=== PATIENT | female | born 1935 | race Caucasian/White ===

== ENCOUNTER → 2020-06-30 08:28 | Outpatient (REF) | payer MEDICARE, SELFPAY ==
--- NOTE | 2020-06-30 08:30 | CA_ITS ---
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 The visually estimated ejection fraction is between 55-60%. - The left atrium is severely dilated. - There is moderate aortic valve stenosis. - There is mild mitral valve regurgitation. - There is mild tricuspid valve regurgitation. Findings Left Ventricle Normal left ventricular cavity size. The left ventricular systolic function is normal. The visually estimated ejection fraction is between 55-60%. There is no evidence of regional wall motion abnormalities. E/E prime ratio is >15, consistent with elevated filling pressures. Evidence suggests grade I (mild) diastolic dysfunction. There is moderate septal and moderate basal asymmetric hypertrophy. Right Ventricle Normal right ventricular cavity size and systolic function. Atria The left atrium is severely dilated. The right atrium is normal in size. Aortic Valve The aortic valve was not well visualized. There is moderate calcification of the aortic valve. There is moderate aortic valve stenosis. The peak aortic velocity is 3.06 m/s with a calculated peak gradient of 37 mmHg. The mean gradient is 21 mmHg. The aortic valve area is 1.03 cm2. There is no aortic valve regurgitation. Mitral Valve The mitral valve appears normal. There is mild mitral valve regurgitation. There is no mitral valve stenosis. Pulmonic Valve The pulmonic valve was not well visualized. There is trace pulmonic valve regurgitation. Tricuspid Valve Normal tricuspid valve structure. There is mild tricuspid valve regurgitation. The pulmonary artery systolic pressure is normal. Great Vessels The asc aorta is normal in size. Venous The inferior vena cava is normal in size and collapses greater than 50% with inspiration. Pericardium/Pleural There is no evidence of pericardial effusion. Prior Study Comparison No prior study available for comparison. Measurements 2D Linear Measurements IVSd: 1.21 0.6-0.9/0.6-1.0 cm LVIDd: 3.99 3.9-5.3/4.2-5.9 cm LVIDd Index: 2.22 2.4-3.2/2.2-3.1 cm/m2 LVIDs: 3.10 2.0-3.6 cm LVPWd: 1.20 0.7-1.1 cm Ao Root: 2.80 2.1-3.5 cm LA Diam: 3.00 2.7-3.8/3.0-4.0 cm LAIDs Index: 1.67 1.5-2.3 cm/m2 LV Mass: 206.57 67-162/88-224 g LV Mass Index: 114.76 43-95/49-115 g/m2 LVOT Diam: 2.10 3.0+(-)1.3 cm 2D Systolic Function EF 4C: 59.30 >55% EF 2C: 54.40 >55% EF BiP: 55.30 >55% Mitral Valve MV VTI: 0.44 MV Pk Mckay: 1.44 MV Mn Mckay: 0.80 MV Pk Grad: 8.00 MV Mn Grad: 3.00 MV Pk E: 1.08 MV PK A: 1.44 MV Decel Time: 264.00 E/A: 0.80 E'Lateral: 6.38 E'Medial: 4.84 E/E' Med: 22.30 E/E' Lat: 16.90 PHT: 77.00 MVA PHT: 2.86 MVA Continuity: 1.60 Decel [place]: 4.10 Aortic Valve AoV Pk Mckay: 3.06 AoV Mn Mckay: 2.13 AoV VTI: 0.69 AoV Pk Grad: 37.00 Aov Mn Grad: 21.00 BRITTANY Cont.VTI: 1.03 LVOT LVOT Pk Mckay: 0.82 LVOT Mn Mckay: 0.54 LVOT VTI: 0.21 LVOT Pk Grad: 3.00 LVOT Mn Grad: 1.00 LVOT Diam: 2.10 LVOT Area: 3.46 Diastolic Function MV Pk E: 1.08 MV Pk A: 1.44 E/A: 0.80 E'Medial: 4.84 E/E' Med: 22.30 E' Laterial: 6.38 E/E' Lat: 16.90 Tricuspid Valve TR Pk Mckay: 2.44 TR Pk Grad: 24.00 RA Press: 3.00 RVSP: 27.00 Great Vessels Aorta Ao Root-2D: 2.80 2.0-3.7 cm Ao Asc: 3.30 2.1-3.4 cm Pulmonary Valve PV Pk Mckay: 1.78 Peak PV Grad: 13.00 Updated in Other Vendor System with Status of Final Hugo Tubbs MD electronically signed on 06/30/2020 12:15:28 PM with status of Final
== END ==
LOC: HO.CARD 08:28
PROVIDERS: Visit Provider Internal Medicine
DX: R01.1 Cardiac murmur, unspecified (principal)
CPT/HCPCS: 93306; Q9957

== ENCOUNTER → 2020-09-10 08:58 | Outpatient (BNVA) | payer MEDICARE, SELFPAY | PROVIDERS: PCP Internal Medicine; Visit Provider Internal Medicine | DX: I35.0 Nonrheumatic aortic (valve) stenosis (principal); I49.8 Other specified cardiac arrhythmias; I45.2 Bifascicular block; I10 Essential (primary) hypertension | CPT/HCPCS: 93005; 99202 ==

== ENCOUNTER → 2020-09-18 08:16 | Outpatient (REF) | payer MEDICARE, SELFPAY ==
--- NOTE | ~2020-09-18 | NM_ITS ---
Myocardial perfusion study Indication: Shortness of breath on exertion to evaluate for myocardial ischemia Technique: The patient was brought in for a Lexiscan perfusion study on 09/18/2020. Patient performed low-level exercise and was injected 0.4 mg of Lexiscan intravenously. Within a minute of injection, 25 mCi of sestamibi was given intravenously. Images were obtained using the SPECT gamma camera interlaced with the gating device. Images were obtained in supine position. Resting perfusion study was performed on 09/21/2020. Patient was administered 25 mCi of sestamibi intravenously at rest. Images were then obtained in supine position. Images obtained with and without CT attenuation. Total DLP 88 mGy-cm. Images were processed with the software and compared side to side in short axis, horizontal long axis and vertical long axis views. Findings: The stress perfusion study showed non attenuated images show normal uptake of radiotracer in all segments of LV myocardium. Attenuation corrected images show mildly reduced uptake in the apex of the LV myocardium. There is suggestion of left ventricle hypertrophy. The gated study shows normal LV systolic function with calculated LVEF of 59%. LV cavity is normal in size. The gated study shows normal systolic wall thickening and contraction of segments. Resting study shows no change in perfusion pattern compared to stress perfusion study. Gating at rest reveals normal systolic wall motion with ejection fraction at 55%. The findings are consistent with normal myocardial perfusion. NM/NM charisma perf SPECT rest & str Impression: 1. Myocardial perfusion imaging study shows normal myocardial perfusion 2. Gated LVEF is 59% 3. Transient ischemic dilatation not present EKG is nondiagnostic for ischemia
--- NOTE | 2020-09-18 08:24 | CA_ITS ---
Acquisition Time: 2020-09-18 09:17:38 Total Exercise Time: 00:02:00 Test Indications: Abnormal ECG Medications: FENOFIBRATE LOSARTAN/HCTZ PREGABALIN Protocol: LEXISCAN Max HR: 131 BPM 95% of Pred: 137 BPM Max BP: 132/078 mmHG Max Work Load: 1.0 METS Pharmacological stress test using Lexiscan while sitting. Pt tolerated well, denies any anginal sx. EKG with RBBB and L fascicular block. Non-diagnostic for ischemia. Nuclear images to follow. Normotensive response to test. Test reviewed with Dr. Tubbs. Patient's heart rate elevated 110-120, patient monitored and re-evaluated after nuclear scan. Heart rate down to 80s to 90s. Patient asymptomatic Referred By: Hugo Tubbs Overread By: Dina Mendoza NP
== END ==
LOC: HO.CARD 08:16
PROVIDERS: PCP Internal Medicine; Visit Provider Internal Medicine
DX: I45.2 Bifascicular block (principal)
CPT/HCPCS: 78452; 93016; 93017; 93018; A9500; J0280; J2785

== ENCOUNTER → 2020-09-28 14:17 | Outpatient (REF) | payer MEDICARE, SELFPAY ==
--- NOTE | 2020-09-29 15:35 | ECG_ITS ---
Hook-up date: 2020-09-28 14:20:00 Duration: 47:59:00 Test Indications: PALPITATIONS, CARDIAC ARRHYTHMIA Medications: 724777 QRS complexes 6085 Ventricular ectopics which represent 2 % of total QRS comp. 78890 Supraventricular ectopics which represent 5 % of total QRS comp. * Paced QRS complexs which represent % of total QRS comp. VENTRICULAR ECTOPY 5976 Isolated 21 Bigeminal Cycles 53 Couplets 1 Runs 3 Beats in Runs 3 Beats LONGEST at 83 BPM at 23:05:45 2020-09-28 3 Beats FASTEST at 83 BPM at 23:05:45 2020-09-28 SUPRAVENTRICULAR ECTOPY 06620 Isolated 267 Couplets 45 Runs 214 Beats in Runs 13 Beats LONGEST at 172 BPM at 15:41:38 2020-09-28 5 Beats FASTEST at 173 BPM at 14:53:56 2020-09-28 HEART RATES 65 MIN at 23:53:43 2020-09-28 88 AVG 199 MAX at 15:41:41 2020-09-28 LONGEST RR 0.8000 secs at 10:04:46 2020-09-29 S-T LEVELS Channel 1 - 128 mm at 14:20:00 2020-09-28 - 128 mm at 14:20:00 2020-09-28 Channel 2 - 128 mm at 14:20:00 2020-09-28 - 128 mm at 14:20:00 2020-09-28 Channel 3 - 128 mm at 03:33:91 -- - 128 mm at 03:33:91 Basic rhythm Normal sinus rhythm Baseline BBB No long pause or profound bradycardia Frequent Premature atrial complexes / Premature ventricular complexes Multiple short runs of PACs s/o of PAT/SVT , fastest 13 beats at 172 bpm Patient did not report any symptoms in the diary Referred By: Hugo Tubbs Overread By: SAMINA VILLAGOMEZ MD
== END ==
LOC: HO.CARD 14:17
PROVIDERS: PCP Internal Medicine; Referring Provider Internal Medicine; Visit Provider Internal Medicine
DX: I49.8 Other specified cardiac arrhythmias (principal); R00.2 Palpitations
CPT/HCPCS: 93226

== ENCOUNTER → 2020-10-13 10:16 | Outpatient (BNVA) | payer MEDICARE, SELFPAY | PROVIDERS: PCP Internal Medicine; Referring Provider Internal Medicine; Visit Provider Internal Medicine | DX: I35.0 Nonrheumatic aortic (valve) stenosis (principal); I49.8 Other specified cardiac arrhythmias; I45.2 Bifascicular block; I10 Essential (primary) hypertension | CPT/HCPCS: 99212 ==

== ENCOUNTER 2021-02-25 13:26 | Outpatient (REF) | payer MEDICARE, SELFPAY ==
--- NOTE | ~2021-02-25 | XR_ITS ---
EXAMINATION: XR CHEST CLINICAL INFORMATION: Cough. Pneumonia. COMPARISON: Previous chest x-ray February 2019 TECHNIQUE: 2 views of the chest were obtained. FINDINGS: The cardiac silhouette does not appear enlarged. There is an esophageal hernia that is unchanged. Hilar and mediastinal contours are otherwise unremarkable. The lungs are clear. There is no pleural effusion or pneumothorax. There are degenerative changes of the spine. There is an old mid thoracic vertebral body compression fracture that appears unchanged. XR/XR chest 2V IMPRESSION: No change from previous exam. No evidence of pneumonia.
[2021-02-25 14:49] LABS: MANUAL DIFF FLAG NO
[2021-02-25 15:02] LABS: Basophils Percent Auto 0.3 % (0-2); Eosinophils Absolute Auto 0.1 X10*3/uL (0.0-0.4); Eosinophils Percent Auto 0.7 % (0-4); Hematocrit 37.2 % (37-47); Hemoglobin 12.8 g/dl (12.0-16.0); Imm Gran Abs Auto 0.06 X10*3/uL (0.00-0.03); Imm Gran Pct Auto 0.4 % (0.0-0.4); Lymphocytes Absolute Auto 1.4 X10*3/uL (1.2-4.9); Lymphocytes Percent Auto 9.6 % (20-40); Mean Corpuscular HGB Conc 34.4 g/dl (31.0-35.0); Mean Corpuscular Hemoglobin 31.3 pg (27.0-33.0); Mean Platelet Volume 10.6 fL (9.4-12.3); Monocytes Absolute Auto 1.1 X10*3/uL (0.1-1.2); Monocytes Percent Auto 7.5 % (2-11); Neutrophils Absolute Auto 11.9 X10*3/uL (2.0-8.3); Neutrophils Percent Auto 81.5 % (45-73); Platelet Count 224 X10*3/uL (160-400); Red Blood Count 4.09 X10*6/uL (4.20-5.50); Red Cell Distribution Width 13.4 % (11.0-16.0); White Blood Count 14.6 X10*3/uL (4.8-10.8)
[2021-02-25 15:13] LABS: Alanine Aminotransferase 19 U/L (0-31); Albumin Level 4.1 g/dL (3.5-5.0); Alkaline Phosphatase 102 U/L (39-117); Anion Gap 17 (12-20); Aspartate Amino Transferase 21 U/L (5-31); Bilirubin Direct 0.4 mg/dL (0.0-0.5); Bilirubin Total 0.8 mg/dL (0.0-1.0); Blood Urea Nitrogen 33 mg/dL (9-16); Carbon Dioxide 24 mmol/L (22-29); Chloride 95 mmol/L (96-108); Cholesterol 216 mg/dL; Estimated Glomerular Filt Rate 24; Glucose Fasting 195 mg/dL (60-99); HDL Cholesterol 34 mg/dL; LDL Cholesterol Calculated 130 mg/dl; Potassium 3.3 mmol/L (3.3-5.1); Sodium 133 mmol/L (135-145); Total Protein 6.9 g/dL (6.5-8.0); Triglycerides 264 mg/dL
[2021-02-25 15:33] LABS: Free T4 (Free Thyroxine) 1.02 ng/dL (0.71-1.85)
[2021-02-25 16:04] LABS: Appearance Urine CLOUDY; Color Urine YELLOW; Glucose Urine UA NEG (NEG); Leukocyte Esterase Urine 2+ (NEG); Nitrite Urine NEG (NEG); PH 5.5 (5.0-8.0); Specific Gravity - Urine 1.025 (1.005-1.025); UACC Culture Trigger YES; Urine Blood TRACE (NEG); Urine Ketones NEG (NEG); Urine Protein 1+ MG/DL (NEG-TRACE)
[2021-02-25 16:23] LABS: Bacteria Urine 4+ /LPF; Squamous Epithelial Cell Urine 2+ /LPF
[2021-02-25 16:25] LABS: WBC Urine 30-49 /HPF (0-4)
== END 2021-02-25 13:27 | disposition home or self-care (01) ==
LOC: HO.LAB 13:26
PROVIDERS: PCP Internal Medicine; Visit Provider Internal Medicine
DX: R53.83 Other fatigue (principal); E78.5 Hyperlipidemia, unspecified; R06.02 Shortness of breath; R05.9 Cough, unspecified
CPT/HCPCS: 36415; 71046; 80051; 80061; 80076; 81001; 81003; 82565; 82947; 84439; 84443; 84520; 85025; 87086; 87088; 87186

== ENCOUNTER 2021-03-01 14:44 | Outpatient (REF) | payer MEDICARE, SELFPAY ==
--- NOTE | ~2021-03-01 | XR_ITS ---
EXAMINATION: XR BILATERAL HIPS WITH AP PELVIS CLINICAL INFORMATION: Fall. Bilateral hip pain. COMPARISON: None TECHNIQUE: AP view of the pelvis and 2 views of each hip were obtained. FINDINGS: AP HIP: There is normal symmetry of bilateral SI joints and hip joints. No visible acute fracture, dislocation or bony abnormality seen. Right hip: The the right hip joint space is maintained normal. No visible fracture, dislocation or subluxation seen. The soft tissues are normal. LEFT HIP: There is no visible acute fracture, dislocation or lytic process. The soft tissues are normal. XR/XR hips LEON min 3V IMPRESSION: Unremarkable AP pelvis and bilateral hip exam.
--- NOTE | ~2021-03-01 | XR_ITS ---
EXAMINATION: XR LUMBOSACRAL SPINE CLINICAL INFORMATION: Status post fall. COMPARISON: MRI lumbar spine 06/09/2017 TECHNIQUE: Three views of the lumbosacral spine. FINDINGS: There is normal lumbar lordosis. There is grade 1 anterolisthesis L4-L5 with loss of L4-L5 and L5/S1 disc heights. Rest the disc heights are normal. No visible acute fracture, dislocation seen. There is mild superior endplate deformities L1-L3 vertebra likely old. SI joints are symmetrical and normal. The soft tissues are normal. XR/XR lumbar spine 2-3V IMPRESSION: Grade 1 anterolisthesis L4 over L5. Degenerative disc changes L4-L5 and L5-S1 disc level. No visible acute fracture or dislocation seen. If patient has persistent point tenderness in the lumbar spine region of the lumbar spine or bone scan can be performed.
== END 2021-03-01 14:45 | disposition home or self-care (01) ==
LOC: HO.XRAY 14:44
PROVIDERS: PCP Internal Medicine; Visit Provider Internal Medicine
DX: Z13.89 Encounter for screening for other disorder (principal)
CPT/HCPCS: 72100; 73522

== ENCOUNTER 2021-03-01 14:50 | Outpatient (REF) | payer MEDICARE, SELFPAY ==
[2021-03-01 15:17] LABS: COVID-19 Test Negative (Negative)
== END 2021-03-01 14:51 | disposition home or self-care (01) ==
LOC: HO.LAB 14:50
PROVIDERS: PCP Internal Medicine; Visit Provider Internal Medicine
DX: Z20.822 Contact with and (suspected) exposure to COVID-19 (principal)
CPT/HCPCS: 36415; 72100; 73522; 87635; C9803

== ENCOUNTER 2021-03-03 11:51 | Inpatient (IN) | payer MEDICARE, SELFPAY ==
[2021-03-03] VITALS (9 sets, daily range): BP systolic 125–145; BP diastolic 57–79; PULSE 90–102; RESP 14–22; TEMP 36.8–36.9; O2SAT 92–96; BMI 38.1
--- NOTE | ~2021-03-03 | CT_ITS ---
EXAMINATION: CT LUMBAR SPINE WITHOUT CONTRAST CLINICAL INFORMATION: Compression fractures L1 and L3 vertebrae. Osteoporosis. Recent trauma. COMPARISON: MRI lumbar spine 03/05/2021 TECHNIQUE: 2 mm thin axial and reformatted 2 mm thin sagittal and coronal images of the lumbar spine were obtained without contrast. This CT examination was performed using dose optimization techniques as appropriate, variously including the following: *Automated exposure control *Adjustment of mA and/or kV according to patient size (this includes techniques or standardized protocols for targeted exams where dose is matched to indication/reason for exam; i.e. extremities or head) *Use of iterative reconstruction technique DLP; 402 mGy-cm FINDINGS: On sagittal reconstructed images, there is normal lumbar lordosis. There is loss of the L1 vertebral height approximately by 50%. There is loss of the L3 vertebral height by at least 20% centrally. There is a small posterior bony component projecting to the spinal canal at the L1 vertebra, but no spinal canal stenosis is seen. There is no posterior bony component or spinal canal stenosis at the L3 vertebra. No visible acute fracture, dislocation or lytic process is seen. The paravertebral soft tissues are normal. CT/CT lumbar spine wo con IMPRESSION: Acute L1 compression fracture with loss of 50% vertebral height and acute L3 compression fracture with loss of 20% vertebral height. There is a posterior bony spinal component at the L1 vertebra causing spinal canal stenosis.
--- NOTE | ~2021-03-03 | CT_ITS ---
EXAMINATION: CT LUMBAR SPINE CLINICAL INFORMATION: Post L1 and L3 kyphoplasty. COMPARISON: Pre-kyphoplasty CT. TECHNIQUE: 2 mm thin axial and reformatted 2 mm thin sagittal and coronal images of lumbar spine were obtained without contrast. This CT examination was performed using dose optimization techniques as appropriate, variously including the following: *Automated exposure control *Adjustment of mA and/or kV according to patient size (this includes techniques or standardized protocols for targeted exams where dose is matched to indication/reason for exam; i.e. extremities or head) *Use of iterative reconstruction technique DLP: 338 mGy-cm FINDINGS: On sagittal reconstructed images there is adequate cement occupying L1 compression fracture. The fracture lines are visualized through the superior endplate and along the anterior pedicles bilaterally. There is adequate cement occupying L3 compression fracture with no cement extravasation seen. The L2 and L4 vertebral heights are normal. CT/CT lumbar spine post vert IMPRESSION: Adequate amount of cement occupying L1 and L3 compression fractures with no extravasation seen. Visualized L2 and L4 vertebral heights are normal. The disc heights from L1-L2 through L3-L4 disc level appears unremarkable.
--- NOTE | ~2021-03-03 | CT_ITS ---
EXAMINATION: CT ABDOMEN AND PELVIS, NONCONTRAST CT LUMBAR SPINE, NONCONTRAST CLINICAL INFORMATION: Fall, trauma, pain, constipation COMPARISON: CT abdomen and pelvis with contrast 01/07/2019; CT chest 03/03/2021. TECHNIQUE: Multidetector volumetric imaging was performed from the superior aspect of the liver through the pubic symphysis without oral or intravenous contrast. CT lumbar spine also performed in axial plane without contrast. Sagittal and coronal reformatted images were obtained on the technologist workstation for both exams and uploaded to PACS. CT chest also performed, described in separate report. This CT examination was performed using dose optimization techniques as appropriate, variously including the following: *Automated exposure control *Adjustment of mA and/or kV according to patient size (this includes techniques or standardized protocols for targeted exams where dose is matched to indication/reason for exam; i.e. extremities or head) *Use of iterative reconstruction technique DLP: 654 mGy-cm (abdomen/pelvis) 474 mGy-cm (lumbar spine) FINDINGS: LUNG BASES: Subpleural scarring versus disc atelectasis left posterior medial base. No airspace consolidation or effusion. LIVER, GALLBLADDER, AND BILIARY TREE: The liver is upper limits of normal size and smooth in contour. Parenchymal is homogeneous. There is no focal parenchymal lesion on this noncontrast exam. No intrahepatic ductal dilatation. The gallbladder is unremarkable with no evidence of radiopaque gallstones, gallbladder wall thickening, or obvious pericholecystic inflammatory changes. PANCREAS: Unremarkable. SPLEEN: Unremarkable. ADRENAL GLANDS: Unremarkable. KIDNEYS AND URETERS: The kidneys are normal in size, shape, and attenuation. No hydronephrosis, hydroureter, or calculi seen. No perinephric stranding. BLADDER: Unremarkable. GASTROINTESTINAL TRACT: There is no pneumatosis or free air. No bowel obstruction or focal inflammatory changes in the bowel or mesentery. The appendix is normal. There is moderate stool right colon. Numerous diverticula are present from distal descending through the sigmoid colon without changes of diverticulitis. There is no ascites or fluid collection. ABDOMINAL WALL: Small fat-containing umbilical hernia under 3 cm. Bilateral fat-containing inguinal hernias again noted larger on right. No abdominal wall hematoma. LYMPH NODES: No lymphadenopathy. VASCULAR: Unremarkable on this noncontrast exam. PELVIC VISCERA: Unremarkable. CT LUMBAR SPINE: There is mild to moderate compression fracture at L1 representing new finding from prior CT 01/07/2019. The pedicles and posterior elements are intact. There is no retropulsed fragment. No spondylolisthesis or retrolisthesis. No paraspinal soft tissue swelling or hematoma. There are accentuated superior and inferior endplate concavities at L3, also new from 2019. No visible fracture line or paraspinal soft tissue swelling. The remainder of the lumbar vertebrae are normal in height. Again, there are prominent degenerative disc changes L4-L5 with grade 1-2 spondylolisthesis and degenerative changes in the facets. No visible spondylolysis. Prominent degenerative disc changes again also present at L5-S1 without spondylolisthesis or spondylolysis. The SI joints show no diastases. OSSEOUS STRUCTURES (OTHER): The pelvis and hips and lower ribs are intact. CT/CT abdomen pelvis wo con IMPRESSION: 1. Mild to moderate compression fracture L1, new from prior CT 01/07/2019. No retropulsed fragment. Posterior elements intact. No paraspinal soft tissue swelling. 2. Mild accentuated superior and inferior endplate concavity L3, new from CT 01/07/2019. No visible fracture or paraspinal soft tissue swelling. 3. No acute traumatic abnormality abdominal organs. No free air or ascites.
--- NOTE | ~2021-03-03 | CT_ITS ---
EXAMINATION: CT HEAD W/O IV CONTRAST CT CERVICAL SPINE W/O IV CONTRAST CLINICAL INFORMATION: History of fall with head strike. Neck pain. COMPARISON: Head and C-spine CT from 05/08/2018. Neck CT from 02/04/2016. TECHNIQUE: Head - Contiguous axial imaging of the head was performed from the skull base to the vertex without the administration of intravenous contrast, and axial images are reconstructed at 2 mm and 5 mm slice thickness. Cervical spine - A volumetric, helical CT acquisition of the cervical spine was obtained without contrast; in addition to the standard set of axial images, multiplanar reformatted images were provided in the coronal and sagittal imaging planes. This CT examination was performed using dose optimization techniques as appropriate, variously including the following: *Automated exposure control *Adjustment of mA and/or kV according to patient size (this includes techniques or standardized protocols for targeted exams where dose is matched to indication/reason for exam; i.e. extremities or head) *Use of iterative reconstruction technique DLP: 969 mGy-cm (total) FINDINGS: HEAD: There is atherosclerotic calcification of cavernous carotid arteries and proximal intradural segments of vertebral arteries. Chronic small vessel ischemic changes in the supratentorial white matter. The gonzalez-white matter differentiation is maintained. No evidence of an acute major vascular territory infarction, hemorrhage, extra-axial fluid collection or focal mass effect. Mild atrophy of brain parenchyma with commensurate prominence of ventricles and sulci. No hydrocephalus. There is an old perifissural cystic focus or prominent perivascular space inferior to the region of left basal ganglia. The brainstem and cerebellum are unremarkable. The cerebellar tonsils are in normal position. The calvarium is intact. The mastoid air cells and middle ear cavities are well aerated. There is chronic mucoperiosteal thickening of the left sphenoid sinus. There are secretions within the posterior right ethmoid. No air-fluid levels within the paranasal sinuses. No findings of acute sinusitis. Prior ocular lens replacements. Osteoarthritis of bilateral temporomandibular joints. CERVICAL SPINE: No acute abnormalities compared to 05/08/2018. The craniocervical junction is normal. The occipital condyles, dens and atlantodental articulation are intact. Chronic, multilevel facet osteoarthritis. The facet joints are ankylosed on the left at C2-C3. The degenerative disc disease of the cervical spine is most pronounced at the C4-C5, C5-C6 and C6-C7 levels. There is chronic, approximately 0.3 cm degenerative anterolisthesis of C3 on C4 and C7 on T1. The facet osteoarthritis is severe on the left at C3-C4 and is severe on the right at C7-T1. There is chronic multilevel neural foraminal stenosis, severe on the left at C3-C4 and worst (i.e., severe) on the right at C4-C5 and C5-C6. The vertebral body heights are maintained. No fractures in the anterior or posterior elements. No prevertebral soft tissue swelling. No spinal hematoma or focal fluid collection in the visualized neck. No acute abnormalities in the visualized lung apices. Thyroid gland is unremarkable. CT/CT cervical spine wo con IMPRESSION: * No acute intracranial pathology compared to the prior head CT from 05/08/2018. * No fractures in the chronically degenerated cervical spine. There is degenerative disc disease at C4-C5, C5-C6 and C6-C7. Multilevel facet osteoarthritis is present. Chronic degenerative anterolisthesis is noted at C3-C4 and C7-T1.
--- NOTE | ~2021-03-03 | MR_ITS ---
EXAMINATION: MR LUMBAR SPINE WITHOUT CONTRAST CLINICAL INFORMATION: L1 compression fracture. COMPARISON: CT scan of the lumbar spine 03/03/2021. Lumbar spine MRI 06/09/2017. TECHNIQUE: MRI of the lumbar spine was obtained using routine sequences without contrast. FINDINGS: There is bone marrow edema associated with acute compression fractures of the L1 and L3 vertebral bodies. At L2 there is impaction of the upper and lower endplates resulting in 60% vertebral height loss centrally. At L3 there is also impaction of the upper and lower endplates resulting in 20% vertebral height loss centrally. There is retropulsion of the posterior cortex at L1 causing indentation of the thecal sac. There is grade 1 anterolisthesis of L4 on L5 related to advanced facet degenerative changes at this level. Alignment is otherwise normal. There is loss of intervertebral disc height and T2 signal intensity at multiple levels related to disc degeneration. There are mixed type II and type III degenerative endplate changes at L5-S1 and to a lesser degree at L4-L5. Although only partially included within the [id number] of this examination there is a right central subarticular protrusion at T11-T12. The tip of the conus medullaris is located at L1-L2. No mass effect on the conus. Visualized distal cord signal intensity is normal. At L1-L2 the annular contour is normal. No canal stenosis. No mass effect on the traversing or foraminal nerve roots. At L2-L3 there is a slightly bulging disc. Bilateral facet degenerative change. No canal stenosis. No mass effect on the traversing or foraminal nerve roots. At L3-L4 there is a slightly bulging disc. Bilateral facet degenerative change. No canal stenosis. No mass effect on the traversing or foraminal nerve roots. At L4-L5 there is a pseudodisc bulge. Advanced facet degenerative change. Severe canal stenosis. Moderate compression of the right L4 foraminal nerve root and mild compression of the left L4 foraminal nerve root. At L5-S1 there is a bulging disc. Bilateral facet degenerative change. No canal stenosis. Mild to moderate compression of left L5 foraminal nerve root. Limited visualization of the retroperitoneal anatomy reveals a nonspecific lesion located within the right kidney best depicted on axial T2 image 10 of 34 series 7. MR/MR lumbar spine wo con IMPRESSION: There is bone marrow edema associated with acute compression fractures of the L1 and L3 vertebral bodies. There is 60% vertebral body height loss centrally at L1 and 20% vertebral body height loss centrally at L3. There is relatively mild retropulsion of the posterior cortex at L1 with no evidence of canal compromise at this level. 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 Severe canal stenosis at L4-L5. There are varying degrees of mass effect on the traversing and foraminal segments the nerve roots as described above. For instance at L4-L5 there is moderate compression of the right L4 foraminal nerve root and mild compression of the left L4 foraminal nerve root. There is also mild to moderate mass effect on the left L5 foraminal nerve root related to degenerative changes at L5-S1.
--- NOTE | ~2021-03-03 | XR_ITS ---
EXAMINATION: XR CHEST CLINICAL INFORMATION: SOB. COMPARISON: Chest 02/25/2021 TECHNIQUE: Frontal view of the chest was obtained. FINDINGS: The lungs are well-expanded and clear of acute process. Heart size is enlarged. The pulmonary vascularity is normal. There is a moderate-sized hiatal hernia. No gross bony pneumonitis seen. XR/XR chest 1V IMPRESSION: Mild cardiomegaly with moderate size hiatal hernia.
--- NOTE | ~2021-03-03 | CT_ITS ---
EXAMINATION: CT CHEST WITHOUT CONTRAST CLINICAL INFORMATION: Fall, trauma, pain COMPARISON: Chest radiograph 03/03/2021; CT abdomen and pelvis with contrast 01/07/2019. TECHNIQUE: Multidetector volumetric CT imaging of the chest is performed without intravenous contrast. Axial MIP volume rendering provided. Sagittal and coronal reformatted images were obtained. CT abdomen and lumbar spine is also performed, described in separate report. This CT examination was performed using dose optimization techniques as appropriate, variously including the following: *Automated exposure control *Adjustment of mA and/or kV according to patient size (this includes techniques or standardized protocols for targeted exams where dose is matched to indication/reason for exam; i.e. extremities or head) *Use of iterative reconstruction technique DLP: 655 mGy-cm FINDINGS: LUNGS: There is no pneumothorax, lobar or segmental airspace consolidation, or groundglass opacities. Subsegmental atelectasis versus scarring present left posterior medial base. Moderate hiatal hernia, chronic. MEDIASTINUM: No mediastinal hematoma. Thoracic aorta normal in caliber. No hilar or mediastinal mass or adenopathy. No pericardial effusion. No pneumomediastinum. PLEURA: There is no pleural effusion. No pleural mass or thickening. AXILLA: No lymphadenopathy. UPPER ABDOMEN: CT abdomen and pelvis described in separate report. OSSEOUS STRUCTURES: Degenerative changes thoracic spine. No acute thoracic bony abnormality. CT/CT chest wo con IMPRESSION: 1. No acute intrathoracic abnormality. 2. CT abdomen and pelvis and CT lumbar spine also performed, separate report.
--- NOTE | ~2021-03-03 | IR_ITS ---
EXAMINATION: IR LUMBAR VERTEBROPLASTY CLINICAL INFORMATION: Acute L1 and L3 compression fracture secondary to osteoporosis and trauma. COMPARISON: MRI lumbar spine 03/05/2021. TECHNIQUE: Explaining L1 and L3 kyphoplasty fluoroscopy-guided procedure, benefits and risks, a written consent was obtained. Patient was placed prone and midback area was cleaned and draped in usual sterile manner. 1% lidocaine was injected overlying the right and left L1 and L3 pedicles. A 22-gauge spinal needle was then advanced from the skin to the periosteum of the pedicles and 0.25% Marcaine was injected at the L1-L3 vertebrae. Through a small skin incision, a 10-gauge Kyphon needle was advanced from the skin to the periosteum and through the periosteum in the posterior one third of L1 vertebra. A similar second needle was advanced to the left pedicle followed by third and fourth needles and right and left L3 vertebrae. A hand drill was injected through the needles and a track created in the vertebrae. Subsequently, high-tensile balloons were inserted through the needles and inflated to 150 psi at both these disc levels. After 10 minutes, the balloons were deflated and freshly prepared polymethylmetacrylate (PMMA) was injected. After observing adequate amount of cement and observing no cement leak, the catheter was withdrawn and complete hemostasis was achieved at the puncture site. Sterile dressing was applied postprocedure. Patient tolerated the procedure extremely well. Sedation was administered by anesthesia department. IV antibiotics was ongoing twice a day with 250 mg of penicillin. FINDINGS: On fluoroscopy, there is moderate compression fracture L1 vertebra with approximately 50% loss of height and approximately 20% loss of L3 vertebral height. There is adequate amount of cement occupying the L1 and L3 vertebrae without any cement extravasation. FLUOROSCOPY TIME: 14.5 minutes. DOSE AREA PRODUCT: 85058 uGy-m2 (microgray-meter squared). IR/IR kyphoplasty lumbar IMPRESSION: Successful fluoroscopy-guided bipedicular approach L1 and L3 kyphoplasty performed with no extravasation seen.
--- NOTE | 2021-03-03 12:27 | ECG_ITS ---
Test Reason : FALL Blood Pressure : / mmHG Vent. Rate : 087 BPM Atrial Rate : 087 BPM P-R Int : 166 ms QRS Dur : 138 ms QT Int : 416 ms P-R-T Axes : 021 -68 029 degrees QTc Int : 500 ms Normal sinus rhythm Left anterior fascicular block Right bundle branch block Abnormal ECG When compared with ECG of 08-MAY-2018 20:54, Premature ventricular complexes are no longer Present Premature atrial complexes are no longer Present Referred By: Suzanne Phelps Electronically Signed By:SUMIT GALEANA MD
--- NOTE | 2021-03-03 12:32 | ED.GENADULT ---
HPI - General Adult General Chief complaint: Back Pain/Injury Stated complaint: L HIP/BACK PAIN FROM FALL ON MONDAY,SEEN FOR SAME Time Seen by Provider: 03/03/21 12:15 Source: patient Mode of arrival: EMS Limitations: no limitations History of Present Illness HPI narrative: 85-year-old female past medical history significant for hypertension, aortic stenosis, atrial arrhythmia, bifascicular block, spinal stenosis presents to the emergency department with concerns of back pain, malaise, shortness of breath and nonproductive cough X1 week. She states about a week ago she sustained a fall, while going into the bathroom, she states she fell flat onto her back, hit her head, and ever since then she has been having trouble with ambulation, and she notes she has not been able to have a bowel movement. She states she is having 10/10 lower back pain, worse with ambulation, better at rest. She also states that for the past week she has felt a little more short of breath than usual, and she reports a cough that is nonproductive in nature. She also states she has been able to hear herself wheezing. She states that she is currently being treated for UTI, with Bactrim. She reports chills at home. She denies chest pain, fevers, abdominal pain, nausea, vomiting, diarrhea, , headaches, changes in vision, weakness. When speaking to the daughter who is at the bedside, she states she has noted her mother has been seeing some weird things lately. Onset (ago): week(s) (1) Location: back Radiation: non-radiation Severity: severe Severity scale (1-10): 10 Quality: sharp Pain Consistency: constant Relieving factors: immobilization Exacerbating factors: movement Associated symptoms: denies other symptoms Treatments prior to arrival: none Related Data Home Medications Medication Instructions Recorded Confirmed losartan 100 1 tab PO DAILY 09/10/20 03/03/21 mg-hydrochlorothiazide 25 mg tablet multivitamin 1 tab PO DAILY 09/10/20 03/03/21 pregabalin 150 mg capsule 150 mg PO DAILY cap 09/10/20 03/03/21 albuterol sulfate 90 mcg/actuation 2 puff INHALATION Q4H PRN 03/03/21 03/03/21 aerosol inhaler hydrocodone 5 mg-acetaminophen 325 1 tab PO TID PRN 03/03/21 03/03/21 mg tablet Allergies Allergy/AdvReac Type Severity Reaction Status Date / Time Penicillins AdvReac Unknown Rash Verified 10/13/20 10:28 Review of Systems Review of Systems: Constitutional : No Fever, + Chills, + malise ENT/Mouth : No oral swelling, No Hoarseness, No Swallowing Difficulty Eyes: No Eye Pain, No Swelling, No Redness Cardiovascular : No Chest Pain, + SOB Respiratory : + Cough, No Sputum, No Wheezing, No Smoke Exposure, + Dyspnea Gastrointestinal : No Nausea, No Vomiting, No Diarrhea, No abdominal Pain Genitourinary : No Dysuria, No Urinary Frequency, No Hematuria Musculoskeletal : + joint pain, No Myalgias, No Joint Swelling Skin : No Skin Lesions, No rash Neuro : No Weakness, No Numbness, No Headache Psych : No Anxiety/Panic, No Depression All other systems reviewed and are negative FORMERLY [facility], 1928–1983 Past Medical History Attestation statement: The following information was validated with the patient. Source: old records reviewed and nursing notes reviewed Medical History Atrial arrhythmia Bifascicular block Essential hypertension Non-rheumatic aortic stenosis Surgical History History of benign breast biopsy History of tonsillectomy Family History Family History Father CVD (cardiovascular disease) Mother CVD (cardiovascular disease) Brother CVD (cardiovascular disease) Social History Social History Alcohol intake: unknown Patient Tobacco Use Status: Former Tobacco user Quit Date: 30 years ago Use of substances other than those prescribed or required for medical reasons: No Advance Directives: No Advance Directives Information Provided: No Physical Exam Vital Signs: Vital Signs: Last Vital Signs Temp 98.3 F 03/03/21 12:10 Pulse 94 03/03/21 15:21 Resp 14 03/03/21 15:21 BP 129/57 L 03/03/21 15:21 Pulse Ox 95 03/03/21 15:21 Body Mass Index 38.1 Appearance: Alert. Oriented X3. No acute distress. Eyes: Pupils equal, round and reactive to light. ENT: Pharynx normal. Neck: Normal inspection. Neck supple. CVS: Normal heart rate and rhythm. Pulses normal. +Aortic stenosis Respiratory: No respiratory distress. + b/l rales, and wheezing noted over all lung woo. Abdomen: Soft and nontender. Skin: Skin warm and dry. Normal skin color. Normal skin turgor. Extremities: No lower extremity edema. No calf ttp + back pain with active and passive ROM Neuro: Oriented X 3. No motor deficit. No sensory deficit. Course Course Course Narrative: 1340 Upon re-evaluation, patient saturating 89% on room air. For this reason 2 L of nasal cannula have been initiated at this time, she is now saturating 95% on 2 L. Patient is also noted to have HERMINIO, to note, patient is on Bactrim currently. at this time infection suspected will switch bactrim to ceftriaxone 433pm Medical Decision Making MDM Narrative Medical decision making narrative: 85-year-old female past medical history significant for hypertension, aortic stenosis, atrial arrhythmia, bifascicular block, spinal stenosis presents to the emergency department with concerns of back pain, malaise, shortness of breath and nonproductive cough X1 week. Patient is currently taking Bactrim, for UTI. Daughter reports that her mother has been saying weird things lately, they do not make sense. She is not on any blood thinners. Physical examination reveals rales, and wheezing to bilateral lung woo. Aortic stenosis is noted upon auscultation. No lower extremity edema. No step-offs to the skull. No focal neuro deficits noted. 5/5 strength upper and lower extremities. [id number] normal, [id number] normal, hand certified nursing attendant normal. Due to the mechanism of injury, and patient's symptoms a CT of the head, C-spine, chest, abdomen and pelvis and lumbar spine will be ordered to rule out fractures, or ICH. Basic labs will also be ordered to rule out infection, anemia, and cardiac etiology such as ACS. Lab Data Result diagrams: 03/03/21 12:40 03/03/21 12:40 Labs: Lab Results 03/03/21 03/03/21 03/03/21 Range/Units 12:40 12:40 12:40 WBC 9.4 (4.8-10.8) X10*3/uL RBC 3.85 L (4.20-5.50) X10*6/uL Hgb 12.0 (12.0-16.0) g/dl Hct 35.3 L (37-47) % MCV 91.7 (80-98) fL MCH 31.2 (27.0-33.0) pg MCHC 34.0 (31.0-35.0) g/dl RDW 13.8 (11.0-16.0) % Plt Count 293 D (160-400) X10*3/uL MPV 9.9 (9.4-12.3) fL Immature Gran % (Auto) 0.8 H (0.0-0.4) % Neut % (Auto) 69.7 (45-73) % Lymph % (Auto) 17.3 L (20-40) % Benzie % (Auto) 10.3 (2-11) % Eos % (Auto) 1.3 (0-4) % Baso % (Auto) 0.6 (0-2) % Lymph # (Auto) 1.6 (1.2-4.9) X10*3/uL Benzie # (Auto) 1.0 (0.1-1.2) X10*3/uL Eos # (Auto) 0.1 (0.0-0.4) X10*3/uL Baso # (Auto) 0.1 (0.0-0.2) X10*3/uL Abs Immat Gran (auto) 0.08 H (0.00-0.03) X10*3/uL Absolute Neuts (auto) 6.6 (2.0-8.3) X10*3/uL Absolute Nucleated RBC 0.000 (0.0-0.012) X10*3/uL Nucleated RBC % (auto) 0.0 (0.0-0.2) /100WBC Sodium 132 L (135-145) mmol/L Potassium 4.2 D (3.3-5.1) mmol/L Chloride 100 (96-108) mmol/L Carbon Dioxide 19 L (22-29) mmol/L Anion Gap 17 (12-20) BUN 51 H D (9-16) mg/dL Creatinine 2.47 H (0.5-1.4) mg/dL Estim Creat Clear Calc 18.4 Estimated GFR 19 Random Glucose 187 H (60-115) mg/dL Calcium 8.7 (8.4-10.2) mg/dL Magnesium 2.9 H (1.6-2.6) mg/dL Total Bilirubin 0.4 (0.0-1.0) mg/dL Direct Bilirubin 0.2 (0.0-0.5) mg/dL AST 22 (5-31) U/L ALT 19 (0-31) U/L Alkaline Phosphatase 92 (39-117) U/L Troponin I High Sens (<3.5-17.0) ng/L Total Protein 6.8 (6.5-8.0) g/dL Albumin 3.9 (3.5-5.0) g/dL Urine Color Urine Appearance Urine pH (5.0-8.0) Ur Specific [place] (1.005-1.025) Urine Protein (NEG-TRACE) MG/DL Urine Glucose (UA) (NEG) MG/DL Urine Ketones (NEG) MG/DL Urine Blood (NEG) Urine Nitrite (NEG) Ur Leukocyte Esterase (NEG) Urine RBC (0) /HPF Urine WBC (0-4) /HPF Ur Squamous Epith Cells /LPF Ur Renal Epithelial Cell /LPF Urine Bacteria /LPF COVID-19 (ISAIAH) Negative (Negative) COVID-19 Clin Com See Note 03/03/21 03/03/21 Range/Units 12:40 14:58 WBC (4.8-10.8) X10*3/uL RBC (4.20-5.50) X10*6/uL Hgb (12.0-16.0) g/dl Hct (37-47) % MCV (80-98) fL MCH (27.0-33.0) pg MCHC (31.0-35.0) g/dl RDW (11.0-16.0) % Plt Count (160-400) X10*3/uL MPV (9.4-12.3) fL Immature Gran % (Auto) (0.0-0.4) % Neut % (Auto) (45-73) % Lymph % (Auto) (20-40) % Benzie % (Auto) (2-11) % Eos % (Auto) (0-4) % Baso % (Auto) (0-2) % Lymph # (Auto) (1.2-4.9) X10*3/uL Benzie # (Auto) (0.1-1.2) X10*3/uL Eos # (Auto) (0.0-0.4) X10*3/uL Baso # (Auto) (0.0-0.2) X10*3/uL Abs Immat Gran (auto) (0.00-0.03) X10*3/uL Absolute Neuts (auto) (2.0-8.3) X10*3/uL Absolute Nucleated RBC (0.0-0.012) X10*3/uL Nucleated RBC % (auto) (0.0-0.2) /100WBC Sodium (135-145) mmol/L Potassium (3.3-5.1) mmol/L Chloride (96-108) mmol/L Carbon Dioxide (22-29) mmol/L Anion Gap (12-20) BUN (9-16) mg/dL Creatinine (0.5-1.4) mg/dL Estim Creat Clear Calc Estimated GFR Random Glucose (60-115) mg/dL Calcium (8.4-10.2) mg/dL Magnesium (1.6-2.6) mg/dL Total Bilirubin (0.0-1.0) mg/dL Direct Bilirubin (0.0-0.5) mg/dL AST (5-31) U/L ALT (0-31) U/L Alkaline Phosphatase (39-117) U/L Troponin I High Sens 11.6 (<3.5-17.0) ng/L Total Protein (6.5-8.0) g/dL Albumin (3.5-5.0) g/dL Urine Color YELLOW Urine Appearance CLEAR Urine pH 6.0 (5.0-8.0) Ur Specific [place] 1.015 (1.005-1.025) Urine Protein NEG (NEG-TRACE) MG/DL Urine Glucose (UA) NEG (NEG) MG/DL Urine Ketones NEG (NEG) MG/DL Urine Blood NEG (NEG) Urine Nitrite NEG (NEG) Ur Leukocyte Esterase 1+ H (NEG) Urine RBC 0 (0) /HPF Urine WBC 15-29 H (0-4) /HPF Ur Squamous Epith Cells 1+ /LPF Ur Renal Epithelial Cell 1+ /LPF Urine Bacteria NONE /LPF COVID-19 (ISAIAH) (Negative) COVID-19 Clin Com ECG Data Attestation: I personally reviewed and interpreted this ECG as follows: Prior ECG tracings: available for review Interpretation: Rate of 87, normal MI, normal QRS, normal QT/QTC. EKG shows normal sinus rhythm with left axis deviation and right bundle branch block. No ST elevations, no T-wave inversions. No acute changes when compared to previous EKG from 09/28/2020. No acute ischemia. Discharge Plan Discharge Clinical Impression: Closed compression fracture of lumbar vertebra, Acute UTI, Acute renal failure Patient Disposition: Admitted As Inpatient Prescriptions: No Action hydrocodone-acetaminophen 5-325 mg tablet 1 tab PO TID PRN (Reason: Pain (Scale Score 7-10)) RF: 0 albuterol sulfate 90 mcg/actuation HFA aerosol inhaler 2 puff inhalation Q4H PRN (Reason: Shortness Of Breath) RF: 0 pregabalin 150 mg capsule 150 mg PO DAILY RF: 0 losartan-hydrochlorothiazide 100-25 mg tablet 1 tab PO DAILY RF: 0 multivitamin Tablet 1 tab PO DAILY RF: 0
[2021-03-03 12:44] LABS: MANUAL DIFF FLAG NO
[2021-03-03] MEDS: Albuterol/Iprat 2.5/0.5MG 3 ML AMPUL.NEB INHALE (12:49)
[2021-03-03 12:50] LABS: Basophils Absolute Auto 0.1 X10*3/uL (0.0-0.2); Basophils Percent Auto 0.6 % (0-2); Eosinophils Absolute Auto 0.1 X10*3/uL (0.0-0.4); Eosinophils Percent Auto 1.3 % (0-4); Hematocrit 35.3 % (37-47); Imm Gran Abs Auto 0.08 X10*3/uL (0.00-0.03); Imm Gran Pct Auto 0.8 % (0.0-0.4); Lymphocytes Absolute Auto 1.6 X10*3/uL (1.2-4.9); Lymphocytes Percent Auto 17.3 % (20-40); Mean Corpuscular Hemoglobin 31.2 pg (27.0-33.0); Mean Corpuscular Volume 91.7 fL (80-98); Mean Platelet Volume 9.9 fL (9.4-12.3); Monocytes Percent Auto 10.3 % (2-11); Neutrophils Absolute Auto 6.6 X10*3/uL (2.0-8.3); Neutrophils Percent Auto 69.7 % (45-73); Platelet Count 293 X10*3/uL (160-400); Red Blood Count 3.85 X10*6/uL (4.20-5.50); Red Cell Distribution Width 13.8 % (11.0-16.0); White Blood Count 9.4 X10*3/uL (4.8-10.8)
[2021-03-03] MEDS: Morphine Sulfate 4 MG/ML CARTRIDGE IVPUSH (13:04)
[2021-03-03 13:05] LABS: COVID-19 Test Negative (Negative)
[2021-03-03 13:15] LABS: Troponin-I High Sensitivity 11.6 ng/L (<3.5-17.0)
[2021-03-03 13:18] LABS: Alanine Aminotransferase 19 U/L (0-31); Albumin Level 3.9 g/dL (3.5-5.0); Alkaline Phosphatase 92 U/L (39-117); Anion Gap 17 (12-20); Aspartate Amino Transferase 22 U/L (5-31); Bilirubin Direct 0.2 mg/dL (0.0-0.5); Bilirubin Total 0.4 mg/dL (0.0-1.0); Blood Urea Nitrogen 51 mg/dL (9-16); Calcium 8.7 mg/dL (8.4-10.2); Carbon Dioxide 19 mmol/L (22-29); Chloride 100 mmol/L (96-108); Creatinine Clr Calc Pharmacy 18.4; Estimated Glomerular Filt Rate 19; Glucose Random 187 mg/dL (60-115); Magnesium 2.9 mg/dL (1.6-2.6); Potassium 4.2 mmol/L (3.3-5.1); Sodium 132 mmol/L (135-145); Total Protein 6.8 g/dL (6.5-8.0)
--- NOTE | 2021-03-03 14:06 | PHA.MEDREC ---
Pharmacy Consult ? Medication Reconciliation Pharmacy has completed the medication reconciliation.
[2021-03-03] MEDS: 0.9 % Sodium Chloride 500 ML IV (14:49)
[2021-03-03 15:04] LABS: Appearance Urine CLEAR; Color Urine YELLOW; Glucose Urine UA NEG (NEG); Leukocyte Esterase Urine 1+ (NEG); Nitrite Urine NEG (NEG); Specific Gravity - Urine 1.015 (1.005-1.025); UACC Culture Trigger YES; Urine Blood NEG (NEG); Urine Ketones NEG (NEG); Urine Protein NEG (NEG-TRACE)
[2021-03-03 15:10] LABS: RBC Urine 0 /HPF (0); Renal Epithelial Cells Urine 1+ /LPF; Squamous Epithelial Cell Urine 1+ /LPF
[2021-03-03] MEDS: oxyCODONE HCl Immed Release 5 MG TABLET 10 MG PO (16:54)
[2021-03-03] MEDS: cefTRIAXone sodium 1 GM in 0.9 % Sodium Chloride 50 ML IV (17:06)
--- NOTE | 2021-03-03 17:19 | P.HPHOSP_ITS ---
History of Present Illness Date of Service: 03/03/21 85-year-old female past medical history significant for hypertension, aortic stenosis, atrial arrhythmia, bifascicular block, spinal stenosis presents to the emergency department with concerns of back pain, malaise, shortness of breath and nonproductive cough X1 week.? She states about a week ago she sustained a fall, while going into the bathroom, she states she fell flat onto her back, hit her head, and ever since then she has been having trouble with ambulation, and she notes she has not been able to have a bowel movement.? She states she is having 10/10 lower back pain, worse with ambulation, better at rest. She also states that for the past week she has felt a little more short of breath than usual, and she reports a cough that is nonproductive in nature.? She also states she has been able to hear herself wheezing.? She states that she is currently being treated for UTI, with Bactrim.? She reports chills at home.? She denies chest pain, fevers, abdominal pain, nausea, vomiting, diarrhea, , headaches, changes in vision, weakness. In the ER; his CT scans essentially negative save a new L1 compression fracture. Also noted to have acute on chronic renal failure. Will be admitted for management of same Review of Systems Review of Systems: Denies chest pain Denies shortness breath Denies nausea vomiting diarrhea PMFSH Medical History Atrial arrhythmia Bifascicular block Essential hypertension Non-rheumatic aortic stenosis Family History Father CVD (cardiovascular disease) Mother CVD (cardiovascular disease) Brother CVD (cardiovascular disease) Pertinent family history: . Surgical History History of benign breast biopsy History of tonsillectomy Social History Alcohol intake: unknown Patient Tobacco Use Status: Former Tobacco user Quit Date: 30 years ago Use of substances other than those prescribed or required for medical reasons: No Advance Directives: No Advance Directives Information Provided: No Meds Allergies Allergy/AdvReac Type Severity Reaction Status Date / Time Penicillins AdvReac Unknown Rash Verified 10/13/20 10:28 Active Medications: Current Medications Acetaminophen (Acetaminophen 325 Mg Tablet) 650 mg PO Q6H PRN PRN Reason: Pain, Mild (Pain Scale 1-3) Hydrocodone Bitart/Acetaminophen (Hydrocodone Bit/Acetam 5/325 Tablet) 1 tab PO TID PRN PRN Reason: Pain (Scale Score 7-10) Albuterol Sulfate (Albuterol Sulfate 90 Mcg 8 Gm Inhaler) 2 puff INHALE Q4H PRN PRN Reason: Shortness Of Breath Enoxaparin Sodium (Enoxaparin Sodium 40 Mg/0.4 Ml Syringe) 40 mg SUBCUT Q24H [facility] Dextrose/Sodium Chloride (D51/2ns) 1,000 mls @ 100 mls/hr IVCONT .Q10H [facility] Magnesium Hydroxide (Milk Of Magnesia 30 Ml Oral.Susp) 30 ml PO DAILY PRN PRN Reason: Constipation Melatonin (Melatonin 3 Mg Tablet) 6 mg PO BEDTIME PRN PRN Reason: Insomnia Multivitamins/Vitamin C (Multivitamin Tablet) 1 tab PO DAILY [facility] Pharmacy Consult (Consult Rx Perform Med Rec) 1 each MISCELLANE ONCE PRN PRN Reason: Consult order Pregabalin (Pregabalin 150 Mg Capsule) 150 mg PO DAILY [facility] Sodium Chloride (0.9 % Sodium Chloride Flush 3 Ml Syringe) 3 ml IVFLUSH QSHIFT [facility] Home Medications Medication Instructions Recorded Confirmed Last Taken Type losartan 100 1 tab PO DAILY 09/10/20 03/03/21 03/02/21 History mg-hydrochlorothiazide 25 mg tablet multivitamin 1 tab PO DAILY 09/10/20 03/03/21 03/02/21 History pregabalin 150 mg capsule 150 mg PO DAILY cap 09/10/20 03/03/21 03/02/21 History albuterol sulfate 90 mcg/actuation 2 puff INHALATION Q4H PRN 03/03/21 03/03/21 03/02/21 History aerosol inhaler hydrocodone 5 mg-acetaminophen 325 1 tab PO TID PRN 03/03/21 03/03/21 03/02/21 History mg tablet Physical Exam Vital Signs and Narrative: Vital Signs: Last Vital Signs Temp 98.3 F 03/03/21 12:10 Pulse 94 03/03/21 15:21 Resp 14 03/03/21 15:21 BP 129/57 L 03/03/21 15:21 Pulse Ox 95 03/03/21 15:21 Body Mass Index 38.1 Const: Other: Awake alert oriented x3 no acute distress HENMT: Other: Membranes dry wrist; oropharynx clear Resp: Other: Clear to auscultation bilaterally no rales rhonchi wheezes Cardio: Other: No S4 positive S1-S2 no S3 murmurs rubs or gallops GI: Other: Soft nontender nondistended with normoactive bowel sounds Neuro: Other: Cranial nerves 2-12 grossly intact as tested. Motor is 5/5 all extremities however painful with leg raising. Sensation is intact Extrem: Other: No edema bilaterally Results Labs CBC and Chem 7: 03/03/21 12:40 03/03/21 12:40 Labs: Laboratory Results - last 24 hr 03/03/21 03/03/21 03/03/21 12:40 12:40 12:40 MCV 91.7 MCH 31.2 MCHC 34.0 RDW 13.8 Plt Count 293 D MPV 9.9 Immature Gran % (Auto) 0.8 H Neut % (Auto) 69.7 Lymph % (Auto) 17.3 L Braxton % (Auto) 10.3 Eos % (Auto) 1.3 Baso % (Auto) 0.6 Lymph # (Auto) 1.6 Braxton # (Auto) 1.0 Eos # (Auto) 0.1 Baso # (Auto) 0.1 Abs Immat Gran (auto) 0.08 H Absolute Neuts (auto) 6.6 Absolute Nucleated RBC 0.000 Nucleated RBC % (auto) 0.0 Anion Gap 17 Estim Creat Clear Calc 18.4 Estimated GFR 19 Random Glucose 187 H Calcium 8.7 Magnesium 2.9 H Total Bilirubin 0.4 Direct Bilirubin 0.2 AST 22 ALT 19 Alkaline Phosphatase 92 Troponin I High Sens Total Protein 6.8 Albumin 3.9 Urine Color Urine Appearance Urine pH Ur Specific [place] Urine Protein Urine Glucose (UA) Urine Ketones Urine Blood Urine Nitrite Ur Leukocyte Esterase Urine RBC Urine WBC Ur Squamous Epith Cells Ur Renal Epithelial Cell Urine Bacteria COVID-19 ([facility]) Negative COVID-19 Clin Com See Note 03/03/21 03/03/21 12:40 14:58 MCV MCH MCHC RDW Plt Count MPV Immature Gran % (Auto) Neut % (Auto) Lymph % (Auto) Braxton % (Auto) Eos % (Auto) Baso % (Auto) Lymph # (Auto) Braxton # (Auto) Eos # (Auto) Baso # (Auto) Abs Immat Gran (auto) Absolute Neuts (auto) Absolute Nucleated RBC Nucleated RBC % (auto) Anion Gap Estim Creat Clear Calc Estimated GFR Random Glucose Calcium Magnesium Total Bilirubin Direct Bilirubin AST ALT Alkaline Phosphatase Troponin I High Sens 11.6 Total Protein Albumin Urine Color YELLOW Urine Appearance CLEAR Urine pH 6.0 Ur Specific [place] 1.015 Urine Protein NEG Urine Glucose (UA) NEG Urine Ketones NEG Urine Blood NEG Urine Nitrite NEG Ur Leukocyte Esterase 1+ H Urine RBC 0 Urine WBC 15-29 H Ur Squamous Epith Cells 1+ Ur Renal Epithelial Cell 1+ Urine Bacteria NONE COVID-19 ([facility]) COVID-19 Clin Com Imaging Radiologist's Impressions: Impressions Abdomen/Pelvis CT 03/03/21 12:25 IMPRESSION: 1. Mild to moderate compression fracture L1, new from prior CT 01/07/2019. No retropulsed fragment. Posterior elements intact. No paraspinal soft tissue swelling. 2. Mild accentuated superior and inferior endplate concavity L3, new from CT 01/07/2019. No visible fracture or paraspinal soft tissue swelling. 3. No acute traumatic abnormality abdominal organs. No free air or ascites. Cervical Spine CT 03/03/21 12:25 IMPRESSION: * No acute intracranial pathology compared to the prior head CT from 05/08/2018. * No fractures in the chronically degenerated cervical spine. There is degenerative disc disease at C4-C5, C5-C6 and C6-C7. Multilevel facet osteoarthritis is present. Chronic degenerative anterolisthesis is noted at C3-C4 and C7-T1. Chest CT 03/03/21 12:25 IMPRESSION: 1. No acute intrathoracic abnormality. 2. CT abdomen and pelvis and CT lumbar spine also performed, separate report. Head CT 03/03/21 12:25 IMPRESSION: * No acute intracranial pathology compared to the prior head CT from 05/08/2018. * No fractures in the chronically degenerated cervical spine. There is degenerative disc disease at C4-C5, C5-C6 and C6-C7. Multilevel facet osteoarthritis is present. Chronic degenerative anterolisthesis is noted at C3-C4 and C7-T1. Lumbar Spine CT 03/03/21 12:25 IMPRESSION: 1. Mild to moderate compression fracture L1, new from prior CT 01/07/2019. No retropulsed fragment. Posterior elements intact. No paraspinal soft tissue swelling. 2. Mild accentuated superior and inferior endplate concavity L3, new from CT 01/07/2019. No visible fracture or paraspinal soft tissue swelling. 3. No acute traumatic abnormality abdominal organs. No free air or ascites. Chest X-Ray 03/03/21 12:27 IMPRESSION: Mild cardiomegaly with moderate size hiatal hernia. Assessment and Plan (1) Closed compression fracture of lumbar vertebra: Qualifiers: Encounter type: initial encounter Lumbar vertebra fracture level: L1 Qualified Code(s): S32.010A - Wedge compression fracture of first lumbar vertebra, initial encounter for closed fracture Status: Acute (2) Acute UTI: Status: Acute (3) Acute renal failure: Qualifiers: Acute renal failure type: unspecified Qualified Code(s): N17.9 - Acute kidney failure, unspecified Status: Acute (4) Essential hypertension: Status: Acute 85-year-old female past medical history significant for hypertension, aortic stenosis, atrial arrhythmia, bifascicular block, spinal stenosis presents to the emergency department with concerns of back pain, malaise, shortness of breath and nonproductive cough X1 week.? Of note also treated with Bactrim for a UTI 1. Acute lumbar compression fracture (L1) Will continue with oxycodone for pain with morphine back up. Last physical therapy to see and determine plan going forward 2. UTI in backdrop of acute on chronic renal disease Will DC Bactrim in favor of ceftriaxone pending culture. Adjust as per forthcoming sensitivities 3. Acute on chronic renal failure Will hold losartan hydrochlorothiazide and follow renal functions. Gentle IV fluids overnight follow labs in the morning 4. Hypertension Acceptable control off meds. Will add back outpatient therapies as renal function returns to baseline DVT: LOVENOX Full code Quality Stroke Does the patient have a stroke diagnosis?: No VTE Prior VTE?: No VTE Risk Level:: Medical - moderate - high VTE Device Contraindication: Treatment Not Indicated VTE Drug Contraindication: N/A - Med Ordered
[2021-03-03] MEDS: Dextrose 5 % and 0.45 % NaCl 1,000 ML 100 ML IVCONT (17:35)
[2021-03-03 17:45] LABS: Lactic Acid 2.2 mmol/L (0.5-2.0)
[2021-03-03 19:06] LABS: Reflex Lactate? Lactic Acid Added
[2021-03-03] MEDS: Albuterol Sulfate 90 MCG 8 GM INHALER 2 PUFF INHALE (19:45)
[2021-03-03] MEDS: ondansetron HCL 4 MG/2 ML VIAL IVPUSH (19:46)
[2021-03-03 19:52] LABS: ~Lactic Acid-LAB USE ONLY 1.5 mmol/L (0.5-2.0)
[2021-03-03] MEDS: Enoxaparin Sodium 40 MG/0.4 ML SYRINGE SUBCUT (20:49)
[2021-03-03 22:08] LABS: Glucose, Whole Blood 188 mg/dL (60-115)
--- NOTE | 2021-03-03 22:20 | MHC.CM.PN ---
CM met with admitted patient with bed assignment pending. A&Ox3. IMM reviewed and signed per protocol 03/03/2021. No HCP on file. HCP reviewed, completed, and signed. HCP/daughter Yanique Givens ([phone]). Copies given and uploaded into [facility] and [facility] [place] [place] [email or web address]. Grandson lives with patient. Pt has walker, which she only recently used. No services. 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 Fully vaccinated with Pfizer. PCP is Dr. Kwok. Will need PT evaluation. Pt is in pain with movement in the bed. [facility] given for acute rehab and for STR locally. Contact card given. Pt will review with daughter. Pt will go to rehab if recommended. Interested in home PT. Explained that there is less rehab at home and in this instance, when she has so much pain with movement, she may need to go to a facility. CM to follow for d/c needs.
[2021-03-03] MEDS: HYDROcodone Bit/Acetam 5/325 TABLET 1 TAB PO (23:19)
--- NOTE | 2021-03-03 23:22 | PC.NURSE ---
PATIENT GETTING UP TO THE COMMODE WITH THE ASSIST OF 2. PATIENT STATING HAVING 8/10 BACK PAIN WITH MOVEMENT. PATIENT IS ALERT AND ABLE TO COMMUNICATE NEEDS. PATIENT MEDICATED FOR PRN PAIN. PATIENT HAVING SOME PAIN REDUCTION WHEN GETTING BACK INTO BED. PATIENT IS AWAITING FOR ROOM ASSIGNMENT.
[2021-03-04 00:23] VITALS: BP 119/42; PULSE 79; RESP 16; TEMP 36.8; O2SAT 98
--- NOTE | 2021-03-04 02:53 | PC.NURSE ---
patient was assisted to bedside commode by myself and pct melody
[2021-03-04] MEDS: ondansetron HCL 4 MG/2 ML VIAL IVPUSH (03:11)
[2021-03-04] MEDS: Acetaminophen 325 MG TABLET 650 MG PO (03:11)
--- NOTE | 2021-03-04 03:17 | PC.NURSE ---
PATIENT REPORTING NAUSEA AND PAIN ONCE GETTING UP TO THE COMMODE UNABLE TO GET COMFORTABLE WHEN GOING BACK TO BED. PATIENT MEDICATED WITH TYLENOL FOR PRN PAIN AND PRN ZOFRAN FOR PATIENT NAUSEA. PATIENT IS AGREEABLE AND UNDERSTANDING THAT STRONGER PAIN MEDICATION IS TID PRN AND TOO SOON TO GIVE AGAIN, GIVEN ABOUT 4 HOURS AGO AND NOT HOLDING OVER PAIN WELL WHILE AMBULATING TO COMMODE. PATIENT STATING SHE WANTS TO SEE HOW MUCH THE TYLENOL WILL HELP BEFORE CONTACTING THE MD FOR ADDITIONAL PAIN MEDICATIONS.
[2021-03-04] MEDS: Dextrose 5 % and 0.45 % NaCl 1,000 ML 100 ML IVCONT (03:21)
[2021-03-04 06:00] VITALS: BP 151/66; PULSE 80; RESP 16; TEMP 36.6; O2SAT 94
[2021-03-04 07:15] LABS: MANUAL DIFF FLAG NO
[2021-03-04 07:20] LABS: Basophils Absolute Auto 0.1 X10*3/uL (0.0-0.2); Basophils Percent Auto 0.8 % (0-2); Eosinophils Absolute Auto 0.2 X10*3/uL (0.0-0.4); Eosinophils Percent Auto 1.9 % (0-4); Hematocrit 31.5 % (37-47); Hemoglobin 10.5 g/dl (12.0-16.0); Imm Gran Abs Auto 0.07 X10*3/uL (0.00-0.03); Imm Gran Pct Auto 0.9 % (0.0-0.4); Lymphocytes Absolute Auto 2.1 X10*3/uL (1.2-4.9); Lymphocytes Percent Auto 26.7 % (20-40); Mean Corpuscular HGB Conc 33.3 g/dl (31.0-35.0); Mean Corpuscular Hemoglobin 30.7 pg (27.0-33.0); Mean Corpuscular Volume 92.1 fL (80-98); Mean Platelet Volume 9.7 fL (9.4-12.3); Monocytes Absolute Auto 0.9 X10*3/uL (0.1-1.2); Monocytes Percent Auto 11.3 % (2-11); Neutrophils Absolute Auto 4.7 X10*3/uL (2.0-8.3); Neutrophils Percent Auto 58.4 % (45-73); Platelet Count 279 X10*3/uL (160-400); Red Blood Count 3.42 X10*6/uL (4.20-5.50); Red Cell Distribution Width 13.6 % (11.0-16.0)
[2021-03-04 07:53] LABS: Anion Gap 13 (12-20); Blood Urea Nitrogen 33 mg/dL (9-16); Calcium 8.1 mg/dL (8.4-10.2); Carbon Dioxide 24 mmol/L (22-29); Chloride 100 mmol/L (96-108); Creatinine Clr Calc Pharmacy 29.7; Estimated Glomerular Filt Rate 32; Glucose Random 173 mg/dL (60-115); Sodium 133 mmol/L (135-145)
--- NOTE | 2021-03-04 07:59 | P.CDIC_ITS ---
CDI Concurrent Query Documentation Clarification: PHYSICIAN'S DOCUMENTATION REQUEST Date of Query: 03/04/21 0800 Patient Name: Belen Stone Admit Date: 03/03/21 Dear Doctor, A review of the medical record indicates additional documentation may be needed. Please review below and update the documentation accordingly. Clinical Indicators: Documentation in the record indicates the patient was admitted with a fracture. Risk Factors/Clinical Indicators/Treatments Patient fell at home flat on her back two weeks ago and hit her head. Closed wedge compression fracture lumbar vertebra L1. Oxycodone for the pain and morphine for back up/PT eval. Daughter stated mother has been saying some weird things lately, not making sense. Please provide the following additional clarification regarding the fracture: Etiology: * Traumatic compression fracture with or without concussion * Pathologic due to osteoporosis * Nontraumatic compression fracture * Due to combination of trauma and a pathological process * Unable to determine * Other complication (please specify) * Unable to determine Use of terms such as suspected, likely, concern for, or probable (associated with a specific diagnosis that is being evaluated, monitored, or treated as if it exists) are acceptable and can be coded in the inpatient setting, when documented at the time of discharge. Thank you, Janis Meadows [facility], CDIS Extension: [phone] Please use your independent medical judgment in providing your response. THIS QUERY IS PART OF THE PERMANENT MEDICAL RECORD Provider Response: Other Other Diagnosis: Traumatic compression fracture without concussion
[2021-03-04 09:46] VITALS: BP 155/75; PULSE 92; RESP 18; TEMP 36.5; O2SAT 91
[2021-03-04] MEDS: Multivitamin TABLET 1 TAB PO (10:01)
[2021-03-04] MEDS: Pregabalin 150 MG CAPSULE PO (10:01)
[2021-03-04] MEDS: HYDROcodone Bit/Acetam 5/325 TABLET 1 TAB PO (10:02)
[2021-03-04] MEDS: levoFLOXacin/D5W 250 MG/50 ML PIGGYBACK 50 MG IV (11:00)
--- NOTE | 2021-03-04 11:37 | HO.PM.IMPN ---
Subjective Subjective Date of Service: 03/04/21 Interval History: No acute issues overnight. Pain control fair. Pain with minimal movement Review of Systems Denies chest pain Denies shortness breath Denies nausea vomiting diarrhea Physical Exam Vital Signs: Vital Signs: Last Vital Signs Temp 97.7 F 03/04/21 09:46 Pulse 92 03/04/21 09:46 Resp 18 03/04/21 09:46 BP 155/75 H 03/04/21 09:46 Pulse Ox 91 L 03/04/21 09:46 Body Mass Index 38.1 Const: Other: Awake alert oriented x3 no acute distress HENMT: Other: Membranes dry wrist; oropharynx clear Resp: Other: Clear to auscultation bilaterally no rales rhonchi wheezes Cardio: Other: No S4 positive S1-S2 no S3 murmurs rubs or gallops GI: Other: Soft nontender nondistended with normoactive bowel sounds Back/Spine/Pelvis: Other: Point tenderness over mid back lumbar region Neuro: Other: Cranial nerves 2-12 grossly intact as tested. Motor is 5/5 all extremities however painful with leg raising. Sensation is intact Extrem: Other: No edema bilaterally Objective Data Active Medications Acetaminophen (Acetaminophen 325 Mg Tablet) 650 mg PO Q6H PRN PRN Reason: Pain, Mild (Pain Scale 1-3) Last Admin: 03/04/21 03:11 Dose: 650 mg Documented by: SPENSER Albuterol Sulfate (Albuterol Sulfate 90 Mcg 8 Gm Inhaler) 2 puff INHALE Q4H PRN PRN Reason: Shortness Of Breath Last Admin: 03/03/21 19:45 Dose: 2 puff Documented by: RITO Enoxaparin Sodium (Enoxaparin Sodium 40 Mg/0.4 Ml Syringe) 40 mg SUBCUT Q24H COUNT INCLUDES THE [facility] Last Admin: 03/03/21 20:49 Dose: 40 mg Documented by: SPENSER Dextrose/Sodium Chloride (D51/2ns) 1,000 mls @ 100 mls/hr IVCONT .Q10H COUNT INCLUDES THE [facility] Last Infusion: 03/04/21 11:04 Dose: 0 mls/hr Documented by: DIANNE Levofloxacin (Levaquin) 250 mg in 50 mls @ 50 mls/hr IV Q24H COUNT INCLUDES THE [facility] Last Admin: 03/04/21 11:00 Dose: 50 mls/hr Documented by: DIANNE Lactulose (Lactulose 20 Gm/30 Ml Solution) 30 gm PO Q24H PRN PRN Reason: Constipation Magnesium Hydroxide (Milk Of Magnesia 30 Ml Oral.Susp) 30 ml PO DAILY PRN PRN Reason: Constipation Melatonin (Melatonin 3 Mg Tablet) 6 mg PO BEDTIME PRN PRN Reason: Insomnia Morphine Sulfate (Morphine Sulfate 4 Mg/Ml Cartridge) 4 mg IVPUSH Q6H PRN; Protocol PRN Reason: Pain, Moderate (Pain Scale 4-6 Multivitamins/Vitamin C (Multivitamin Tablet) 1 tab PO DAILY COUNT INCLUDES THE [facility] Last Admin: 03/04/21 10:01 Dose: 1 tab Documented by: DIANNE Ondansetron HCl (Ondansetron Hcl 4 Mg/2 Ml Vial) 4 mg IVPUSH Q8H PRN PRN Reason: Nausea and Vomiting Last Admin: 03/04/21 03:11 Dose: 4 mg Documented by: SPENSER Oxycodone HCl (Oxycodone Hcl Immed Release 5 Mg Tablet) 5 mg PO Q6H PRN PRN Reason: Pain, Moderate (Pain Scale 4-6 Pharmacy Consult (Consult Rx Perform Med Rec) 1 each MISCELLANE ONCE PRN PRN Reason: Consult order Pregabalin (Pregabalin 150 Mg Capsule) 150 mg PO DAILY COUNT INCLUDES THE [facility] Last Admin: 03/04/21 10:01 Dose: 150 mg Documented by: DIANNE Sodium Chloride (0.9 % Sodium Chloride Flush 3 Ml Syringe) 3 ml IVFLUSH QSHIFT COUNT INCLUDES THE [facility] Last Admin: 03/04/21 10:03 Dose: Not Given Documented by: DIANNE Non-Admin Reason: IV Running Sodium Chloride (Sodium Chloride 0.65 % Nasal 44 Ml Sprbtl) 1 spray NOSTRIL-B Q1H PRN PRN Reason: Nasal Congestion Labs CBC & Chem 7: 03/04/21 06:59 03/04/21 06:59 Labs: Laboratory Results - last 24 hr 03/03/21 03/03/21 03/03/21 12:40 12:40 12:40 MCV 91.7 MCH 31.2 MCHC 34.0 RDW 13.8 Plt Count 293 D MPV 9.9 Immature Gran % (Auto) 0.8 H Neut % (Auto) 69.7 Lymph % (Auto) 17.3 L [place] % (Auto) 10.3 Eos % (Auto) 1.3 Baso % (Auto) 0.6 Lymph # (Auto) 1.6 [place] # (Auto) 1.0 Eos # (Auto) 0.1 Baso # (Auto) 0.1 Abs Immat Gran (auto) 0.08 H Absolute Neuts (auto) 6.6 Absolute Nucleated RBC 0.000 Nucleated RBC % (auto) 0.0 Anion Gap 17 Estim Creat Clear Calc 18.4 Estimated GFR 19 POC Glucose Random Glucose 187 H Lactic Acid Lactic Acid Fup @ 2Hr Calcium 8.7 Magnesium 2.9 H Total Bilirubin 0.4 Direct Bilirubin 0.2 AST 22 ALT 19 Alkaline Phosphatase 92 Troponin I High Sens Total Protein 6.8 Albumin 3.9 Urine Color Urine Appearance Urine pH Ur Specific [place] Urine Protein Urine Glucose (UA) Urine Ketones Urine Blood Urine Nitrite Ur Leukocyte Esterase Urine RBC Urine WBC Ur Squamous Epith Cells Ur Renal Epithelial Cell Urine Bacteria COVID-19 (ISAIAH) Negative COVID-19 [employer] [facility] See Note 03/03/21 03/03/21 03/03/21 12:40 14:58 17:01 MCV MCH MCHC RDW Plt Count MPV Immature Gran % (Auto) Neut % (Auto) Lymph % (Auto) [place] % (Auto) Eos % (Auto) Baso % (Auto) Lymph # (Auto) [place] # (Auto) Eos # (Auto) Baso # (Auto) Abs Immat Gran (auto) Absolute Neuts (auto) Absolute Nucleated RBC Nucleated RBC % (auto) Anion Gap Estim Creat Clear Calc Estimated GFR POC Glucose Random Glucose Lactic Acid 2.2 H* Lactic Acid Fup @ 2Hr Calcium Magnesium Total Bilirubin Direct Bilirubin AST ALT Alkaline Phosphatase Troponin I High Sens 11.6 Total Protein Albumin Urine Color YELLOW Urine Appearance CLEAR Urine pH 6.0 Ur Specific [place] 1.015 Urine Protein NEG Urine Glucose (UA) NEG Urine Ketones NEG Urine Blood NEG Urine Nitrite NEG Ur Leukocyte Esterase 1+ H Urine RBC 0 Urine WBC 15-29 H Ur Squamous Epith Cells 1+ Ur Renal Epithelial Cell 1+ Urine Bacteria NONE COVID-19 (ISAIAH) COVID-[place] Com 03/03/21 03/03/21 03/04/21 19:36 22:04 06:59 MCV 92.1 MCH 30.7 MCHC 33.3 RDW 13.6 Plt Count 279 MPV 9.7 Immature Gran % (Auto) 0.9 H Neut % (Auto) 58.4 Lymph % (Auto) 26.7 [place] % (Auto) 11.3 H Eos % (Auto) 1.9 Baso % (Auto) 0.8 Lymph # (Auto) 2.1 [place] # (Auto) 0.9 Eos # (Auto) 0.2 Baso # (Auto) 0.1 Abs Immat Gran (auto) 0.07 H Absolute Neuts (auto) 4.7 Absolute Nucleated RBC 0.000 Nucleated RBC % (auto) 0.0 Anion Gap Estim Creat Clear Calc Estimated GFR POC Glucose 188 H Random Glucose Lactic Acid Lactic Acid Fup @ 2Hr 1.5 Calcium Magnesium Total Bilirubin Direct Bilirubin AST ALT Alkaline Phosphatase Troponin I High Sens Total Protein Albumin Urine Color Urine Appearance Urine pH Ur Specific [place] Urine Protein Urine Glucose (UA) Urine Ketones Urine Blood Urine Nitrite Ur Leukocyte Esterase Urine RBC Urine WBC Ur Squamous Epith Cells Ur Renal Epithelial Cell Urine Bacteria COVID-19 (ISAIAH) COVID-19 [employer] Com 03/04/21 06:59 MCV MCH MCHC RDW Plt Count MPV Immature Gran % (Auto) Neut % (Auto) Lymph % (Auto) [place] % (Auto) Eos % (Auto) Baso % (Auto) Lymph # (Auto) [place] # (Auto) Eos # (Auto) Baso # (Auto) Abs Immat Gran (auto) Absolute Neuts (auto) Absolute Nucleated RBC Nucleated RBC % (auto) Anion Gap 13 Estim Creat Clear Calc 29.7 Estimated GFR 32 POC Glucose Random Glucose 173 H Lactic Acid Lactic Acid Fup @ 2Hr Calcium 8.1 L D Magnesium Total Bilirubin Direct Bilirubin AST ALT Alkaline Phosphatase Troponin I High Sens Total Protein Albumin Urine Color Urine Appearance Urine pH Ur Specific [place] Urine Protein Urine Glucose (UA) Urine Ketones Urine Blood Urine Nitrite Ur Leukocyte Esterase Urine RBC Urine WBC Ur Squamous Epith Cells Ur Renal Epithelial Cell Urine Bacteria COVID-19 (ISAIAH) COVID-19 [employer] [facility] Assessment and Plan (1) Acute renal failure: Status: Acute (2) Closed compression fracture of lumbar vertebra: Status: Acute Assessment and Plan: 85-year-old female past medical history significant for hypertension, aortic stenosis, atrial arrhythmia, bifascicular block, spinal stenosis presents to the emergency department with concerns of back pain, malaise, shortness of breath and nonproductive cough X1 week.? Of note also treated with Bactrim for a UTI 1. Acute lumbar compression fracture (L1) Will continue with oxycodone for pain with morphine back up. Ask physical therapy to see and determine plan going forward; Agreeable to short-term rehab 2. UTI in backdrop of acute on chronic renal disease Urine culture positive for Klebsiella greater than 100,000 colonies sensitive to ceftriaxone Continue same and switched to Ceftin on discharge 3. TASH Improving; continue gentle IV fluids restart ARB and thiazide upon discharge if indicated 4. Hypertension Acceptable control off meds. Will add back outpatient therapies as renal function returns to baseline DVT: LOVENOX Full code Quality Stroke Does the patient have a stroke diagnosis?: No VTE Prior VTE?: No VTE Risk Level:: Medical - moderate - high VTE Device Contraindication: Treatment Not Indicated VTE Drug Contraindication: N/A - Med Ordered
[2021-03-04] MEDS: oxyCODONE HCl Immed Release 5 MG TABLET PO (12:22)
[2021-03-04] MEDS: Lactulose 20 GM/30 ML SOLUTION 30 GM PO (12:23)
[2021-03-04 13:58] VITALS: BP 155/75; PULSE 92; O2SAT 91
[2021-03-04 15:24] VITALS: PULSE 85; RESP 16; TEMP 36.9; O2SAT 93
[2021-03-04] MEDS: Sodium Chloride 0.65 % Nasal 44 ML SPRBTL 1 SPRAY NOSTRIL-B (17:07)
[2021-03-04] MEDS: Enoxaparin Sodium 40 MG/0.4 ML SYRINGE SUBCUT (20:06)
[2021-03-04 23:22] VITALS: BP 142/69; PULSE 86; RESP 18; TEMP 37; O2SAT 92
[2021-03-04] MEDS: 0.9 % Sodium Chloride Flush 3 ML SYRINGE IVFLUSH (23:27)
[2021-03-05] MEDS: Acetaminophen 325 MG TABLET 650 MG PO ×3 (00:07→17:21)
[2021-03-05] MEDS: oxyCODONE HCl Immed Release 5 MG TABLET PO ×3 (00:08→17:22)
[2021-03-05 06:10] LABS: MANUAL DIFF FLAG NO
[2021-03-05 06:19] LABS: Basophils Absolute Auto 0.1 X10*3/uL (0.0-0.2); Eosinophils Absolute Auto 0.2 X10*3/uL (0.0-0.4); Eosinophils Percent Auto 2.4 % (0-4); Hematocrit 35.1 % (37-47); Hemoglobin 11.4 g/dl (12.0-16.0); Imm Gran Abs Auto 0.05 X10*3/uL (0.00-0.03); Imm Gran Pct Auto 0.6 % (0.0-0.4); Lymphocytes Absolute Auto 2.6 X10*3/uL (1.2-4.9); Lymphocytes Percent Auto 32.7 % (20-40); Mean Corpuscular HGB Conc 32.5 g/dl (31.0-35.0); Mean Corpuscular Hemoglobin 30.4 pg (27.0-33.0); Mean Corpuscular Volume 93.6 fL (80-98); Mean Platelet Volume 10.6 fL (9.4-12.3); Monocytes Absolute Auto 0.9 X10*3/uL (0.1-1.2); Monocytes Percent Auto 11.5 % (2-11); Neutrophils Absolute Auto 4.1 X10*3/uL (2.0-8.3); Neutrophils Percent Auto 51.8 % (45-73); Platelet Count 222 X10*3/uL (160-400); Red Blood Count 3.75 X10*6/uL (4.20-5.50); Red Cell Distribution Width 13.6 % (11.0-16.0); White Blood Count 7.8 X10*3/uL (4.8-10.8)
[2021-03-05 06:39] LABS: Potassium 4.5 mmol/L (3.3-5.1)
[2021-03-05 06:40] LABS: Alanine Aminotransferase 13 U/L (0-31); Albumin Level 3.4 g/dL (3.5-5.0); Alkaline Phosphatase 81 U/L (39-117); Anion Gap 15 (12-20); Aspartate Amino Transferase 23 U/L (5-31); Bilirubin Total 0.3 mg/dL (0.0-1.0); Blood Urea Nitrogen 21 mg/dL (9-16); Calcium 8.6 mg/dL (8.4-10.2); Carbon Dioxide 21 mmol/L (22-29); Chloride 103 mmol/L (96-108); Estimated Glomerular Filt Rate 46; Glucose Random 117 mg/dL (60-115); Sodium 134 mmol/L (135-145); Total Protein 6.1 g/dL (6.5-8.0)
[2021-03-05 08:00] VITALS: BP 152/78; PULSE 97; RESP 18; TEMP 36.7; O2SAT 93
[2021-03-05] MEDS: Pregabalin 150 MG CAPSULE PO (08:15)
[2021-03-05] MEDS: Multivitamin TABLET 1 TAB PO (08:15)
[2021-03-05 09:22] VITALS: BP 152/78; PULSE 97; O2SAT 93
[2021-03-05 10:57] VITALS: O2SAT 92
[2021-03-05] MEDS: levoFLOXacin/D5W 250 MG/50 ML PIGGYBACK 50 MG IV (11:37)
[2021-03-05] MEDS: Lactulose 20 GM/30 ML SOLUTION 30 GM PO (11:37)
--- NOTE | 2021-03-05 13:57 | HO.PM.IMPN ---
Subjective Subjective Date of Service: 03/05/21 Interval History: No acute issues overnight. Pain control poor; Pain with minimal movement Review of Systems Denies chest pain Denies shortness breath Denies nausea vomiting diarrhea Physical Exam Vital Signs: Vital Signs: Last Vital Signs Temp 98.1 F 03/05/21 08:00 Pulse 97 03/05/21 09:22 Resp 18 03/05/21 08:00 BP 152/78 H 03/05/21 09:22 Pulse Ox 92 03/05/21 10:57 Body Mass Index 38.1 Const: Other: Awake alert oriented x3 no acute distress HENMT: Other: Membranes dry wrist; oropharynx clear Resp: Other: Clear to auscultation bilaterally no rales rhonchi wheezes Cardio: Other: No S4 positive S1-S2 no S3 murmurs rubs or gallops GI: Other: Soft nontender nondistended with normoactive bowel sounds Back/Spine/Pelvis: Other: Point tenderness over mid back lumbar region Neuro: Other: Cranial nerves 2-12 grossly intact as tested. Motor is 5/5 all extremities however painful with leg raising. Sensation is intact Extrem: Other: No edema bilaterally Objective Data Active Medications Acetaminophen (Acetaminophen 325 Mg Tablet) 650 mg PO Q6H PRN PRN Reason: Pain, Mild (Pain Scale 1-3) Last Admin: 03/05/21 08:14 Dose: 650 mg Documented by: NARCISO Albuterol Sulfate (Albuterol Sulfate 90 Mcg 8 Gm Inhaler) 2 puff INHALE Q4H PRN PRN Reason: Shortness Of Breath Last Admin: 03/03/21 19:45 Dose: 2 puff Documented by: GUIDIB Enoxaparin Sodium (Enoxaparin Sodium 40 Mg/0.4 Ml Syringe) 40 mg SUBCUT Q24H PENDING S[facility] TO [facility] Last Admin: 03/04/21 20:06 Dose: 40 mg Documented by: ADÁN Levofloxacin (Levaquin) 250 mg in 50 mls @ 50 mls/hr IV Q24H [facility] TO [facility] Last Infusion: 03/05/21 13:13 Dose: 0 mls/hr Documented by: LYSJennifer Lactulose (Lactulose 20 Gm/30 Ml Solution) 30 gm PO Q24H PRN PRN Reason: Constipation Last Admin: 03/05/21 11:37 Dose: 30 gm Documented by: HO.KASIDJ Lorazepam (Lorazepam 0.5 Mg Tablet) 0.5 mg PO ONCE ONE Stop: 03/05/21 13:57 Magnesium Hydroxide (Milk Of Magnesia 30 Ml Oral.Susp) 30 ml PO DAILY PRN PRN Reason: Constipation Melatonin (Melatonin 3 Mg Tablet) 6 mg PO BEDTIME PRN PRN Reason: Insomnia Morphine Sulfate (Morphine Sulfate 4 Mg/Ml Cartridge) 4 mg IVPUSH Q6H PRN; Protocol PRN Reason: Pain, Moderate (Pain Scale 4-6 Multivitamins/Vitamin C (Multivitamin Tablet) 1 tab PO DAILY [facility] Last Admin: 03/05/21 08:15 Dose: 1 tab Documented by: NARCISO Ondansetron HCl (Ondansetron Hcl 4 Mg/2 Ml Vial) 4 mg IVPUSH Q8H PRN PRN Reason: Nausea and Vomiting Last Admin: 03/04/21 03:11 Dose: 4 mg Documented by: SPENSER Oxycodone HCl (Oxycodone Hcl Immed Release 5 Mg Tablet) 5 mg PO Q6H PRN PRN Reason: Pain, Moderate (Pain Scale 4-6 Last Admin: 03/05/21 08:14 Dose: 5 mg Documented by: NARCISO Pharmacy Consult (Consult Rx Perform Med Rec) 1 each MISCELLANE ONCE PRN PRN Reason: Consult order Pregabalin (Pregabalin 150 Mg Capsule) 150 mg PO DAILY [facility] Last Admin: 03/05/21 08:15 Dose: 150 mg Documented by: NARCISO Sodium Chloride (0.9 % Sodium Chloride Flush 3 Ml Syringe) 3 ml IVFLUSH QSHIFT [facility]END[facility] TO [facility] Last Admin: 03/05/21 08:16 Dose: Not Given Documented by: NARCISO Non-Admin Reason: IV Running Sodium Chloride (Sodium Chloride 0.65 % Nasal 44 Ml Sprbtl) 1 spray NOSTRIL-B Q1H PRN PRN Reason: Nasal Congestion Last Admin: 03/04/21 17:07 Dose: 1 spray Documented by: DIANNE Labs CBC & Chem 7: 03/05/21 05:44 03/05/21 05:44 Labs: Laboratory Results - last 24 hr 03/05/21 03/05/21 05:44 05:44 MCV 93.6 MCH 30.4 MCHC 32.5 RDW 13.6 Plt Count 222 MPV 10.6 Immature Gran % (Auto) 0.6 H Neut % (Auto) 51.8 Lymph % (Auto) 32.7 [place] % (Auto) 11.5 H Eos % (Auto) 2.4 Baso % (Auto) 1.0 Lymph # (Auto) 2.6 [place] # (Auto) 0.9 Eos # (Auto) 0.2 Baso # (Auto) 0.1 Abs Immat Gran (auto) 0.05 H Absolute Neuts (auto) 4.1 Absolute Nucleated RBC 0.000 Nucleated RBC % (auto) 0.0 Anion Gap 15 Estim Creat Clear Calc 40.0 Estimated GFR 46 Random Glucose 117 H Calcium 8.6 D Total Bilirubin 0.3 AST 23 ALT 13 Alkaline Phosphatase 81 Total Protein 6.1 L Albumin 3.4 L Microbiology Microbiology Results: Microbiology 03/03/21 19:36 Blood Culture - Preliminary Blood - Venous No growth after 24 hours. 03/03/21 17:01 Blood Culture - Preliminary Blood - Venous No growth after 24 hours. 03/03/21 Unknown Urine Culture - Final Urine clean catch - Urine gonzalez top No growth. Assessment and Plan (1) Closed compression fracture of lumbar vertebra: Status: Acute (2) Acute UTI: Status: Acute Assessment and Plan: 85-year-old female past medical history significant for hypertension, aortic stenosis, atrial arrhythmia, bifascicular block, spinal stenosis presents to the emergency department with concerns of back pain, malaise, shortness of breath and nonproductive cough X1 week.? Workup but consistent with acute L1 compression fracture and UTI 1. Acute lumbar compression fracture (L1) Pain control poor with oral therapies; patient unable to ambulate without significant pain. Discussed with Interventional Radiology; Will book MRI LS spine with hope for all vertebroplasty on 03/08/2021. Will make NPO after midnight and hold Lovenox 03/07/21 evenimg 2. UTI in backdrop of acute on chronic renal disease Urine culture positive for Klebsiella greater than 100,000 colonies sensitive to ceftriaxone Continue same and switched to Ceftin on discharge 3. TASH Resolved; continue follow-up off A's 4. Hypertension Acceptable control off meds. Will add back outpatient therapies as renal function returns to baseline DVT: LOVENOX Full code Quality Stroke Does the patient have a stroke diagnosis?: No VTE Prior VTE?: No VTE Risk Level:: Medical - moderate - high VTE Device Contraindication: Treatment Not Indicated VTE Drug Contraindication: N/A - Med Ordered
[2021-03-05] MEDS: LORazepam 0.5 MG TABLET PO (14:33)
[2021-03-05 16:05] VITALS: BP 170/93; PULSE 100; RESP 18; TEMP 37.1; O2SAT 91
[2021-03-05] MEDS: Losartan Potassium 50 MG TABLET 100 MG PO (18:30)
[2021-03-05] MEDS: Enoxaparin Sodium 40 MG/0.4 ML SYRINGE SUBCUT (19:31)
[2021-03-05] MEDS: 0.9 % Sodium Chloride Flush 3 ML SYRINGE IVFLUSH (19:31)
[2021-03-06] VITALS: BP 122/66; PULSE 82; RESP 17; TEMP 36.7; O2SAT 94
[2021-03-06] MEDS: oxyCODONE HCl Immed Release 5 MG TABLET PO ×4 (05:58→23:53)
[2021-03-06 08:00] VITALS: BP 136/68; PULSE 83; RESP 16; TEMP 36.9; O2SAT 95
[2021-03-06 08:13] LABS: Basophils Absolute Auto 0.1 X10*3/uL (0.0-0.2); Basophils Percent Auto 0.8 % (0-2); Eosinophils Absolute Auto 0.2 X10*3/uL (0.0-0.4); MANUAL DIFF FLAG SCAN; PLT CLUMP 1; SCAN SMEAR FLAG 1
[2021-03-06 08:15] LABS: Eosinophils Percent Auto 1.7 % (0-4); Hematocrit 37.6 % (37-47); Hemoglobin 12.3 g/dl (12.0-16.0); Imm Gran Abs Auto 0.05 X10*3/uL (0.00-0.03); Imm Gran Pct Auto 0.6 % (0.0-0.4); Lymphocytes Absolute Auto 2.3 X10*3/uL (1.2-4.9); Lymphocytes Percent Auto 26.3 % (20-40); Mean Corpuscular HGB Conc 32.7 g/dl (31.0-35.0); Mean Corpuscular Hemoglobin 30.7 pg (27.0-33.0); Mean Corpuscular Volume 93.8 fL (80-98); Monocytes Absolute Auto 0.8 X10*3/uL (0.1-1.2); Monocytes Percent Auto 9.2 % (2-11); Neutrophils Absolute Auto 5.3 X10*3/uL (2.0-8.3); Neutrophils Percent Auto 61.4 % (45-73); Platelet Count 205 X10*3/uL (160-400); Red Blood Count 4.01 X10*6/uL (4.20-5.50); Red Cell Distribution Width 13.4 % (11.0-16.0); White Blood Count 8.6 X10*3/uL (4.8-10.8)
[2021-03-06 08:46] LABS: SLIDE REVIEW VERIFIED
[2021-03-06 08:49] LABS: Alanine Aminotransferase 17 U/L (0-31); Albumin Level 3.7 g/dL (3.5-5.0); Alkaline Phosphatase 95 U/L (39-117); Anion Gap 16 (12-20); Aspartate Amino Transferase 26 U/L (5-31); Bilirubin Total 0.5 mg/dL (0.0-1.0); Blood Urea Nitrogen 20 mg/dL (9-16); Calcium 8.9 mg/dL (8.4-10.2); Carbon Dioxide 23 mmol/L (22-29); Chloride 99 mmol/L (96-108); Creatinine Clr Calc Pharmacy 40.4; Estimated Glomerular Filt Rate 46; Glucose Random 128 mg/dL (60-115); Potassium 4.9 mmol/L (3.3-5.1); Sodium 133 mmol/L (135-145); Total Protein 6.6 g/dL (6.5-8.0)
[2021-03-06] MEDS: Multivitamin TABLET 1 TAB PO (09:24)
[2021-03-06] MEDS: Losartan Potassium 50 MG TABLET 100 MG PO (09:24)
[2021-03-06] MEDS: Pregabalin 150 MG CAPSULE PO (09:24)
[2021-03-06] MEDS: 0.9 % Sodium Chloride Flush 3 ML SYRINGE IVFLUSH ×3 (09:25→23:38)
[2021-03-06] MEDS: Acetaminophen 325 MG TABLET 650 MG PO (10:09)
--- NOTE | 2021-03-06 10:20 | HO.PM.IMPN ---
Subjective Subjective Date of Service: 03/06/21 Interval History: Pain control poor; Pain with minimal movement. Was able to complete MRI with aid of Ativan Review of Systems Denies chest pain Denies shortness breath Denies nausea vomiting diarrhea Physical Exam Vital Signs: Vital Signs: Last Vital Signs Temp 98.5 F 03/06/21 08:00 Pulse 83 03/06/21 08:00 Resp 16 03/06/21 08:00 BP 136/68 03/06/21 08:00 Pulse Ox 95 03/06/21 08:00 Body Mass Index 38.1 Const: Other: Awake alert oriented x3 no acute distress HENMT: Other: Membranes dry wrist; oropharynx clear Resp: Other: Clear to auscultation bilaterally no rales rhonchi wheezes Cardio: Other: No S4 positive S1-S2 no S3 murmurs rubs or gallops GI: Other: Soft nontender nondistended with normoactive bowel sounds Back/Spine/Pelvis: Other: Point tenderness over mid back lumbar region Neuro: Other: Cranial nerves 2-12 grossly intact as tested. Motor is 5/5 all extremities however painful with leg raising. Sensation is intact Extrem: Other: No edema bilaterally Objective Data Active Medications Acetaminophen (Acetaminophen 325 Mg Tablet) 650 mg PO Q6H PRN PRN Reason: Pain, Mild (Pain Scale 1-3) Last Admin: 03/06/21 10:09 Dose: 650 mg Documented by: JOSE Albuterol Sulfate (Albuterol Sulfate 90 Mcg 8 Gm Inhaler) 2 puff INHALE Q4H PRN PRN Reason: Shortness Of Breath Last Admin: 03/03/21 19:45 Dose: 2 puff Documented by: RITO Enoxaparin Sodium (Enoxaparin Sodium 40 Mg/0.4 Ml Syringe) 40 mg SUBCUT Q24H [facility] Last Admin: 03/05/21 19:31 Dose: 40 mg Documented by: CASTMARIA G Levofloxacin (Levaquin) 250 mg in 50 mls @ 50 mls/hr IV Q24H [facility] Last Infusion: 03/05/21 13:13 Dose: 0 mls/hr Documented by: LYSJennifer Lactulose (Lactulose 20 Gm/30 Ml Solution) 30 gm PO Q24H PRN PRN Reason: Constipation Last Admin: 03/05/21 11:37 Dose: 30 gm Documented by: DANIEL Losartan Potassium (Losartan Potassium 50 Mg Tablet) 100 mg PO DAILY [facility]; Protocol Last Admin: 03/06/21 09:24 Dose: 100 mg Documented by: JOSE Magnesium Hydroxide (Milk Of Magnesia 30 Ml Oral.Susp) 30 ml PO DAILY PRN PRN Reason: Constipation Melatonin (Melatonin 3 Mg Tablet) 6 mg PO BEDTIME PRN PRN Reason: Insomnia Morphine Sulfate (Morphine Sulfate 4 Mg/Ml Cartridge) 4 mg IVPUSH Q6H PRN; Protocol PRN Reason: Pain, Moderate (Pain Scale 4-6 Multivitamins/Vitamin C (Multivitamin Tablet) 1 tab PO DAILY [facility] Last Admin: 03/06/21 09:24 Dose: 1 tab Documented by: JOSE Ondansetron HCl (Ondansetron Hcl 4 Mg/2 Ml Vial) 4 mg IVPUSH Q8H PRN PRN Reason: Nausea and Vomiting Last Admin: 03/04/21 03:11 Dose: 4 mg Documented by: SPENSER Oxycodone HCl (Oxycodone Hcl Immed Release 5 Mg Tablet) 5 mg PO Q4H PRN PRN Reason: Pain, Moderate (Pain Scale 4-6 Last Admin: 03/06/21 10:09 Dose: 5 mg Documented by: JOSE Pharmacy Consult (Consult Rx Perform Med Rec) 1 each MISCELLANE ONCE PRN PRN Reason: Consult order Pregabalin (Pregabalin 150 Mg Capsule) 150 mg PO DAILY [facility] Last Admin: 03/06/21 09:24 Dose: 150 mg Documented by: JOSE Sodium Chloride (0.9 % Sodium Chloride Flush 3 Ml Syringe) 3 ml IVFLUSH QSHIFT [facility] Last Admin: 03/06/21 09:25 Dose: 3 ml Documented by: JOSE Sodium Chloride (Sodium Chloride 0.65 % Nasal 44 Ml Sprbtl) 1 spray NOSTRIL-B Q1H PRN PRN Reason: Nasal Congestion Last Admin: 03/04/21 17:07 Dose: 1 spray Documented by: DIANNE Labs CBC & Chem 7: 03/06/21 07:40 03/06/21 07:40 Labs: Laboratory Results - last 24 hr 03/06/21 03/06/21 07:40 07:40 MCV 93.8 MCH 30.7 MCHC 32.7 RDW 13.4 Plt Count 205 MPV 11.0 Immature Gran % (Auto) 0.6 H Neut % (Auto) 61.4 Lymph % (Auto) 26.3 [place] % (Auto) 9.2 Eos % (Auto) 1.7 Baso % (Auto) 0.8 Lymph # (Auto) 2.3 [place] # (Auto) 0.8 Eos # (Auto) 0.2 Baso # (Auto) 0.1 Abs Immat Gran (auto) 0.05 H Absolute Neuts (auto) 5.3 Absolute Nucleated RBC 0.000 Nucleated RBC % (auto) 0.0 Smear Tech's Comments VERIFIED Anion Gap 16 Estim Creat Clear Calc 40.4 Estimated GFR 46 Random Glucose 128 H Calcium 8.9 Total Bilirubin 0.5 AST 26 ALT 17 Alkaline Phosphatase 95 Total Protein 6.6 Albumin 3.7 Microbiology Microbiology Results: Microbiology 03/03/21 19:36 Blood Culture - Preliminary Blood - Venous No growth after 48 hours. 03/03/21 17:01 Blood Culture - Preliminary Blood - Venous No growth after 48 hours. Assessment and Plan (1) Closed compression fracture of lumbar vertebra: Status: Acute (2) Acute UTI: Status: Acute Assessment and Plan: 85-year-old female past medical history significant for hypertension, aortic stenosis, atrial arrhythmia, bifascicular block, spinal stenosis presents to the emergency department with concerns of back pain, malaise, shortness of breath and nonproductive cough X1 week.? Workup but consistent with acute L1 compression fracture and UTI; lumbar spine MRI done confirming same... New FX L1 and L3 1. Acute lumbar compression fracture (L1) Pain control poor with oral therapies; patient unable to ambulate without significant pain. Discussed with Interventional Radiology; given MRI findings will schedule vertebroplasty for 03/08/2020 01:00 Will make NPO after midnight and hold Lovenox 03/07/21 evenimg 2. UTI in backdrop of acute on chronic renal disease Urine culture positive for Klebsiella greater than 100,000 colonies sensitive to ceftriaxone Continue same and switched to Ceftin on discharge 3. TASH Resolved; continue follow-up off A's 4. Hypertension Acceptable control off meds. Will add back outpatient therapies as renal function returns to baseline DVT: LOVENOX Full code Quality Stroke Does the patient have a stroke diagnosis?: No VTE Prior VTE?: No VTE Risk Level:: Medical - moderate - high VTE Device Contraindication: Treatment Not Indicated VTE Drug Contraindication: N/A - Med Ordered
--- NOTE | 2021-03-06 11:10 | MHC.CM.PN ---
Addendum entered by Stacey Aldana RN 03/06/21 12:04: CM MET W/PT AND DTR WHO WAS AT BEDSIDE TO DISCUSS STR PREFERENCES, PT REPORTS SHE WILL GO TO [facility] D/T HER SON WORKING WITH AND BEING FRIENDS W/THE HEAD OF 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 CM WILL CONT TO FOLLOW D/C NEEDS. Original Note: EMR REVIEWED, PER HOSPITALIST PT WILL BE SHCEDULED FOR VERTOBLASY ON Monday03/08/21, NO PLAN FOR D/C PRIOR TO PROCEDURE, PT HAS RECOMMENDED STR, CM TO DISCUSS PREFERENCES W/PT AND PROVIDE LIST OF SNF OPTIONS.
[2021-03-06] MEDS: levoFLOXacin/D5W 250 MG/50 ML PIGGYBACK 50 MG IV (13:27)
[2021-03-06 15:55] VITALS: BP 106/62; PULSE 94; RESP 18; TEMP 36.6; O2SAT 93
[2021-03-06] MEDS: Lactulose 20 GM/30 ML SOLUTION 30 GM PO (17:03)
[2021-03-06] MEDS: Enoxaparin Sodium 40 MG/0.4 ML SYRINGE SUBCUT (19:35)
[2021-03-06 23:17] VITALS: PULSE 51; RESP 20; TEMP 36.6; O2SAT 94
[2021-03-06 23:58] VITALS: BP 155/74; PULSE 93; RESP 16; TEMP 37; O2SAT 94
[2021-03-07] VITALS (7 sets, daily range): BP systolic 110–134; BP diastolic 53–75; PULSE 51–84; RESP 16–18; TEMP 36.2–37.8; O2SAT 92–96
[2021-03-07 05:42] LABS: Hematocrit 34.2 % (37-47); Hemoglobin 11.3 g/dl (12.0-16.0); Mean Corpuscular Hemoglobin 31.3 pg (27.0-33.0); Mean Corpuscular Volume 94.7 fL (80-98); Mean Platelet Volume 9.6 fL (9.4-12.3); Platelet Count 282 X10*3/uL (160-400); Red Blood Count 3.61 X10*6/uL (4.20-5.50); Red Cell Distribution Width 13.5 % (11.0-16.0); White Blood Count 8.2 X10*3/uL (4.8-10.8)
[2021-03-07 06:02] LABS: Alanine Aminotransferase 16 U/L (0-31); Albumin Level 3.3 g/dL (3.5-5.0); Alkaline Phosphatase 84 U/L (39-117); Anion Gap 14 (12-20); Aspartate Amino Transferase 21 U/L (5-31); Bilirubin Total 0.4 mg/dL (0.0-1.0); Blood Urea Nitrogen 24 mg/dL (9-16); Calcium 8.6 mg/dL (8.4-10.2); Carbon Dioxide 27 mmol/L (22-29); Chloride 101 mmol/L (96-108); Creatinine Clr Calc Pharmacy 29.7; Estimated Glomerular Filt Rate 32; Glucose Fasting 116 mg/dL (60-99); Potassium 4.1 mmol/L (3.3-5.1); Sodium 138 mmol/L (135-145); Total Protein 5.6 g/dL (6.5-8.0)
[2021-03-07] MEDS: 0.9 % Sodium Chloride Flush 3 ML SYRINGE IVFLUSH ×2 (08:02→23:16)
[2021-03-07] MEDS: Pregabalin 150 MG CAPSULE PO (08:02)
[2021-03-07] MEDS: oxyCODONE HCl Immed Release 5 MG TABLET PO ×4 (08:02→23:12)
[2021-03-07] MEDS: Multivitamin TABLET 1 TAB PO (08:02)
[2021-03-07] MEDS: Losartan Potassium 50 MG TABLET 100 MG PO (08:03)
--- NOTE | 2021-03-07 10:57 | HO.PM.IMPN ---
Subjective Subjective Date of Service: 03/07/21 Interval History: Pain control poor; utilize morphine this a.m. still difficult to ambulate or transfer out of bed Review of Systems Denies chest pain Denies shortness breath Denies nausea vomiting diarrhea Physical Exam Vital Signs: Vital Signs: Last Vital Signs Temp 100.0 F 03/07/21 06:52 Pulse 81 03/07/21 08:03 Resp 18 03/07/21 06:52 BP 134/65 03/07/21 08:03 Pulse Ox 95 03/07/21 06:52 Body Mass Index 38.1 Const: Other: Awake alert oriented x3 no acute distress; uncomfortable HENMT: Other: Membranes dry wrist; oropharynx clear Resp: Other: Clear to auscultation bilaterally no rales rhonchi wheezes Cardio: Other: No S4 positive S1-S2 no S3 murmurs rubs or gallops GI: Other: Soft nontender nondistended with normoactive bowel sounds Back/Spine/Pelvis: Other: Point tenderness over mid back lumbar region Neuro: Other: Cranial nerves 2-12 grossly intact as tested. Motor is 5/5 all extremities however painful with leg raising. Sensation is intact Extrem: Other: No edema bilaterally Objective Data Active Medications Acetaminophen (Acetaminophen 325 Mg Tablet) 650 mg PO Q6H PRN PRN Reason: Pain, Mild (Pain Scale 1-3) Last Admin: 03/06/21 10:09 Dose: 650 mg Documented by: JOSE Albuterol Sulfate (Albuterol Sulfate 90 Mcg 8 Gm Inhaler) 2 puff INHALE Q4H PRN PRN Reason: Shortness Of Breath Last Admin: 03/03/21 19:45 Dose: 2 puff Documented by: RITO Levofloxacin (Levaquin) 250 mg in 50 mls @ 50 mls/hr IV Q24H [facility] Last Infusion: 03/06/21 14:31 Dose: 0 mls/hr Documented by: JOSE Lactulose (Lactulose 20 Gm/30 Ml Solution) 30 gm PO Q24H PRN PRN Reason: Constipation Last Admin: 03/06/21 17:03 Dose: 30 gm Documented by: DELFIN Losartan Potassium (Losartan Potassium 50 Mg Tablet) 100 mg PO DAILY [facility]; Protocol Last Admin: 03/07/21 08:03 Dose: 100 mg Documented by: MOOK Magnesium Hydroxide (Milk Of Magnesia 30 Ml Oral.Susp) 30 ml PO DAILY PRN PRN Reason: Constipation Melatonin (Melatonin 3 Mg Tablet) 6 mg PO BEDTIME PRN PRN Reason: Insomnia Morphine Sulfate (Morphine Sulfate 2 Mg/Ml Cartridge) 1 mg IVPUSH Q4H PRN; Protocol PRN Reason: Pain, Moderate (Pain Scale 4-6 Multivitamins/Vitamin C (Multivitamin Tablet) 1 tab PO DAILY [facility] Last Admin: 03/07/21 08:02 Dose: 1 tab Documented by: MOOK Non-Formulary Medication (Vit C,T-Mz-[id number]-Lutein-Zeaxan [Preservision Areds-2]) 1 tab PO BID [facility] Last Admin: 03/07/21 08:04 Dose: 1 tab Documented by: MOOK Ondansetron HCl (Ondansetron Hcl 4 Mg/2 Ml Vial) 4 mg IVPUSH Q8H PRN PRN Reason: Nausea and Vomiting Last Admin: 03/04/21 03:11 Dose: 4 mg Documented by: SPENSER Oxycodone HCl (Oxycodone Hcl Immed Release 5 Mg Tablet) 5 mg PO Q4H PRN PRN Reason: Pain, Moderate (Pain Scale 4-6 Last Admin: 03/07/21 08:02 Dose: 5 mg Documented by: MOOK Pharmacy Consult (Consult Rx Perform Med Rec) 1 each MISCELLANE ONCE PRN PRN Reason: Consult order Pregabalin (Pregabalin 150 Mg Capsule) 150 mg PO DAILY [facility] Last Admin: 03/07/21 08:02 Dose: 150 mg Documented by: MOOK Sodium Chloride (0.9 % Sodium Chloride Flush 3 Ml Syringe) 3 ml IVFLUSH QSHIFT [facility] Last Admin: 03/07/21 08:02 Dose: 3 ml Documented by: MOOK Sodium Chloride (Sodium Chloride 0.65 % Nasal 44 Ml Sprbtl) 1 spray NOSTRIL-B Q1H PRN PRN Reason: Nasal Congestion Last Admin: 03/04/21 17:07 Dose: 1 spray Documented by: DIANNE Labs CBC & Chem 7: 03/07/21 04:32 03/07/21 04:32 Labs: Laboratory Results - last 24 hr 03/07/21 03/07/21 04:32 04:32 MCV 94.7 MCH 31.3 MCHC 33.0 RDW 13.5 Plt Count 282 D MPV 9.6 Absolute Nucleated RBC 0.000 Nucleated RBC % (auto) 0.0 Anion Gap 14 Estim Creat Clear Calc 29.7 Estimated GFR 32 Fasting Glucose 116 H Calcium 8.6 Total Bilirubin 0.4 AST 21 ALT 16 Alkaline Phosphatase 84 Total Protein 5.6 L Albumin 3.3 L Assessment and Plan (1) Closed compression fracture of lumbar vertebra: Status: Acute (2) Acute UTI: Status: Acute (3) Essential hypertension: Status: Acute Assessment and Plan: 85-year-old female past medical history significant for hypertension, aortic stenosis, atrial arrhythmia, bifascicular block, spinal stenosis presents to the emergency department with concerns of back pain, malaise, shortness of breath and nonproductive cough X1 week.? Workup but consistent with acute L1 compression fracture and UTI; lumbar spine MRI done confirming same... New FX L1 and L3. 1. Acute lumbar compression fracture (L1) Pain control poor with oral therapies; patient unable to ambulate without significant pain. D NPO after midnight and hold Lovenox 03/07/21 evenimg 2. UTI in backdrop of acute on chronic renal disease Urine culture positive for Klebsiella greater than 100,000 colonies Switch to oral Levaquin 3. TASH Slight bump with ARB; clinically dry. Gentle IV fluids 4. Hypertension Acceptable control . ARB added with changes in Creat; Continue same DVT: Boots Full code Quality Stroke Does the patient have a stroke diagnosis?: No VTE Prior VTE?: No VTE Risk Level:: Medical - moderate - high VTE Device Contraindication: Treatment Not Indicated VTE Drug Contraindication: N/A - Med Ordered
[2021-03-07] MEDS: Morphine Sulfate 2 MG/ML CARTRIDGE 1 MG IVPUSH (12:18)
[2021-03-07] MEDS: levoFLOXacin/D5W 250 MG/50 ML PIGGYBACK 50 MG IV (12:18)
[2021-03-07] MEDS: Acetaminophen 325 MG TABLET 650 MG PO ×2 (14:00→23:12)
[2021-03-07 14:13] LABS: INTERNATIONAL NORM RATIO 1.1 (0.9-1.1); Prothrombin Time 12.3 SEC (9.9-13.0)
[2021-03-07] MEDS: Sodium Chloride 0.45 % 1,000 ML 75 ML IVCONT (14:21)
[2021-03-08] VITALS (12 sets, daily range): BP systolic 118–161; BP diastolic 64–87; PULSE 75–95; RESP 16–20; TEMP 36.1–37.2; O2SAT 94–98
[2021-03-08] MEDS: Sodium Chloride 0.45 % 1,000 ML 75 ML IVCONT (02:28)
[2021-03-08 05:53] LABS: Hematocrit 32.4 % (37-47); Hemoglobin 10.5 g/dl (12.0-16.0); Mean Corpuscular HGB Conc 32.4 g/dl (31.0-35.0); Mean Corpuscular Hemoglobin 30.7 pg (27.0-33.0); Mean Corpuscular Volume 94.7 fL (80-98); Mean Platelet Volume 9.4 fL (9.4-12.3); Platelet Count 251 X10*3/uL (160-400); Red Blood Count 3.42 X10*6/uL (4.20-5.50); Red Cell Distribution Width 13.6 % (11.0-16.0); White Blood Count 8.3 X10*3/uL (4.8-10.8)
[2021-03-08 06:11] LABS: Alanine Aminotransferase 17 U/L (0-31); Albumin Level 3.2 g/dL (3.5-5.0); Alkaline Phosphatase 87 U/L (39-117); Anion Gap 13 (12-20); Aspartate Amino Transferase 23 U/L (5-31); Bilirubin Total 0.4 mg/dL (0.0-1.0); Blood Urea Nitrogen 25 mg/dL (9-16); Calcium 8.2 mg/dL (8.4-10.2); Carbon Dioxide 25 mmol/L (22-29); Chloride 103 mmol/L (96-108); Creatinine Clr Calc Pharmacy 34.6; Estimated Glomerular Filt Rate 38; Glucose Fasting 116 mg/dL (60-99); Potassium 3.9 mmol/L (3.3-5.1); Sodium 137 mmol/L (135-145); Total Protein 5.4 g/dL (6.5-8.0)
[2021-03-08] MEDS: oxyCODONE HCl Immed Release 5 MG TABLET PO ×3 (08:27→23:09)
[2021-03-08] MEDS: Acetaminophen 325 MG TABLET 650 MG PO ×2 (08:28→14:44)
--- NOTE | 2021-03-08 10:28 | P.PNIM_ITS ---
Subjective Subjective Date of Service: 03/08/21 Interval History: Pain control adequate. For vertebroplasty this am Review of Systems Denies chest pain Denies shortness breath Denies nausea vomiting diarrhea Physical Exam Vital Signs: Vital Signs: Last Vital Signs Temp 97.3 F 03/08/21 07:24 Pulse 76 03/08/21 07:24 Resp 18 03/08/21 07:24 BP 142/67 H 03/08/21 07:24 Pulse Ox 97 03/08/21 07:24 Body Mass Index 38.1 Const: Other: Awake alert oriented x3 no acute distress; uncomfortable HENMT: Other: Membranes dry wrist; oropharynx clear Resp: Other: Clear to auscultation bilaterally no rales rhonchi wheezes Cardio: Other: No S4 positive S1-S2 no S3 murmurs rubs or gallops GI: Other: Soft nontender nondistended with normoactive bowel sounds Back/Spine/Pelvis: Other: Point tenderness over mid back lumbar region Neuro: Other: Cranial nerves 2-12 grossly intact as tested. Motor is 5/5 all extremities however painful with leg raising. Sensation is intact Extrem: Other: No edema bilaterally Objective Data Active Medications Acetaminophen (Acetaminophen 325 Mg Tablet) 650 mg PO Q6H PRN PRN Reason: Pain, Mild (Pain Scale 1-3) Last Admin: 03/08/21 08:28 Dose: 650 mg Documented by: HERMES Albuterol Sulfate (Albuterol Sulfate 90 Mcg 8 Gm Inhaler) 2 puff INHALE Q4H PRN PRN Reason: Shortness Of Breath Last Admin: 03/03/21 19:45 Dose: 2 puff Documented by: RITO Levofloxacin (Levaquin) 250 mg in 50 mls @ 50 mls/hr IV Q24H [facility] Last Infusion: 03/07/21 14:21 Dose: 0 mls/hr Documented by: MOOK Sodium Chloride () 1,000 mls @ 75 mls/hr IVCONT .[id number] Last Admin: 03/08/21 02:28 Dose: 75 mls/hr Documented by: RICH Lactulose (Lactulose 20 Gm/30 Ml Solution) 30 gm PO Q24H PRN PRN Reason: Constipation Last Admin: 03/06/21 17:03 Dose: 30 gm Documented by: DELFIN Losartan Potassium (Losartan Potassium 50 Mg Tablet) 100 mg PO DAILY [facility]; Protocol Last Admin: 03/08/21 09:42 Dose: Not Given Documented by: HERMES Non-Admin Reason: NPO Magnesium Hydroxide (Milk Of Magnesia 30 Ml Oral.Susp) 30 ml PO DAILY PRN PRN Reason: Constipation Melatonin (Melatonin 3 Mg Tablet) 6 mg PO BEDTIME PRN PRN Reason: Insomnia Morphine Sulfate (Morphine Sulfate 2 Mg/Ml Cartridge) 1 mg IVPUSH Q4H PRN; Protocol PRN Reason: Pain, Moderate (Pain Scale 4-6 Last Admin: 03/07/21 12:18 Dose: 1 mg Documented by: MOOK Multivitamins/Vitamin C (Multivitamin Tablet) 1 tab PO DAILY [facility] Last Admin: 03/08/21 09:42 Dose: Not Given Documented by: HERMES Non-Admin Reason: NPO Non-Formulary Medication (Vit C,I-Is-Ugfdz-Lutein-Zeaxan [Preservision Areds-2]) 1 tab PO BID [facility] Last Admin: 03/08/21 09:43 Dose: Not Given Documented by: HERMES Non-Admin Reason: NPO Ondansetron HCl (Ondansetron Hcl 4 Mg/2 Ml Vial) 4 mg IVPUSH Q8H PRN PRN Reason: Nausea and Vomiting Last Admin: 03/04/21 03:11 Dose: 4 mg Documented by: SPENSER Oxycodone HCl (Oxycodone Hcl Immed Release 5 Mg Tablet) 5 mg PO Q4H PRN PRN Reason: Pain, Moderate (Pain Scale 4-6 Last Admin: 03/08/21 08:27 Dose: 5 mg Documented by: HERMES Pharmacy Consult (Consult Rx Perform Med Rec) 1 each MISCELLANE ONCE PRN PRN Reason: Consult order Pregabalin (Pregabalin 150 Mg Capsule) 150 mg PO DAILY [facility] Last Admin: 03/08/21 09:42 Dose: Not Given Documented by: HERMES Non-Admin Reason: NPO Sodium Chloride (0.9 % Sodium Chloride Flush 3 Ml Syringe) 3 ml IVFLUSH QSHIFT [facility] Last Admin: 03/08/21 09:37 Dose: Not Given Documented by: HO.KODOSOB Non-Admin Reason: IV Running Sodium Chloride (Sodium Chloride 0.65 % Nasal 44 Ml Sprbtl) 1 spray NOSTRIL-B Q1H PRN PRN Reason: Nasal Congestion Last Admin: 03/04/21 17:07 Dose: 1 spray Documented by: DIANNE Labs CBC & Chem 7: 03/08/21 05:23 03/08/21 05:23 Labs: Laboratory Results - last 24 hr 03/07/21 03/08/21 03/08/21 13:47 05:23 05:23 MCV 94.7 MCH 30.7 MCHC 32.4 RDW 13.6 Plt Count 251 MPV 9.4 Absolute Nucleated RBC 0.000 Nucleated RBC % (auto) 0.0 PT 12.3 INR 1.1 Anion Gap 13 Estim Creat Clear Calc 34.6 Estimated GFR 38 Fasting Glucose 116 H Calcium 8.2 L Total Bilirubin 0.4 AST 23 ALT 17 Alkaline Phosphatase 87 Total Protein 5.4 L Albumin 3.2 L Assessment and Plan (1) Closed compression fracture of lumbar vertebra: Status: Acute Assessment and Plan: 85-year-old female past medical history significant for hypertension, aortic stenosis, atrial arrhythmia, bifascicular block, spinal stenosis presents to the emergency department with concerns of back pain, malaise, shortness of breath and nonproductive cough X1 week.? Workup but consistent with acute L1 compression fracture and UTI; lumbar spine MRI done confirming same... New FX L1 and L3. 1. Acute lumbar compression fracture (L1) For vertebroplasty this am. Dispo based on response. 2. UTI in backdrop of acute on chronic renal disease Urine culture positive for Klebsiella greater than 100,000 colonies Switch to oral Levaquin 3. TASH Back to baseline 4. Hypertension Acceptable control . ARB added with changes in Creat; Continue same DVT: Boots Full code Quality Stroke Does the patient have a stroke diagnosis?: No VTE Prior VTE?: No VTE Risk Level:: Medical - moderate - high VTE Device Contraindication: Treatment Not Indicated VTE Drug Contraindication: N/A - Med Ordered
--- NOTE | 2021-03-08 11:02 | P.CONAN_ITS ---
[facility] Active Problems Active Problems: All Active Problems (Updated 03/03/21 @ 16:34 by Suzanne donohue DO) Closed compression fracture of lumbar vertebra (Acute) Acute UTI (Acute) Acute renal failure (Acute) Essential hypertension (Acute) Bifascicular block (Acute) Atrial arrhythmia (Acute) Non-rheumatic aortic stenosis (Acute) Past Medical History Medical History Atrial arrhythmia Bifascicular block Essential hypertension Non-rheumatic aortic stenosis Family History Family History Father CVD (cardiovascular disease) Mother CVD (cardiovascular disease) Brother CVD (cardiovascular disease) Family history of problems with anesthesia: No Surgical History Surgical History History of benign breast biopsy History of tonsillectomy History of Problems with Anesthesia: No Social History Social History Household Members: Family Housing: House Do you presently have visiting nurse or other home services: No Alcohol intake: unknown Patient Tobacco Use Status: Former Tobacco user Quit Date: 1991 Tobacco use type: Cigarette Smoked in Last 30 Days: No Use of substances other than those prescribed or required for medical reasons: No Currently Displaying Signs/Symptoms of Drug Intoxication Withdrawal: No Have you been hit, kicked, punched, or otherwise hurt by someone within the past year? If so, by whom?: No Do you feel safe in your current relationship?: Yes Is there a partner from a previous relationship who is making you feel unsafe now?: No Are you made to feel afraid or neglected: No Are you DNR?: No Advance Directives: No Advance Directives Information Provided: No Do you have thoughts of harming others: None Do you have a plan to hurt others: No Plan Recently lost weight without trying: No Nutrition Risks: No Nutritional Risk Patient : No : No Poor oral hygiene: No service: No Current occupational status: retired Meds Allergies Allergy/AdvReac Type Severity Reaction Status Date / Time Penicillins AdvReac Unknown Rash Verified 03/08/21 10:46 Active Medications: Current Medications Acetaminophen (Acetaminophen 325 Mg Tablet) 650 mg PO Q6H PRN PRN Reason: Pain, Mild (Pain Scale 1-3) Last Admin: 03/08/21 08:28 Dose: 650 mg Documented by: Albuterol Sulfate (Albuterol Sulfate 90 Mcg 8 Gm Inhaler) 2 puff INHALE Q4H PRN PRN Reason: Shortness Of Breath Last Admin: 03/03/21 19:45 Dose: 2 puff Documented by: Levofloxacin (Levaquin) 250 mg in 50 mls @ 50 mls/hr IV Q24H [facility] Last Infusion: 03/07/21 14:21 Dose: Infused Documented by: Sodium Chloride () 1,000 mls @ 75 mls/hr IVCONT .[id number] [facility] Last Admin: 03/08/21 02:28 Dose: 75 mls/hr Documented by: Lactulose (Lactulose 20 Gm/30 Ml Solution) 30 gm PO Q24H PRN PRN Reason: Constipation Last Admin: 03/06/21 17:03 Dose: 30 gm Documented by: Losartan Potassium (Losartan Potassium 50 Mg Tablet) 100 mg PO DAILY [facility]; Protocol Last Admin: 03/08/21 09:42 Dose: Not Given Documented by: Magnesium Hydroxide (Milk Of Magnesia 30 Ml Oral.Susp) 30 ml PO DAILY PRN PRN Reason: Constipation Melatonin (Melatonin 3 Mg Tablet) 6 mg PO BEDTIME PRN PRN Reason: Insomnia Morphine Sulfate (Morphine Sulfate 2 Mg/Ml Cartridge) 1 mg IVPUSH Q4H PRN; Protocol PRN Reason: Pain, Moderate (Pain Scale 4-6 Last Admin: 03/07/21 12:18 Dose: 1 mg Documented by: Multivitamins/Vitamin C (Multivitamin Tablet) 1 tab PO DAILY [facility] Last Admin: 03/08/21 09:42 Dose: Not Given Documented by: Non-Formulary Medication (Vit C,P-Zd-Tiavy-Lutein-Zeaxan [Preservision Areds-2]) 1 tab PO BID [facility] Last Admin: 03/08/21 09:43 Dose: Not Given Documented by: Ondansetron HCl (Ondansetron Hcl 4 Mg/2 Ml Vial) 4 mg IVPUSH Q8H PRN PRN Reason: Nausea and Vomiting Last Admin: 03/04/21 03:11 Dose: 4 mg Documented by: Oxycodone HCl (Oxycodone Hcl Immed Release 5 Mg Tablet) 5 mg PO Q4H PRN PRN Reason: Pain, Moderate (Pain Scale 4-6 Last Admin: 03/08/21 08:27 Dose: 5 mg Documented by: Pharmacy Consult (Consult Rx Perform Med Rec) 1 each MISCELLANE ONCE PRN PRN Reason: Consult order Pregabalin (Pregabalin 150 Mg Capsule) 150 mg PO DAILY [facility] Last Admin: 03/08/21 09:42 Dose: Not Given Documented by: Sodium Chloride (0.9 % Sodium Chloride Flush 3 Ml Syringe) 3 ml IVFLUSH QSHIFT [facility] Last Admin: 03/08/21 09:37 Dose: Not Given Documented by: Sodium Chloride (Sodium Chloride 0.65 % Nasal 44 Ml Sprbtl) 1 spray NOSTRIL-B Q1H PRN PRN Reason: Nasal Congestion Last Admin: 03/04/21 17:07 Dose: 1 spray Documented by: Home Medications Medication Instructions Recorded Confirmed Last Taken Type losartan 100 1 tab PO DAILY 09/10/20 03/03/21 03/02/21 History mg-hydrochlorothiazide 25 mg tablet multivitamin 1 tab PO DAILY 09/10/20 03/03/21 03/02/21 History pregabalin 150 mg capsule 150 mg PO DAILY cap 09/10/20 03/03/21 03/02/21 History albuterol sulfate 90 mcg/actuation 2 puff INHALATION Q4H PRN 03/03/21 03/03/21 03/02/21 History aerosol inhaler hydrocodone 5 mg-acetaminophen 325 1 tab PO TID PRN 03/03/21 03/03/21 03/02/21 History mg tablet vit C 250 mg-vit E 90 mg-zinc 40 1 tab PO BID 03/06/21 03/06/21 03/06/21 13:32 History mg-copper 1 [id number] capsule (PreserVision AREDS-2) Exam Exam Date and Time: March 08, 2021 1102 Height,Weight and Vital Signs: Height 5 ft 2 in Weight 94.6 kg Last Vital Signs Temp 98.9 F 03/08/21 10:58 Pulse 86 03/08/21 10:58 Resp 16 03/08/21 10:58 BP 156/73 H 03/08/21 10:58 Pulse Ox 97 03/08/21 10:58 Pertinent Lab Results Pertinent Lab Results: Laboratory Tests 03/03/21 03/03/21 03/03/21 12:40 12:40 12:40 WBC 9.4 RBC 3.85 L Hgb 12.0 Hct 35.3 L MCV 91.7 MCH 31.2 MCHC 34.0 RDW 13.8 Plt Count 293 D MPV 9.9 Immature Gran % (Auto) 0.8 H Neut % (Auto) 69.7 Lymph % (Auto) 17.3 L [place] % (Auto) 10.3 Eos % (Auto) 1.3 Baso % (Auto) 0.6 Lymph # (Auto) 1.6 [place] # (Auto) 1.0 Eos # (Auto) 0.1 Baso # (Auto) 0.1 Abs Immat Gran (auto) 0.08 H Absolute Neuts (auto) 6.6 Absolute Nucleated RBC 0.000 Nucleated RBC % (auto) 0.0 Smear Tech's Comments PT INR Sodium 132 L Potassium 4.2 D Chloride 100 Carbon Dioxide 19 L Anion Gap 17 BUN 51 H D Creatinine 2.47 H Estim Creat Clear Calc 18.4 Estimated GFR 19 POC Glucose Random Glucose 187 H Fasting Glucose Lactic Acid Lactic Acid Fup @ 2Hr Calcium 8.7 Magnesium 2.9 H Total Bilirubin 0.4 Direct Bilirubin 0.2 AST 22 ALT 19 Alkaline Phosphatase 92 Troponin I High Sens Total Protein 6.8 Albumin 3.9 Urine Color Urine Appearance Urine pH Ur Specific [place] Urine Protein Urine Glucose (UA) Urine Ketones Urine Blood Urine Nitrite Ur Leukocyte Esterase Urine RBC Urine WBC Ur Squamous Epith Cells Ur Renal Epithelial Cell Urine Bacteria COVID-19 (ISAIAH) Negative COVID-19 Clin Com See Note 03/03/21 03/03/21 03/03/21 12:40 14:58 17:01 WBC RBC Hgb Hct MCV MCH MCHC RDW Plt Count MPV Immature Gran % (Auto) Neut % (Auto) Lymph % (Auto) [place] % (Auto) Eos % (Auto) Baso % (Auto) Lymph # (Auto) [place] # (Auto) Eos # (Auto) Baso # (Auto) Abs Immat Gran (auto) Absolute Neuts (auto) Absolute Nucleated RBC Nucleated RBC % (auto) Smear Tech's Comments PT INR Sodium Potassium Chloride Carbon Dioxide Anion Gap BUN Creatinine Estim Creat Clear Calc Estimated GFR POC Glucose Random Glucose Fasting Glucose Lactic Acid 2.2 H* Lactic Acid Fup @ 2Hr Calcium Magnesium Total Bilirubin Direct Bilirubin AST ALT Alkaline Phosphatase Troponin I High Sens 11.6 Total Protein Albumin Urine Color YELLOW Urine Appearance CLEAR Urine pH 6.0 Ur Specific [place] 1.015 Urine Protein NEG Urine Glucose (UA) NEG Urine Ketones NEG Urine Blood NEG Urine Nitrite NEG Ur Leukocyte Esterase 1+ H Urine RBC 0 Urine WBC 15-29 H Ur Squamous Epith Cells 1+ Ur Renal Epithelial Cell 1+ Urine Bacteria NONE COVID-19 (ISAIAH) COVID-19 [employer] 03/03/21 03/03/21 03/04/21 19:36 22:04 06:59 WBC 8.0 RBC 3.42 L Hgb 10.5 L Hct 31.5 L MCV 92.1 MCH 30.7 MCHC 33.3 RDW 13.6 Plt Count 279 MPV 9.7 Immature Gran % (Auto) 0.9 H Neut % (Auto) 58.4 Lymph % (Auto) 26.7 [place] % (Auto) 11.3 H Eos % (Auto) 1.9 Baso % (Auto) 0.8 Lymph # (Auto) 2.1 [place] # (Auto) 0.9 Eos # (Auto) 0.2 Baso # (Auto) 0.1 Abs Immat Gran (auto) 0.07 H Absolute Neuts (auto) 4.7 Absolute Nucleated RBC 0.000 Nucleated RBC % (auto) 0.0 Smear Tech's Comments PT INR Sodium Potassium Chloride Carbon Dioxide Anion Gap BUN Creatinine Estim Creat Clear Calc Estimated GFR POC Glucose 188 H Random Glucose Fasting Glucose Lactic Acid Lactic Acid Fup @ 2Hr 1.5 Calcium Magnesium Total Bilirubin Direct Bilirubin AST ALT Alkaline Phosphatase Troponin I High Sens Total Protein Albumin Urine Color Urine Appearance Urine pH Ur Specific [place] Urine Protein Urine Glucose (UA) Urine Ketones Urine Blood Urine Nitrite Ur Leukocyte Esterase Urine RBC Urine WBC Ur Squamous Epith Cells Ur Renal Epithelial Cell Urine Bacteria COVID-19 (ISAIAH) COVID-19 Clin Com 03/04/21 03/05/21 03/05/21 06:59 05:44 05:44 WBC 7.8 RBC 3.75 L Hgb 11.4 L Hct 35.1 L MCV 93.6 MCH 30.4 MCHC 32.5 RDW 13.6 Plt Count 222 MPV 10.6 Immature Gran % (Auto) 0.6 H Neut % (Auto) 51.8 Lymph % (Auto) 32.7 [place] % (Auto) 11.5 H Eos % (Auto) 2.4 Baso % (Auto) 1.0 Lymph # (Auto) 2.6 [place] # (Auto) 0.9 Eos # (Auto) 0.2 Baso # (Auto) 0.1 Abs Immat Gran (auto) 0.05 H Absolute Neuts (auto) 4.1 Absolute Nucleated RBC 0.000 Nucleated RBC % (auto) 0.0 Smear Tech's Comments PT INR Sodium 133 L 134 L Potassium 4.0 4.5 Chloride 100 103 Carbon Dioxide 24 21 L Anion Gap 13 15 BUN 33 H 21 H Creatinine 1.54 H 1.14 Estim Creat Clear Calc 29.7 40.0 Estimated GFR 32 46 POC Glucose Random Glucose 173 H 117 H Fasting Glucose Lactic Acid Lactic Acid Fup @ 2Hr Calcium 8.1 L D 8.6 D Magnesium Total Bilirubin 0.3 Direct Bilirubin AST 23 ALT 13 Alkaline Phosphatase 81 Troponin I High Sens Total Protein 6.1 L Albumin 3.4 L Urine Color Urine Appearance Urine pH Ur Specific [place] Urine Protein Urine Glucose (UA) Urine Ketones Urine Blood Urine Nitrite Ur Leukocyte Esterase Urine RBC Urine WBC Ur Squamous Epith Cells Ur Renal Epithelial Cell Urine Bacteria COVID-19 (ISAIAH) COVID-19 Clin Com 03/06/21 03/06/21 03/07/21 07:40 07:40 04:32 WBC 8.6 8.2 RBC 4.01 L 3.61 L Hgb 12.3 11.3 L Hct 37.6 34.2 L MCV 93.8 94.7 MCH 30.7 31.3 MCHC 32.7 33.0 RDW 13.4 13.5 Plt Count 205 282 D MPV 11.0 9.6 Immature Gran % (Auto) 0.6 H Neut % (Auto) 61.4 Lymph % (Auto) 26.3 [place] % (Auto) 9.2 Eos % (Auto) 1.7 Baso % (Auto) 0.8 Lymph # (Auto) 2.3 [place] # (Auto) 0.8 Eos # (Auto) 0.2 Baso # (Auto) 0.1 Abs Immat Gran (auto) 0.05 H Absolute Neuts (auto) 5.3 Absolute Nucleated RBC 0.000 0.000 Nucleated RBC % (auto) 0.0 0.0 Smear Tech's Comments VERIFIED PT INR Sodium 133 L Potassium 4.9 Chloride 99 Carbon Dioxide 23 Anion Gap 16 BUN 20 H Creatinine 1.13 Estim Creat Clear Calc 40.4 Estimated GFR 46 POC Glucose Random Glucose 128 H Fasting Glucose Lactic Acid Lactic Acid Fup @ 2Hr Calcium 8.9 Magnesium Total Bilirubin 0.5 Direct Bilirubin AST 26 ALT 17 Alkaline Phosphatase 95 Troponin I High Sens Total Protein 6.6 Albumin 3.7 Urine Color Urine Appearance Urine pH Ur Specific [place] Urine Protein Urine Glucose (UA) Urine Ketones Urine Blood Urine Nitrite Ur Leukocyte Esterase Urine RBC Urine WBC Ur Squamous Epith Cells Ur Renal Epithelial Cell Urine Bacteria COVID-19 (ISAIAH) [employer] 03/07/21 03/07/21 03/08/21 04:32 13:47 05:23 WBC 8.3 RBC 3.42 L Hgb 10.5 L Hct 32.4 L MCV 94.7 MCH 30.7 MCHC 32.4 RDW 13.6 Plt Count 251 MPV 9.4 Immature Gran % (Auto) Neut % (Auto) Lymph % (Auto) [place] % (Auto) Eos % (Auto) Baso % (Auto) Lymph # (Auto) [place] # (Auto) Eos # (Auto) Baso # (Auto) Abs Immat Gran (auto) Absolute Neuts (auto) Absolute Nucleated RBC 0.000 Nucleated RBC % (auto) 0.0 Smear Tech's Comments PT 12.3 INR 1.1 Sodium 138 Potassium 4.1 Chloride 101 Carbon Dioxide 27 Anion Gap 14 BUN 24 H Creatinine 1.54 H Estim Creat Clear Calc 29.7 Estimated GFR 32 POC Glucose Random Glucose Fasting Glucose 116 H Lactic Acid Lactic Acid Fup @ 2Hr Calcium 8.6 Magnesium Total Bilirubin 0.4 Direct Bilirubin AST 21 ALT 16 Alkaline Phosphatase 84 Troponin I High Sens Total Protein 5.6 L Albumin 3.3 L Urine Color Urine Appearance Urine pH Ur Specific [place] Urine Protein Urine Glucose (UA) Urine Ketones Urine Blood Urine Nitrite Ur Leukocyte Esterase Urine RBC Urine WBC Ur Squamous Epith Cells Ur Renal Epithelial Cell Urine Bacteria COVID-19 (ISAIAH) COVID-19 [employer] Com 03/08/21 05:23 WBC RBC Hgb Hct MCV MCH MCHC RDW Plt Count MPV Immature Gran % (Auto) Neut % (Auto) Lymph % (Auto) [place] % (Auto) Eos % (Auto) Baso % (Auto) Lymph # (Auto) [place] # (Auto) Eos # (Auto) Baso # (Auto) Abs Immat Gran (auto) Absolute Neuts (auto) Absolute Nucleated RBC Nucleated RBC % (auto) Smear Tech's Comments PT INR Sodium 137 Potassium 3.9 Chloride 103 Carbon Dioxide 25 Anion Gap 13 BUN 25 H Creatinine 1.32 Estim Creat Clear Calc 34.6 Estimated GFR 38 POC Glucose Random Glucose Fasting Glucose 116 H Lactic Acid Lactic Acid Fup @ 2Hr Calcium 8.2 L Magnesium Total Bilirubin 0.4 Direct Bilirubin AST 23 ALT 17 Alkaline Phosphatase 87 Troponin I High Sens Total Protein 5.4 L Albumin 3.2 L Urine Color Urine Appearance Urine pH Ur Specific [place] Urine Protein Urine Glucose (UA) Urine Ketones Urine Blood Urine Nitrite Ur Leukocyte Esterase Urine RBC Urine WBC Ur Squamous Epith Cells Ur Renal Epithelial Cell Urine Bacteria COVID-19 (ISAIAH) COVID-19 Clin Com Airway Mallampati Class: II TM Dist: >3cm Neck ROM: Full Denture: Upper Heart: rrr Lungs: cta Assessment and Plan Assessment Anesthesia Assessment: Anesthesia Plan Discussed and Chart Reviewed Final Anesthetic Review Family History of Problems with Anesthesia: No History of Problems with Anesthesia: No NPO: Yes ASA Class: III Final Preanesthetic Review: No Changes in Pt Med Stat, Meds/Allgs Chart Reviewed and Consent Obtained/Reviewed Patient Risk: Intermediate Procedure Risk: Intermediate Anesthetic Plan Anesthetic Plan: MAC: Disposition: Standard PACU
[2021-03-08] MEDS: Lactated Ringers 1,000 ML 50 ML IVCONT (11:24)
--- NOTE | 2021-03-08 12:41 | MHC.CM.PN ---
PATIENT SCHEDULED FOR O.R. TODAY. CASE MANAGEMENT FOLLOWING FOR DISCHARGE PLANS.
[2021-03-08] MEDS: fentaNYL citrate/PF 100 MCG/2 ML VIAL 50 MCG IVPUSH (14:54)
[2021-03-08] MEDS: levoFLOXacin/D5W 250 MG/50 ML PIGGYBACK 50 MG IV (16:34)
[2021-03-08] MEDS: 0.9 % Sodium Chloride Flush 3 ML SYRINGE IVFLUSH ×2 (16:40→20:42)
[2021-03-08] MEDS: Morphine Sulfate 2 MG/ML CARTRIDGE 1 MG IVPUSH (20:36)
[2021-03-09] VITALS (7 sets, daily range): BP systolic 107–151; BP diastolic 61–74; PULSE 65–94; RESP 16–18; TEMP 36.1–36.9; O2SAT 92–98
[2021-03-09] MEDS: Sodium Chloride 0.45 % 1,000 ML 75 ML IVCONT (00:47)
[2021-03-09] MEDS: Morphine Sulfate 2 MG/ML CARTRIDGE 1 MG IVPUSH ×3 (00:48→13:40)
[2021-03-09 04:56] LABS: MANUAL DIFF FLAG NO
[2021-03-09 05:01] LABS: Basophils Percent Auto 0.4 % (0-2); Eosinophils Absolute Auto 0.1 X10*3/uL (0.0-0.4); Hematocrit 34.9 % (37-47); Hemoglobin 11.5 g/dl (12.0-16.0); Imm Gran Abs Auto 0.06 X10*3/uL (0.00-0.03); Imm Gran Pct Auto 0.6 % (0.0-0.4); Lymphocytes Absolute Auto 2.2 X10*3/uL (1.2-4.9); Lymphocytes Percent Auto 23.2 % (20-40); Mean Corpuscular Hemoglobin 31.1 pg (27.0-33.0); Mean Corpuscular Volume 94.3 fL (80-98); Mean Platelet Volume 9.3 fL (9.4-12.3); Monocytes Absolute Auto 0.8 X10*3/uL (0.1-1.2); Monocytes Percent Auto 8.8 % (2-11); Neutrophils Absolute Auto 6.3 X10*3/uL (2.0-8.3); Platelet Count 238 X10*3/uL (160-400); Red Cell Distribution Width 13.3 % (11.0-16.0); White Blood Count 9.6 X10*3/uL (4.8-10.8)
[2021-03-09 05:32] LABS: Alanine Aminotransferase 25 U/L (0-31); Albumin Level 3.4 g/dL (3.5-5.0); Alkaline Phosphatase 109 U/L (39-117); Anion Gap 14 (12-20); Aspartate Amino Transferase 33 U/L (5-31); Bilirubin Total 0.6 mg/dL (0.0-1.0); Blood Urea Nitrogen 18 mg/dL (9-16); Calcium 8.5 mg/dL (8.4-10.2); Carbon Dioxide 23 mmol/L (22-29); Chloride 105 mmol/L (96-108); Creatinine Clr Calc Pharmacy 49.1; Estimated Glomerular Filt Rate 58; Glucose Fasting 127 mg/dL (60-99); Potassium 4.1 mmol/L (3.3-5.1); Sodium 138 mmol/L (135-145); Total Protein 5.9 g/dL (6.5-8.0)
[2021-03-09] MEDS: oxyCODONE HCl Immed Release 5 MG TABLET PO ×3 (06:06→16:33)
[2021-03-09] MEDS: Acetaminophen 325 MG TABLET 650 MG PO (06:06)
[2021-03-09] MEDS: Pregabalin 150 MG CAPSULE PO (08:27)
[2021-03-09] MEDS: Multivitamin TABLET 1 TAB PO (08:27)
[2021-03-09] MEDS: Losartan Potassium 50 MG TABLET 100 MG PO (08:28)
[2021-03-09] MEDS: ondansetron HCL 4 MG/2 ML VIAL IVPUSH (09:36)
[2021-03-09 10:10] LABS: COVID-19 Test Negative (Negative)
[2021-03-09] MEDS: bisacodyL 10 MG SUPP.RECT PR (10:22)
--- NOTE | 2021-03-09 11:35 | P.DS_ITS ---
DS: Providers Provider Date of Service: 03/09/21 Date of admission: 03/03/21 17:09 Date of discharge: 03/09/21 Primary care physician: Koby Kwok MD DS: Diagnosis Discharge Diagnosis (1) Closed compression fracture of lumbar vertebra: Status: Acute DS: Summary Hospital Course Hospital Course: 85-year-old female past medical history significant for hypertension, aortic stenosis, atrial arrhythmia, bifascicular block, spinal stenosis presents to the emergency department with concerns of back pain, malaise, shortness of breath and nonproductive cough X1 week.? She states about a week ago she sustained a fall, while going into the bathroom, she states she fell flat onto her back, hit her head, and ever since then she has been having trouble with ambulation, and she notes she has not been able to have a bowel movement.? She states she is having 10/10 lower back pain, worse with ambulation, better at rest. She also states that for the past week she has felt a little more short of breath than usual, and she reports a cough that is nonproductive in nature.? She also states she has been able to hear herself wheezing.? She states that she is currently being treated for UTI, with Bactrim.? She reports chills at home.? She denies chest pain, fevers, abdominal pain, nausea, vomiting, diarrhea, , headaches, changes in vision, weakness. In the ER; his CT scans essentially negative save a new L1 compression fracture.? Also noted to have acute on chronic renal failure.? Will be admitted for management of same Hospital course Patient admitted placed on IV Levaquin for UTI. Attempted pain control with oral agents however patient failed quickly requiring IV morphine. Given such MRI was obtained to document timing of fracture; read by Radiology team to be new;kyphoplasty set up. On 03/08/2021 patient underwent L1and L3 kyphoplasty without incident. Patient did well overnight night of the procedure and this a.m. is ready for discharge to [facility] to undergo progressive rehab for hopeful discharge home. She is medically acceptable for transfer at this time Time Spent with Patient Time attestation: Total time spent providing and/or coordinating discharge services: Discharge coordination time: Greater than 30 minutes Quality: Stroke Does the patient have a stroke diagnosis?: No Physical Exam Vital Signs: Vital Signs: Last Vital Signs Temp 97.5 F 03/09/21 11:01 Pulse 84 03/09/21 11:20 Resp 18 03/09/21 11:01 BP 107/61 03/09/21 11:20 Pulse Ox 93 03/09/21 11:20 Body Mass Index 38.1 Const: Other: Awake alert oriented x3 no acute distress; uncomfortable HENMT: Other: Membranes dry wrist; oropharynx clear Resp: Other: Clear to auscultation bilaterally no rales rhonchi wheezes Cardio: Other: No S4 positive S1-S2 no S3 murmurs rubs or gallops GI: Other: Soft nontender nondistended with normoactive bowel sounds Back/Spine/Pelvis: Other: Point tenderness over mid back lumbar region Neuro: Other: Cranial nerves 2-12 grossly intact as tested. Motor is 5/5 all extremities however painful with leg raising. Sensation is intact Extrem: Other: No edema bilaterally DS: Data Data Completed and Pending Labs on day of discharge: Laboratory Results - last 24 hr 03/09/21 03/09/21 03/09/21 04:40 04:40 09:40 WBC 9.6 RBC 3.70 L Hgb 11.5 L Hct 34.9 L MCV 94.3 MCH 31.1 MCHC 33.0 RDW 13.3 Plt Count 238 MPV 9.3 L Immature Gran % (Auto) 0.6 H Neut % (Auto) 66.0 Lymph % (Auto) 23.2 [place] % (Auto) 8.8 Eos % (Auto) 1.0 Baso % (Auto) 0.4 Lymph # (Auto) 2.2 [place] # (Auto) 0.8 Eos # (Auto) 0.1 Baso # (Auto) 0.0 Abs Immat Gran (auto) 0.06 H Absolute Neuts (auto) 6.3 Absolute Nucleated RBC 0.000 Nucleated RBC % (auto) 0.0 Sodium 138 Potassium 4.1 Chloride 105 Carbon Dioxide 23 Anion Gap 14 BUN 18 H Creatinine 0.93 Estim Creat Clear Calc 49.1 Estimated GFR 58 Fasting Glucose 127 H Calcium 8.5 Total Bilirubin 0.6 AST 33 H D ALT 25 Alkaline Phosphatase 109 D Total Protein 5.9 L Albumin 3.4 L COVID-19 (ISAIAH) Negative COVID-19 Clin Com See Note Discharge Plan Discharge Patient Disposition: Xfer Inpatient Rehab Fac Discharge Diagnosis: L1 compression Fx Referrals: Koby Kwok MD [Primary Care Provider] - 1 Week Discharge Medications: New oxycodone 5 mg tablet 5 mg PO Q6H PRN (Reason: pain) Qty: 30 RF: 0 levofloxacin 250 mg tablet 250 mg PO DAILY 3 Days Qty: 3 RF: 0 Continued albuterol sulfate 90 mcg/actuation HFA aerosol inhaler 2 puff inhalation Q4H PRN (Reason: Shortness Of Breath) RF: 0 PreserVision AREDS-2 250-90-40-1 mg Capsule 1 tab PO BID RF: 0 pregabalin 150 mg capsule 150 mg PO DAILY RF: 0 losartan-hydrochlorothiazide 100-25 mg tablet 1 tab PO DAILY RF: 0 multivitamin Tablet 1 tab PO DAILY RF: 0 Discontinued hydrocodone-acetaminophen 5-325 mg tablet 1 tab PO TID PRN (Reason: Pain (Scale Score 7-10)) RF: 0 Discharge Orders: Discharge Order (Routine); Ordered 03/08/21 Ordered By: Rocky Dunaway Diet: advance to usual diet Activity on Discharge: As tolerated Stand Alone Forms: Patient Portal Discharge page Care Plan Goals: As per SNF Health Concerns: Resume high his level of activity Plan of Treatment: PT as per SNF Assessment: Improve
[2021-03-09] MEDS: levoFLOXacin/D5W 250 MG/50 ML PIGGYBACK 50 MG IV (12:25)
[2021-03-09] MEDS: Mineral OiL enema 133 ML ENEMA PR (14:15)
--- NOTE | 2021-03-09 15:25 | MHC.CM.PN ---
PATIENT TO TRANSFER TO [facility] FOR 1630 [facility]. RN AND UNIT AWARE. GRANDSON (IN ROOM) ALSO AWARE. IMM 03/08 IN CHART
--- NOTE | 2021-03-10 12:09 | HO.POSTANES ---
Post Anesthesia Evaluation Post Anesthesia Evaluation Vital Signs: Patient seen earlier before transfer, Vital signs were stable Anesthesia: Monitored Mental Status: Awake Pain Control: Satisfactory Nausea/Vomiting: None Hydration: Adequate Anesthesia-Related Issues: No Anes. Related Issues
== END 2021-03-09 17:10 | disposition skilled nursing facility (03) | DRG 516 ==
LOC: HO.ED 16:34 → HO.EDOVER 19:15 → HO.S3 03-04 07:14
PROVIDERS: Radiology Diagnostic Radiology; Admitting Provider Hospitalist; Emergency Provider Emergency Medicine; PCP Internal Medicine; Visit Provider Hospitalist
PROC: 0QS03ZZ Reposition Lumbar Vertebra, Percutaneous Approach (ICD-10-PCS; principal; 2021-03-08 11:30)
DX: S32.010A Wedge compression fracture of first lumbar vertebra, initial encounter for closed fracture (principal); N39.0 Urinary tract infection, site not specified; N17.9 Acute kidney failure, unspecified; B96.1 Klebsiella pneumoniae [K. pneumoniae] as the cause of diseases classified elsewhere; I12.9 Hypertensive chronic kidney disease with stage 1 through stage 4 chronic kidney disease, or unspecified chronic kidney disease; N18.9 Chronic kidney disease, unspecified; W18.30XA Fall on same level, unspecified, initial encounter; Y92.002 Bathroom of unspecified non-institutional (private) residence as the place of occurrence of the external cause; Z87.891 Personal history of nicotine dependence; Z20.822 Contact with and (suspected) exposure to COVID-19; Z88.0 Allergy status to penicillin; Z79.899 Other long term (current) drug therapy; Z23 Encounter for immunization
CPT/HCPCS: 22514; 36415; 70450; 71045; 71250; 72100; 72125; 72131; 72148; 73522; 74176; 80048; 80053; 80076; 81001; 82947; 83605; 83735; 84484; 85025; 85027; 85610; 87040; 87086; 87635; 90471; 90686; 93005; 94640; 96361; 96365; 96375; 97110; 97116; 97161; 99285; C9803; J0696; J1650; J1956; J2250; J2270; J2370; J2405; J3010

== ENCOUNTER 2021-05-06 11:18 | Outpatient (REF) | payer MEDICARE, SELFPAY ==
[2021-05-06 11:54] LABS: MANUAL DIFF FLAG NO
[2021-05-06 12:55] LABS: Basophils Absolute Auto 0.1 X10*3/uL (0.0-0.2); Basophils Percent Auto 0.8 % (0-2); Eosinophils Absolute Auto 0.2 X10*3/uL (0.0-0.4); Hematocrit 36.9 % (37.0-47.0); Hemoglobin 12.4 g/dl (12.0-16.0); Imm Gran Abs Auto 0.03 X10*3/uL (0.00-0.03); Imm Gran Pct Auto 0.3 % (0.0-0.4); Lymphocytes Absolute Auto 2.5 X10*3/uL (1.2-4.9); Lymphocytes Percent Auto 27.2 % (20-40); Mean Corpuscular HGB Conc 33.6 g/dl (31.0-35.0); Mean Corpuscular Volume 92.3 fL (80.0-98.0); Mean Platelet Volume 10.6 fL (9.4-12.3); Monocytes Absolute Auto 0.8 X10*3/uL (0.1-1.2); Monocytes Percent Auto 8.5 % (2-11); Neutrophils Absolute Auto 5.7 x10*3/uL (2.0-8.3); Neutrophils Percent Auto 61.2 % (45-73); Platelet Count 249 X10*3/uL (160-400); Red Cell Distribution Width 13.5 % (11.0-16.0); White Blood Count 9.3 X10*3/uL (4.8-10.8)
[2021-05-06 13:25] LABS: Alanine Aminotransferase 12 U/L (0-31); Albumin Level 4.2 g/dL (3.5-5.0); Alkaline Phosphatase 102 U/L (39-117); Anion Gap 15 (12-20); Aspartate Amino Transferase 15 U/L (5-31); Bilirubin Total 0.7 mg/dL (0.0-1.0); Blood Urea Nitrogen 21 mg/dL (9-16); C Reactive Protein 0.61 mg/dL (< or = 0.50); Calcium 9.7 mg/dL (8.4-10.2); Carbon Dioxide 27 mmol/L (22-29); Chloride 104 mmol/L (96-108); Cholesterol 264 mg/dL; Estimated Glomerular Filt Rate 54; Glucose Fasting 126 mg/dL (60-99); HDL Cholesterol 38 mg/dL; Potassium 3.9 mmol/L (3.3-5.1); Sodium 142 mmol/L (135-145); Total Protein 6.8 g/dL (6.5-8.0); Triglycerides 470 mg/dL
[2021-05-06 13:43] LABS: Erythrocyte Sedimentation Rate 20 MM/HR (0-20)
[2021-05-06 14:01] LABS: Thyroid Stimulating Hormone 1.53 uIU/mL (0.32-4.0)
[2021-05-06 14:32] LABS: T4 Thyroxine 6.2 ug/dL (4.5-12.0)
== END 2021-05-06 11:19 | disposition home or self-care (01) ==
LOC: HO.LAB 11:18
PROVIDERS: PCP Internal Medicine; Visit Provider Internal Medicine
DX: I50.9 Heart failure, unspecified (principal); R53.83 Other fatigue; E78.5 Hyperlipidemia, unspecified
CPT/HCPCS: 36415; 80053; 80061; 84436; 84443; 85025; 85652; 86140

== ENCOUNTER → 2021-10-14 10:04 | Outpatient (BNVA) | payer MEDICARE, SELFPAY | PROVIDERS: PCP Internal Medicine; Referring Provider Internal Medicine; Visit Provider Internal Medicine | DX: I35.0 Nonrheumatic aortic (valve) stenosis (principal); I49.8 Other specified cardiac arrhythmias; I45.2 Bifascicular block; I10 Essential (primary) hypertension | CPT/HCPCS: 93005; 99212 ==

== ENCOUNTER → 2021-11-24 10:27 | Outpatient (REF) | payer MEDICARE, SELFPAY ==
--- NOTE | 2021-11-24 10:32 | CA_ITS ---
Transthoracic Echocardiogram Patient (Last, First, Middle): Belen Stone, Gender: Female Date of : 1935 Age: 86 Procedure Date: 11/24/2021 Procedure Type: Transthoracic Echocardiogram Location: OP Height: 160.02 cm Weight: 79.38 kg BSA: 1.83 m2 Heart Rate: bpm BP: 140 / 80 mmHg Vice President Of Talent Management: TO/SB Referring MD: Hugo Tubbs MD Mounting Machine Operator: Andrae Godfrey MD Symptoms: I35.0 - Nonrheumatic aortic (valve) stenosis Study Quality: Fair ECG Rhythm: Sinus Conclusions: - 1. Low normal LV systolic function with LVEF of 50-55% with elevated filling pressures 2. Left atrium appears to be dilated 3. Moderate aortic stenosis, paradoxical low-flow 4. Moderate mitral calcification with mild mitral regurgitation 5. Normal RV systolic pressure 6. No gross pericardial effusion Findings Left Ventricle Normal left ventricular cavity size. There is mildly increased left ventricular wall thickness. The left ventricular systolic function is low normal. The visually estimated ejection fraction is between 50-55%. Spectral Doppler is indicative of an impaired relaxation filling pattern. Elevated filling pressures. E/E prime ratio is >15, consistent with elevated filling pressures. Right Ventricle Normal right ventricular cavity size and systolic function. Atria The left atrium is likely dilated. There is no evidence of interatrial shunt. The right atrium is normal in size. Aortic Valve There is moderate calcification of the aortic valve. There is moderate aortic valve stenosis. The mean gradient is 14 mmHg. The aortic valve area is 1.19 cm2. There is no aortic valve regurgitation. Mitral Valve There is mild anterior and moderate posterior mitral leaflet thickening. There is moderate mitral annular calcification. There is mild mitral valve regurgitation. There is no mitral valve stenosis. Pulmonic Valve The pulmonic valve was not well visualized. Tricuspid Valve Likely normal tricuspid valve structure and function. There is mild tricuspid valve regurgitation. The right ventricular systolic pressure is normal. The right ventricular systolic pressure is 18 mmHg. Normal right atrial pressure. There is no evidence of pulmonary hypertension. Great Vessels All visible segments of the aorta are normal in size. The pulmonary artery was not well visualized. Venous The inferior vena cava is normal in size and collapses greater than 50% with inspiration. Pericardium/Pleural There is no evidence of pericardial effusion. Prior Study Comparison No significant change compared to prior study dated: 06/30/2020. Measurements 2D Linear Measurements IVSd: 1.20 0.6-0.9/0.6-1.0 cm LVIDd: 4.52 3.9-5.3/4.2-5.9 cm LVIDd Index: 2.47 2.4-3.2/2.2-3.1 cm/m2 LVIDs: 2.87 2.0-3.6 cm LVPWd: 1.12 0.7-1.1 cm LA Diam: 2.70 2.7-3.8/3.0-4.0 cm LAIDs Index: 1.48 1.5-2.3 cm/m2 LV Mass: 236.77 67-162/88-224 g LV Mass Index: 129.39 43-95/49-115 g/m2 LVOT Diam: 2.20 3.0+(-)1.3 cm 2D Systolic Function EF 4C: 50.80 >55% EF 2C: 51.80 >55% EF BiP: 51.10 >55% Mitral Valve MV Pk E: 0.64 MV PK A: 1.43 MV Decel Time: 169.00 E/A: 0.40 E'Lateral: 2.50 E'Medial: 3.37 E/E' Med: 19.10 E/E' Lat: 25.70 PHT: 50.00 MVA PHT: 4.40 Decel [place]: 3.80 Aortic Valve AoV Pk Mckay: 2.47 AoV Mn Mkcay: 1.73 AoV VTI: 0.50 AoV Pk Grad: 24.00 Aov Mn Grad: 14.00 BRITTANY Cont.VTI: 1.19 LVOT LVOT Pk Mckay: 0.74 LVOT Mn Mckay: 0.51 LVOT VTI: 0.15 LVOT Pk Grad: 2.00 LVOT Mn Grad: 1.00 LVOT Diam: 2.20 LVOT Area: 3.80 Diastolic Function MV Pk E: 0.64 MV Pk A: 1.43 E/A: 0.40 E'Medial: 3.37 E/E' Med: 19.10 E' Laterial: 2.50 E/E' Lat: 25.70 Right Ventricle TAPSE (mm): 19.20 TVS' Mckay: 13.70 Tricuspid Valve TR Pk Mckay: 1.92 TR Pk Grad: 15.00 RA Press: 3.00 RVSP: 18.00 Great Vessels Aorta Sinus of Valsalva: 3.41 2.0-3.5 cm Ao Asc: 3.30 2.1-3.4 cm Updated in Other Vendor System with Status of Final Andrae Godfrey MD electronically signed on 11/25/2021 2:13:58 PM with status of Final
--- NOTE | 2021-11-24 10:32 | HM_ITS ---
Conclusion: 1. Patient was monitored for total period of 2 days and 5 hours 2. Baseline was normal sinus rhythm with average heart of 86 beats per minute 3. No significant pauses or bradycardia noted 4. 13 supraventricular tachycardia episodes with longest lasting 39 beats with fastest at 171 beats per minute 5. Four 3 beat salvos of nonsustained VT fastest at 151 beats per minute 6. Total of 11,149 PVCs accounting for 3.99% of total beats accounting for frequent PVCs 7. Total of 10,355 PACs accounting for 3.71% of total beats account for frequent PACs 8. No patient reported events MTDD
== END ==
LOC: HO.CARD 10:27
PROVIDERS: Visit Provider Internal Medicine
DX: I35.0 Nonrheumatic aortic (valve) stenosis (principal); I49.8 Other specified cardiac arrhythmias
CPT/HCPCS: 93242; 93306

== ENCOUNTER → 2021-12-30 09:43 | Outpatient (BNVA) | payer MEDICARE, SELFPAY | PROVIDERS: PCP Internal Medicine; Referring Provider Internal Medicine; Visit Provider Internal Medicine | DX: I35.0 Nonrheumatic aortic (valve) stenosis (principal); I49.8 Other specified cardiac arrhythmias; I49.3 Ventricular premature depolarization; I45.2 Bifascicular block; I10 Essential (primary) hypertension | CPT/HCPCS: 99212 ==

== ENCOUNTER 2022-05-11 13:11 | Outpatient (REF) | payer MEDICARE, SELFPAY ==
--- NOTE | ~2022-05-11 | XR_ITS ---
EXAMINATION: XR CHEST CLINICAL INFORMATION: Cough for 5 days COMPARISON: Previous chest x-rays most recent February 2021 TECHNIQUE: 2 views of the chest were obtained. FINDINGS: The cardiac and mediastinal contours are stable. There is a large esophageal hernia. The lungs are clear. No pleural effusion or pneumothorax. Degenerative changes of the spine. Old compression fracture and cement augmentation of L1. XR/XR chest 2V IMPRESSION: No evidence for acute disease in the chest. Large esophageal hernia.
== END 2022-05-11 13:12 | disposition home or self-care (01) ==
LOC: HO.XRAY 13:11
PROVIDERS: PCP Internal Medicine; Visit Provider Internal Medicine
DX: R05.9 Cough, unspecified (principal); R68.89 Other general symptoms and signs
CPT/HCPCS: 71046

== ENCOUNTER 2022-06-13 14:30 | Outpatient (REF) | payer MEDICARE, SELFPAY ==
[2022-06-13 15:41] LABS: Estimated Average Glucose 148 mg/dL; Hemoglobin A1c % 6.8 %
== END 2022-06-13 14:31 | disposition home or self-care (01) ==
LOC: HO.LAB 14:30
PROVIDERS: PCP Internal Medicine; Visit Provider Internal Medicine
DX: E11.9 Type 2 diabetes mellitus without complications (principal)
CPT/HCPCS: 36415; 83036

== ENCOUNTER 2022-11-28 15:37 | Outpatient (REF) | payer MEDICARE, SELFPAY ==
[2022-11-28 15:52] LABS: MANUAL DIFF FLAG NO
[2022-11-28 17:55] LABS: Basophils Absolute Auto 0.1 X10*3/uL (0.0-0.2); Basophils Percent Auto 0.9 % (0-2); Eosinophils Absolute Auto 0.1 X10*3/uL (0.0-0.4); Eosinophils Percent Auto 0.9 % (0-4); Hematocrit 43.3 % (37.0-47.0); Imm Gran Abs Auto 0.02 X10*3/uL (0.00-0.03); Imm Gran Pct Auto 0.2 % (0.0-0.4); Lymphocytes Absolute Auto 4.1 X10*3/uL (1.2-4.9); Lymphocytes Percent Auto 35.1 % (20-40); Mean Corpuscular HGB Conc 32.3 g/dl (31.0-35.0); Mean Corpuscular Volume 92.9 fL (80.0-98.0); Mean Platelet Volume 10.6 fL (9.4-12.3); Monocytes Absolute Auto 1.1 X10*3/uL (0.1-1.2); Neutrophils Absolute Auto 6.3 x10*3/uL (2.0-8.3); Neutrophils Percent Auto 53.9 % (45-73); Platelet Count 276 X10*3/uL (160-400); Red Blood Count 4.66 X10*6/uL (4.20-5.50); Red Cell Distribution Width 13.8 % (11.0-16.0); White Blood Count 11.7 X10*3/uL (4.8-10.8)
== END 2022-11-28 15:38 | disposition home or self-care (01) ==
LOC: HO.LAB 15:37
PROVIDERS: PCP Internal Medicine; Visit Provider Internal Medicine
DX: K62.5 Hemorrhage of anus and rectum (principal)
CPT/HCPCS: 36415; 85025

== ENCOUNTER → 2023-01-20 13:53 | Outpatient (REF) | payer MEDICARE, SELFPAY ==
--- NOTE | 2023-01-20 13:56 | CA_ITS ---
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 Low normal LV ejection fraction 50-55% with suggestion of increased filling pressures 2. Probable moderate aortic stenosis with paradoxical low-flow 3. Normal RV systolic pressure 4. No gross pericardial effusion Findings Procedure Information Contrast agent, definity, is being given per protocol without apparent complications. The quality of the study was technically difficult. The study quality is limited by patients body habitus. Left Ventricle Normal left ventricular cavity size. There is normal left ventricular wall thickness. The left ventricular systolic function is low normal. The visually estimated ejection fraction is between 50-55%. Regional wall motion abnormalities can not be excluded due to suboptimal endocardial definition. Diastolic function is indeterminate on the basis of available data. Right Ventricle Normal right ventricular cavity size and systolic function. Atria The left atrium is likely dilated. Interatrial shunt cannot be excluded. The right atrium is normal in size. Aortic Valve There is mild calcification of the aortic valve. There is mild thickening of the aortic valve. There is moderate aortic valve stenosis. The peak aortic gradient is 16 mmHg.The mean gradient is 10 mmHg. There is no aortic valve regurgitation. Mitral Valve There is mild anterior and posterior mitral leaflet thickening. There is mild mitral annular calcification. There is trace mitral valve regurgitation. There is no mitral valve stenosis. Pulmonic Valve The pulmonic valve was not well visualized. Tricuspid Valve Likely normal tricuspid valve structure and function. Tricuspid regurgitation envelope is inadequate for calculation of right ventricular systolic pressure. Normal right atrial pressure. Great Vessels The pulmonary artery was not well visualized. upper limits of normal ascending aortic size Venous The inferior vena cava is normal in size and collapses greater than 50% with inspiration. Pericardium/Pleural There is no evidence of pericardial effusion. Prior Study Comparison No significant change compared to prior study dated: 11/24/2021. Measurements 2D Linear Measurements IVSd: 1.19 0.6-0.9/0.6-1.0 cm LVIDd: 3.99 3.9-5.3/4.2-5.9 cm LVIDd Index: 2.18 2.4-3.2/2.2-3.1 cm/m2 LVIDs: 2.90 2.0-3.6 cm LVPWd: 1.06 0.7-1.1 cm LA Diam: 3.20 2.7-3.8/3.0-4.0 cm LAIDs Index: 1.75 1.5-2.3 cm/m2 LV Mass: 186.63 67-162/88-224 g LV Mass Index: 101.98 43-95/49-115 g/m2 LVOT Diam: 2.20 3.0+(-)1.3 cm 2D Volumes LA Vol: 20.60 2D Systolic Function EF 4C: 47.40 >55% EF 2C: 52.90 >55% EF BiP: 50.80 >55% Aortic Valve AoV Pk Mckay: 2.03 AoV Mn Mckay: 1.50 AoV VTI: 0.38 AoV Pk Grad: 16.00 Aov Mn Grad: 10.00 BRITTANY Cont.VTI: 1.43 LVOT LVOT Pk Mckay: 0.73 LVOT Mn Mckay: 0.52 LVOT VTI: 0.14 LVOT Pk Grad: 2.00 LVOT Mn Grad: 1.00 LVOT Diam: 2.20 LVOT Area: 3.80 Right Ventricle TAPSE (mm): 12.20 TVS' Mckay: 8.45 Tricuspid Valve RA Press: 3.00 Great Vessels Aorta Sinus of Valsalva: 3.00 2.0-3.5 cm Ao Asc: 3.50 2.1-3.4 cm Pulmonary Valve PV Pk Mckay: 0.65 Peak PV Grad: 2.00 Updated in Other Vendor System with Status of Final Andrae Godfrey MD electronically signed on 01/21/2023 1:55:52 PM with status of Final
--- NOTE | 2023-01-20 13:56 | HM_ITS ---
* Total monitoring time about 3 days. * Underlying rhythm is sinus. Average ventricular rate 93/Min. Range 55 to 123/Min. About 15% of the time, rate greater than 100/Min. * Frequent supraventricular ectopy with a burden of 10%. Short runs noted. Longest 11 beats. * Frequent ventricular ectopy. [place] of about 5%. Some couplets, triplets, bigeminy, trigeminy. Longest run 4 beats. * No significant pauses or AV blocks. * No patient markers or events in diary. MTDD
== END ==
LOC: HO.CARD 13:53
PROVIDERS: PCP Internal Medicine; Visit Provider Internal Medicine
DX: I35.0 Nonrheumatic aortic (valve) stenosis (principal); I49.8 Other specified cardiac arrhythmias
CPT/HCPCS: 93242; 93306; Q9957

== ENCOUNTER → 2023-01-20 13:56 | Outpatient (BNV) | payer MEDICARE, SELFPAY | PROVIDERS: PCP Internal Medicine; Visit Provider Internal Medicine Cardiovascular Disease | DX: I47.1 Supraventricular tachycardia (principal) | CPT/HCPCS: 93244; 93306 ==

== ENCOUNTER 2023-02-07 14:39 | Outpatient (AMB) | payer MEDICARE, SELFPAY ==
--- NOTE | 2023-02-07 14:51 | A.OFFVIS_ITS ---
Intake Vital Signs 02/07/23 14:52 Height 5 ft 2 in Weight 188 lb 11.451 oz BMI 34.5 BP 136/60 Blood Pressure Location Lt brachial Position Sitting Pulse 111 H Intake Visit Reasons: 1 year follow up, after echo Intake Note: 1 year follow up w/ EKG System Dispatcher Required: No Allergies Penicillins Adverse Reaction (Unknown, Verified 02/07/23 14:54) Rash Medication List - Last Reconciled 02/07/23 by Hugo Tubbs MD albuterol sulfate 90 mcg/actuation 2 puffs inhalation Q4H PRN furosemide 20 mg PO DAILY hydrocodone-acetaminophen 5-325 mg 1 tab PO TID PRN lorazepam 0.5 mg PO TID PRN losartan 50 mg PO BID multivitamin 1 tab PO DAILY nitrofurantoin monohyd/m-cryst 100 mg 1 cap PO BID pregabalin 150 mg PO DAILY vit C,F-Iv-hzumn-lutein-zeaxan 250-90-40-1 mg (PreserVision AREDS-2) 1 tab PO BID HPI HPI Comments History of Present Illness Details Belen returns for follow-up regarding aortic stenosis other concerns. Overall, she is doing fine. Does not have any symptoms like angina or shortness of breath or in fact anything cardiac sounding. She walks with a walker. Grandson is here for the appointment with her. [facility] Medical History Atrial arrhythmia Bifascicular block Essential hypertension Non-rheumatic aortic stenosis Surgical History History of tonsillectomy History of benign breast biopsy Family History Father CVD (cardiovascular disease) Mother CVD (cardiovascular disease) Brother CVD (cardiovascular disease) Social History Household Members: Family Housing: House Do you presently have visiting nurse or other home services: No Alcohol intake: current Alcohol intake frequency: a few times a month Alcohol type: wine and hard liquor Patient Tobacco Use Status: Former Tobacco user Quit Date: 1991 Tobacco use type: Cigarette service: No Current occupational status: retired Review of Systems Const Denies weakness ENT Denies dizziness Card Denies chest pain, Denies chest pain with activity, Denies syncope, Denies rapid heart rate, Denies pedal edema, Denies edema, Denies leg edema, Denies lightheadedness, Denies palpitations, Denies dyspnea, Denies dyspnea on exertion and Denies orthopnea Resp Denies cough, Denies dyspnea and Denies dyspnea on exertion GI Denies hematochezia and Denies change in stool character Musc Denies abnormal gait, Denies muscle cramps, Denies muscle weakness, Denies numbness, Denies radiating pain into limb and Denies tingling Neuro Denies abnormal gait, Denies dizziness, Denies syncope, Denies numbness, Denies tingling and Denies weakness Endo Denies palpitations Physical Exam Vital Signs: Last Vital Signs Pulse 111 H 02/07/23 14:52 BP 136/60 02/07/23 14:52 BMI result Body Mass Index 34.5 Const General: comfortable and no acute distress Orientation/consciousness: patient oriented x3 HEENT Other: Unremarkable Head: Yes normal to inspection Neck Neck: Yes normal visual inspection Chest Chest palpation & inspection: normal inspection of the chest Resp Auscultation: clear to auscultation bilaterally Cardio Palpation: normal PMI Heart sounds: S1 normal heart sound present, S2 normal heart sound present, no gallops, Murmur heart sound present systolic III/ and at the right sternal border and no rubs GI Palpation (GI): Soft to palpation Back/Spine/Pelvis Other: unremarkable Skin General skin exam: no rashes or lesions noted Neuro General: patient oriented x3 Extrem General: Yes normal to inspection Psych Mental Status: mental status grossly normal Office Procedures EKG Details: EKG with sinus tachycardia at 01:11/Min; PVCs; can't exclude PACs with aberrancy;; right bundle-branch block; left anterior fascicular block. [id number], Complete Assessment & Plan Assessment & Plan (1) Non-rheumatic aortic stenosis: Code(s): I35.0 - Nonrheumatic aortic (valve) stenosis Plan: In the recent echocardiogram, mean gradient across aortic valve was 10 mm Hg with a peak of 16 mm Hg. Calculated aortic valve area 1.4 sq cm. Reduced stroke volume based on LVOT VTI. Overall, thought to be moderate aortic stenosis of low-flow/low-gradient type. In the previous study, mean gradient was 14 mm Hg with a calculated value of 1.2 sq cm. Hence possibly there is some underestimation in the current study. LVOT VTI is similar in both studies. At this time, no hemodynamic significance from this. We will continue to monitor. Recheck in 1 year. If any interim symptoms, strongly advised to contact us and she very well understands that. (2) Atrial arrhythmia: Code(s): I49.8 - Other specified cardiac arrhythmias Plan: Frequent supraventricular ectopy on the Holter. Increase chance of atrial fibrillation the future. Currently, no specific management. (3) PVC (premature ventricular contraction): Code(s): I49.3 - Ventricular premature depolarization Plan: Frequent ventricular ectopy on the Holter. [place] of 5%. She has no symptoms from this. No specific management, as she also has underlying conduction system disease. (4) Bifascicular block: Code(s): I45.2 - Bifascicular block Plan: Remains unchanged. This is also seen in a prior EKG from 2018. Myocardial perfusion imaging study shows normal perfusion. (5) Essential hypertension: Code(s): I10 - Essential (primary) hypertension Plan: Stable. No changes. Orders: Orders CA echo transthoracic complete 51 Weeks I35.0 - Nonrheumatic aortic (valve) stenosis Coding Level of Care Code Est Pt Level 4 (56519) Diagnoses Non-rheumatic aortic stenosis I35.0 Atrial arrhythmia I49.8 PVC (premature ventricular contraction) I49.3 Bifascicular block I45.2 Essential hypertension I10 CPT Codes EKG - CPT: 53315-[id number], Complete ([id number])
[2023-02-07 14:52] VITALS: BP 136/60; PULSE 111; BMI 34.5
== END 2023-02-07 16:06 | disposition home or self-care (01) ==
PROVIDERS: PCP Internal Medicine; Visit Provider Internal Medicine
DX: I35.0 Nonrheumatic aortic (valve) stenosis (principal); I49.8 Other specified cardiac arrhythmias; I49.3 Ventricular premature depolarization; I45.2 Bifascicular block; I10 Essential (primary) hypertension
CPT/HCPCS: 93010; 99214

== ENCOUNTER → 2023-02-07 14:39 | Outpatient (BNVA) | payer MEDICARE, SELFPAY | PROVIDERS: PCP Internal Medicine; Visit Provider Internal Medicine | DX: I35.0 Nonrheumatic aortic (valve) stenosis (principal); I49.3 Ventricular premature depolarization; I45.2 Bifascicular block; I10 Essential (primary) hypertension | CPT/HCPCS: 93005; 99212 ==

== ENCOUNTER 2023-06-23 11:28 | Outpatient (REF) | payer MEDICARE, SELFPAY ==
[2023-06-23 11:46] LABS: MANUAL DIFF FLAG NO
[2023-06-23 12:20] LABS: Basophils Absolute Auto 0.1 X10*3/uL (0.0-0.2); Basophils Percent Auto 0.9 % (0-2); Eosinophils Absolute Auto 0.1 X10*3/uL (0.0-0.4); Eosinophils Percent Auto 1.3 % (0-4); Hemoglobin 13.1 g/dl (12.0-16.0); Imm Gran Abs Auto 0.01 X10*3/uL (0.00-0.03); Imm Gran Pct Auto 0.1 % (0.0-0.4); Lymphocytes Absolute Auto 3.2 X10*3/uL (1.2-4.9); Lymphocytes Percent Auto 35.5 % (20-40); Mean Corpuscular Volume 93.8 fL (80.0-98.0); Mean Platelet Volume 10.2 fL (9.4-12.3); Monocytes Absolute Auto 0.9 X10*3/uL (0.1-1.2); Monocytes Percent Auto 9.6 % (2-11); Neutrophils Absolute Auto 4.8 x10*3/uL (2.0-8.3); Neutrophils Percent Auto 52.6 % (45-73); Platelet Count 236 X10*3/uL (160-400); Red Blood Count 4.37 X10*6/uL (4.20-5.50); Red Cell Distribution Width 14.4 % (11.0-16.0); White Blood Count 9.1 X10*3/uL (4.8-10.8)
[2023-06-23 12:54] LABS: Alanine Aminotransferase 9 U/L (0-31); Albumin Level 4.1 g/dL (3.5-5.0); Alkaline Phosphatase 79 U/L (39-117); Anion Gap 12 (12-20); Aspartate Amino Transferase 14 U/L (5-31); Bilirubin Total 0.7 mg/dL (0.0-1.0); Blood Urea Nitrogen 31 mg/dL (9-16); Calcium 9.2 mg/dL (8.4-10.2); Carbon Dioxide 30 mmol/L (22-29); Chloride 99 mmol/L (96-108); Cholesterol 158 mg/dL (<200); Estimated Glomerular Filt Rate 54; Glucose Fasting 123 mg/dL (60-99); HDL Cholesterol 48 mg/dL (>40); Iron 138 mcg/dL (30-160); LDL Cholesterol Calculated 71 mg/dL (<100); Percent Iron Saturation 41 % (15-50); Potassium 4.1 mmol/L (3.3-5.1); Sodium 137 mmol/L (135-145); Total Iron Binding Capacity 337 mcg/dL (228-428); Total Protein 6.8 g/dL (6.5-8.0); Triglycerides 196 mg/dL (<150); Unsaturated Iron Binding 199 ug/dL
[2023-06-23 13:15] LABS: Ferritin 40 ng/mL (10-250); Free T4 (Free Thyroxine) 0.96 ng/dL (0.71-1.85)
[2023-06-23 13:18] LABS: Folate 6.6 ng/mL (> or = 4.0); Vitamin B12 298 pg/mL (200-900)
== END 2023-06-23 11:29 | disposition home or self-care (01) ==
LOC: HO.LAB 11:28
PROVIDERS: PCP Internal Medicine; Visit Provider Internal Medicine
DX: R53.83 Other fatigue (principal); E78.70 Disorder of bile acid and cholesterol metabolism, unspecified; D64.9 Anemia, unspecified
CPT/HCPCS: 36415; 80053; 80061; 82607; 82728; 82746; 83540; 84439; 84443; 85025

== ENCOUNTER 2024-01-16 11:30 | Outpatient (REF) | payer MEDICARE, SELFPAY ==
[2024-01-16 11:58] LABS: MANUAL DIFF FLAG NO
[2024-01-16 12:16] LABS: Basophils Absolute Auto 0.1 X10*3/uL (0.0-0.2); Basophils Percent Auto 0.9 % (0-2); Eosinophils Absolute Auto 0.2 X10*3/uL (0.0-0.4); Hematocrit 39.4 % (37.0-47.0); Imm Gran Abs Auto 0.03 X10*3/uL (0.00-0.03); Imm Gran Pct Auto 0.3 % (0.0-0.4); Lymphocytes Absolute Auto 3.1 X10*3/uL (1.2-4.9); Lymphocytes Percent Auto 33.6 % (20-40); Mean Platelet Volume 9.9 fL (9.4-12.3); Monocytes Absolute Auto 0.8 X10*3/uL (0.1-1.2); Monocytes Percent Auto 8.2 % (2-11); Platelet Count 207 X10*3/uL (160-400); Red Blood Count 4.33 X10*6/uL (4.20-5.50); Red Cell Distribution Width 13.9 % (11.0-16.0); White Blood Count 9.1 X10*3/uL (4.8-10.8)
[2024-01-16 12:50] LABS: Alanine Aminotransferase 13 U/L (0-31); Alkaline Phosphatase 95 U/L (39-117); Anion Gap 16 (12-20); Aspartate Amino Transferase 14 U/L (5-31); Bilirubin Total 0.7 mg/dL (0.0-1.0); Blood Urea Nitrogen 19 mg/dL (9-16); Calcium 9.1 mg/dL (8.4-10.2); Carbon Dioxide 26 mmol/L (22-29); Chloride 103 mmol/L (96-108); Cholesterol 185 mg/dL (<200); Estimated Glomerular Filt Rate > 60; Glucose Fasting 136 mg/dL (60-99); HDL Cholesterol 35 mg/dL (>40); Iron 116 mcg/dL (30-160); LDL Cholesterol Calculated 74 mg/dL (<100); Percent Iron Saturation 38 % (15-50); Potassium 4.1 mmol/L (3.3-5.1); Sodium 141 mmol/L (135-145); Total Iron Binding Capacity 303 mcg/dL (228-428); Total Protein 6.9 g/dL (6.5-8.0); Triglycerides 382 mg/dL (<150); Unsaturated Iron Binding 187 ug/dL
[2024-01-16 13:08] LABS: Ferritin 62 ng/mL (10-250); Free T4 (Free Thyroxine) 0.83 ng/dL (0.71-1.85); Thyroid Stimulating Hormone 1.82 uIU/mL (0.32-4.0)
[2024-01-16 13:24] LABS: Folate 8.5 ng/mL (> or = 4.0); Vitamin B12 330 pg/mL (200-900)
[2024-01-19 10:56] LABS: Estimated Average Glucose 146 mg/dL; Hemoglobin A1c % 6.7 % (<6.0)
== END 2024-01-16 11:31 | disposition home or self-care (01) ==
LOC: HO.LAB 11:30
PROVIDERS: PCP Internal Medicine; Visit Provider Internal Medicine
DX: R53.83 Other fatigue (principal); E78.5 Hyperlipidemia, unspecified; D64.9 Anemia, unspecified; Z13.1 Encounter for screening for diabetes mellitus
CPT/HCPCS: 36415; 80053; 80061; 82607; 82728; 82746; 83036; 83540; 84439; 84443; 85025

== ENCOUNTER → 2024-01-23 09:02 | Outpatient (REF) | payer MEDICARE, SELFPAY ==
--- NOTE | 2024-01-23 09:05 | CA_ITS ---
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 The calculated ejection fraction is 49% by biplane method. - There is mild to moderate aortic valve stenosis. Findings Left Ventricle Normal left ventricular cavity size. There is moderately increased left ventricular wall thickness. The left ventricular systolic function is mildly decreased. The calculated ejection fraction is 49% by biplane method. There is no evidence of regional wall motion abnormalities. Evidence suggests grade I (mild) diastolic dysfunction. Right Ventricle Normal right ventricular cavity size and systolic function. Atria The left atrium is moderately dilated. The right atrium is normal in size. Aortic Valve The aortic valve was not well visualized. There is mild to moderate aortic valve stenosis. The peak aortic velocity is 2.70 m/s with a calculated peak gradient of 29 mmHg. The mean gradient is 16 mmHg. The aortic valve area is 1.40 cm2. Dimensionless index 0.28. Stroke volume index 43 mL/m2. Mitral Valve There is mild mitral annular calcification. There is mild mitral valve regurgitation. There is no mitral valve stenosis. Pulmonic Valve The pulmonic valve is likely normal. Tricuspid Valve Normal tricuspid valve structure. There is trace tricuspid valve regurgitation. There is no evidence of pulmonary hypertension. Great Vessels The asc aorta is normal in size. Venous The inferior vena cava is normal in size and collapses greater than 50% with inspiration. Pericardium/Pleural There is no evidence of pericardial effusion. Prior Study Comparison No significant change compared to prior study dated: 01/20/2023. Measurements 2D Linear Measurements IVSd: 1.31 0.6-0.9/0.6-1.0 cm LVIDd: 4.00 3.9-5.3/4.2-5.9 cm LVIDd Index: 2.21 2.4-3.2/2.2-3.1 cm/m2 LVIDs: 3.27 2.0-3.6 cm LVPWd: 1.30 0.7-1.1 cm Ao Root: 3.10 2.1-3.5 cm LA Diam: 3.30 2.7-3.8/3.0-4.0 cm LAIDs Index: 1.82 1.5-2.3 cm/m2 LV Mass: 233.80 67-162/88-224 g LV Mass Index: 129.17 43-95/49-115 g/m2 LVOT Diam: 2.10 3.0+(-)1.3 cm 2D Systolic Function EF 4C: 52.80 >55% EF 2C: 50.70 >55% EF BiP: 48.70 >55% Mitral Valve MV Pk E: 0.63 MV PK A: 1.39 MV Decel Time: 104.00 E/A: 0.50 E'Lateral: 4.24 E'Medial: 2.94 E/E' Med: 21.30 E/E' Lat: 14.80 PHT: 31.00 MVA PHT: 7.10 Decel [place]: 5.99 Aortic Valve AoV Pk Mckay: 2.70 AoV Mn Mckay: 1.85 AoV VTI: 0.56 AoV Pk Grad: 29.00 Aov Mn Grad: 16.00 BRITTANY Cont.VTI: 1.40 LVOT LVOT Pk Mckay: 0.78 LVOT Mn Mckay: 0.52 LVOT VTI: 0.23 LVOT Pk Grad: 2.00 LVOT Mn Grad: 1.00 LVOT Diam: 2.10 LVOT Area: 3.46 Diastolic Function MV Pk E: 0.63 MV Pk A: 1.39 E/A: 0.50 E'Medial: 2.94 E/E' Med: 21.30 E' Laterial: 4.24 E/E' Lat: 14.80 Right Ventricle TAPSE (mm): 24.00 TVS' Mckay: 15.00 Tricuspid Valve TR Pk Mckay: 2.32 TR Pk Grad: 22.00 RA Press: 3.00 RVSP: 25.00 Great Vessels Aorta Ao Root-2D: 3.10 2.0-3.7 cm Ao Asc: 3.40 2.1-3.4 cm Pulmonary Valve PV Pk Mckay: 1.03 Peak PV Grad: 4.00 Updated in Other Vendor System with Status of Final Hugo Tubbs MD electronically signed on 01/24/2024 11:21:04 AM with status of Final
== END ==
LOC: HO.CARD 09:02
PROVIDERS: PCP Internal Medicine; Visit Provider Internal Medicine
DX: I35.0 Nonrheumatic aortic (valve) stenosis (principal)
CPT/HCPCS: 93306

== ENCOUNTER → 2024-01-23 09:05 | Outpatient (BNV) | payer MEDICARE, SELFPAY | PROVIDERS: PCP Internal Medicine; Visit Provider Internal Medicine | DX: I35.0 Nonrheumatic aortic (valve) stenosis (principal); I34.0 Nonrheumatic mitral (valve) insufficiency | CPT/HCPCS: 93306 ==

== ENCOUNTER 2024-02-06 13:00 | Outpatient (AMB) | payer MEDICARE, SELFPAY ==
[2024-02-06 13:02] VITALS: BP 130/78; PULSE 93; BMI 33.8
--- NOTE | 2024-02-06 13:02 | A.OFFVIS_ITS ---
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 Overall, she states she feels fine. No complaints like angina or shortness of breath or palpitations or in fact anything cardiac sounding. She states she is getting along fine. Walks with a walker. [facility] Medical History Atrial arrhythmia Bifascicular block Essential hypertension Non-rheumatic aortic stenosis Surgical History History of tonsillectomy History of benign breast biopsy Family History Father CVD (cardiovascular disease) Mother CVD (cardiovascular disease) Brother CVD (cardiovascular disease) Social History Household Members: Family Housing: House Do you presently have visiting nurse or other home services: No Alcohol intake: current Alcohol intake frequency: a few times a month Alcohol type: wine and hard liquor Patient Tobacco Use Status: Former Tobacco user Tobacco use type: Cigarette service: No Current occupational status: retired Review of Systems Const Denies chills, Denies fatigue, Denies fever(s), Denies weight gain and Denies weight loss ENT Denies dizziness Card Denies chest pain, Denies leg edema, Denies lightheadedness, Denies palpitations, Denies dyspnea on exertion, Denies orthopnea and Denies other Resp Denies cough and Denies dyspnea on exertion GI Denies hematochezia and Denies change in stool character Musc Denies abnormal gait, Denies muscle weakness, Denies numbness, Denies radiating pain into limb and Denies tingling Neuro Denies abnormal gait, Denies dizziness, Denies numbness and Denies tingling Endo Denies fatigue and Denies palpitations Physical Exam Vital Signs: Last Vital Signs Pulse 93 02/06/24 13:02 BP 130/78 02/06/24 13:02 BMI result Body Mass Index 33.8 Office Procedures EKG Details: EKG with underlying sinus rhythm at 93/Min; leftward axis; left anterior fascic ular block pattern; right bundle-branch block. [id number], Complete Assessment & Plan Assessment & Plan (1) Non-rheumatic aortic stenosis: Code(s): I35.0 - Nonrheumatic aortic (valve) stenosis Category: Medical Plan: Echocardiogram with mildly diminished LVEF at 49%. Mbwl-sr-isezlszz aortic stenosis with dimensionless index in the moderate range. Any case, not clinically significant. Will continue to monitor. (2) Atrial arrhythmia: Code(s): I49.8 - Other specified cardiac arrhythmias Category: Medical Plan: Frequent supraventricular ectopy in prior Holter. Increased chance of atrial fibrillation the future. No specific management at this time. (3) PVC (premature ventricular contraction): Code(s): I49.3 - Ventricular premature depolarization Category: Medical Plan: Frequent ventricular ectopy on the Holter. [place] of 5%. She has no symptoms from this. No specific management, as she also has underlying conduction system disease. (4) Bifascicular block: Code(s): I45.2 - Bifascicular block Category: Medical Plan: Remains unchanged. This is also seen in a prior EKG from 2018. Myocardial perfusion imaging study shows normal perfusion. (5) Essential hypertension: Code(s): I10 - Essential (primary) hypertension Category: Medical Plan: Stable. No changes. Orders: Orders CA echo transthoracic complete 1 Year I35.0 - Nonrheumatic aortic (valve) stenosis Coding Level of Care Code Est Pt Level 4 (35902) Diagnoses Non-rheumatic aortic stenosis I35.0 Atrial arrhythmia I49.8 PVC (premature ventricular contraction) I49.3 Bifascicular block I45.2 Essential hypertension I10 CPT Codes EKG - CPT: [id number], Complete ([id number])
== END 2024-02-06 13:22 | disposition home or self-care (01) ==
PROVIDERS: PCP Internal Medicine; Visit Provider Internal Medicine
DX: I35.0 Nonrheumatic aortic (valve) stenosis (principal); I49.8 Other specified cardiac arrhythmias; I49.3 Ventricular premature depolarization; I45.2 Bifascicular block; I10 Essential (primary) hypertension
CPT/HCPCS: 93010; 99214

== ENCOUNTER → 2024-02-06 13:00 | Outpatient (BNVA) | payer MEDICARE, SELFPAY | PROVIDERS: PCP Internal Medicine; Visit Provider Internal Medicine | DX: I35.0 Nonrheumatic aortic (valve) stenosis (principal); I49.8 Other specified cardiac arrhythmias; I49.3 Ventricular premature depolarization; I45.2 Bifascicular block; I10 Essential (primary) hypertension; R94.31 Abnormal electrocardiogram [ECG] [EKG]; I45.10 Unspecified right bundle-branch block | CPT/HCPCS: 93005; 99212 ==

== ENCOUNTER 2024-03-04 15:22 | Outpatient (REF) | payer MEDICARE, SELFPAY ==
--- NOTE | ~2024-03-04 | XR_ITS ---
EXAMINATION: XR KNEE, RIGHT CLINICAL INFORMATION: Pain COMPARISON: None available. TECHNIQUE: Two views of the right knee. FINDINGS: Diffuse demineralization. Extensive vascular calcifications. Mild joint effusion. Moderate to marked narrowing of the medial compartment. Minimal marginal osteophytes. XR/XR knee RT 2V IMPRESSION: Moderate to marked degenerative changes. Electronically signed by: Natalie Emery MD 03/13/2024 09:52 AM EDT RP
== END 2024-03-04 15:23 | disposition home or self-care (01) ==
LOC: HO.HMGCX 15:22
PROVIDERS: PCP Internal Medicine; Visit Provider Internal Medicine
DX: M25.561 Pain in right knee (principal)
CPT/HCPCS: 73560

== ENCOUNTER 2024-06-13 11:54 | Outpatient (REF) | payer MEDICARE, SELFPAY ==
--- NOTE | ~2024-06-13 | XR_ITS ---
EXAMINATION: XR CHEST 2 VIEWS HISTORY: cough COMPARISON: Comparison is made with the prior examination dated 05/11/2022. FINDINGS: PA and lateral views of the chest are submitted. The lungs are expanded and clear. There is no pleural effusion, pneumothorax, or pulmonary vascular congestion. The heart is normal in size. Again seen is a large hiatal hernia. The patient is status post multilevel kyphoplasty. There is degenerative disc disease of the spine. XR/XR chest 2V IMPRESSION: Large hiatal hernia. No acute cardiopulmonary abnormality. Electronically signed by: Maco Beckford MD 06/13/2024 12:27 PM HAYDE
--- OUTSIDE RECORDS SUMMARY | 2024-06-13 15:46 | XMS_ITS | Patient Health Record ---
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 Name Role Phone Koby Kwok MD Primary Care Provider Unavailab Jaimee Gutierrez Unavailable [phone] Isac Martinez Unavailable [phone] Allergies No Known Allergies Reason For Referral No Information Medications Medication SIG (Take, Route, Frequency, Duration) Notes Start Date End Date Status Lyrica 150 MG 1 capsule Orally Onc e a day Active Multivitamin Active Losartan Potassium-HCTZ 100-25 MG Oral for 90 Active PreserVision AREDS A ctive Lasix Active Hydrocodone Bitart (Antituss) PRN Active Diclofenac Sodium 3 % 1 application Exte rnally Twice a day Active Immunizations Vaccine Route Administration Date Status Comme nts COVID-19 Pfizer BioNTech Vaccine Unknown 02/12/2022 Administered 1st 06/18/2020 2nd 07/09/2020 3rd 03/30/2021 Influenza Unknown 02/12/2022 Administered Social History Tobacco Use: Social History Observation Description Date Details (start date - stop date) Former Smoker NA - NA Tobacco Use/Smoking Question Answer Notes Are you a: former smoker Additional Findings: Tobacco Non-User Current no n-smoker Alcohol Screen Question Answer Notes Did you have a drink contain ing alcohol in the past year? Yes How often did you have a dri nk containing alcohol in the past year? 2 to 3 times a week (3 points) Points 3 Interpretation Positive Tobacco use other than smoking: Question Answer Notes Are you an other tobacco user? No Problems Problem Type SNOMED Code ICD Code Onset Dates Problem Status W/U Status Risk Notes Problem Neuropathy (240866651) Neuropathy (G62.9) Active confirmed Vital Signs Blood pressure diastolic 80 mm Hg 04/29/2024 Height 5ft 4in in 04/29/2024 Blood pressure systolic 120 mm Hg 04/29/2024 Weight 175 lbs 04/29/2024 BMI 30.04 kg/m2 04/29/2024 Procedures Procedure Date Ordered Date Performed Result Body Sit e 57241 I&D ABSCESS- SIMPLE,SINGLE 08/09/2023 N/A , [id number]/INJECT, JOINT/BURSA 01/24/2024 N/A [id number] NAIL, 6 OR MORE 04/29/2024 N/A Encounters Encounter Location Date Provider Diagnosis [address] [address] 08/09/2023 Isac Martinez Tinea unguium B35.1 ; Pain in right toe(s) M79.674 ; Pain in left toe(s) M79.675 ; Other hammer toe(s) (acquired), left foot M20.42 ; Other hammer toe(s) (acquired), right foot M20.41 ; Primary osteoarthritis, left ankle and foot M19.072 ; Primary osteoarthritis, right ankle and foot M19.071 ; Ingrowing nail L60.0 ; Xerosis cutis L85.3 ; Plantar fascial fibromatosis M72.2 ; Neuralgia and neuritis, unspecified M79.2 and Abscess, toe, left L02.[address] [address] 11/01/2023 Isac Martinez Tinea unguium B35.1 ; Pain in right toe(s) M79.674 ; Pain in left toe(s) M79.675 ; Other hammer toe(s) (acquired), left foot M20.42 ; Other hammer toe(s) (acquired), right foot M20.41 ; Primary osteoarthritis, left ankle and foot M19.072 ; Primary osteoarthritis, right ankle and foot M19.071 ; Ingrowing nail L60.0 ; Xerosis cutis L85.3 ; Plantar fascial fibromatosis M72.2 ; Neuralgia and neuritis, unspecified M79.2 and Abscess, toe, left L02.[address] [address] 01/24/2024 Isac Martinez Tinea unguium B35.1 ; Pain in right toe(s) M79.674 ; Pain in left toe(s) M79.675 ; Other hammer toe(s) (acquired), left foot M20.42 ; Other hammer toe(s) (acquired), right foot M20.41 ; Primary osteoarthritis, left ankle and foot M19.072 ; Primary osteoarthritis, right ankle and foot M19.071 ; Ingrowing nail L60.0 ; Xerosis cutis L85.3 ; Plantar fascial fibromatosis M72.2 and Neuralgia and neuritis, unspecified M79.[address] [address] 04/29/2024 Jaimee Nicole Pain in right toe(s) M79.674 ; Onychomycosis B35.1 ; Pain in left toe(s) M79.675 ; Neuritis M79.2 ; Neuropathy G62.9 ; Left foot pain M79.672 and Right foot pain M79.[address] [address] 11/01/2023 Isac Martinez Assessments Encounter Date Diagnosis (ICD Code) Assessment Notes Treatment Notes Treatment Clinical Notes Section Notes 08/09/2023 Tinea unguium (ICD-10 - B35.1) 08/09/2023 Pain in right toe(s) (ICD-10 - M79.674) 11/01/2023 Tinea unguium (ICD-10 - B35.1) 11/01/2023 Pain in right toe(s) (ICD-10 - M79.674) 01/24/2024 Tinea unguium (ICD-10 - B35.1) 01/24/2024 Pain in right toe(s) (ICD-10 - M79.674) 04/29/2024 Pain in right toe(s) (ICD-10 - M79.674) pa 04/29/2024 Pain in left toe(s) (ICD-10 - M79.675) pa 01/24/2024 Pain in left toe(s) (ICD-10 - M79.675) 04/29/2024 Onychomycosis (ICD-10 - B35.1) pa 11/01/2023 Pain in left toe(s) (ICD-10 - M79.675) 08/09/2023 Pain in left toe(s) (ICD-10 - M79.675) 08/09/2023 Other hammer toe(s) (acquired), left foot (ICD-10 - M20.42) 11/01/2023 Other hammer toe(s) (acquired), left foot (ICD-10 - M20.42) 01/24/2024 Other hammer toe(s) (acquired), left foot (ICD-10 - M20.42) 04/29/2024 Neuritis (ICD-10 - M79.2) pa 04/29/2024 Neuropathy (ICD-10 - G62.9) pa 11/01/2023 Other hammer toe(s) (acquired), right foot (ICD-10 - M20.41) 01/24/2024 Other hammer toe(s) (acquired), right foot (ICD-10 - M20.41) 08/09/2023 Other hammer toe(s) (acquired), right foot (ICD-10 - M20.41) 08/09/2023 Primary osteoarthritis, 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) 11/01/2023 Primary osteoarthritis, 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) 04/29/2024 Left foot pain (ICD-10 - M79.672) pa 01/24/2024 Primary osteoarthritis, 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) 01/24/2024 Primary osteoarthritis, right 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) 04/29/2024 Right foot pain (ICD-10 - M79.671) pa 11/01/2023 Primary osteoarthritis, right 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) 08/09/2023 Primary osteoarthritis, right 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) 08/09/2023 Ingrowing nail (ICD-10 - L60.0) 11/01/2023 Ingrowing nail (ICD-10 - L60.0) 01/24/2024 Ingrowing nail (ICD-10 - L60.0) 01/24/2024 Xerosis cutis (ICD-10 - L85.3) 11/01/2023 Xerosis cutis (ICD-10 - L85.3) 08/09/2023 Xerosis cutis (ICD-10 - L85.3) 08/09/2023 Plantar fascial fibromatosis (ICD-10 - M72.2) 11/01/2023 Plantar fascial fibromatosis (ICD-10 - M72.2) 01/24/2024 Plantar fascial fibromatosis (ICD-10 - M72.2) 01/24/2024 Neuralgia and neuritis, unspecified (ICD-10 - M79.2) 11/01/2023 Neuralgia and neuritis, unspecified (ICD-10 - M79.2) 08/09/2023 Neuralgia and neuritis, unspecified (ICD-10 - M79.2) 08/09/2023 Abscess, toe, left (ICD-10 - L02.612) 11/01/2023 Abscess, toe, left (ICD-10 - L02.612) Plan Of Treatment Pending Test Test Name Order Date X ray : Foot, left 3V 11/25/2020 X ray : Foot, right 3V 11/25/2020 [id number] NAIL, 6 OR MORE 04/29/2024 71553 I&D ABSCESS- SIMPLE,SINGLE 024 , [id number]/INJECT, JOINT/BURSA 0 01/24/2024 36887, [id number]-DLOUU/INJECT, JOINT/BURSA 0 05/17/2023 Next Appt Details Provider Name:Peggy baird, 07/16/2024 11:00:00 AM, [address] [place] [address], [phone], Provider Name:Jaimee lane, 09/26/2024 11:15:00 AM, [address] [place] [address], [phone], Insurance Providers Payer Name Payer Address Payer Phone Subscriber Number Group Number Insured Name Patient Relationship to Insured Coverage Start Date Coverage End Date Medicare [facility] [address] [place] [address] [id number] BerthaBelen morocho Self - patient is the insured [employer] [address] [place] [address] [id number] BerthaBelen Self - patient is the insured Medical (General) History Medical History History ICD Code Arthritis Back,Hip,and Knee pain Broken bones Cataracts Fibromyalgia Diverticulosis Hiatal hernia High blood pressure Macular degeneration Numbness Sciatica raynauds disease chronic sinusitis Reflux ( GERD) Stomach ulcer Measles Mumps Chicken pox hard of hearing left ear Spinal stenosis Surgical History Surgery Date(Month/Year) back surgery 02/2021 Hospitalization History Reason Date(Month/Year)
--- OUTSIDE RECORDS SUMMARY | 2024-06-13 15:46 | XMS_ITS ---
[facility] Address [address] [place] [address] Care Team Providers Care Shearer Helper Name Role Phone Koby Kwok MD Primary Care Provider Unavailab Jaimee Gutierrez Unavailable [phone] Isac Martinez Unavailable [phone] Allergies No Known Allergies REASON FOR VISIT Painful nail(s) aggrevated by shoes and causing difficulty standing/walking. Medications Medication SIG (Take, Route, Frequency, Duration) Notes Start Date End Date Status Multivitamin Active PreserVision AREDS A ctive Diclofenac Sodium 3 % 1 application Exte rnally Twice a day Active Hydrocodone Bitart (Antituss) PRN Active Lasix Active Lyrica 150 MG 1 capsule Orally Onc e a day Active Losartan Potassium-HCTZ 100-25 MG Oral for 90 Active Social History Tobacco Use: Social History Observation [...] Are you an other tobacco user? No Vital Signs Height 5ft 4in in 01/24/2024 Weight 175 lbs 01/24/2024 BMI 30.04 kg/m2 01/24/2024 Blood pressure systolic 121 mm Hg 09/11/20 24 Blood pressure diastolic 80 mm Hg 024 Procedures Procedure Date Ordered Date Performed Result Body Sit e , K7302-ZLACB/INJECT, JOINT/BURSA 01/24/2024 N/A Encounters Encounter Location Date Provider Diagnosis [facility] [address] [address] 01/24/2024 Isac Martinez Tinea unguium B35.1 ; [...] M72.2 and Neuralgia and neuritis, unspecified M79.2 Assessments Encounter Date Diagnosis (ICD Code) Assessment Notes Treatment Notes Treatment Clinical Notes Section Notes 01/24/2024 Tinea unguium (ICD-10 - B35.1) 01/24/2024 Pain in right toe(s) (ICD-10 - M79.674) 01/24/2024 Pain in left toe(s) (ICD-10 - M79.675) 01/24/2024 Other hammer toe(s) (acquired), left foot (ICD-10 - M20.42) 01/24/2024 Other hammer toe(s) (acquired), right foot (ICD-10 - M20.41) 01/24/2024 Primary osteoarthritis, 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) 01/24/2024 Primary osteoarthritis, right 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) 01/24/2024 Ingrowing nail (ICD-10 - L60.0) 01/24/2024 Xerosis cutis (ICD-10 - L85.3) 01/24/2024 Plantar fascial fibromatosis (ICD-10 - M72.2) 01/24/2024 Neuralgia and neuritis, unspecified (ICD-10 - M79.2) Plan Of Treatment Medication Medication Name Sig Start Date Stop Date Notes Diclofenac Sodium 3 % 1 application Externally Twice a day Pending Test Test Name Order Date , R6086-PTRIO/INJECT, JOINT/BURSA 0 01/24/2024 Next Appt Details Follow Up: 2 Months, 3 Month s, Reason: Provider Name:Peggy Baird Ingrid baird, 07/16/2024 11:00:00 AM, [address] [place] [address], [phone], Provider Name:Jaimee lane, 09/26/2024 11:15:00 AM, [address] [place] [address], [phone], Procedure Notes * Category Sub-Category Detail Notes Injection Sm. Joint, Bursa , J0702 In jection - sm/med joint bursa/capsule with 1cc of 1 percent Xylo.pl with 3mg Celestone Soluspan utilizing aseptic technique. The patient tolerated the procedure well. A dry sterile dressing was applied. Post injection instructions were dispensed, verbally discussed, and confirmed understood by the patient. I explained that a steroid and local anesthetic injection usually decreases pain and inflammation. I explained the possible complications including but not limited to signs/symptoms of steroid flare, change/deviation in toe position, infection, bruising, atrophy, discoloration of skin, and that additional injections may be necessary. Patient relates post-procedural pain assessment improved at ( 0-1) out of 10, LEFT--dorsum left 2nd, 3rd mtpj Debride Nail 6-10 Nail debridement Nail debridem ent performed extensively to reduce/remove overall nail length and girth, subungual debris, and necrotic tissue, by manual and electrical means with use of a nail nipper and/or dremel, to more viable healthy nail plate or bed tissue 6-10. Silver nitrate used for any petechial bleeding as necessary. Patient chooses, no pharmaceutical tx (18018) Progress Notes * Belen FOYDOB:[birth year] (88 yo F)Acc No.[id number]:01/24/2024 Progress Note Patient:?Belen Foy Provider:?Isac Martinez DPM :1935???Age:88 Y???Sex:Female D ate:01/24/2024 Address:[address] [place] [address] [id number] Pcp:Koby Kwok MD Subjective: * Chief Complaints: * ??? Painful nail(s) aggrevat ed by shoes and causing difficulty standing/walking. * HPI: ???Foot Pain:?Nature:?aching, burning, tenderness.?Location?B/L, Forefoot, Midfoot.?Duration:?several months.?Onset/Cause:?unknown, denies trauma.?Course:?intermittent.?Aggrevated:?any pressure, standing, walking, shoes, especially at night, rest.?Treatments:?change in shoes; performix cream has helped; lyrica helps but she is only taking once a day instead of bid as rx from PCP; , cortisone injection therapy helps.?Quality/Severity?severe.?Painful Nails:?Pt States Last PCP Visit:?Date:?05/17/2023 ?Misc:?pt had fall and fx spine with kyphoplasty.?Ingrown toenail:?Nature:?tenderness, aching.?Location:?Both feet.? * ROS:?General/Constitutional:?Nausea?denies.?Vomiting?denies.?Hunger Thirst?denies.?Loss appetite?denies.?Chills?denies.?Fatigue?denies.?Fever?denies.?Night Sweats?denies.?Unexplained weight loss?denies.?Unexplained weight gain?denies.?HEENTM:?Dentures?admits.?Dizziness?denies.?Glasses/contacts?denies.?Retinopathy?de nies.?Blurred/double vision?denies.?TMJ?denies.?Discharge/drainage?denies.?Implants?denies.?Sore throat?denies.?Dental implants?denies.?Hard of hearing ?admits.?Difficulty chewing/swallowing/speaking?denies.?Nose bleeds?denies.?Sore mouth?denies.?Respiratory:?On Oxygen?denies.?Pneumonia/pleurisy?denies.?Bronchitis?denies.?Emphysema?denies.?C oughing?denies.?Cough blood?denies.?Shortness of breath?denies.?Wheezing?denies.?Cardiovascular:?Pacemaker?denies.?MVP?denies.?WPW?denies.?CHF?denies.?Heart attack?denies.?Septal defect?denies.?Rapid beat?denies.?Chest pain ?denies.?Atrial Fib.?denies.?Murmur/Palpitations?denies.?Gastrointestinal:?Hemorrhoids?denies.?Stomach/Abdominal pain?denies.?Dark blood stool?denies.?Irritable bowel ?denies.?Constipation?admits.?Diarrhea?denies.?Hematology:?Swelling?denies.?Clots?denies.?Varicose Veins?denies.?Bruising?denies.?Bleeding problem?denies.?Genitourinary:?Blood urine?denies.?Frequent/Painfu/urination/bladder control?denies.?Kidney stones?denies.?Infection (UTI)?denies.?Nephropathy?denies.?sex trans dis (STD)?denies.?Prostate?denies.?Musculoskeletal:?Hammertoes?admits.?Bunions?denies.?Back Pain?admits.?Muscle Cramps/ Resting?denies.?Muscle cramps / walking?denies.?Generalized aches and pains?admits.?Weakness?denies.?Integ.:?Wynne?denies.?Scars?denies.?Corns/calluses?denies.?Ingrown nails?admits.?Painful nails?denies.?Open Sores?denies.?Rashes?denies.?Neurologic:?Difficulty sleeping?denies.?Brain disorder?denies.?Numbness?admits.?Balance trouble?denies.?Confusion?denies.?Fainting/blackouts?denies.?Tingling?denies.?Tr emors?denies.? * Medical History:? * Surgical History:?back surge ry 02/2021 * Hospitalization/Major Diagno stic Procedure:?Denies Past Hospitalization * Family History:?Mother: dece ased, heart attack.?Father: , diagnosed with Family history of arthritis.?Siblings: heart attack brother, diagnosed with Unspecified essential hypertension.? * Social History:?Tobacco Use:?Tobacco Use/Smoking?Are you a:?former smoker ?Additional Findings: Tobacco Non-User?Current non-smoker ?Tobacco use other than smoking?Are you an other tobacco user??No ???Drugs/Alcohol:?Drugs?Have you used drugs other than those for medical reasons in the past 12 months??No ?Alcohol Screen?Did you have a drink containing alcohol in the past year??Yes ?How often did you have a drink containing alcohol in the past year??2 to 3 times a week (3 points) ?Points?3 ?Interpretation?Positive ???Miscellaneous:?no Caffeine. ?Children: yes, 3. ?no Exercise. ?Marital status: . 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 * Medications:?TakingHydrocodo ne Bitart (Antituss) , Notes: PRNLasix Lyrica 150 MG Capsule 1 capsule Orally Once a dayLosartan Potassium-HCTZ 100-25 MG Tablet Oral Multivitamin PreserVision AREDS Taking Hydrocodone Bitart (Antituss) , Notes: PRNTaking Lasix Taking Lyrica 150 MG Capsule 1 capsule Orally Once a dayTaking Losartan Potassium-HCTZ 100-25 MG Tablet Oral Taking Multivitamin Taking PreserVision AREDS Not-Taking/PRNDiclofenac Sodium 3 % Gel 1 application Externally Twice a dayMedication List reviewed and reconciled with the patientNot-Taking/PRN Diclofenac Sodium 3 % Gel 1 application Externally Twice a dayMedication List reviewed and reconciled with the patient * Allergies:?N.K.D.A.yes[Aller gies Verified] Objective: * Vitals:?Ht: 5ft 4in, Wt:175, BMI:30.04, Shoe size:7.5, BP:121/80 mm Hg. * Examination: ???General Examination: ?GENERAL APPEARANCE:?pleasant, alert, well nourished, well developed, well hydrated, with good attention to hygene/body habitus, and in no acute distress.?ORIENTED:?person,place, and time.?Neurological: ?SENSORY:? Neurological exam demonstrates, reduced vibration sensation, B/L, at Forefoot, Neurological exam demonstrates pop jazmine toes and mtpj's; most acute pop dorsum 2, 3rd mtpj's.?TINEL'S COMPRESSION:?Negative tarsal tunnel, jermain pedis, and medial calcaneal nerves B/L.?BABINSKI REFLEX:?absent.?Neuroma Pain: ?PALPATION:?No interspace pain noted on palpation.?Vascular: ?DP PULSES:? 05/18, B/L.?PT PULSES:? 05/18, B/L.?CAPILLARY FILL TIME:?3 secs. per digit, B/L.?SKIN TEMPERTURE GRADIENT OF THE LOWER EXTERMITIES:?warm to cool, proximal to distal, B/L.?HAIR GROWTH/TEXTURE/ELASTICITY/TURGOR:?normal, B/L.?PIGMENTATION:?normal, B/L.?EDEMA:? 2/4, B/L, Feet, Ankle(s), Leg(s).?TELANGECTASIA:?absent.?VARICOSITIES:?absent.?Dermatologic: ?SKIN FINDINGS:? Skin shows sign(s) of, dryness, scaling, in a stocking fashion, no fissure(s) present, B/L.?Orthopedic: ?MUSCLE STRENGTH:?5/5 all groups in a symmetrical fashion , B/L.?GAIT ABNORMALITY:?pronated, abducted, B/L.?DIGITAL DEFORMITIES:? Digital contracture, PIPJ, 2-5 B/L, non-reducable with WB or to push-up test, no over, nor underlapping.?Nails: ?NAILS are:?elongated,overgrown,dystrophic,greater than 3mm thick,discolored and friable with crumbly malodorous subungual debris, with pain on palpation, TA, T3, T4, 1-5 Right foot.?Ingrown Nail: ?INSPECTION:? Reveals nail incurvation, pain on palpation, groove hypertrophy, groove ischemia, Bilateral nail borders, TA, T5.? 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 Plan: * Treatment: * Procedures:?Debride Nail 6-10:?Nail debridement?Nail debridement performed extensively to reduce/remove overall nail length and girth, subungual debris, and necrotic tissue, by manual and electrical means with use of a nail nipper and/or dremel, to more viable healthy nail plate or bed tissue 6-10. Silver nitrate used for any petechial bleeding as necessary. Patient chooses, no pharmaceutical tx (56596).?Injection:?Sm. Joint, Bursa?, J0702 Injection - sm/med joint bursa/capsule with 1cc of 1 percent Xylo.pl with 3mg Celestone Soluspan utilizing aseptic technique. The patient tolerated the procedure well. A dry sterile dressing was applied. Post injection instructions were dispensed, verbally discussed, and confirmed understood by the patient. I explained that a steroid and local anesthetic injection usually decreases pain and inflammation. I explained the possible complications including but not limited to signs/symptoms of steroid flare, change/deviation in toe position, infection, bruising, atrophy, discoloration of skin, and that additional injections may be necessary. Patient relates post-procedural pain assessment improved at ( 0-1) out of 10, LEFT--dorsum left 2nd, 3rd mtpj.? * Procedure Codes:?98637 DEBRI DE NAIL, 6 OR MORE, Modifiers: XS J0702 INJ BETAMETHSN ACTAT&SOD [id number] DRAIN/INJECT, JOINT/BURSA, Modifiers: XS * Preventive Medicine:? ??Counseling:?Discussion:?-13: Office or other outpatient visit for the evaluation and management of an established patient, which required a medically appropriate history and/or examination and LOW level of DECISION MAKING for: 1 STABLE ACUTE UNCOMPLICATED PROBLEM, 2 OR MORE MINOR PROBLEMS, OR 1 STABLE CHRONIC PROBLEM, THAT POSE(S) A LOW RISK FOR MORBIDITY/MORTALITY. The visit on the day of the encounter encompassed interpreting the data and educating the patient as to the nature of their condition, treatment options available according to their individual PMH, meds, allergies, and overall health/living conditions, as well as any potential risks or complications that may occur from a failure to adhere to, and participate in, the recommended course of therapy. The discussion included a complete verbal, and/or written explanation of the examination results, any x-rays taken, the proposed diagnosis, and outline of the treatment plan. A schedule for future care needs was also explained. The patient verbalized an understanding of the instructions at this time and agreed to be an active participant in their treatment. If the patient should think of any questions or concerns after the visit, I have encouraged the patient to call the office.?Metatarsalgea:?I explained to the patient the possible etiologies of their Metatarsalgea Foot pain, including foot type/shoegear/activity level/exercise routine and the risks/benefits of all the different treatment options for pain including: No treatment at all, Rest, Ice, NSAIDs(only if well tolerated after meals), New/supportive Shoegear, Strappings and Tapings, Foot/Ankle AFO Bracing, Stretching exercises, Deep Tissue Massage, Arch support/shoe inserts, Custom orthoses, Topical analgesics including Aspercream/Voltaren gel, Physical Therapy, Cortisone injection therapy, EPAT/ESWT. Advantages and disadvantages of each option were discussed and the patients questions re: shoegear, custom vs prefabricated inserts, activity level, PO vs Topical medications (and their respective potential complications/drug interactions/side effects), and consistency in home treatment regimens for optimal success were answered to their verbally confirmed satisfaction, Custom compounded topical pain control combination therapy was recommended and rxed from [facility].? * Follow Up:?2 Months, 3 Month s * Images: * Sign off status: Completed true * Provider:?Isac Martinez DPM Date:? 024 Generated for Shahid gamboa/Chasidy/eTransmitting on:?06/13/2024 03:46 PM EST History and Physical Notes * HPI (History of Present Illness) Category Sub-Category Detail Notes Category Not es Ingrown toenail Nature: tenderness, aching Location: Both feet Painful Nails Misc: pt had fall and fx spine wi th kyphoplasty Pt States Last PCP Visit: Date:: 05/17/2023 Foot Pain Aggrevated: any pressure, st anding, walking, shoes, especially at night, rest Onset/Cause: unknown, denies audelia donaldson Course: intermittent Duration: several months Nature: aching, burning, ten derness Treatments: change in shoes; per formix cream has helped; lyrica helps but she is only taking once a day instead of bid as rx from PCP; , cortisone injection therapy helps Quality/Severity severe Location B/L, Forefoot, Midfo ot Examination Category Sub-Category Detail Notes Category Not es Ingrown Nail INSPECTION: Reveals nail inc urvation, pain on palpation, groove hypertrophy, groove ischemia, Bilateral nail borders, TA, T5 Neuroma Pain PALPATION: No interspace pain noted on palpation Neurological SENSORY: Neurological exa m demonstrates, reduced vibration sensation, B/L, at Forefoot, Neurological exam demonstrates pop jazmine toes and mtpj's; most acute pop dorsum 2, 3rd mtpj's BABINSKI REFLEX: absent TINEL'S COMPRESSION: Negative tarsal omari radha, jermain pedis, and medial calcaneal nerves B/L Dermatologic SKIN FINDINGS: Skin shows sign( s) of, dryness, scaling, in a stocking fashion, no fissure(s) present, B/L Orthopedic GAIT ABNORMALITY: pronated, abducted, B/L DIGITAL DEFORMITIES: Digital contracture , PIPJ, 2-5 B/L, non-reducable with WB or to push-up test, no over, nor underlapping MUSCLE STRENGTH: 5/5 all groups in a symmetrical fashion , B/L General Examination GENERAL APPEARANCE: pleasant , alert, well nourished, well developed, well hydrated, with good attention to hygene/body habitus, and in no acute distress ORIENTED: person,place, and ti me Vascular DP PULSES (B): /4, B/L PT PULSES (B): 4, B/L CAPILLARY FILL TIME: 3 secs. per digit, B/L TEMPERTURE GRADIENT (C): warm to cool, p roximal to distal, B/L TROPHIC CONDITION-TEXTURE/ELASTICITY/TURGOR/HAIR GROWTH (B): normal, B/L EDEMA (C): 2/4, B/L, Feet, Ankl e(s), Leg(s) TELANGECTASIA: absent VARICOSITIES: absent PIGMENTATION: normal, B/L Nails NAILS are: elongated,overgr own,dystrophic,greater than 3mm thick,discolored and friable with crumbly malodorous subungual debris, with pain on palpation, TA, T3, T4, 1-5 Right foot
--- OUTSIDE RECORDS SUMMARY | 2024-06-13 15:46 | XMS_ITS ---
Author Organization [facility] Address [address] [place] [id number] Care Team Providers Care Agricultural Extension Agent Name Role Phone Koby Kwok MD Primary Care Provider Unavailab Jaimee Gutierrez Unavailable [phone] Isac Martinez Unavailable [phone] REASON FOR VISIT [facility] Encounters Encounter Location Date Provider Diagnosis [address] [address] 11/01/2023 Isac Martinez Plan Of Treatment Next Appt Details Provider Name:Peggy baird, 07/16/2024 11:00:00 AM, [address] [place] [address], [phone], Provider Name:Jaimee lane, 09/26/2024 11:15:00 AM, [address] [place] [address], [phone], Progress Notes * Belen FOYDOB:[birth year] (88 yo F)Acc No.[id number]:11/01/2023 Patient:?Belen Foy :1935???Age:88 Y???Sex:Female Address:[address] [place] [address], [phone] * true * Date:? Generated for Printi bee/Chasidy/eTransmitting on:?06/13/2024 03:46 PM EST
--- OUTSIDE RECORDS SUMMARY | 2024-06-13 15:47 | XMS_ITS ---
Author Organization [facility] Address [address] [place] [address] Care Team Providers Care J2Ee Consultant Name Role Phone Koby Kwok MD Primary Care Provider UnavailJaimee Manuel Unavailable [phone] Allergies No Known Allergies REASON FOR VISIT Painful nail(s) aggravated by shoes causing difficulty standing/walking, Foot pain Medications Medication SIG (Take, Route, Frequency, Duration) Notes Start Date End Date Status Lyrica 150 MG 1 capsule Orally Onc e a day Active Multivitamin Active Losartan Potassium-HCTZ 100-25 MG Oral for 90 Active PreserVision AREDS A ctive Lasix Active Hydrocodone Bitart (Antituss) PRN Active Diclofenac Sodium 3 % 1 application Exte rnally Twice a day Active Social History Tobacco Use: Social History [...] Status W/U Status Risk Notes Problem Neuropathy (598164598) Neuropathy (G62.9) Active confirmed Vital Signs Height 5ft 4in in 04/29/2024 Weight 175 lbs 04/29/2024 BMI 30.04 kg/m2 04/29/2024 Blood pressure systolic 120 mm Hg 04/29/20 24 Blood pressure diastolic 80 mm Hg 024 Procedures Procedure Date Ordered Date Performed Result Body Sit e 18174-GIKQBIA NAIL, 6 OR MORE 04/29/2024 N/A Encounters Encounter Location Date Provider Diagnosis [facility] [address] [address] 04/29/2024 Jaimee Nicole Pain in right toe(s) M79.674 ; Onychomycosis B35.1 ; Pain in left toe(s) M79.675 ; Neuritis M79.2 ; Neuropathy G62.9 ; Left foot pain M79.672 and Right foot pain M79.671 Assessments Encounter Date Diagnosis (ICD Code) Assessment Notes Treatment Notes Treatment Clinical Notes Section Notes 04/29/2024 Pain in right toe(s) (ICD-10 - M79.674) pa 04/29/2024 Onychomycosis (ICD-10 - B35.1) pa 04/29/2024 Pain in left toe(s) (ICD-10 - M79.675) pa 04/29/2024 Neuritis (ICD-10 - M79.2) pa 04/29/2024 Neuropathy (ICD-10 - G62.9) pa 04/29/2024 Left foot pain (ICD-10 - M79.672) pa 04/29/2024 Right foot pain (ICD-10 - M79.671) pa Plan Of Treatment Pending Test Test Name Order Date [id number] NAIL, 6 OR MORE 04/29/2024 Next Appt Details Follow Up: prn, Reason: Provider Name:Peggy baird, 07/16/2024 11:00:00 AM, [address] [place] [address], [phone], Provider Name:Jaimee lane, 09/26/2024 11:15:00 AM, [address] [place] [address], [phone], Procedure Notes * Category Sub-Category Detail Notes Debride Nail 6-10 Nail debridement Due to the cl inical pathology outlined in the exam findings, performance of this nail treatment is medically necessary as its management by an unskilled/untrained nonprofessional would put this patients foot and overall health at risk. Therefore, debridement to affected nail(s), as described in exam ( TA, T1, T2, T3, T4, T5, T6, T7, T8, T9), was performed exclusively by the physician of record to reduce/remove overall nail length, girth, thickness, subungual debris, and necrotic tissue, by manual and/or electrical means through the use of a nail nipper and/or dremel-type automatic corn grinder operator, to a more viable healthy nail plate or bed tissue 6-10 nails in total. Silver nitrate was used for any petechial bleeding as necessary. Definitive antifungal treatment options, both pharmaceutical and surgical, have been reviewed and discussed with the patient. The patient solely prefers the use of intermittent/as needed professional debridement services for their nail condition and understands the need for additional periodic treatments to maintain effectiveness in symptomatic relief - 71587 Progress Notes * Belen FOYDOB:[birth year] (88 yo F)Acc No.[id number]:04/29/2024 Progress Note Patient:?Belen FOY Provider:?Jaimee Nicole DPM :1935???Age:88 Y???Sex:Female D ate:04/29/2024 Address:[address] [place], [place] [address] Pcp:Koby Kwok MD Subjective: * Chief Complaints: * ???Painful nail(s) aggravate d by shoes causing difficulty standing/walkingFoot pain * HPI: ???Painful Nails:?Pt States Last PCP Visit:?Date:?05/17/2023 ???Foot Pain:?Nature:?burning, numbness, tingling, shooting, radiating.?Location:?B/L.?Duration:?several months.?Onset:?gradual.?Course:?worse.?Aggravated:?Worse at night when in bed.?Treatments:?Custom-compounded topical anti-inflammatory cream in the past however [employer] went out of business, she has been using an OTC balm as needed which provides some relief.? * ROS:?General/Constitutional:?Nausea?denies.?Vomiting?denies.?Hunger Thirst?denies.?Loss appetite?denies.?Chills?denies.?Fatigue?denies.?Fever?denies.?Night Sweats?denies.?Unexplained weight loss?denies.?Unexplained [...] times a week (3 points) ?Points?3 ?Interpretation?Positive ???Miscellaneous:?Caffeine: no. ?Children: yes, 3. ?Exercise: no. ?Marital status: . ?Occupation: Retired- , [employer] / Dr. Kwok. * Medications:?TakingDiclofena c Sodium 3 % Gel 1 application Externally Twice a day Hydrocodone Bitart (Antituss) , Notes to Pharmacist: PRNLasix Lyrica 150 MG Capsule 1 capsule Orally Once a day Losartan Potassium-HCTZ 100-25 MG Tablet Oral Multivitamin PreserVision AREDS Medication List reviewed and reconciled with the patientTaking Diclofenac Sodium 3 % Gel 1 application Externally Twice a day Taking Hydrocodone Bitart (Antituss) , Notes to Pharmacist: PRNTaking Lasix Taking Lyrica 150 MG Capsule 1 capsule Orally Once a day Taking Losartan Potassium-HCTZ 100-25 MG Tablet Oral Taking Multivitamin Taking PreserVision AREDS Medication List reviewed and reconciled with the patient * Allergies:?N.K.D.A.yes[Aller gies Verified] Objective: * Vitals:?Ht: 5ft 4in, Wt:175, BMI: 30.04, Shoe size:7.5, BP:120/80mm Hg, Wt-k.38 kg. * Examination: ???General Examination: ?GENERAL APPEARANCE:?Reveals a pleasant, alert, well nourished, well- developed, well hydrated individual, who demonstrates proper attention to hygiene/body habitus, and is in no acute distress, Pt serves as own historian for office visit today.?ORIENTED:?person, place, and time.?Nails: ?NAILS are:?Elongated, overgrown, dystrophic, lytic, greater than 3mm thick, discolored and friable with crumbly malodorous subungual debris, with pain on palpation, TA, T1, T2, T3, T4, T5, T6, T7, T8, T9.?Neurological: ?SENSORY:?Neurological exam demonstrates reduced sharp/dull pin prick discrimination reduced light touch sensation reduced vibration sensation reduced proprioception sensation in a stocking fashion 5.07 monofilament test performed at plantar aspects of 5 varied sites per foot shows sensation plantar aspects absent at Forefoot B/L, Pt relates, numbness, burning, pins and needles sensation, shooting/radiating sensation, tingling, especially in the evening, B/L.?Neuroma Pain: ?PALPATION:?No interspace pain noted on palpation.?Vascular: ?DP PULSES(B):? 1/4, B/L.?PT PULSES(B):? 1/4, B/L.?CAPILLARY FILL TIME:?3 secs. per digit, B/L.?TROPHIC CONDITION-TEXTURE/ELASTICITY/TURGOR/HAIR GROWTH(B):?normal, B/L.?TEMPERTURE GRADIENT(C):?warm to cool, proximal to distal, B/L.?PIGMENTATION:?normal, B/L.?EDEMA(C):? 2/4, B/L, Feet, Ankle(s), Leg(s).?TELANGECTASIA:?absent.?VARICOSITIES:?absent.?Dermatologic: ?SKIN FINDINGS:?Skin exam reveals normal color, texture, elasticity, and turgor. There are no masses, nor excrescences. The interspaces are clear, B/L.?Orthopedic: ?MUSCLE STRENGTH:?5/5 all groups in a symmetrical fashion , B/L.?GAIT ABNORMALITY:?pronated, abducted, B/L.?DIGITAL DEFORMITIES:?Digital contracture, PIPJ, 2-5 B/L, non-reducable with WB or to push-up test, no over, nor underlapping.? Assessment: * Assessment: 1.?Pain in right toe(s) - M7 9.674???2.?Pain in left toe(s) - M79.675???3.?Onychomycosis - B35.1 (Primary)???4.?Neuritis - M79.2???Specify :?Rx Management (4)???5.?Neuropathy - G62.9???Specify :Chronic problem, Worse (4) Rx Management (4)???6.?Left foot pain - M79.672???7.?Right foot pain - M79.671??? pa Plan: * Treatment: * Procedures:?Debride Nail 6-10:?Nail debridement?Due to the clinical pathology outlined in the exam findings, performance of this nail treatment is medically necessary as its management by an unskilled/untrained nonprofessional would put this patients foot and overall health at risk. Therefore, debridement to affected nail(s), as described in exam ( TA, T1, T2, T3, T4, T5, T6, T7, T8, T9), was performed exclusively by the physician of record to reduce/remove overall nail length, girth, thickness, subungual debris, and necrotic tissue, by manual and/or electrical means through the use of a nail nipper and/or dremel-type automatic corn grinder operator, to a more viable healthy nail plate or bed tissue 6- 10 nails in total. Silver nitrate was used for any petechial bleeding as necessary. Definitive antifungal treatment options, both pharmaceutical and surgical, have been reviewed and discussed with the patient. The patient solely prefers the use of intermittent/as needed professional debridement services for their nail condition and understands the need for additional periodic treatments to maintain effectiveness in symptomatic relief - 10716.? * Procedure Codes:?82610 DEBRI DE NAIL, 6 OR MORE * Preventive Medicine:? ??Counseling:?Discussion:?-14: Office or other outpatient visit for the evaluation and management of an established patient, which required a medically appropriate history and/or examination and MODERATE level of DECISION MAKING for: 1 OR MORE CHRONIC PROBLEM(S) THATS WORSENING, 2 STABLE CHRONIC PROBLEMS, A NEWLY DIAGNOSED PROBLEM WITH UNCERTAIN PROGNOSIS, AN ACUTE COMPLICATED INJURY WITH MULTIPLE TREATMENT OPTIONS, OR AN ACUTE PROBLEM WITH ACCOMPANYING SYSTEMIC SYMPTOMS, THAT POSE(S) A MODERATE RISK OF MORBIDITY. THIS CONDITION MAY ALSO INCLUDE RX DRUG MANAGEMENT, OR A DECISON FOR MINOR SURGERY. The visit on the day of the [...] have encouraged the patient to call the office.?Neuritis/Neuropathy:?The patient was counseled on the diagnosis, possible etiologies (including mechanical stress, injury, entrapment, chemotherapy, diabetes, vertebral disk herniation if hx), treatment options, and importance for adherence to recommendations in order to address the patients Neuritis/Neuropathy. The advantages and disadvantages re: Accomidative mechanical support/offloading, Topical vs PO analgesics including aspercream/Voltaren gel/Lidoderm patches/Neurontin/Lyrica along with their potential side effects were discussed with the patient to their satisfaction. Also discussed the use of therapeutic injectable cortisone if needed. Surgical treatment, if considered an option, was discussed as well. If surgery is warranted, we discussed the potential successful outcomes as well as the possible complications such as failure, painful scar, permanent tingling/numbness/neuralgea/or intractable pain. Patient questions re: medication use, dosage, and possible side effects and drug interactions were reviewed and the answers to each understood. If the condition worsens, the patient was instructed to contact the office for an appointment. The patient verbally confirmed a full understanding of the above, Custom Topical pain control compound combination therapy was recommended and Rxed.? * Follow Up:?prn * Images: * Sign off status: Completed true * Provider:?Jaimee Nicole DPM Date:?06/30/2023 Generated for Shahid gamboa/Chasidy/Elsieitting on:?06/13/2024 03:46 PM EST History and Physical Notes * HPI (History of Present Illness) Category Sub-Category Detail Notes Category Not es Painful Nails Pt States Last PCP Visit: Date:: 05/17/2023 Foot Pain Nature: burning, numbnes s, tingling, shooting, radiating Location: B/L Duration: several months Onset: gradual Course: worse Aggravated: Worse at night when in bed Treatments: Custom-compounded to pical anti-inflammatory cream in the past however [employer] went out of business, she has been using an OTC balm as needed which provides some relief Examination Category Sub-Category Detail Notes Category Not es Neuroma Pain PALPATION: No interspace pain noted on palpation Neurological SENSORY: Neurological exa m demonstrates reduced sharp/dull pin prick discrimination reduced light touch sensation reduced vibration sensation reduced proprioception sensation in a stocking fashion 5.07 monofilament test performed at plantar aspects of 5 varied sites per foot shows sensation plantar aspects absent at Forefoot B/L, Pt relates, numbness, burning, pins and needles sensation, shooting/radiating sensation, tingling, especially in the evening, B/L Dermatologic SKIN FINDINGS: Skin exam reveal s normal color, texture, elasticity, and turgor. There are no masses, nor excrescences. The interspaces are clear, B/L Orthopedic GAIT ABNORMALITY: pronated, abducted, B/L DIGITAL DEFORMITIES: Digital contracture , PIPJ, 2-5 B/L, non-reducable with WB or to push-up test, no over, nor underlapping MUSCLE STRENGTH: 5/5 all groups in a symmetrical fashion , B/L General Examination GENERAL APPEARANCE: Reveals a pleasant, alert, well nourished, well-developed, well hydrated individual, who demonstrates proper attention to hygiene/body habitus, and is in no acute distress, Pt serves as own historian for office visit today ORIENTED: person, place, and t lito Vascular DP PULSES (B): 05/18, B/L PT PULSES (B): 05/18, B/L CAPILLARY FILL TIME: 3 secs. per digit, B/L TEMPERTURE GRADIENT (C): warm to cool, p roximal to distal, B/L TROPHIC CONDITION-TEXTURE/ELASTICITY/TURGOR/HAIR GROWTH (B): normal, B/L EDEMA (C): /4, B/L, Feet, Ankl e(s), Leg(s) TELANGECTASIA: absent VARICOSITIES: absent PIGMENTATION: normal, B/L Nails NAILS are: Elongated, overg rown, dystrophic, lytic, greater than 3mm thick, discolored and friable with crumbly malodorous subungual debris, with pain on palpation, TA, T1, T2, T3, T4, T5, T6, T7, T8, T9
== END 2024-06-13 11:55 | disposition home or self-care (01) ==
LOC: HO.XRAY 11:54
PROVIDERS: PCP Internal Medicine; Visit Provider Internal Medicine
DX: R05.9 Cough, unspecified (principal)
CPT/HCPCS: 71046

== ENCOUNTER → 2024-06-13 12:06 | Outpatient (BNV) | payer MEDICARE, SELFPAY | PROVIDERS: PCP Internal Medicine; Visit Provider Radiology Diagnostic Radiology | DX: K44.9 Diaphragmatic hernia without obstruction or gangrene (principal); R05.9 Cough, unspecified | CPT/HCPCS: 71046 ==

== ENCOUNTER 2024-10-24 10:57 | Outpatient (REF) | payer MEDICARE, SELFPAY ==
[2024-10-24 11:29] LABS: MANUAL DIFF FLAG NO
[2024-10-24 12:19] LABS: Basophils Absolute Auto 0.1 X10*3/uL (0.0-0.2); Basophils Percent Auto 0.9 % (0-2); Eosinophils Absolute Auto 0.1 X10*3/uL (0.0-0.4); Eosinophils Percent Auto 1.5 % (0-4); Hematocrit 40.7 % (37.0-47.0); Hemoglobin 13.2 g/dl (12.0-16.0); Imm Gran Abs Auto 0.03 X10*3/uL (0.00-0.03); Imm Gran Pct Auto 0.4 % (0.0-0.4); Lymphocytes Percent Auto 34.9 % (20-40); Mean Corpuscular HGB Conc 32.4 g/dl (31.0-35.0); Mean Corpuscular Hemoglobin 29.9 pg (27.0-33.0); Mean Corpuscular Volume 92.1 fL (80.0-98.0); Mean Platelet Volume 10.9 fL (9.4-12.3); Monocytes Absolute Auto 0.7 X10*3/uL (0.1-1.2); Monocytes Percent Auto 8.4 % (2-11); Neutrophils Absolute Auto 4.6 x10*3/uL (2.0-8.3); Neutrophils Percent Auto 53.9 % (45-73); Platelet Count 218 X10*3/uL (160-400); Red Blood Count 4.42 X10*6/uL (4.20-5.50); Red Cell Distribution Width 13.8 % (11.0-16.0); White Blood Count 8.5 X10*3/uL (4.8-10.8)
[2024-10-24 12:27] LABS: Estimated Average Glucose 157 mg/dL; Hemoglobin A1c % 7.1 % (<6.0)
[2024-10-24 12:42] LABS: Alanine Aminotransferase 9 U/L (0-31); Albumin Level 4.1 g/dL (3.5-5.0); Alkaline Phosphatase 81 U/L (39-117); Anion Gap 13 (12-20); Aspartate Amino Transferase 19 U/L (5-31); Bilirubin Total 0.5 mg/dL (0.0-1.0); Blood Urea Nitrogen 18 mg/dL (9-16); C Reactive Protein 0.11 mg/dL (< or = 0.50); Calcium 9.5 mg/dL (8.4-10.2); Carbon Dioxide 27 mmol/L (22-29); Chloride 106 mmol/L (96-108); Cholesterol 149 mg/dL (<200); Estimated Glomerular Filt Rate > 60; Glucose Fasting 118 mg/dL (60-99); HDL Cholesterol 41 mg/dL (>40); Iron 70 mcg/dL (30-160); LDL Cholesterol Calculated 59 mg/dL (<100); Percent Iron Saturation 21 % (15-50); Potassium 4.3 mmol/L (3.3-5.1); Sodium 142 mmol/L (135-145); Total Iron Binding Capacity 336 mcg/dL (228-428); Total Protein 6.6 g/dL (6.5-8.0); Triglycerides 248 mg/dL (<150); Unsaturated Iron Binding 266 ug/dL
[2024-10-24 12:52] LABS: Ferritin 20 ng/mL (10-250); Free T4 (Free Thyroxine) 0.93 ng/dL (0.71-1.85); Thyroid Stimulating Hormone 1.34 uIU/mL (0.32-4.0); Vitamin D 25-OH Total 28.8 ng/mL (>30)
--- OUTSIDE RECORDS SUMMARY | 2024-10-24 12:55 | XMS_ITS | Patient Health Record ---
Author Organization [facility] Address [address] [place] [address] Care Team Providers Care Machine Egg Washer Name Role Phone Koby Kwok MD Primary Care Provider Unavailab Jaimee Gutierrez Unavailable [phone] Isac Martinez Unavailable [phone] Peggy Anaya Unavailable [phone] Allergies No Known Allergies Reason For Referral No Information Medications Medication SIG (Take, Route, Frequency, Duration) Notes Start Date End Date Status Losartan Potassium-HCTZ 100-25 MG Oral for 90 Active Lyrica 150 MG 1 capsule Orally Onc e a day Active Lasix Active Hydrocodone Bitart (Antituss) PRN Active Diclofenac Sodium 3 % 1 application Exte rnally Twice a day Active PreserVision AREDS A ctive Multivitamin Active Immunizations Vaccine Route Administration Date Status Comme nts COVID-19 Pfizer BioNTech Vaccine Unknown 02/12/2022 Administered 1st 06/18/2020 2nd 07/09/2020 3rd 03/30/2021 Influenza Unknown 02/12/2022 Administered Social History Tobacco Use: Social History Observation Description Date Details (start date - stop date) Never Smoker NA - NA Tobacco use other than smoking: Question Answer Notes Are you an other tobacco user? No Tobacco Control (Standard) Question Answer Notes Tobacco use: Nonsmoker Additional Findings: Tobacco non-user Current no nsmoker AUDIT-C (Standard) Question Answer Notes Did you have a drink contain ing alcohol in the past year? Yes How often did you have a dri nk containing alcohol in the past year? 2 to 4 times a month (2 points) How many drinks did you have on a typical day when you were drinking in the past year? 1 or 2 drinks (0 point) How often did you have six o r more drinks on one occasion in the past year? Never (0 point) Points 2 Interpretation Negative Problems Problem Type SNOMED Code ICD Code Onset Dates Problem Status W/U Status Risk Notes Problem Neuropathy ([id number]) Neuropathy (G62.9) Active confirmed Vital Signs Blood pressure diastolic 70 mm Hg 09/26/2024 Height 5ft 2in in 09/26/2024 Blood pressure systolic 130 mm Hg 09/26/2024 Weight 175 lbs 09/26/2024 BMI 32 kg/m2 09/26/2024 Procedures Procedure Date Ordered Date Performed Result Body Sit e , Q8991-KLETP/INJECT, JOINT/BURSA 01/24/2024 N/A [id number] NAIL, 6 OR MORE 04/29/2024 N/A Encounters Encounter Location Date Provider Diagnosis [address] [address] 11/01/2023 Isac Martinez Tinea unguium B35.1 ; [...] unspecified M79.2 and Abscess, toe, left L02.[address] [address] 01/24/2024 Isac Martinez Tinea unguium B35.1 ; [...] M72.2 and Neuralgia and neuritis, unspecified M79.[address] [address] 04/29/2024 Jaimee Nicole Pain in right toe(s) M79.674 ; Onychomycosis B35.1 ; Pain in left toe(s) M79.675 ; Neuritis M79.2 ; Neuropathy G62.9 ; Left foot pain M79.672 and Right foot pain M79.[address] [address] 07/16/2024 Peggy Anaya Onychomycosis B35.1 ; Neuropathy G62.9 ; Pain in right toe(s) M79.674 ; Pain in left toe(s) M79.675 ; Neuritis M79.2 ; Left foot pain M79.672 and Right foot pain M79.[address] [address] 09/26/2024 Jaimee Nicole Onychomycosis B35.1 ; Neuropathy G62.9 ; Pain in right toe(s) M79.674 and Pain in left toe(s) M79.[address] [address] 11/01/2023 Isac Martinez Assessments Encounter Date Diagnosis (ICD Code) Assessment Notes Treatment Notes Treatment Clinical Notes Section Notes 11/01/2023 Tinea unguium (ICD-10 - B35.1) 11/01/2023 Pain in right toe(s) (ICD-10 - M79.674) 01/24/2024 Tinea unguium (ICD-10 - B35.1) 01/24/2024 Pain in right toe(s) (ICD-10 - M79.674) 04/29/2024 Pain in right toe(s) (ICD-10 - M79.674) pa 07/16/2024 Neuropathy (ICD-10 - G62.9) pa 09/26/2024 Neuropathy (ICD-10 - G62.9) pa 09/26/2024 Onychomycosis (ICD-10 - B35.1) pa 07/16/2024 Onychomycosis (ICD-10 - B35.1) pa 09/26/2024 Pain in right toe(s) (ICD-10 - M79.674) pa 07/16/2024 Pain in right toe(s) (ICD-10 - M79.674) pa 04/29/2024 Onychomycosis (ICD-10 - B35.1) pa 04/29/2024 Pain in left toe(s) (ICD-10 - M79.675) pa 01/24/2024 Pain in left toe(s) (ICD-10 - M79.675) 11/01/2023 Pain in left toe(s) (ICD-10 - M79.675) 11/01/2023 Other hammer toe(s) (acquired), left foot (ICD-10 - M20.42) 01/24/2024 Other hammer toe(s) (acquired), left foot (ICD-10 - M20.42) 04/29/2024 Neuritis (ICD-10 - M79.2) pa 07/16/2024 Pain in left toe(s) (ICD-10 - M79.675) pa 09/26/2024 Pain in left toe(s) (ICD-10 - M79.675) pa 04/29/2024 Neuropathy (ICD-10 - G62.9) pa 07/16/2024 Neuritis (ICD-10 - M79.2) pa 11/01/2023 Other hammer toe(s) (acquired), right foot (ICD-10 - M20.41) 01/24/2024 Other hammer toe(s) (acquired), right foot (ICD-10 - M20.41) 01/24/2024 Primary osteoarthritis, 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) 11/01/2023 Primary osteoarthritis, 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) 07/16/2024 Left foot pain (ICD-10 - M79.672) pa 04/29/2024 Left foot pain (ICD-10 - M79.672) pa 07/16/2024 Right foot pain (ICD-10 - M79.671) pa 01/24/2024 Primary osteoarthritis, right 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) 04/29/2024 Right foot pain (ICD-10 - M79.671) pa 11/01/2023 Primary osteoarthritis, right 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) 11/01/2023 Ingrowing nail (ICD-10 - L60.0) 01/24/2024 Ingrowing nail (ICD-10 - L60.0) 01/24/2024 Xerosis cutis (ICD-10 - L85.3) 11/01/2023 Xerosis cutis (ICD-10 - L85.3) 11/01/2023 Plantar fascial fibromatosis (ICD-10 - M72.2) 01/24/2024 Plantar fascial fibromatosis (ICD-10 - M72.2) 01/24/2024 Neuralgia and neuritis, unspecified (ICD-10 - M79.2) 11/01/2023 Neuralgia and neuritis, unspecified (ICD-10 - M79.2) 11/01/2023 Abscess, toe, left (ICD-10 - L02.612) Plan Of Treatment Pending Test Test Name Order Date X ray : Foot, left 3V 11/25/2020 X ray : Foot, right 3V 11/25/2020 [id number] NAIL, 6 OR MORE 04/29/2024 64768 I&D ABSCESS- SIMPLE,SINGLE 024 , J8700-JCQHV/INJECT, JOINT/BURSA 0 01/24/2024 55940, G8005-RQDVS/INJECT, JOINT/BURSA 0 05/17/2023 Next Appt Details Provider Name:Jaimee Carmina lane, 10/31/2024 09:30:00 AM, [address] [facility], [place], [address], Insurance Providers Payer Name Payer Address Payer Phone Subscriber Number Group Number Insured Name Patient Relationship to Insured Coverage Start Date Coverage End Date [employer] [address] [place] [address] [id number] BerthaBelen morocho Self - patient is the insured [employer] [address] [place] [address] [id number] BerthaSienna morochosa Self - patient is the insured Medical [...]
[2024-10-24 12:56] LABS: Vitamin B12 298 pg/mL (200-900)
[2024-10-24 13:00] LABS: Erythrocyte Sedimentation Rate 14 MM/HR (0-20)
== END 2024-10-24 10:58 | disposition home or self-care (01) ==
LOC: HO.LAB 10:57
PROVIDERS: PCP Internal Medicine; Visit Provider Internal Medicine
DX: E11.9 Type 2 diabetes mellitus without complications (principal); E78.5 Hyperlipidemia, unspecified; R53.83 Other fatigue
CPT/HCPCS: 36415; 80053; 80061; 82306; 82607; 82728; 83036; 83540; 84439; 84443; 85025; 85652; 86140

== ENCOUNTER 2025-01-02 09:44 | Outpatient (AMB) | payer MEDICARE, SELFPAY ==
--- NOTE | 2025-01-02 09:45 | A.OFFPC_ITS ---
Vital Signs 01/02/25 09:53 Height 5 ft 1.57 in Weight 181 lb BMI 33.6 BP 136/80 Blood Pressure Location Rt femoral Position Sitting Respiration 16 Pulse 70 Pulse Source Pulse Oximeter Temp 97.5 F Temp Source Temporal Artery Scan Pulse Oximetry (%) 93 Oxygen Delivery Method Room Air Intake Visit Reasons: Establish care Lead Atg Developer Required: No Accompanied by: grandbhavna Allergies Penicillins Adverse Reaction (Unknown, Verified 01/02/25 12:22) Rash Medication List - Last Reconciled 01/02/25 by Deborah Dominique PA-C albuterol sulfate 90 mcg/actuation 2 puffs inhalation Q4H PRN atorvastatin 20 mg PO DAILY fexofenadine-pseudoephedrine 180-240 mg ER (Effie-D 24 Hour) 1 tab PO QAM furosemide 20 mg PO DAILY hydrocodone-acetaminophen 5-325 mg 1 tab PO DAILY PRN lorazepam 0.5 mg PO BEDTIME PRN losartan 50 mg PO BID multivitamin 1 tab PO DAILY pregabalin 150 mg PO DAILY vit C,W-Uz-pbhjc-lutein-zeaxan 250-90-40-1 mg (PreserVision AREDS-2) 1 tab PO BID Tobacco use date assessed: 01/02/25 Fall risk assessment: No Falls in past year Last assessed Fall Risk: 01/02/25 Dental Screening Dental Screen Date: 01/02/25 Did you have a dental visit in the last 12 months?: No Did you have a dental problem in the last 6 months where you did not have access to dental care?: No Was dental information given to patient?: No HPI Establish care HPI Details The patient is an 89-year-old female presenting to establish a new primary care provider as her prior provider was Dr. Dawson and management of multiple chronic conditions. The patient has a history of essential hypertension and aortic stenosis, which have been managed over the years. She also reports premature ventricular contractions, although she is uncertain about the details of this condition. The patient experienced a lumbar spine compression fracture approximately five years ago, which required hospitalization and surgery. Post-surgery, she underwent rehabilitation at [facility] and now uses a walker for mobility. She had a benign breast biopsy many years ago, with no subsequent issues reported. The patient has been diagnosed with diabetes mellitus, which is currently uncontrolled with a hemoglobin A1c of 7.1%. She acknowledges a preference for sweets and is considering dietary changes to manage her blood glucose levels. Her recent blood work indicated hypertriglyceridemia with levels at 248 mg/dL and vitamin D deficiency at 28.8 ng/mL. The patient experiences anxiety, particularly when alone, and takes lorazepam once daily for this condition. Although she is being prescribed lorazepam 3 times a day I explained to her that today we will be decreasing this to once at bedtime as she is taking it she reported to me. She also reports neuropathy, which affects her feet, and takes pregabalin 150 mg 5 capsules daily for management. She was also prescribed Newhall 5 x 325 mg 3 times a day reports she only takes this daily therefore we will be decreasing this prescription to once daily. Patient agreeable to this. She has a history of macular degeneration, which has impacted her vision. 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 - Family Status: Lives with her grandson , who assists her with daily activities. - Functional Status: Uses a walker for m obility following a lumbar spine fracture. - Nutritional Intake: Prefers sweets and carbohydrates, which may impact her diabetes management. [facility] Medical History (Updated 01/02/25 @ 12:45 by Deborah Dominique PA-C) Chronic pain Class 1 obesity with body mass index (BMI) of 33.0 to 33.9 in adult Macular degeneration Neuropathy Anxiety Vitamin D deficiency Hypertriglyceridemia Type 2 diabetes mellitus with hemoglobin A1c goal of less than 7.0% Dysuria History of mammogram (~2023) Essential hypertension Bifascicular block Atrial arrhythmia Non-rheumatic aortic stenosis Surgical History History of colonoscopy History of tonsillectomy History of benign breast biopsy Family History Father CVD (cardiovascular disease) Mother CVD (cardiovascular disease) Brother CVD (cardiovascular disease) Social History Household Members: Family Housing: House Do you presently have visiting nurse or other home services: No Alcohol intake: current Alcohol intake frequency: a few times a month Alcohol type: wine and hard liquor Patient Tobacco Use Status: Former Tobacco user Tobacco use type: Cigarette service: No Current occupational status: retired Cognitive needs: Yes (walker) Hearing needs: No Vision needs: No Questionnaire PHQ-9 Over the last 2 weeks, how often have you been bothered by any of the following problems? 1. Little interest or pleasure in doing things: not at all 2. Feeling down, depressed, or hopeless: not at all 3. Trouble falling or staying asleep, or sleeping too much: not at all 4. Feeling tired or having little energy: not at all 5. Poor appetite or overeating: not at all 6. Feeling bad about yourself - or that you are a failure or have let yourself or your family down: not at all 7. Trouble concentrating on things, such as reading the newspaper or watching television: not at all 8. Moving or speaking so slowly that other people could have noticed. Or the opposite - being so fidgety or restless that you have been moving around a lot more than usual: not at all 9. Thoughts that you would be better off or of hurting yourself in some way: not at all Total score: 0 Depression Screening Interpretation: Negative Depression Screening Done: Yes 93454 - PHQ-9 Billing: Yes Source: Developed by Drs. Maco Ashley, Michelle Gomez, Gus Casiano and colleagues, with an educational thomas from [employer] Thrive Questionnaire Date Thrive assessed: 01/02/25 I am a: Patient What is your living situation today?: I have a steady place to live Within the past 12 months, did the food you bought not last and you didn't have the money to get more?: Never true Within the past 12 months, did you worry whether your food would run out before you got money to buy more?: Never true Do you have trouble paying for medicines?: No Do you have trouble getting transportation to medical appointments?: No Do you have trouble paying your heating and electricity bill?: No Do you have trouble taking care of your child, family member or friend?: No Do you have trouble with day-to-day activities such as bathing, preparing meals, shopping, managing finances, etc.?: No Are you currently unemployed and looking for a job?: No Are you interested in more education?: No Please select the resources that you would like help with: None Currently or been in a relationship where the following occur: No concerns reported THRIVE Score: 0 AUDIT C Alcohol Use Questionnaire (AUDIT-C) 1. How often do you have a drink containing alcohol?: Monthly or less 2. How many drinks containing alcohol do you have on a typical day when you are drinking?: 1 or 2 3. How often do you have six or more drinks on one occasion?: Never Total Score: 1 Score Reviewed/Action Taken: No RAMON-7 AMB Questionnaire RAMON-7 Date RAMON - 7 assessed: 01/02/25 Feeling nervous, anxious, or on edge: 0 = Not at all Not being able to stop or control worryin = Not at all Worrying too much about different things: 0 = Not at all Trouble relaxin = Not at all Being so restless that it is hard to sit still: 0 = Not at all Becoming easily annoyed or irritable: 0 = Not at all Feeling afraid as if something awful might happen: 0 = Not at all Total RAMON-7 score (0-4 normal; 5-9 mild; 10-14 moderate; 15-21 severe): 0 Source: Developed by Drs. Maco Ashley, Michelle Gomez, Gus Casiano and colleagues, with an educational thomas from [employer] RAMON-7 Assessment Billing RAMON-7 Assessment Tool: RAMON-7 Assessment 30961 Review of Systems Const Details: - Cardiovascular: Reports heart murmur, denies chest pain or dyspnea. - Musculoskeletal: Reports tenderness in legs, denies swelling. - Neurological: Reports neuropathy in feet, denies dizziness or balance issues. - Ophthalmologic: Reports decreased vision due to macular degeneration. - Psychiatric: Reports anxiety when alone. All systems reviewed & are unremarkable except as noted in HPI and below Physical exam (Primary Care) Vital Signs: Last Vital Signs Temp 97.5 F 01/02/25 09:53 Pulse 70 01/02/25 09:53 Resp 16 01/02/25 09:53 BP 136/80 01/02/25 09:53 Pulse Ox 93 01/02/25 09:53 Oxygen Delivery Method Room Air 01/02/25 09:53 Care Plan Goal for BP management: <140/90 at Goal BMI result Body Mass Index 33.6 BMI Assessment/Plan discussion: High BMI High, discussed plan: lifestyle, weight reduction, dietary, physical activity, alcohol moderation and other Tobacco/Smoking Status: Tobacco use Status Tobacco use date assessed 01/02/25 01/02/25 09:48 Patient Tobacco Use Status Former Tobacco user 01/02/25 10:05 Tobacco use type Cigarette 01/02/25 10:05 PHQ-9: PHQ-9 Score PHQ-9: Total score 0 01/02/25 10:06 Depression Screening Interpretation: Negative Thrive Assessment: Date of Thrive Assessment Date Thrive assessed 01/02/25 01/02/25 09:48 Currently or been in a relationship where the following occur: No concerns reported Const Other: Appearance: Alert. Oriented X3. No acute distress. Head: Normal external exam. Normocephalic. Atraumatic. Eyes: Pupils are equal, round, and reactive to light. Extraocular movements intact. Conjunctiva and sclera normal. Eyelids normal. Throat: Pharynx normal. Uvula midline. Moist mucous membranes. Neck: Normal inspection. Neck supple. Full range of motion. Cardiovascular: Normal heart rate and rhythm. Heart sound normal. No murmurs noted. Pulses normal throughout. Respiratory: No respiratory distress. Painless inspiration. Breath sounds normal. No wheezes/rales/rhonchi noted. Chest nontender. No accessory muscle usage noted or decreased air movement noted. Abdomen: Soft and nontender. No distention noted. No organomegaly noted. Back: Full range of motion noted. Skin: Skin warm and dry. Normal skin color. Extremities: No lower extremity edema. Extremities exhibit normal range of motion. Neuro: Oriented X 3. No motor deficit. No sensory deficit. Reflexes normal. Results Reviewed Results Reviewed: - Labs: Hemoglobin A1c 7.1%, indicating uncontrolled diabetes. - Labs: Triglycerides 248 mg/dL, indicating hypertriglyceridemia. - Labs: Vitamin D 28.8 ng/mL, indicating deficiency. Coding Level of Care Code New Pt Level 4 (75524) Complex EM visit Add On G2211 Diagnoses Type 2 diabetes mellitus with hemoglobin A1c goal of less than 7.0% E11.9 Hypertriglyceridemia E78.1 Vitamin D deficiency E55.9 Anxiety F41.9 Neuropathy G62.9 Macular degeneration H35.30 Class 1 obesity with body mass index (BMI) of 33.0 to 33.9 in adult E66.811; Z68.33 Chronic pain G89.29 Additional Codes PHQ-9 - 43730 - PHQ-9 Billing: Yes ([id number]) RAMON-7 Assessment Billing - RAMON-7 Assessment Tool: RAMON-7 Assessment 87738 ([id number]) Time Spent (min) 65 Assessment & Plan Assessment & Plan (1) Type 2 diabetes mellitus with hemoglobin A1c goal of less than 7.0%: Code(s): E11.9 - Type 2 diabetes mellitus without complications Category: Medical Plan: The patient has been diagnosed with uncontrolled diabetes mellitus, with a hemoglobin A1c of 7.1%. She is advised to modify her diet, focusing on reducing sugar and carbohydrate intake, and will be re-evaluated in three months. If her blood glucose levels remain elevated, initiation of diabetes medication will be considered. (2) Hypertriglyceridemia: Code(s): E78.1 - Pure hyperglyceridemia Category: Medical Plan: The patient's triglyceride levels are elevated at 248 mg/dL. Dietary modifications are recommended to address this, and her lipid profile will be monitored. (3) Vitamin D deficiency: Code(s): E55.9 - Vitamin D deficiency, unspecified Category: Medical Plan: The patient has a vitamin D level of 28.8 ng/mL, indicating deficiency. She is advised to increase her vitamin D intake through diet or supplementation. (4) Anxiety: Code(s): F41.9 - Anxiety disorder, unspecified Category: Medical Plan: The patient experiences anxiety, particularly when alone, and currently takes lorazepam once daily. A review of her medication regimen is planned to ensure appropriate management. (5) Neuropathy: Code(s): G62.9 - Polyneuropathy, unspecified Category: Medical Plan: The patient reports neuropathy affecting her feet, for which she takes pregabalin. Continued monitoring and management of symptoms are advised. (6) Macular degeneration: Code(s): H35.30 - Unspecified macular degeneration Category: Medical Plan: The patient has a history of macular degeneration, impacting her vision. Regular ophthalmologic evaluations are recommended to monitor progression. (7) Class 1 obesity with body mass index (BMI) of 33.0 to 33.9 in adult: Code(s): E66.811 - Obesity, class 1; Z68.33 - Body mass index [BMI] 33.0-33.9, adult Category: Medical Plan: Patient to improve diet and exercise regimen. Condition is chronic and stable continue to monitor. (8) Chronic pain: Code(s): G89.29 - Other chronic pain Category: Medical Plan: Patient is currently on Newhall 5 x 325 she was prescribed this 3 times a day by Dr. Kwok although reports only takes it once daily therefore she will be decreased to once daily. She signed a narcotic contract. She is agreeable to random drug test and pill counts. She is agreeable to returning every 30 days. Condition is chronic and stable continue to monitor. Plan Plan Patient was informed and verbally consented to the use of an ambient scribe for clinic note documentation during this visit. 1. Diabetes Mellitus, Uncontrolled The patient has been diagnosed with uncontrolled diabetes mellitus, with a hemoglobin A1c of 7.1%. She is advised to modify her diet, focusing on reducing sugar and carbohydrate intake, and will be re-evaluated in three months. If her blood glucose levels remain elevated, initiation of diabetes medication will be considered. 2. Hypertriglyceridemia The patient's triglyceride levels are elevated at 248 mg/dL. Dietary modifications are recommended to address this, and her lipid profile will be monitored. 3. Vitamin D Deficiency The patient has a vitamin D level of 28.8 ng/mL, indicating deficiency. She is advised to increase her vitamin D intake through diet or supplementation. 4. Anxiety The patient experiences anxiety, particularly when alone, and currently takes lorazepam once daily. A review of her medication regimen is planned to ensure appropriate management. 5. Neuropathy The patient reports neuropathy affecting her feet, for which she takes p regabalin. Continued monitoring and management of symptoms are advised. 6. Macular Degeneration The patient has a history of macular degeneration, impacting her vision. Regular ophthalmologic evaluations are recommended to monitor progression. During the visit, I discussed with the patient the importance of managing her diabetes through dietary changes, emphasizing the reduction of sugar and carbohydrate intake. We also reviewed her current medication regimen, particularly the use of lorazepam for anxiety, and discussed the potential need for adjustments. I advised her on the necessity of regular follow-ups to monitor her blood glucose levels and overall health status. Orders: Orders Drug Screen Urine Today R30.0 - Dysuria UA CC w/rflx Micro + Cult Today R30.0 - Dysuria Hemoglobin A1c 3 Weeks Z00.00 - Encounter for general adult medical examination without abnormal findings Patient Instructions: - Follow a diet low in sugar and carbohydrates to help manage blood glucose levels. - Increase vitamin D intake through diet or supplements. - Continue taking prescribed medications as directed. - Schedule regular follow-up appointments to monitor health conditions. - Attend ophthalmologic evaluations to monitor macular degeneration.
[2025-01-02 09:53] VITALS: BP 136/80; PULSE 70; RESP 16; TEMP 36.4; O2SAT 93; BMI 33.6
--- OUTSIDE RECORDS SUMMARY | 2025-01-02 11:03 | XMS_ITS | Patient Health Record ---
Author Organization [facility] Address [address] [place] [address] Care Team Providers Care Dumper [employer] Name Role Phone Koby Kwok MD Primary Care Provider Unavailab Jaimee Gutierrez Unavailable [phone] Isac Martinez Unavailable [phone] Peggy Anaya Unavailable [phone] Allergies No Known Allergies Reason For Referral No Information Medications Medication SIG (Take, Route, Frequency, Duration) Notes Start Date End Date Status PreserVision AREDS A ctive Multivitamin Active Diclofenac Sodium 3 % 1 application Exte rnally Twice a day Active Lasix Active Hydrocodone Bitart (Antituss) PRN Active Losartan Potassium-HCTZ 100-25 MG Oral; Duration: 90 Active Lyrica 150 MG 1 capsule Orally Onc e a day Active Immunizations Vaccine Route Administration Date Status Comme nts COVID-19 Pfizer BioNTech Vaccine Unknown 02/12/2022 Administered 1st 06/18/2020 2nd 07/09/2020 3rd 03/30/2021 Influenza Unknown 02/12/2022 Administered Influenza Unknown 02/13/2024 Administered Social History Tobacco Use: Social History [...] Status W/U Status Risk Notes Problem Neuropathy ([id number]) Neuropathy (G62.9) Active confirmed Vital Signs Blood pressure diastolic 65 mm Hg 10/31/2024 Height 5ft 2in in 10/31/2024 Blood pressure systolic 128 mm Hg 10/31/2024 Weight 175 lbs 10/31/2024 BMI 32 kg/m2 10/31/2024 Procedures Procedure Date Ordered Date Performed Result Body Sit e , J9832-TNVOM/INJECT, JOINT/BURSA 01/24/2024 N/A [id number] NAIL, 6 OR MORE 04/29/2024 N/A [id number] Plate 10/31/2024 N/A Encounters Encounter Location Date Provider Diagnosis [facility] [address] 01/24/2024 Isac Martinez Tinea unguium B35.1 ; [...] M72.2 and Neuralgia and neuritis, unspecified M79.[address] [address] 04/29/2024 Jaimee Nicole Pain in right toe(s) M79.674 ; Onychomycosis B35.1 ; Pain in left toe(s) M79.675 ; Neuritis M79.2 ; Neuropathy G62.9 ; Left foot pain M79.672 and Right foot pain M79.[address] [address] 07/16/2024 Peggy Anaya Onychomycosis B35.1 ; Neuropathy G62.9 ; Pain in right toe(s) M79.674 ; Pain in left toe(s) M79.675 ; Neuritis M79.2 ; Left foot pain M79.672 and Right foot pain M79.[address] [address] 09/26/2024 Jaimee Nicole Onychomycosis B35.1 ; Neuropathy G62.9 ; Pain in right toe(s) M79.674 and Pain in left toe(s) M79.[address] [address] 10/31/2024 Jaimee Nicole Ingrown nail L60.0 Assessments Encounter Date Diagnosis (ICD Code) Assessment Notes Treatment Notes Treatment Clinical Notes Section Notes 01/24/2024 Tinea unguium (ICD-10 - B35.1) 01/24/2024 Pain in right toe(s) (ICD-10 - M79.674) 04/29/2024 Pain in right toe(s) (ICD-10 - M79.674) pa 07/16/2024 Neuropathy (ICD-10 - G62.9) pa 07/16/2024 Onychomycosis (ICD-10 - B35.1) pa 09/26/2024 Neuropathy (ICD-10 - G62.9) pa 09/26/2024 Onychomycosis (ICD-10 - B35.1) pa 10/31/2024 Ingrown nail (ICD-10 - L60.0) 09/26/2024 Pain in right toe(s) (ICD-10 - M79.674) pa 04/29/2024 Onychomycosis (ICD-10 - B35.1) pa 07/16/2024 Pain in right toe(s) (ICD-10 - M79.674) pa 04/29/2024 Pain in left toe(s) (ICD-10 - M79.675) pa 01/24/2024 Pain in left toe(s) (ICD-10 - M79.675) 01/24/2024 Other hammer toe(s) (acquired), left foot (ICD-10 - M20.42) 04/29/2024 Neuritis (ICD-10 - M79.2) pa 07/16/2024 Pain in left toe(s) (ICD-10 - M79.675) pa 09/26/2024 Pain in left toe(s) (ICD-10 - M79.675) pa 07/16/2024 Neuritis (ICD-10 - M79.2) pa 04/29/2024 Neuropathy (ICD-10 - G62.9) pa 01/24/2024 Other hammer toe(s) (acquired), right foot (ICD-10 - M20.41) 04/29/2024 Left foot pain (ICD-10 - M79.672) pa 01/24/2024 Primary osteoarthritis, 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) 07/16/2024 Left foot pain (ICD-10 - M79.672) pa 07/16/2024 Right foot pain (ICD-10 - M79.671) pa 01/24/2024 Primary osteoarthritis, right 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) 04/29/2024 Right foot pain (ICD-10 - M79.671) pa 01/24/2024 Ingrowing nail (ICD-10 - L60.0) 01/24/2024 Xerosis cutis (ICD-10 - L85.3) 01/24/2024 Plantar fascial fibromatosis (ICD-10 - M72.2) 01/24/2024 Neuralgia and neuritis, unspecified (ICD-10 - M79.2) Plan Of Treatment Pending Test Test Name Order Date X ray : Foot, left 3V 11/25/2020 X ray : Foot, right 3V 11/25/2020 [id number] NAIL, 6 OR MORE 04/29/2024 [id number] Plate 10/31/2024 83912 I&D ABSCESS- SIMPLE,SINGLE 024 , [id number]/INJECT, JOINT/BURSA 0 01/24/2024, [id number]-BCTTR/INJECT, JOINT/BURSA 0 05/17/2023 Next Appt Details Provider Name:Jamiee lane, 01/08/2025 09:30:00 AM, [address] [facility], [place], [address], Insurance Providers Payer Name Payer Address Payer Phone Subscriber Number Group Number Insured Name Patient Relationship to Insured Coverage Start Date Coverage End Date Medicare National Govt [facility] [address] [place] [address] [id number] Belen Stone Self - patient is the insured [employer] [address] [place] [address] [phone] [id number] Belen Stone Self - patient is the insured Medical [...]
--- OUTSIDE RECORDS SUMMARY | 2025-01-02 11:03 | XMS_ITS | Patient Health Record ---
Author Organization [facility] Address [address] [place] [address] Care Team Providers Care Supervisor [employer] Name Role Phone Maco Soriano Unavailable [phone] Reason For Referral No Information Plan Of Treatment No Information
== END 2025-01-02 11:00 | disposition home or self-care (01) ==
LOC: HO.HMCSH 09:44
PROVIDERS: PCP Internal Medicine; Visit Provider Physician Assistant Medical
DX: E11.42 Type 2 diabetes mellitus with diabetic polyneuropathy (principal); G62.9 Polyneuropathy, unspecified; E66.811 Obesity, class 1; Z68.33 Body mass index [BMI] 33.0-33.9, adult; E78.1 Pure hyperglyceridemia; E55.9 Vitamin D deficiency, unspecified; F41.9 Anxiety disorder, unspecified; H35.30 Unspecified macular degeneration; G89.29 Other chronic pain

== ENCOUNTER 2025-01-02 09:44 | Outpatient (REF) | payer MEDICARE, SELFPAY ==
[2025-01-02 14:19] LABS: Appearance Urine Clear; Glucose Urine UA Negative (Negative); PH 5.5 (5.0-9.0); Specific Gravity - Urine 1.015 (1.005-1.025); UMIC TRIGGER UACC YES
[2025-01-02 14:22] LABS: UACC Culture Trigger YES
[2025-01-02 14:34] LABS: Cannabinoid Screen Urine Not Detected (Not Detect)
== END 2025-01-02 09:45 | disposition home or self-care (01) ==
LOC: HO.LAB 09:44
PROVIDERS: PCP Physician Assistant Medical; Visit Provider Physician Assistant Medical
DX: Z76.89 Persons encountering health services in other specified circumstances (principal); R30.0 Dysuria; E11.9 Type 2 diabetes mellitus without complications; E78.1 Pure hyperglyceridemia; E55.9 Vitamin D deficiency, unspecified; F41.9 Anxiety disorder, unspecified; G62.9 Polyneuropathy, unspecified; H35.30 Unspecified macular degeneration; E66.811 Obesity, class 1; Z68.33 Body mass index [BMI] 33.0-33.9, adult; G89.29 Other chronic pain; Z87.891 Personal history of nicotine dependence; Z71.3 Dietary counseling and surveillance
CPT/HCPCS: 80307; 81001; 87086; 96127; 99202

== ENCOUNTER → 2025-01-22 10:05 | Outpatient (REF) | payer MEDICARE, SELFPAY ==
--- NOTE | 2025-01-22 10:08 | CA_ITS ---
Transthoracic Echocardiogram Patient (Last, First, Middle): Belen Stone, Gender: Female Date of : 1935 Age: 89 Procedure Date: 01/22/2025 Procedure Type: Transthoracic Echocardiogram Location: OP Height: 157. cm Weight: 81.65 kg BSA: 1.82 m2 Heart Rate: bpm BP: 118 / 70 mmHg Drug Safety Coordinator: Referring MD: Hugo Tubbs MD [place]ow Analyst: Andrae Godfrey MD Symptoms: I35.0 - Nonrheumatic aortic (valve) stenosis Study Quality: Adequate ECG Rhythm: Sinus Conclusions: - 1. Normal LV ejection fraction of 60 65% with moderate increase in LV wall thickness with impaired relaxation filling pattern 2. At least mildly dilated left atrium 3. Wgqg-si-htjtggnc aortic stenosis 4. Normal RV systolic pressure 5. No gross pericardial effusion Findings Left Ventricle Normal left ventricular cavity size. There is moderately increased left ventricular wall thickness. The left ventricular systolic function is normal. The visually estimated ejection fraction is between 60-65%. Spectral Doppler is indicative of an impaired relaxation filling pattern. E/E prime ratio is between 8 and 15 consistent with indeterminate filling pressures. Right Ventricle Normal right ventricular cavity size and systolic function. Atria The left atrium is mildly dilated. There is no evidence of interatrial shunt. The right atrium is normal in size. Aortic Valve The aortic valve was not well visualized. There is mild calcification of the aortic valve. There is mild thickening of the aortic valve. There is mild to moderate aortic valve stenosis. The peak aortic gradient is 25 mmHg.The mean gradient is 13 mmHg. The aortic valve area is 1.44 cm2. There is no aortic valve regurgitation. Mitral Valve There is mild anterior and moderate posterior mitral leaflet thickening. There is moderate mitral annular calcification. There is mild mitral valve regurgitation. There is no mitral valve stenosis. Pulmonic Valve The pulmonic valve was not well visualized. Tricuspid Valve Likely normal tricuspid valve structure and function. There is trace tricuspid valve regurgitation. The right ventricular systolic pressure is normal. The right ventricular systolic pressure is 27 mmHg. Normal right atrial pressure. There is no evidence of pulmonary hypertension. Great Vessels The pulmonary artery was not well visualized. There is no dilatation of the ascending aorta measuring 3.30 cm. Venous The inferior vena cava is normal in size and collapses greater than 50% with inspiration. Pericardium/Pleural There is no evidence of pericardial effusion. Prior Study Comparison Changes noted compared to prior study dated: 01/23/2024. Moderate LV wall thickness noted Measurements 2D Linear Measurements IVSd: 1.52 0.6-0.9/0.6-1.0 cm LVIDd: 3.75 3.9-5.3/4.2-5.9 cm LVIDd Index: 2.06 2.4-3.2/2.2-3.1 cm/m2 LVIDs: 2.35 2.0-3.6 cm LVPWd: 1.50 0.7-1.1 cm Ao Root: 2.80 2.1-3.5 cm LA Diam: 3.60 2.7-3.8/3.0-4.0 cm LAIDs Index: 1.98 1.5-2.3 cm/m2 LV Mass: 267.86 67-162/88-224 g LV Mass Index: 147.17 43-95/49-115 g/m2 LVOT Diam: 2.30 3.0+(-)1.3 cm 2D Systolic Function EF 4C: 57.80 >55% EF 2C: 67.60 >55% EF BiP: 60.70 >55% Mitral Valve MV VTI: 0.32 MV Pk Mckay: 1.55 MV Mn Mckay: 0.68 MV Pk Grad: 10.00 MV Mn Grad: 3.00 MV Pk E: 0.45 MV PK A: 1.23 MV Decel Time: 111.00 E/A: 0.40 E'Lateral: 3.05 E'Medial: 3.48 E/E' Med: 12.90 E/E' Lat: 14.80 PHT: 33.00 MVA PHT: 6.67 MVA Continuity: 2.45 Decel Baca: 4.04 Aortic Valve AoV Pk Mckay: 2.48 AoV Mn Mckay: 1.69 AoV VTI: 0.55 AoV Pk Grad: 25.00 Aov Mn Grad: 13.00 BRITTANY Cont.VTI: 1.44 LVOT LVOT Pk Mckay: 0.62 LVOT Mn Mckay: 0.44 LVOT VTI: 0.19 LVOT Pk Grad: 2.00 LVOT Mn Grad: 1.00 LVOT Diam: 2.30 LVOT Area: 4.15 Diastolic Function MV Pk E: 0.45 MV Pk A: 1.23 E/A: 0.40 E'Medial: 3.48 E/E' Med: 12.90 E' Laterial: 3.05 E/E' Lat: 14.80 Tricuspid Valve TR Pk Mckay: 2.46 TR Pk Grad: 24.00 RA Press: 3.00 RVSP: 27.00 Great Vessels Aorta Ao Root-2D: 2.80 2.0-3.7 cm Ao Asc: 3.30 2.1-3.4 cm Pulmonary Veins Pulm Vein S/D 0.80 Pulmonary Valve PV Pk Mckay: 1.08 Peak PV Grad: 5.00 Updated in Other Vendor System with Status of Final Andrae Godfrey MD electronically signed on 01/22/2025 2:44:51 PM with status of Final
--- OUTSIDE RECORDS SUMMARY | 2025-01-22 12:16 | XMS_ITS | Patient Health Record ---
Author Organization [facility] Address [address] [place] [address] Care Team Providers Care Lead Supply Worker Name Role Phone Joe, Kartik Primary Care Provider Jaimee Nicole Unavailable [phone] Isac Martinez Unavailable [phone] Peggy Anaya Unavailable [phone] Allergies No Known Allergies Results Component Value Reference Range Notes HEMOGLOBIN A1C (GLYCOHEMOGLO BIN) Reviewed date:01/08/2025 09:47:21 AM Interpretation: Performing Lab: Notes/Report: HEMOGLOBIN A1C % (HH) 7.0 Reason For Referral No Information Medications Medication SIG (Take, Route, Frequency, Duration) Notes Start Date End Date Status Lasix Active Lyrica 150 MG 1 capsule Orally Onc e a day Active Diclofenac Sodium 3 % 1 application Exte rnally Twice a day Active Hydrocodone Bitart (Antituss) PRN Active PreserVision AREDS A ctive Losartan Potassium-HCTZ 100-25 MG Oral; Duration: 90 Active Multivitamin Active Immunizations Vaccine Route Administration Date Status Comme nts Influenza Unknown 02/12/2022 Administered Influenza Unknown 02/13/2024 Administered COVID-19 Pfizer BioNTech Vaccine Unknown 02/12/2022 Administered 1st 06/18/2020 2nd 07/09/2020 3rd 03/30/2021 Social History Tobacco Use: Social History Observation [...] Status W/U Status Risk Notes Problem Neuropathy ([id number]) Neuropathy (G62.9) Active confirmed Vital Signs Blood pressure diastolic 65 mm Hg 01/08/2025 Height 5ft 2in in 01/08/2025 Blood pressure systolic 126 mm Hg 01/08/2025 Weight 175 lbs 01/08/2025 BMI 32 kg/m2 01/08/2025 Procedures Procedure Date Ordered Date Performed Result Body Sit e , S0108-BOISR/INJECT, JOINT/BURSA 01/24/2024 N/A 51438-HTJMYLY NAIL, 6 OR MORE 04/29/2024 N/A 01342-Ntrnmykg Plate 10/31/2024 N/A Encounters Encounter Location Date Provider Diagnosis [facility] [address] [address] 01/24/2024 Isac Martinez Tinea unguium B35.1 ; [...] M72.2 and Neuralgia and neuritis, unspecified M79.2 [facility] [address] [address] 04/29/2024 Jaimee Nicole Pain in right toe(s) M79.674 ; Onychomycosis B35.1 ; Pain in left toe(s) M79.675 ; Neuritis M79.2 ; Neuropathy G62.9 ; Left foot pain M79.672 and Right foot pain M79.[address] [address] 07/16/2024 Peggy Anaya Onychomycosis B35.1 ; Neuropathy G62.9 ; Pain in right toe(s) M79.674 ; Pain in left toe(s) M79.675 ; Neuritis M79.2 ; Left foot pain M79.672 and Right foot pain M79.[address] [address] 09/26/2024 Jaimee Nicole Onychomycosis B35.1 ; Neuropathy G62.9 ; Pain in right toe(s) M79.674 and Pain in left toe(s) M79.[address] [address] 10/31/2024 Jaimee Nicole Ingrown nail L60.[address] [address] 01/08/2025 Jaimee Nicole Onychomycosis B35.1 ; Neuropathy G62.9 ; Pain in right toe(s) M79.674 and Pain in left toe(s) M79.675 Assessments Encounter Date Diagnosis (ICD Code) Assessment [...] pa 10/31/2024 Ingrown nail (ICD-10 - L60.0) 01/08/2025 Onychomycosis (ICD-10 - B35.1) pa 01/08/2025 Neuropathy (ICD-10 - G62.9) pa 09/26/2024 Pain in right toe(s) (ICD-10 [...] in left toe(s) (ICD-10 - M79.675) pa 01/08/2025 Pain in right toe(s) (ICD-10 - M79.674) pa 01/08/2025 Pain in left toe(s) (ICD-10 - M79.675) [...] X ray : Foot, right 3V 11/25/2020 37761-TOTTPHS NAIL, 6 OR MORE 04/29/2024 05354-Noyealzs Plate 10/31/2024 86118 I&D ABSCESS- SIMPLE,SINGLE 024 , I0184-SCUFC/INJECT, JOINT/BURSA 0 01/24/2024, Z8919-PSDWI/INJECT, JOINT/BURSA 0 05/17/2023 Next Appt Details Provider Name:Jaimee Grewal ariana, 04/03/2025 09:30:00 AM, [address] [place] [address], [id number], Insurance Providers Payer Name Payer Address Payer Phone Subscriber Number Group Number Insured Name Patient Relationship to Insured Coverage Start Date Coverage End Date Medicare National [employer] [address] [place] [address] [id number] Belen Stone Self - patient is the insured [employer] [address] [place] [address] [phone] [id number] Belen Stone Self - patient is the [...]
--- OUTSIDE RECORDS SUMMARY | 2025-01-22 12:17 | XMS_ITS | Patient Health Record ---
Author Organization [facility] Address [address] [place] [address] Care Team Providers Care Facility Planner Name Role Phone Maco Soriano Unavailable [phone] Reason For Referral No Information Plan Of Treatment No Information
== END ==
LOC: HO.CARD 10:05
PROVIDERS: Visit Provider Internal Medicine
DX: I35.0 Nonrheumatic aortic (valve) stenosis (principal)
CPT/HCPCS: 93306

== ENCOUNTER → 2025-01-22 10:08 | Outpatient (BNV) | payer MEDICARE, SELFPAY | PROVIDERS: Visit Provider Internal Medicine Cardiovascular Disease | DX: I35.0 Nonrheumatic aortic (valve) stenosis (principal); I34.0 Nonrheumatic mitral (valve) insufficiency; I34.81 Nonrheumatic mitral (valve) annulus calcification | CPT/HCPCS: 93306 ==

== ENCOUNTER 2025-02-06 10:18 | Outpatient (AMB) | payer MEDICARE, SELFPAY ==
--- NOTE | 2025-02-06 10:19 | A.OFFPC_ITS ---
Vital Signs 02/06/25 10:20 Height 5 ft 1.57 in Weight 180 lb BMI 33.4 BP 153/68 H Blood Pressure Location Rt brachial Position Sitting Temp 97.0 F Temp Source Temporal Artery Scan Intake Visit Reasons: 4 weeks Lithographic Press Feeder Required: No Accompanied by: Grand Child Allergies Penicillins Adverse Reaction (Unknown, Verified 02/06/25 11:33) Rash Medication List - Last Reconciled 02/06/25 by Deborah Dominique PA-C albuterol sulfate 90 mcg/actuation 2 puffs inhalation Q4H PRN alcohol swabs (Alcohol Pads) 1 pad topical TIDWMEAL atorvastatin 20 mg PO DAILY blood sugar diagnostic (FreeStyle Lite Strips) Check glucose 3 times a day before meals blood-glucose meter (FreeStyle Lite Meter kit) Check glucose 3 times a day before meals fexofenadine-pseudoephedrine 180-240 mg ER (Effie-D 24 Hour) 1 tab PO QAM furosemide 20 mg PO DAILY hydrocodone-acetaminophen 5-325 mg 1 tab PO DAILY PRN linaclotide (Linzess) 72 mcg PO DAILY lorazepam 0.5 mg PO BEDTIME PRN losartan 50 mg PO BID losartan 100 mg PO DAILY metformin 500 mg PO DAILY multivitamin 1 tab PO DAILY naproxen 500 mg PO BID pregabalin 150 mg PO DAILY semaglutide (Ozempic) 0.25 mg (0.368 mL) subcut QWEEK vit C,K-Pl-rfvns-lutein-zeaxan 250-90-40-1 mg (PreserVision AREDS-2) 1 tab PO BID Tobacco use date assessed: 02/06/25 Fall risk assessment: No Falls in past year Last assessed Fall Risk: 02/06/25 Dental Screening Dental Screen Date: 02/06/25 Did you have a dental visit in the last 12 months?: No Did you have a dental problem in the last 6 months where you did not have access to dental care?: No Was dental information given to patient?: No HPI 4 weeks HPI0 Details The patient is an 89-year-old female presenting with a request for medication refill and diabetes management. The patient has a history of Type 2 Diabetes Mellitus, with a recent hemoglobin A1c of 6.9%, improved from 7.1% previously. She has been managing her condition well, but there is a consideration for starting metformin and Ozempic to aid in weight management and further control of her diabetes. The patient expressed interest in weight management, noting a minimal weight loss of two pounds despite efforts. She is considering the use of Ozempic, contingent upon insurance approval, and will start metformin as an oral medication to facilitate this process. Patient is on a narcotic contract. She takes Cut Off once daily she was on it 3 times a day with Dr. Kwok although we reduced her and she is doing well. She is requesting her refill. She signed the pain contract. She has Narcan at home. She passed the drug urine screen. She is agreeable to random pill counts. She is also on Ativan at bedtime she was weaned down from 3 times a day when she was with Dr. Kwok. She is tolerating that well does not need a refill today on that. [facility] Medical History Chronic pain Class 1 obesity with body mass index (BMI) of 33.0 to 33.9 in adult Macular degeneration Neuropathy Anxiety Vitamin D deficiency Hypertriglyceridemia Type 2 diabetes mellitus with hemoglobin A1c goal of less than 7.0% Dysuria History of mammogram (~2023) Essential hypertension Bifascicular block Atrial arrhythmia Non-rheumatic aortic stenosis Surgical History History of colonoscopy History of tonsillectomy History of benign breast biopsy Family History Father CVD (cardiovascular disease) Mother CVD (cardiovascular disease) Brother CVD (cardiovascular disease) Social History Household Members: Family Housing: House Do you presently have visiting nurse or other home services: No Alcohol intake: current Alcohol intake frequency: a few times a month Alcohol type: wine and hard liquor Patient Tobacco Use Status: Former Tobacco user Tobacco use type: Cigarette service: No Current occupational status: retired Cognitive needs: Yes (walker) Hearing needs: No Vision needs: Yes (rx glasses/macular degeneration) Questionnaire PHQ-9 Over the last 2 weeks, how often have you been bothered by any of the following problems? 1. Little interest or pleasure in doing things: not at all 2. Feeling down, depressed, or hopeless: not at all 3. Trouble falling or staying asleep, or sleeping too much: not at all 4. Feeling tired or having little energy: not at all 5. Poor appetite or overeating: not at all 6. Feeling bad about yourself - or that you are a failure or have let yourself or your family down: not at all 7. Trouble concentrating on things, such as reading the newspaper or watching television: not at all 8. Moving or speaking so slowly that other people could have noticed. Or the opposite - being so fidgety or restless that you have been moving around a lot more than usual: not at all 9. Thoughts that you would be better off or of hurting yourself in some way: not at all Total score: 0 Depression Screening Interpretation: Negative Depression Screening Done: Yes 56933 - PHQ-9 Billing: Yes Source: Developed by Drs. Maco Ashley, Michelle Gomez, Gus Casiano and colleagues, with an educational thomas from [employer]. Thrive Questionnaire Date Thrive assessed: 02/06/25 I am a: Patient What is your living situation today?: I have a steady place to live Within the past 12 months, did the food you bought not last and you didn't have the money to get more?: Never true Within the past 12 months, did you worry whether your food would run out before you got money to buy more?: Never true Do you have trouble paying for medicines?: No Do you have trouble getting transportation to medical appointments?: No Do you have trouble paying your heating and electricity bill?: No Do you have trouble taking care of your child, family member or friend?: No Do you have trouble with day-to-day activities such as bathing, preparing meals, shopping, managing finances, etc.?: No Are you currently unemployed and looking for a job?: No Are you interested in more education?: No Please select the resources that you would like help with: None Currently or been in a relationship where the following occur: No concerns reported THRIVE Score: 0 RAMON-7 AMB Questionnaire RAMON-7 Date RAMON - 7 assessed: 02/06/25 Feeling nervous, anxious, or on edge: 0 = Not at all Not being able to stop or control worryin = Not at all Worrying too much about different things: 0 = Not at all Trouble relaxin = Not at all Being so restless that it is hard to sit still: 0 = Not at all Becoming easily annoyed or irritable: 0 = Not at all Feeling afraid as if something awful might happen: 0 = Not at all Total RAMON-7 score (0-4 normal; 5-9 mild; 10-14 moderate; 15-21 severe): 0 Source: Developed by Drs. Maco Ashley, Michelle Gomez, Gus Casiano and colleagues, with an educational thomas from [employer]. RAMON-7 Assessment Billing RAMON-7 Assessment Tool: RAMON-7 Assessment 56282 Review of Systems Const All systems reviewed & are unremarkable except as noted in HPI and below Physical exam (Primary Care) Vital Signs: Last Vital Signs Temp 97.0 F 02/06/25 10:20 BP 153/68 H 02/06/25 10:20 Care Plan Goal for BP management: <140/90 BMI result Body Mass Index 33.4 BMI Assessment/Plan discussion: High BMI High, discussed plan: lifestyle, weight reduction, dietary, physical activity, alcohol moderation and other Tobacco/Smoking Status: Tobacco use Status Tobacco use date assessed 02/06/25 02/06/25 10:32 Patient Tobacco Use Status Former Tobacco user 02/06/25 10:32 Tobacco use type Cigarette 02/06/25 10:32 PHQ-9: PHQ-9 Score PHQ-9: Total score 0 02/06/25 10:47 Depression Screening Interpretation: Negative Thrive Assessment: Date of Thrive Assessment Date Thrive assessed 02/06/25 02/06/25 10:32 Currently or been in a relationship where the following occur: No concerns reported Const Other: Appearance: Alert. Oriented X3. No acute distress. Head: Normal external exam. Normocephalic. Atraumatic. Eyes: Pupils are equal, round, and reactive to light. Extraocular movements intact. Conjunctiva and sclera normal. Eyelids normal. Throat: Pharynx normal. Uvula midline. Moist mucous membranes. Neck: Normal inspection. Neck supple. Full range of motion. Cardiovascular: Normal heart rate and rhythm. Respiratory: No respiratory distress. Painless inspiration. Back: Full range of motion noted. Skin: Skin warm and dry. Normal skin color. Normal skin turgor. No rashes/lesions/lacerations noted. Extremities: Extremities exhibit normal range of motion. Office Procedures Flu Questionnaire Does the patient have a severe egg allergy?: No Does the patient have severe life threatening allergies?: No Does the patient have a fever or illness today?: No Has the patient ever had Guillain-[place] Syndrome?: No Has the patient ever had any past reaction to a flu shot?: No Results AMB Hemoglobin A1c AMB Hemoglobin A1c 6.9 % Last Edit by Aure Donahue CMA on 02/06/25 10:4 7 Immunizations Fluarix [id number] (PF) 45 mcg (15 mcg x 3)/0.5 mL IM syringe Performing Provider: Deborah Dominique PA-C [facility] Documented (not given) by: Aure Donahue CMA on 02/06/25 10:39 Reason Not Given: Received Previously Results Reviewed Results Reviewed: Laboratory Last Values Hgb A1c (Clinic) 6.9 % (4.0-6.0) H 02/06/25 10:39 - Labs: Hemoglobin A1c 6.9% Coding Level of Care Code Est Pt Level 4 (21987) Complex EM visit Add On G2211 Diagnoses Type 2 diabetes mellitus with hemoglobin A1c goal of less than 7.0% E11.9 Class 1 obesity with body mass index (BMI) of 33.0 to 33.9 in adult E66.811; Z68.33 Chronic pain G89.29 Anxiety F41.9 Additional Codes RAMON-7 Assessment Billing - RAMON-7 Assessment Tool: RAMON-7 Assessment 41250 ([id number]) PHQ-9 - 06081 - PHQ-9 Billing: Yes ([id number]) Assessment & Plan Assessment & Plan (1) Type 2 diabetes mellitus with hemoglobin A1c goal of less than 7.0%: Code(s): E11.9 - Type 2 diabetes mellitus without complications Category: Medical Plan: The patient will continue with her current diabetes management plan, which has resulted in an improved hemoglobin A1c of 6.9%. Metformin 500 mg daily will be initiated to support glycemic control and facilitate insurance approval for Ozempic. Ozempic will be prescribed pending insurance approval, with plans to titrate the dose monthly as needed. (2) Class 1 obesity with body mass index (BMI) of 33.0 to 33.9 in adult: Code(s): E66.811 - Obesity, class 1; Z68.33 - Body mass index [BMI] 33.0-33.9, adult Category: Medical Plan: The patient is advised to continue her current weight management efforts, with the addition of Ozempic to assist in weight loss once approved. Metformin will also be used to aid in weight management and improve metabolic outcomes. (3) Chronic pain: Code(s): G89.29 - Other chronic pain Category: Medical Plan: Patient is on Cut Off Once daily tolerating well was weaned down from 3 times a day. Pain Contract signed at last visit. Pass urine drug screen last visit. Has Narcan at Home. Agreeable to 30 day visits and random pill counts. Refill sent today. (4) Anxiety: Code(s): F41.9 - Anxiety disorder, unspecified Category: Medical Plan: Patient is on ativan once daily. Weaned down from 3 times a day. Tolerating well. Not need refill today. Plan Plan Patient was informed and verbally consented to the use of an ambient scribe for clinic note documentation during this visit. 1. Type 2 Diabetes Mellitus The patient will continue with her current diabetes management plan, which has resulted in an improved hemoglobin A1c of 6.9%. Metformin 500 mg daily will be initiated to support glycemic control and facilitate insurance approval for Ozempic. Ozempic will be prescribed pending insurance approval, with plans to titrate the dose monthly as needed. 2. Weight Management The patient is advised to continue her current weight management efforts, with the addition of Ozempic to assist in weight loss once approved. Metformin will also be used to aid in weight management and improve metabolic outcomes. I discussed with the patient the current status of her diabetes management, noting the improvement in her hemoglobin A1c to 6.9%. We talked about starting metformin to support her glycemic control and facilitate insurance approval for Ozempic, which will be used for both diabetes management and weight loss. I explained the process of insurance approval for Ozempic and the plan to titrate the dose monthly if approved. Orders: Orders Influenza [id number] Immunization Today Z23 - Encounter for immunization AMB Hemoglobin A1c Today Z13.9 - Encounter for screening, unspecified Medications: New metformin 500 mg PO DAILY 90 tabs 3RF E11.9 - Type 2 diabetes mellitus without complications, E66.811 - Obesity, class 1, Z68.33 - Body mass index [BMI] 33.0- 33.9, adult semaglutide (Ozempic) for 4 weeks 0.25 mg (0.368 mL) subcut QWEEK 3 mL 0RF E11.9 - Type 2 diabetes mellitus without complications, E66.811 - Obesity, class 1, Z68.33 - Body mass index [BMI] 33.0-33.9, adult Changed From hydrocodone-acetaminophen 5-325 mg 1 tab PO DAILY PRN 0RF G62.9 - Polyneuropathy, unspecified, G89.29 - Other chronic pain, S32.010A - Wedge compression fracture of first lumbar vertebra, initial encounter for closed fracture To hydrocodone-acetaminophen 5-325 mg may partially full upon pt request 1 tab PO DAILY PRN 30 tabs 0RF pain G62.9 - Polyneuropathy, unspecified, G89.29 - Other chronic pain, S32.010A - Wedge compression fracture of first lumbar vertebra, initial encounter for closed fracture Patient Instructions: - Continue current diabetes management plan. - Start metformin 500 mg daily as prescribed. - Await insurance approval for Ozempic and notify the clinic once approved. - Follow up in one month for reassessment and potential dose adjustment.
[2025-02-06 10:20] VITALS: BP 153/68; TEMP 36.1; BMI 33.4
== END 2025-02-06 11:01 | disposition home or self-care (01) ==
LOC: HO.HMCSH 10:18
PROVIDERS: PCP Physician Assistant Medical; Visit Provider Physician Assistant Medical
DX: E11.9 Type 2 diabetes mellitus without complications (principal); E66.811 Obesity, class 1; Z68.33 Body mass index [BMI] 33.0-33.9, adult; G89.29 Other chronic pain; F41.9 Anxiety disorder, unspecified; Z23 Encounter for immunization; Z13.9 Encounter for screening, unspecified

== ENCOUNTER → 2025-02-06 10:18 | Outpatient (BNVA) | payer MEDICARE, SELFPAY | PROVIDERS: PCP Physician Assistant Medical; Visit Provider Physician Assistant Medical | DX: E66.811 Obesity, class 1 (principal); E11.40 Type 2 diabetes mellitus with diabetic neuropathy, unspecified; F41.9 Anxiety disorder, unspecified; Z23 Encounter for immunization; Z28.89 Immunization not carried out for other reason; G89.29 Other chronic pain; Z68.33 Body mass index [BMI] 33.0-33.9, adult; Z79.899 Other long term (current) drug therapy | CPT/HCPCS: 83036; 90471; 96127; 99212 ==

== ENCOUNTER 2025-02-20 11:03 | Outpatient (AMB) | payer MEDICARE, SELFPAY ==
--- NOTE | 2025-02-20 11:05 | A.OFFVIS_ITS ---
Vital Signs 02/20/25 11:07 Height 5 ft 1 in Weight 175 lb 0.752 oz BMI 33.1 BP 134/64 Blood Pressure Location Lt brachial Position Sitting Pulse 83 Pulse Source Monitor Intake Visit Reasons: 1 yr s/p echo Motorcycle Maker Required: No Accompanied by: Grand Child Allergies Penicillins Adverse Reaction (Unknown, Verified 02/20/25 11:10) Rash Medication List - Last Reviewed 02/20/25 by Christofer Dickson CNA albuterol sulfate 90 mcg/actuation 2 puffs inhalation Q4H PRN alcohol swabs (Alcohol Pads) 1 pad topical TIDWMEAL atorvastatin 20 mg PO DAILY blood sugar diagnostic (FreeStyle Lite Strips) Check glucose 3 times a day before meals blood-glucose meter (FreeStyle Lite Meter kit) Check glucose 3 times a day before meals fexofenadine-pseudoephedrine 180-240 mg ER (Effie-D 24 Hour) 1 tab PO QAM furosemide 20 mg PO DAILY hydrocodone-acetaminophen 5-325 mg 1 tab PO DAILY PRN linaclotide (Linzess) 72 mcg PO DAILY lorazepam 0.5 mg PO BEDTIME PRN losartan 100 mg PO DAILY metformin 500 mg PO DAILY multivitamin 1 tab PO DAILY naproxen 500 mg PO BID pregabalin 150 mg PO DAILY semaglutide (Ozempic) 0.25 mg (0.368 mL) subcut QWEEK vit C,R-Qt-lydjx-lutein-zeaxan 250-90-40-1 mg (PreserVision AREDS-2) 1 tab PO BID HPI Comments Details: Belen returns for follow-up regarding aortic stenosis. Patient states that she is doing quite well. No complaints like angina or shortness of breath or any other cardiac concerns. Getting along okay. Frailty from age. [facility] Medical History Chronic pain Class 1 obesity with body mass index (BMI) of 33.0 to 33.9 in adult Macular degeneration Neuropathy Anxiety Vitamin D deficiency Hypertriglyceridemia Type 2 diabetes mellitus with hemoglobin A1c goal of less than 7.0% Dysuria History of mammogram (~2023) Essential hypertension Bifascicular block Atrial arrhythmia Non-rheumatic aortic stenosis Surgical History History of colonoscopy History of tonsillectomy History of benign breast biopsy Family History Father CVD (cardiovascular disease) Mother CVD (cardiovascular disease) Brother CVD (cardiovascular disease) Social History Household Members: Family Housing: House Do you presently have visiting nurse or other home services: No Alcohol intake: current Alcohol intake frequency: a few times a month Alcohol type: wine and hard liquor Patient Tobacco Use Status: Former Tobacco user Tobacco use type: Cigarette service: No Current occupational status: retired Cognitive needs: Yes (walker) Hearing needs: No Vision needs: Yes (rx glasses/macular degeneration) Review of Systems Const Denies daytime sleepiness, Denies difficulty sleeping, Denies snoring, Denies stops breathing during sleep and Denies weakness Card Denies chest pain, Denies rapid heart rate, Denies irregular heart rhythm, Denies claudication, Denies leg edema, Denies lightheadedness, Denies palpitations, Denies dyspnea, Denies dyspnea on exertion, Denies orthopnea, Denies paroxysmal nocturnal dyspnea and Denies slow heart rate Resp Denies cough, Denies dyspnea, Denies dyspnea on exertion and Denies snoring GI Reports no additional complaints, Denies hematochezia, Denies change in stool character and Denies dyspepsia Musc Denies abnormal gait, Denies muscle weakness and Denies numbness Neuro Denies abnormal gait, Denies numbness and Denies weakness Endo Denies palpitations Physical Exam Vital Signs: Last Vital Signs Pulse 83 02/20/25 11:07 BP 134/64 02/20/25 11:07 BMI result Body Mass Index 33.1 Const General: comfortable and no acute distress Orientation/consciousness: patient oriented x3 HEENT Other: Unremarkable Head: Yes normal to inspection Neck Neck: Yes normal visual inspection Chest Chest palpation & inspection: normal inspection of the chest Resp Auscultation: clear to auscultation bilaterally Cardio Palpation: normal PMI Heart sounds: S1 normal heart sound present, S2 normal heart sound present, no gallops, Murmur heart sound present systolic III/ and at the right sternal border and no rubs GI Palpation (GI): Soft to palpation Back/Spine/Pelvis Other: unremarkable Skin General skin exam: no rashes or lesions noted Neuro General: patient oriented x3 Extrem General: Yes normal to inspection Psych Mental Status: mental status grossly normal Office Procedures EKG Details: EKG with underlying sinus rhythm at 83/Min; right bundle-branch block and left anterior fascicular block; PVCs 87252-Tslspxlezkkuydloq, Complete Assessment & Plan Assessment & Plan (1) Non-rheumatic aortic stenosis: Code(s): I35.0 - Nonrheumatic aortic (valve) stenosis Category: Medical Plan: In the echocardiogram, LVEF 60-65%. Mean gradient across aortic valve is 13 mm Hg with a valve area of 1.4 cm2. Currently, not hemodynamically significant. We will continue to monitor on echocardiogram. (2) Atrial arrhythmia: Code(s): I49.8 - Other specified cardiac arrhythmias Category: Medical Plan: Frequent supraventricular ectopy in prior Holter. Increased chance of atrial fibrillation the future. No specific management at this time. (3) PVC (premature ventricular contraction): Code(s): I49.3 - Ventricular premature depolarization Category: Medical Plan: Frequent ventricular ectopy on the Holter. [place] of 5%. No symptoms. No specific management, as she also has underlying conduction system disease. (4) Bifascicular block: Code(s): I45.2 - Bifascicular block Category: Medical Plan: Remains unchanged. This is also seen in a prior EKG from 2018. Myocardial perfusion imaging study shows normal perfusion. (5) Essential hypertension: Code(s): I10 - Essential (primary) hypertension Category: Medical Plan: Stable. No changes. Echocardiogram with moderate left ventricular hypertrophy, that could be from hypertension. Plan Discussion Notes During the visit, we discussed the stability of the patient's heart murmur and aortic valve condition. The echocardiogram results were reviewed, confirming that the valve is not significantly compromised, and we agreed to continue annual monitoring. Patient was informed and verbally consented to the use of an ambient scribe for clinic note documentation during this visit. Orders: Orders CA echo transthoracic complete 1 Year I35.0 - Nonrheumatic aortic (valve) stenosis Patient Instructions: - Continue taking medications as prescribed. - Schedule an annual echocardiogram to monitor heart murmur and aortic valve condition. Coding Level of Care Code Est Pt Level 4 (54311) Complex EM visit Add On G2211 Diagnoses Non-rheumatic aortic stenosis I35.0 Atrial arrhythmia I49.8 PVC (premature ventricular contraction) I49.3 Bifascicular block I45.2 Essential hypertension I10 CPT Codes EKG - CPT: 34899-[id number], Complete ([id number])
[2025-02-20 11:07] VITALS: BP 134/64; PULSE 83; BMI 33.1
== END 2025-02-20 11:30 | disposition home or self-care (01) ==
LOC: HO.HCS 11:04
PROVIDERS: PCP Internal Medicine; Visit Provider Internal Medicine
DX: I35.0 Nonrheumatic aortic (valve) stenosis (principal); I49.8 Other specified cardiac arrhythmias; I49.3 Ventricular premature depolarization; I45.2 Bifascicular block; I10 Essential (primary) hypertension
CPT/HCPCS: 93010; 99214; G2211

== ENCOUNTER → 2025-02-20 11:03 | Outpatient (BNVA) | payer MEDICARE, SELFPAY | PROVIDERS: PCP Internal Medicine; Visit Provider Internal Medicine | DX: I35.0 Nonrheumatic aortic (valve) stenosis (principal); I49.8 Other specified cardiac arrhythmias; I49.3 Ventricular premature depolarization; I45.2 Bifascicular block; I10 Essential (primary) hypertension; Z87.891 Personal history of nicotine dependence | CPT/HCPCS: 93005; 99212 ==

== ENCOUNTER 2025-03-10 10:07 | Outpatient (AMB) | payer MEDICARE, SELFPAY ==
--- NOTE | 2025-03-10 10:17 | A.OFFPC_ITS ---
Vital Signs 03/10/25 10:18 Height 5 ft 1.57 in Weight 177 lb BMI 32.8 BP 152/88 H Respiration 18 Pulse 80 Pulse Source Pulse Oximeter Temp 97.8 F Temp Source Temporal Artery Scan Pulse Oximetry (%) 93 Oxygen Delivery Method Room Air Intake Visit Reasons: 1 month fu Telecom Network Manager Required: No Allergies Penicillins Adverse Reaction (Unknown, Verified 03/10/25 11:08) Rash Medication List - Last Reconciled 03/10/25 by Deborah Dominique PA-C albuterol sulfate 90 mcg/actuation 2 puffs inhalation Q4H PRN alcohol swabs (Alcohol Pads) 1 pad topical TIDWMEAL atorvastatin 20 mg PO DAILY blood sugar diagnostic (FreeStyle Lite Strips) Check glucose 3 times a day before meals blood-glucose meter (FreeStyle Lite Meter kit) Check glucose 3 times a day before meals fexofenadine-pseudoephedrine 180-240 mg ER (Effie-D 24 Hour) 1 tab PO QAM furosemide 20 mg PO DAILY hydrocodone-acetaminophen 5-325 mg 1 tab PO DAILY PRN linaclotide (Linzess) 72 mcg PO DAILY lorazepam 0.5 mg PO BEDTIME PRN losartan 100 mg PO DAILY metformin 500 mg PO DAILY multivitamin 1 tab PO DAILY naproxen 500 mg PO BID pregabalin 150 mg PO DAILY semaglutide (Ozempic) 0.5 mg (0.736 mL) subcut QWEEK vit C,V-Zi-wdwsm-lutein-zeaxan 250-90-40-1 mg (PreserVision AREDS-2) 1 tab PO BID Tobacco use date assessed: 02/06/25 Dental Screening Dental Screen Date: 02/06/25 HPI 1 month fu HPI Details The patient is an 89-year-old female presenting for a follow-up visit for chronic pain management and medication adjustments. The patient is managed under a pain contract and reports that her current pain medication regimen is no longer effective. She states she cannot manage on the current dose and requests to increase her Pryor back to two pills per day. She reports having bilateral trochanteric bursitis, as well as back, foot, and leg pain. The patient passed her last drug screen. The patient has a history of diabetes, and her last hemoglobin A1c was done recently. She is also on Ozempic, which is due for a dosage increase. The patient also has a prescription for lorazepam but does not require a refill at this time. For preventative care, the patient reports she has received her flu shot and COVID-19 vaccination. Social History - Musculoskeletal: Reports bilateral hip pain consistent with trochanteric bursitis, back pain, feet pain, and leg pain. [facility] Medical History Chronic pain Class 1 obesity with body mass index (BMI) of 33.0 to 33.9 in adult Macular degeneration Neuropathy Anxiety Vitamin D deficiency Hypertriglyceridemia Type 2 diabetes mellitus with hemoglobin A1c goal of less than 7.0% Dysuria History of mammogram (~2023) Essential hypertension Bifascicular block Atrial arrhythmia Non-rheumatic aortic stenosis Surgical History History of colonoscopy History of tonsillectomy History of benign breast biopsy Family History Father CVD (cardiovascular disease) Mother CVD (cardiovascular disease) Brother CVD (cardiovascular disease) Social History Household Members: Family Housing: House Do you presently have visiting nurse or other home services: No Alcohol intake: current Alcohol intake frequency: a few times a month Alcohol type: wine and hard liquor Patient Tobacco Use Status: Former Tobacco user Tobacco use type: Cigarette service: No Current occupational status: retired Cognitive needs: Yes (walker) Hearing needs: No Vision needs: Yes (rx glasses/macular degeneration) Questionnaire PHQ-9 Over the last 2 weeks, how often have you been bothered by any of the following problems? 1. Little interest or pleasure in doing things: not at all 2. Feeling down, depressed, or hopeless: not at all 3. Trouble falling or staying asleep, or sleeping too much: not at all 4. Feeling tired or having little energy: not at all 5. Poor appetite or overeating: not at all 6. Feeling bad about yourself - or that you are a failure or have let yourself or your family down: not at all 7. Trouble concentrating on things, such as reading the newspaper or watching television: not at all 8. Moving or speaking so slowly that other people could have noticed. Or the opposite - being so fidgety or restless that you have been moving around a lot more than usual: not at all 9. Thoughts that you would be better off or of hurting yourself in some way: not at all Total score: 0 Depression Screening Interpretation: Negative Depression Screening Done: Yes 03539 - PHQ-9 Billing: Yes Source: Developed by Drs. Maco Ashley, Michelle Gomez, Gus Casiano and colleagues, with an educational thomas from [employer]. Thrive Questionnaire Date Thrive assessed: 02/06/25 I am a: Patient What is your living situation today?: I have a steady place to live Within the past 12 months, did the food you bought not last and you didn't have the money to get more?: Never true Within the past 12 months, did you worry whether your food would run out before you got money to buy more?: Never true Do you have trouble paying for medicines?: No Do you have trouble getting transportation to medical appointments?: No Do you have trouble paying your heating and electricity bill?: No Do you have trouble taking care of your child, family member or friend?: No Do you have trouble with day-to-day activities such as bathing, preparing meals, shopping, managing finances, etc.?: No Are you currently unemployed and looking for a job?: No Are you interested in more education?: No Please select the resources that you would like help with: None Currently or been in a relationship where the following occur: No concerns reported THRIVE Score: 0 AUDIT C Alcohol Use Questionnaire (AUDIT-C) 1. How often do you have a drink containing alcohol?: Monthly or less 2. How many drinks containing alcohol do you have on a typical day when you are drinking?: 1 or 2 3. How often do you have six or more drinks on one occasion?: Never Total Score: 1 Score Reviewed/Action Taken: No RAMON-7 AMB Questionnaire RAMON-7 Date RAMON - 7 assessed: 02/06/25 Feeling nervous, anxious, or on edge: 0 = Not at all Not being able to stop or control worryin = Not at all Worrying too much about different things: 0 = Not at all Trouble relaxin = Not at all Being so restless that it is hard to sit still: 0 = Not at all Becoming easily annoyed or irritable: 0 = Not at all Feeling afraid as if something awful might happen: 0 = Not at all Total RAMON-7 score (0-4 normal; 5-9 mild; 10-14 moderate; 15-21 severe): 0 Source: Developed by Drs. Maco Ahsley, Michelle Gomez, Gus Casiano and colleagues, with an educational thomas from [employer]. RAMON-7 Assessment Billing RAMON-7 Assessment Tool: RAMON-7 Assessment 01091 Review of Systems Const Details: - Musculoskeletal: Reports bilateral hip pain consistent with trochanteric bursitis, back pain, feet pain, and leg pain. All systems reviewed & are unremarkable except as noted in HPI and below Physical exam (Primary Care) Vital Signs: Last Vital Signs Temp 97.8 F 03/10/25 10:18 Pulse 80 03/10/25 10:18 Resp 18 03/10/25 10:18 BP 152/88 H 03/10/25 10:18 Pulse Ox 93 03/10/25 10:18 Oxygen Delivery Method Room Air 03/10/25 10:18 BMI result Body Mass Index 32.8 Tobacco/Smoking Status: Tobacco use Status Tobacco use date assessed 02/06/25 03/10/25 10:26 Patient Tobacco Use Status Former Tobacco user 03/10/25 10:26 Tobacco use type Cigarette 03/10/25 10:26 PHQ-9: PHQ-9 Score PHQ-9: Total score 0 03/10/25 10:26 Depression Screening Interpretation: Negative Thrive Assessment: Date of Thrive Assessment Date Thrive assessed 02/06/25 03/10/25 10:26 Currently or been in a relationship where the following occur: No concerns reported Const Other: Appearance: Alert. Oriented X3. No acute distress. Head: Normal external exam. Normocephalic. Atraumatic. Eyes: Pupils are equal, round, and reactive to light. Extraocular movements intact. Conjunctiva and sclera normal. Eyelids normal. Throat: Pharynx normal. Uvula midline. Moist mucous membranes. Neck: Normal inspection. Neck supple. Full range of motion. Cardiovascular: Normal heart rate and rhythm. Respiratory: No respiratory distress. Painless inspiration. Back: Full range of motion noted. Skin: Skin warm and dry. Normal skin color. Extremities: Tenderness noted in the left hip and both sides, suggestive of trochanteric bursitis. No lower extremity edema. Extremities exhibit normal range of motion. Office Meds naloxone 4 mg/actuation nasal spray Performing Provider: Deborah Dominique PA-C [place] [facility] [place] [facility] Administered by: Deborah Dominique PA-C on 03/10/25 11:12 Dose Route Admin Location Dispensed Lot Number Expiration Date NDC Venetian Blind Installer 4 mg intranasal 1 ea Total Dispensed Waste 1 ea 0 % Comments: home due to on chronic pain medications Results Reviewed Results Reviewed: - Labs: Hemoglobin A1c was recently drawn. - Other: Patient passed her last drug screen. Coding Level of Care Code Est Pt Level 4 (62247) Complex EM visit Add On G2211 Diagnoses Chronic pain G89.29 Type 2 diabetes mellitus with hemoglobin A1c goal of less than 7.0% E11.9 Additional Codes RAMON-7 Assessment Billing - RAMON-7 Assessment Tool: RAMON-7 Assessment 34557 ([id number]) PHQ-9 - 13696 - PHQ-9 Billing: Yes ([id number]) Assessment & Plan Assessment & Plan (1) Chronic pain: Code(s): G89.29 - Other chronic pain Category: Medical Plan: The patient reports inadequate pain control on her current Pryor regimen. The plan is to increase Pryor to twice daily, and a prescription for 60 pills will be sent. As part of the pain contract, she will be provided with Narcan nasal spray. Follow-up visits for the pain contract will now be every three months, but she will continue to call monthly for refills. (2) Type 2 diabetes mellitus with hemoglobin A1c goal of less than 7.0%: Code(s): E11.9 - Type 2 diabetes mellitus without complications Category: Medical Plan: The patient has diabetes and requires a medication adjustment. The dose of semaglutide (Ozempic) will be increased to 0.5 mg weekly. A follow-up appointment is scheduled for the first week of May for diabetes management. Plan Plan Patient was informed and verbally consented to the use of an ambient scribe for clinic note documentation during this visit. 1. Chronic Pain The patient reports inadequate pain control on her current Pryor regimen. The plan is to increase Pryor to twice daily, and a prescription for 60 pills will be sent. As part of the pain contract, she will be provided with Narcan nasal spray. Follow-up visits for the pain contract will now be every three months, but she will continue to call monthly for refills. 2. Diabetes Mellitus The patient has diabetes and requires a medication adjustment. The dose of semaglutide (Ozempic) will be increased to 0.5 mg weekly. A follow-up appointment is scheduled for the first week of May for diabetes management. 3. Drug Tolerance The patient does not currently need a refill for her lorazepam prescription. I informed the patient that follow-up visits for her pain contract will be changed from monthly to every three months to improve clinic availability for other patients, and she agreed. We discussed her report of increased pain, and I agreed to increase her Pryor dosage back to twice a day. I explained the policy to provide Narcan to all patients on narcotics for safety, and she will be given a dose to take home. We also confirmed the plan to increase her Ozempic dose to 0.5 mg weekly and scheduled her next diabetes follow-up for the first week of May to avoid the holidays. Orders: Orders AMB Naloxone Hydrochloride Administration Today G89.29 - Other chronic pain Medications: Changed From semaglutide (Ozempic) for 4 weeks 0.25 mg (0.368 mL) subcut QWEEK 3 mL 0RF E11.9 - Type 2 diabetes mellitus without complications, E66.811 - Obesity, class 1, Z68.33 - Body mass index [BMI] 33.0-33.9, adult To semaglutide (Ozempic) for 4 weeks 0.5 mg (0.736 mL) subcut QWEEK 3 mL 0RF E11.9 - Type 2 diabetes mellitus without complications, E66.811 - Obesity, class 1, Z68.33 - Body mass index [BMI] 33.0-33.9, adult Refilled hydrocodone-acetaminophen 5-325 mg may partially full upon pt request 1 tab PO DAILY PRN 60 tabs 0RF pain G62.9 - Polyneuropathy, unspecified, G89.29 - Other chronic pain, S32.010A - Wedge compression fracture of first lumbar vertebra, initial encounter for closed fracture Patient Instructions: - Take one Pryor pill twice a day as your pain has increased. - Increase your Ozempic (semaglutide) dose to 0.5 mg, injected once a week. - You will no longer need to come to the office every month for your pain medication. - Your in-person follow-up visits will now be every three months. - Please continue to call the office each month to request refills for your medications. - Keep the Narcan nasal spray we gave you at home in case of an emergency. - Your next appointment is scheduled for the first week of May.
[2025-03-10 10:18] VITALS: BP 152/88; PULSE 80; RESP 18; TEMP 36.6; O2SAT 93; BMI 32.8
--- OUTSIDE RECORDS SUMMARY | 2025-03-10 12:04 | XMS_ITS | Patient Health Record ---
Author Organization [facility] Address [address] [place] [address] Care Team Providers Care Court Advocate Name Role Phone Jackson Diaz Primary Care Provider Jaimee Nicole Unavailable [phone] Peggy Anaya Unavailable [phone] Allergies No Known Allergies Results Component Value [...] Status W/U Status Risk Notes Problem Neuropathy ([id number]) Neuropathy (G62.9) Active confirmed Vital Signs Blood pressure diastolic 65 mm Hg 01/08/2025 Height 5ft 2in in 01/08/2025 Blood pressure systolic 126 mm Hg 01/08/2025 Weight 175 lbs 01/08/2025 BMI 32 kg/m2 01/08/2025 Procedures Procedure Date Ordered Date Performed Result Body Sit e 59223-XRYHTVL NAIL, 6 OR MORE 04/29/2024 N/A 76880-Tqbbteyr Plate 10/31/2024 N/A Encounters Encounter Location Date Provider Diagnosis [facility] [address] 04/29/2024 Jaimee Nicole Pain in right toe(s) M79.674 ; Onychomycosis B35.1 ; Pain in left toe(s) M79.675 ; Neuritis M79.2 ; Neuropathy G62.9 ; Left foot pain M79.672 and Right foot pain M79.[address] [facility] [address] 07/16/2024 Peggy Héctor Onychomycosis B35.1 ; Neuropathy G62.9 ; Pain in right toe(s) M79.674 ; Pain in left toe(s) M79.675 ; Neuritis M79.2 ; Left foot pain M79.672 and Right foot pain M79.[address] [address] 09/26/2024 Jaimee Nicole Onychomycosis B35.1 ; Neuropathy G62.9 ; Pain in right toe(s) M79.674 and Pain in left toe(s) M79.675 [facility] [place] [address] [place] [address] 10/31/2024 Jaimee Nicole Ingrown nail L60.[address] [address] 01/08/2025 Jaimee Nicole Onychomycosis B35.1 ; Neuropathy [...] pa 04/29/2024 Neuritis (ICD-10 - M79.2) pa 07/16/2024 Pain in left toe(s) (ICD-10 - M79.675) pa 09/26/2024 Pain in left toe(s) (ICD-10 - M79.675) pa 01/08/2025 Pain in right toe(s) (ICD-10 - M79.674) pa 01/08/2025 Pain in left toe(s) (ICD-10 - M79.675) pa 07/16/2024 Neuritis (ICD-10 - M79.2) pa 04/29/2024 Neuropathy (ICD-10 - G62.9) pa 04/29/2024 Left foot pain (ICD-10 - M79.672) pa 07/16/2024 Left foot pain (ICD-10 - M79.672) pa 07/16/2024 Right foot pain (ICD-10 - M79.671) pa 04/29/2024 Right foot pain (ICD-10 - M79.671) pa Plan Of Treatment Pending Test Test Name Order Date X ray : Foot, left 3V 11/25/2020 X ray : Foot, right 3V 11/25/2020 [id number] NAIL, 6 OR MORE 04/29/2024 43498-Jofeazzx Plate 10/31/2024 48282 I&D ABSCESS- SIMPLE,SINGLE 024 , [id number]/INJECT, JOINT/BURSA 0 01/24/202409151, [id number]-KBICG/INJECT, JOINT/BURSA 0 05/17/2023 Next Appt Details Provider Name:Jaimee Grewal ariana, 04/03/2025 09:30:00 AM, [address] [place] [address], [place], [address], Insurance Providers Payer Name Payer Address Payer Phone Subscriber Number Group Number Insured Name Patient Relationship to Insured Coverage Start Date Coverage End Date Medicare National [employer] [address] [place] [address] [id number] Belen Stone Self - patient is the insured [employer] Device [address] [place], [place] [id number] Belen Stone Self - patient is the [...]
--- OUTSIDE RECORDS SUMMARY | 2025-03-10 12:04 | XMS_ITS | Patient Health Record ---
Author Organization [facility] Address [address] [place] [address] Care Team Providers Care Instructor Painting Name Role Phone Maco Soriano Unavailable [phone] Reason For Referral No Information Plan Of Treatment No Information
== END 2025-03-10 10:49 | disposition home or self-care (01) ==
LOC: HO.HMCSH 10:07
PROVIDERS: PCP Physician Assistant Medical; Visit Provider Physician Assistant Medical
DX: G89.29 Other chronic pain (principal); E11.9 Type 2 diabetes mellitus without complications

== ENCOUNTER → 2025-03-10 10:07 | Outpatient (BNVA) | payer MEDICARE, SELFPAY | PROVIDERS: PCP Physician Assistant Medical; Visit Provider Physician Assistant Medical | DX: G89.29 Other chronic pain (principal); E11.9 Type 2 diabetes mellitus without complications; Z13.31 Encounter for screening for depression; Z13.39 Encounter for screening examination for other mental health and behavioral disorders | CPT/HCPCS: 96127; 99212 ==

== ENCOUNTER 2025-03-26 12:30 | Inpatient (IN) | payer MEDICARE, SELFPAY ==
[2025-03-26] VITALS (9 sets, daily range): BP systolic 86–136; BP diastolic 50–78; PULSE 87–102; RESP 14–20; TEMP 36–36.8; O2SAT 92–97; BMI 30.3; BMI 31.2
--- NOTE | ~2025-03-26 | XR_ITS ---
EXAMINATION: XR KNEE, LEFT CLINICAL INFORMATION: eval distal femur , proximal femur fracture COMPARISON: None TECHNIQUE: AP and lateral views of the left knee. FINDINGS: There is mild narrowing of the medial joint space and small marginal osteophytes involving the 3 joint components. There is small volume of joint fluid in suprapatellar pouch. Atherosclerotic calcifications are visible in the thigh and lower leg. XR/XR knee LT 2V IMPRESSION: Mild to moderate osteoarthritis. Electronically signed by: Kishor Paiz MD 03/26/2025 05:24 PM [facility]
--- NOTE | ~2025-03-26 | XR_ITS ---
CLINICAL HISTORY: fluid overload, monitoring 1 view chest x-ray Comparison: 03/26/2025, 06/13/2024 Findings: Portions of the exam are obscured by overlying material. No new consolidation or effusion. Heart size is normal. No acute fracture. IMPRESSION: 1. No acute findings. This document has been electronically signed by: Malik Dee MD on 03/29/2025 08:47:11
--- NOTE | ~2025-03-26 | XR_ITS ---
EXAMINATION: XR FEMUR, LEFT CLINICAL INFORMATION: post reduction COMPARISON: Left femur 03/26/2025 at 12:44 PM TECHNIQUE: AP and lateral views of the left femur were obtained. FINDINGS: The comminuted displaced proximal left femoral fracture appears in satisfactory alignment status post reduction. There is still slight medial angulation present. No hip dislocation seen. XR/XR femur LT 2V IMPRESSION: Satisfactory alignment of left proximal femoral comminuted fractures status post reduction. There is still medial angulation present at the fracture site. Electronically signed by: Rocky Dunaway MD 03/27/2025 07:17 AM [facility]
--- NOTE | ~2025-03-26 | XR_ITS ---
EXAMINATION: XR CHEST CLINICAL INFORMATION: suspected hip fx COMPARISON: June 13, 2024 TECHNIQUE: Frontal view of the chest was obtained. FINDINGS: Mild coarse interstitial markings are evident. Cardiac size is borderline enlarged. There is a large hiatal hernia with gas distending the stomach fundus. XR/XR chest 1V IMPRESSION: Large hiatal hernia. Borderline cardiomegaly. Chronic coarse interstitial lung markings. Electronically signed by: Kishor Paiz MD 03/26/2025 02:04 PM EST
--- NOTE | ~2025-03-26 | XR_ITS ---
EXAMINATION: XR FEMUR, LEFT CLINICAL INFORMATION: ?fx COMPARISON: December x-ray from the same day TECHNIQUE: AP and lateral views of the left femur were obtained. FINDINGS: There is a comminuted displaced fracture of the proximal left femoral shaft extending to the left lesser trochanter. There is a butterfly fragment. There is 9 cm segment overriding. There is anterior lateral apex directed angulation and slight medial and anterior displacement of the distal femoral shaft with respect to the more proximal shaft. On the AP view of the left knee there is a question of intercondylar fracture of the distal femur. This is not appreciated on the lateral view. No knee joint effusion. Atherosclerotic disease. XR/XR femur LT 2V IMPRESSION: Comminuted displaced angulated left proximal femoral shaft fracture extending to the left lesser trochanter. Question fracture of the distal femur at the intercondylar notch on the AP view. This is not appreciated on the lateral view. Recommend follow-up left knee x-ray. Electronically signed by: Keisha Nobles MD 03/26/2025 02:17 PM [facility]
--- NOTE | ~2025-03-26 | XR_ITS ---
EXAMINATION: XR PELVIS CLINICAL INFORMATION: fall COMPARISON: Previous left femur x-ray from the same day TECHNIQUE: AP view of the pelvis. FINDINGS: No pelvic fracture. There is a partially visualized fracture of the subtrochanteric left femoral shaft better seen on femur x-ray from the same day. Degenerative changes at both hip joints and lower lumbar spine. Constipation. Vascular calcification. XR/XR pelvis 1-2V IMPRESSION: No pelvic fracture. Electronically signed by: Keisha Nobles MD 03/26/2025 01:56 PM [facility]
--- NOTE | ~2025-03-26 | US_ITS ---
EXAMINATION: US RETROPERITONEAL LIMITED (RENAL ONLY) CLINICAL INFORMATION: HERMINIO. Question hydro. COMPARISON: Correlated to CT dated March 03, 2021. TECHNIQUE: Real-time ultrasound kidneys using grayscale technique. FINDINGS: RIGHT KIDNEY: 10 x 5 x 4 cm (SAG x AP x TRV). Isoechoic parenchyma. Renal cortical thinning. No hydronephrosis. No gross solid or cystic lesion. LEFT KIDNEY: 11 x 6 x 4 cm (SAG x AP x TRV). Isoechoic parenchyma. Renal cortical thinning. No hydronephrosis. No gross solid or cystic lesion. US/US renal BI IMPRESSION: No hydronephrosis. Renal cortical thinning, volume loss and renal cortex related to medical renal disease.. Electronically signed by: Truong Wyatt MD 03/27/2025 10:48 AM [facility]
--- NOTE | ~2025-03-26 | FL_ITS ---
EXAMINATION: XR FLUOROSCOPY WITH IMAGES CLINICAL INFORMATION: [Left intramedullary nail COMPARISON: Prior x-ray 03/26/2025 TECHNIQUE: Fluoroscopy provided to: Dr. Cardenas Fluoroscopy time: 1 minute and 59 seconds DAP: 14.6 mGycm2 Images: 27 FINDINGS: Fluoroscopy in the operating room. Multiple images related to internal fixation of a comminuted femoral fracture, with an intramedullary nail, proximal dynamic screw, distal screws. Cerclage wires in the proximal femur as well. FL/FL guidance in OR IMPRESSION: Fluoroscopy provided in the operating room. See surgical report for details. Electronically signed by: Christ Dign MD 03/27/2025 03:12 PM [facility]
[2025-03-26 13:19] LABS: MANUAL DIFF FLAG NO
[2025-03-26 13:22] LABS: Hematocrit 42.0 % (37.0-47.0); Hemoglobin 13.8 g/dl (12.0-16.0); Imm Gran Abs Auto 0.05 X10*3/uL (0.00-0.03); Imm Gran Pct Auto 0.5 % (0.0-0.4); Lymphocytes Absolute Auto 2.1 X10*3/uL (1.2-4.9); Mean Corpuscular HGB Conc 32.9 g/dl (31.0-35.0); Mean Corpuscular Hemoglobin 30.5 pg (27.0-33.0); Mean Corpuscular Volume 92.7 fL (80.0-98.0); NRBC Abs Auto 0.000 X10*3/uL (0.0-0.012); NRBC Pct Auto 0.0 /100WBC (0.0-0.2); Platelet Count 221 X10*3/uL (160-400); Red Blood Count 4.53 X10*6/uL (4.20-5.50); White Blood Count 9.3 X10*3/uL (4.8-10.8)
[2025-03-26 13:36] LABS: Anion Gap 12 (12-20); Blood Urea Nitrogen 23 mg/dL (9-16); Calcium 9.6 mg/dL (8.4-10.2); Carbon Dioxide 29 mmol/L (22-29); Chloride 102 mmol/L (96-108); Creatinine Clr Calc Pharmacy 40.5; Estimated Glomerular Filt Rate 52; Potassium 4.1 mmol/L (3.3-5.1); Sodium 139 mmol/L (135-145)
[2025-03-26 13:45] LABS: INTERNATIONAL NORM RATIO 1.0 (0.9-1.1); Prothrombin Time 12.0 SEC (11.2-13.5)
--- NOTE | 2025-03-26 14:25 | PC.NURSE ---
Patient reports she was walking out of the bathroom towards the kitchen when she somehow slipped and landed on her left leg. Was unable to get up on her own and ems was called. Denies head strike, loc, or being on thinners. 20g placed via ultrasound gudiance. Medicated per jul for reports of pain. Initial dose of morphine ordered was 2mg however order was changed to 4mg. 4mg given per jul and pharmacy aware.
--- NOTE | 2025-03-26 14:50 | PM.CNOR ---
History of Present Illness HPI Consult date: 03/26/25 Chief complaint: femur fracture Narrative: 89-year-old female seen in the emergency department for an injury she sustained to her left hip. She has a past medical history anxiety, diabetes on Ozempic last dose was 03/24/2025, nonrheumatic aortic stenosis, atrial arrhythmia, HLD. States she was walking from the bathroom to at kitchen and thinks she slipped on a rug in front of sink. She ambulates with a walker at baseline but had to let go of her walker because she was grabbing a water bottle. When she fell she incidentally new she had done something to the left leg due to the amount of discomfort she was in in the inability to get up and ambulate. She was transported to the emergency department via EMS where x-rays were obtained which showed a Comminuted displaced angulated left proximal femoral shaft fracture extending to the left lesser trochanter. She had slight reduction in the emergency department and was placed in a knee immobilizer. The patient was admitted to the medical service and Orthopedics was consulted for further recommendations. Patient lives at home with her family member. 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 Review of Systems Review of Systems: Yes all other systems are reviewed and are negative PMFSH Past Medical History Medical History Chronic pain Class 1 obesity with body mass index (BMI) of 33.0 to 33.9 in adult Macular degeneration Neuropathy Anxiety Vitamin D deficiency Hypertriglyceridemia Type 2 diabetes mellitus with hemoglobin A1c goal of less than 7.0% Dysuria History of mammogram (~2023) Essential hypertension Bifascicular block Atrial arrhythmia Non-rheumatic aortic stenosis Family History Family History Father CVD (cardiovascular disease) Mother CVD (cardiovascular disease) Brother CVD (cardiovascular disease) Surgical History Surgical History History of colonoscopy History of tonsillectomy History of benign breast biopsy Social History Social History Household Members: Family Housing: House Do you presently have visiting nurse or other home services: No Alcohol intake: current Alcohol intake frequency: does not drink Alcohol type: wine and hard liquor Patient Tobacco Use Status: Former Tobacco user Tobacco use type: Cigarette Smoked in Last 30 Days: No Use of substances other than those prescribed or required for medical reasons: No Advance Directives: No Advance Directives Information Provided: Yes Do you have a plan to hurt others: No Plan service: No Current occupational status: retired Cognitive needs: Yes (walker) Hearing needs: No Vision needs: Yes (rx glasses/macular degeneration) Meds Allergies Allergy/AdvReac Type Severity Reaction Status Date / Time Penicillins AdvReac Unknown Rash Verified 03/26/25 12:42 Active Medications: Current Medications Clindamycin Phosphate (Cleocin) 900 mg in 50 mls @ 50 mls/hr IV PREOP ONE Stop: 03/27/25 06:29 Home Medications ?Medication ?Instructions ?Recorded ?Confirmed ?Last Taken ?Type pregabalin 150 mg capsule 150 mg PO DAILY 09/10/20 03/10/25 03/02/21 History vit C 250 mg-vit E 90 mg-zinc 40 1 tab PO BID 03/06/21 03/10/25 03/06/21 13:32 History mg-copper 1 [id number] capsule (PreserVision AREDS-2) furosemide 20 mg tablet 20 mg PO DAILY 10/14/21 03/10/25 Unknown History atorvastatin 20 mg tablet 20 mg PO DAILY 01/02/25 03/10/25 Unknown History lorazepam 0.5 mg tablet 0.5 mg PO BEDTIME PRN 01/02/25 03/10/25 Unknown History losartan 100 mg tablet 100 mg PO DAILY 02/06/25 03/10/25 Unknown History naproxen 500 mg tablet 500 mg PO BID 02/06/25 03/10/25 Unknown History semaglutide 0.25 mg or 0.5 mg (2 0.5 mg subcut MO 03/26/25 03/26/25 03/24/25 History mg/3 mL) subcutaneous pen injector (Ozempic) Physical Exam Vital Signs: Vital Signs: Last Vital Signs Temp 98.3 F 03/26/25 12:41 Pulse 102 H 03/26/25 12:41 Resp 20 03/26/25 13:07 BP 133/67 03/26/25 12:41 Pulse Ox 95 03/26/25 14:47 O2 Del Method Nasal Cannula 03/26/25 14:47 O2 Flow Rate 2 03/26/25 14:47 BMI result Body Mass Index 30.3 Const: General: cooperative and no acute distress Orientation/consciousness: patient oriented x3 Resp: Effort & Inspection: normal respiratory effort and able to speak in complete sentences Cardio: Peripheral pulses: Peripheral pulses 2+ throughout Neuro: General: patient oriented x3 Extrem: Other: Left leg immobilizer intact. She has no open wounds of the left lower extremity. Mild discomfort over the femoral shaft. Calf is supple and nontender neurovascularly intact. Results Labs 03/26/25 13:11 03/26/25 13:11 Labs: Abnormal lab results 03/26/25 Range/Units 13:11 Immature Gran % (Auto) 0.5 H (0.0-0.4) % Abs Immat Gran (auto) 0.05 H (0.00-0.03) X10*3/uL BUN 23 H (9-16) mg/dL H & H 03/26/25 Range/Units 13:11 Hgb 13.8 (12.0-16.0) g/dl Hct 42.0 (37.0-47.0) % Coagulation 03/26/25 Range/Units 13:11 INR 1.0 (0.9-1.1) All other labs normal. Diagnostic results Knee x-ray: report reviewed (XR femur LT 2V IMPRESSION: Comminuted displaced angulated left proximal femoral shaft fracture extending to the left lesser trochanter. Question fracture of the distal femur at the intercondylar notch on the AP view. This is not appreciated on the lateral view. Recommend follow-up left knee x-ray) and image reviewed Assessment and Plan (1) Closed left subtrochanteric femur fracture: Status: Acute Plan I explained to the patient and her daughter Deb Murray the extent of his injury which would benefit from surgical intervention for optimal functioning. The patient does understand nonsurgical intervention would result in significantly limited function including bed bound for anywhere from 8-12 weeks at least. Given the patient's activity level and she is independent with ADL's, it would be recommended to pursue surgical intervention. We discussed the procedure in detail along with the risks benefits and alternatives. Risks including but not limited to infection, injury to surrounding nerves and tissue and bone, small and large vessels, stiffness,need for further surgery, DVT/PE along with intraoperative complications including but not limited to . We discussed postoperative recovery which includes Home with VNA vs STR. I explained typical recovery is often WBAT versus protected weight-bearing with a walker for approximately 6 - 12 weeks,but overall recovery could be anywhere from 6-12 months. The patient does express understanding and would like to proceed with Operative fixation of the left femur with Dr Izaguirre. The patient will be booked accordingly. NPO after midnight, medical clearance obtained. Procedures Date of Service Date of Service: 03/26/25
--- NOTE | 2025-03-26 14:57 | ED.FALL ---
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 States she was walking from the bathroom to at kitchen and thinks she slipped on a rug in front of sync. Denies head trauma or LOC. Denies anticoagulation use. Nonambulatory since incident. Denies numbness, tingling, weakness. Related Data Home Medications ?Medication ?Instructions ?Recorded ?Confirmed pregabalin 150 mg capsule 150 mg PO DAILY 09/10/20 03/26/25 vit C 250 mg-vit E 90 mg-zinc 40 1 tab PO BID 03/06/21 03/26/25 mg-copper 1 [id number] capsule (PreserVision AREDS-2) furosemide 20 mg tablet 20 mg PO DAILY 10/14/21 03/26/25 atorvastatin 20 mg tablet 20 mg PO DAILY 01/02/25 03/26/25 lorazepam 0.5 mg tablet 0.5 mg PO BEDTIME PRN Anxiety/Sleep 01/02/25 03/26/25 losartan 100 mg tablet 100 mg PO DAILY 02/06/25 03/26/25 naproxen 500 mg tablet 500 mg PO BID PRN Pain 02/06/25 03/26/25 semaglutide 0.25 mg or 0.5 mg (2 0.5 mg subcut MO 03/26/25 03/26/25 mg/3 mL) subcutaneous pen injector (Ozempic) Previous Rx's ?Medication ?Instructions ?Recorded blood sugar diagnostic (FreeStyle #100 ea 01/02/25 Lite Strips) blood-glucose meter (FreeStyle #1 ea 01/02/25 Lite Meter kit) metformin 500 mg tablet 500 mg PO DAILY #90 tabs 02/06/25 hydrocodone 5 mg-acetaminophen 325 1 tab PO BID PRN pain #60 tabs 03/17/25 mg tablet Allergies Allergy/AdvReac Type Severity Reaction Status Date / Time Penicillins AdvReac Unknown Rash Verified 03/26/25 12:42 Review of Systems Review of Systems: Yes all other systems are reviewed and are negative Constitutional: Constitutional: Reports as per [facility] Past Medical History Attestation statement: The following information was validated with the patient. Source: old records reviewed Medical History Chronic pain Class 1 obesity with body mass index (BMI) of 33.0 to 33.9 in adult Macular degeneration Neuropathy Anxiety Vitamin D deficiency Hypertriglyceridemia Type 2 diabetes mellitus with hemoglobin A1c goal of less than 7.0% Dysuria History of mammogram (~2023) Essential hypertension Bifascicular block Atrial arrhythmia Non-rheumatic aortic stenosis Surgical History History of colonoscopy History of tonsillectomy History of benign breast biopsy Family History Family History Father CVD (cardiovascular disease) Mother CVD (cardiovascular disease) Brother CVD (cardiovascular disease) Social History Social History Household Members: Family Housing: House Do you presently have visiting nurse or other home services: No Alcohol intake: current Alcohol intake frequency: does not drink Alcohol type: wine and hard liquor Patient Tobacco Use Status: Former Tobacco user Tobacco use type: Cigarette Smoked in Last 30 Days: No Use of substances other than those prescribed or required for medical reasons: No Advance Directives: No Advance Directives Information Provided: Yes Do you have a plan to hurt others: No Plan service: No Current occupational status: retired Cognitive needs: Yes (walker) Hearing needs: No Vision needs: Yes (rx glasses/macular degeneration) Physical Exam Vital Signs: Vital Signs: Last Vital Signs Temp 98.3 F 03/26/25 12:41 Pulse 102 H 03/26/25 12:41 Resp 14 03/26/25 15:26 BP 133/67 03/26/25 12:41 Pulse Ox 95 03/26/25 14:47 O2 Del Method Nasal Cannula 03/26/25 14:47 O2 Flow Rate 2 03/26/25 14:47 BMI result Body Mass Index 30.3 Const: General: cooperative, healthy appearing and no acute distress Orientation/consciousness: patient oriented x3 Limitations: no limitations HEENT: Head: Yes normal to inspection and Yes atraumatic Ears: hearing grossly normal bilaterally General nose exam: Normal external nose present Face and sinus: Yes normal facial exam Eyes: General: appearance normal, both eyes and all related structures EOM: EOMs intact bilaterally Neck: Neck: Yes normal visual inspection and Yes no meningeal signs Resp: Effort & Inspection: normal respiratory effort and no respiratory distress Cardio: Rate: regular rate Back/Spine/Pelvis: Other: No midline cervical/thoracic/lumbar spinous tenderness/step-off or deformity Skin: Rashes: no rashes Wounds: no wounds Neuro: General: patient oriented x3, tone normal and no meningeal signs Cranial nerves: Yes CN's II-XII intact bilaterally Extrem: Other: pelvis stable + left hip/proximal femur appreciable deformity/hematoma. Tender to palpation. Leg internally rotated. Neurovascularly intact distally. Course Course Course Narrative: XR pelvis 1-2V IMPRESSION: No pelvic fracture. XR chest 1V IMPRESSION: Large hiatal hernia. Borderline cardiomegaly. Chronic coarse interstitial lung markings. XR femur LT 2V IMPRESSION: Comminuted displaced angulated left proximal femoral shaft fracture extending to the left lesser trochanter. Question fracture of the distal femur at the intercondylar notch on the AP view. This is not appreciated on the lateral view. Recommend follow-up left knee x-ray. -orthopedic [facility] Urban consulted. Plan for medicine admit and OR tomorrow. -case discussed with hospitalist who accepted admission > patient's leg straightened & knee immobilizer placed > will obtain further knee imaging to rule out distal fracture. Medications Administered Discontinued Medications Generic Name Dose Route Start Last Admin Trade Name Freq PRN Reason Stop Dose Admin Fentanyl 25 mcg 03/26/25 12:46 03/26/25 13:07 Fentanyl Citrate/Pf 100 Mcg/2 Ml Vial IVPUSH 03/26/25 12:47 25 mcg ONCE ONE Administration Protocol Hydromorphone HCl 1 mg 03/26/25 14:49 03/26/25 15:26 Hydromorphone Hcl 1 Mg/Ml Syringe IVPUSH 03/26/25 14:50 1 mg ONCE ONE Administration Protocol Morphine Sulfate 4 mg 03/26/25 13:57 03/26/25 14:02 Morphine Sulfate 4 Mg/Ml Cartridge IVPUSH 03/26/25 13:58 4 mg ONCE ONE Administration Protocol Ondansetron HCl 4 mg 03/26/25 13:57 03/26/25 14:07 Ondansetron Hcl 4 Mg/2 Ml Vial IVPUSH 03/26/25 13:58 4 mg ONCE ONE Administration Procedures Orthopedic Fracture Reduction Fracture #1: Side: left Fracture Reduction Location: femur Analgesia: other (IV Dilaudid) Technique: direct manipulation Post-reduction neuro exam: intact Post-reduction vascular exam: intact Splint Applied: Yes (knee immobilizer) Patient Tolerated Procedure: well and no complications Medical Decision Making Medical Decision Making MDM Narrative: 89-year-old female with a past medical history anxiety, diabetes, nonrheumatic aortic stenosis, atrial arrhythmia, HLD, presenting to the ED complaining of left hip/leg pain s/p mechanical trip and 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 On exam VSS, NAD, physical exam as noted above with appreciable left hip deformity. Neurovascularly intact distally. Concern for fracture vs dislocation and hematoma. No evidence of septic joint. Plan: X-ray, pain control Please refer to course for remaining clinical decision making, interpretation of labs/imaging results, and discussions with consultants and/or family members. Differential Diagnosis Differential Diagnoses: The differential diagnosis associated with the presentation includes As above Admission/Observation Consideration of admission/observation: Escalation of care including admission/observation considered Lab Data [facility] Lab Attestation statement: I reviewed the patient's lab results. 03/26/25 13:11 03/26/25 13:11 Labs: Lab Results 03/26/25 Range/Units 13:11 WBC 9.3 (4.8-10.8) X10*3/uL RBC 4.53 (4.20-5.50) X10*6/uL Hgb 13.8 (12.0-16.0) g/dl Hct 42.0 (37.0-47.0) % MCV 92.7 (80.0-98.0) fL MCH 30.5 (27.0-33.0) pg MCHC 32.9 (31.0-35.0) g/dl RDW 13.3 (11.0-16.0) % Plt Count 221 (160-400) X10*3/uL MPV 9.9 (9.4-12.3) fL Immature Gran % (Auto) 0.5 H (0.0-0.4) % Neut % (Auto) 66.1 (45-73) % Lymph % (Auto) 22.8 (20-40) % [place] % (Auto) 8.4 (2-11) % Eos % (Auto) 1.4 (0-4) % Baso % (Auto) 0.8 (0-2) % Lymph # (Auto) 2.1 (1.2-4.9) X10*3/uL [place] # (Auto) 0.8 (0.1-1.2) X10*3/uL Eos # (Auto) 0.1 (0.0-0.4) X10*3/uL Baso # (Auto) 0.1 (0.0-0.2) X10*3/uL Abs Immat Gran (auto) 0.05 H (0.00-0.03) X10*3/uL Absolute Neuts (auto) 6.2 (2.0-8.3) x10*3/uL Absolute Nucleated RBC 0.000 (0.0-0.012) X10*3/uL Nucleated RBC % (auto) 0.0 (0.0-0.2) /100WBC PT 12.0 (11.2-13.5) SEC INR 1.0 (0.9-1.1) Sodium 139 (135-145) mmol/L Potassium 4.1 (3.3-5.1) mmol/L Chloride 102 (96-108) mmol/L Carbon Dioxide 29 (22-29) mmol/L Anion Gap 12 (12-20) BUN 23 H (9-16) mg/dL Creatinine 1.00 (0.5-1.4) mg/dL Estim Creat Clear Calc 40.5 Estimated GFR 52 Random Glucose 109 (60-115) mg/dL Calcium 9.6 (8.4-10.2) mg/dL Independent Interpretation I performed an independent interpretation of an: Plain X-Ray Radiology Impression Discussion of test interpretation with radiology: I have reviewed the radiologist's reading. External Record Review External record reviewed: Inpatient record, Office record, Outpatient record, Prior outpatient labs, Prior outpatient radiology, Primary care record and Outside ED record Tests considered The following testing was considered but not selected: As above Prescription Management I considered prescription management with: Pain Medication Chronic Conditions Patient?s care impacted by: Other Social Determinants Patient?s care significantly limited by Social Determinants of Health including: Other Social Determinant of Health Critical Care Time Critical Care Time Critical Care Time: Yes Total Critical Care Time: 50 Attestation: I have personally provided critical care time exclusive of time spent on separately billable procedures. Time includes review of lab data, radiology results, discussion with consultants, and monitoring for potential decompensation. Intervention performed as documented. Discharge Plan Discharge Clinical Impression: Closed fracture of proximal end of femur Patient Disposition: Admitted As Inpatient
[2025-03-26] MEDS: 0.9 % Sodium Chloride Flush 3 ML SYRINGE IVFLUSH (15:26)
--- NOTE | 2025-03-26 15:28 | PC.NURSE ---
This RN was asked to waste 2mg morphine with Primary RN Elida Lindsay, medication wasted in in Pyxis however order was changed to 4mg from 2mg, 4mg given at that time, pharmacy aware, per Primary Rn elida pharmacy just requesting both nurses to document.
--- NOTE | 2025-03-26 15:30 | PC.NURSE ---
Pre-medicated with Dilaudid 1mg prior to being placed in left knee immobilizer, as advised by YU Hull & hospitalist. Immobilizer applied to left knee/leg, with good tolerance, required for knee xrays. Family at bedside. Oxygen increased to 4LPM via nasal cannula due to brief desat, with positive effect. Care ongoing by this RN.
--- NOTE | 2025-03-26 15:31 | PM.IMHP ---
History of Present Illness Date of Service: 03/26/25 Chief Complaint: Fall 89-year-old woman presented to the ER after a fall. Apparently she was in her kitchen she slipped on a rug and fell. She denied any loss of consciousness or family member was home and able to call for help. The patient is normally pretty independent, lives with family. She denied any recent illness, fever, chills, nausea, vomiting, diarrhea. Femur x-ray showed comminuted displaced angulated left proximal femur shaft fracture extending to the lesser trochanter with question of the distal femur at the intercondylar notch. All vitals are stable, no white count, chest x-ray negative for consolidation or effusion. Patient was given a dose of fentanyl, morphine, Zofran, Dilaudid in the ER. She will be admitted for further management and treatment of acute femur fracture. Review of Systems Review of Systems: Denies any recent fever chills or decrease in appetite respiratory denies any shortness of breath or cough cardiovascular denied chest pain gastrointestinal denies any dysphagia abdominal pain nausea vomiting or diarrhea genitourinary denies any dysuria frequency or hematuria musculoskeletal femur fracture neuropsych denies any weakness or seizures all other systems reviewed are negative [facility] Medical History Cataract Chronic pain Class 1 obesity with body mass index (BMI) of 33.0 to 33.9 in adult Macular degeneration Neuropathy Anxiety Vitamin D deficiency Hypertriglyceridemia Type 2 diabetes mellitus with hemoglobin A1c goal of less than 7.0% Dysuria History of mammogram (~2023) Essential hypertension Bifascicular block Atrial arrhythmia Non-rheumatic aortic stenosis Family History Father CVD (cardiovascular disease) Mother CVD (cardiovascular disease) Brother CVD (cardiovascular disease) Surgical History H/O kyphoplasty History of colonoscopy History of tonsillectomy History of benign breast biopsy Social History Household Members: Family Housing: House Do you presently have visiting nurse or other home services: No Alcohol intake: current Alcohol intake frequency: does not drink Alcohol type: wine and hard liquor Patient Tobacco Use Status: Former Tobacco user Tobacco use type: Cigarette service: No Current occupational status: retired Cognitive needs: Yes (walker) Hearing needs: No Vision needs: Yes (rx glasses/macular degeneration) Meds Allergies Allergy/AdvReac Type Severity Reaction Status Date / Time Penicillins AdvReac Unknown Rash Verified 03/26/25 12:42 Active Medications: Current Medications Clindamycin Phosphate (Cleocin) 900 mg in 50 mls @ 50 mls/hr IV PREOP ONE Stop: 03/27/25 06:29 Home Medications ?Medication ?Instructions ?Recorded ?Confirmed ?Last Taken ?Type pregabalin 150 mg capsule 150 mg PO DAILY 09/10/20 03/26/25 03/26/25 History vit C 250 mg-vit E 90 mg-zinc 40 1 tab PO BID 03/06/21 03/26/25 03/26/25 History mg-copper 1 kx-nwilsk-hxccko capsule (PreserVision AREDS-2) furosemide 20 mg tablet 20 mg PO DAILY 10/14/21 03/26/25 03/26/25 History atorvastatin 20 mg tablet 20 mg PO DAILY 01/02/25 03/26/25 03/26/25 History lorazepam 0.5 mg tablet 0.5 mg PO BEDTIME PRN Anxiety/Sleep 01/02/25 03/26/25 Unknown History losartan 100 mg tablet 100 mg PO DAILY 02/06/25 03/26/25 03/26/25 History naproxen 500 mg tablet 500 mg PO BID PRN Pain 02/06/25 03/26/25 Unknown History semaglutide 0.25 mg or 0.5 mg (2 0.5 mg subcut MO 03/26/25 03/26/25 03/24/25 History mg/3 mL) subcutaneous pen injector (Ozempic) Physical Exam Vital Signs and Narrative: Vital Signs: Last Vital Signs Temp 98.3 F 03/26/25 12:41 Pulse 102 H 03/26/25 12:41 Resp 14 03/26/25 15:26 BP 133/67 03/26/25 12:41 Pulse Ox 95 03/26/25 14:47 O2 Del Method Nasal Cannula 03/26/25 14:47 O2 Flow Rate 2 03/26/25 14:47 BMI result Body Mass Index 30.3 Appearing in no acute distress head is normocephalic atraumatic eyes pupils are PERRLA sclera is anicteric mouth throat mucous membranes are intact and moist neck is supple no lymphadenopathy, no JVD noted lung sounds are clear to auscultation heart regular rate rhythm, clear S1, S2 positive bowel sounds, abdomen is soft, nontender neuro patient is alert x3, no focal deficits MSK rotated left leg Results Labs 03/27/25 05:03 03/27/25 05:03 Labs: Laboratory Results - last 24 hr 03/26/25 13:11 MCV 92.7 MCH 30.5 MCHC 32.9 RDW 13.3 Plt Count 221 MPV 9.9 Immature Gran % (Auto) 0.5 H Neut % (Auto) 66.1 Lymph % (Auto) 22.8 Towns % (Auto) 8.4 Eos % (Auto) 1.4 Baso % (Auto) 0.8 Lymph # (Auto) 2.1 Towns # (Auto) 0.8 Eos # (Auto) 0.1 Baso # (Auto) 0.1 Abs Immat Gran (auto) 0.05 H Absolute Neuts (auto) 6.2 Absolute Nucleated RBC 0.000 Nucleated RBC % (auto) 0.0 PT 12.0 INR 1.0 Anion Gap 12 Estim Creat Clear Calc 40.5 Estimated GFR 52 Random Glucose 109 Calcium 9.6 Imaging Radiologist's Impressions: Impressions Pelvis X-Ray 03/26/25 13:37 IMPRESSION: No pelvic fracture. Electronically signed by: Keisha Nobles MD 03/26/2025 01:56 PM EST RP Chest X-Ray 03/26/25 13:39 IMPRESSION: Large hiatal hernia. Borderline cardiomegaly. Chronic coarse interstitial lung markings. Electronically signed by: Kishor Paiz MD 03/26/2025 02:04 PM EST RP Femur X-Ray 03/26/25 13:40 IMPRESSION: Comminuted displaced angulated left proximal femoral shaft fracture extending to the left lesser trochanter. Question fracture of the distal femur at the intercondylar notch on the AP view. This is not appreciated on the lateral view. Recommend follow-up left knee x-ray. Electronically signed by: Keisha Nobles MD 03/26/2025 02:17 PM EST RP Assessment and Plan (1) Closed left subtrochanteric femur fracture: Status: Acute Plan 89-year-old woman admitted after a fall and found to have a significant comminuted displaced femoral fracture, no syncope or loss of consciousness, purely mechanical fall Femur fracture Plan for orthopedic surgery tomorrow NPO after midnight Pain management Bed rest History of atrial arrhythmia, aortic stenosis, PVCs Cardiology consultation for risk stratification for surgery Diabetes mellitus type 2 Sliding scale, ADA diet post surgery Hypertension Mildly elevated Continue blood pressure medication History of macular degeneration Supportive care Out of bed with assist Obesity class 1. BMI 30.3 Discussed importance of weight management as this may be contributing to worsening of other comorbidities Medication reconciliation is pending DVT prophylaxis with pneumatic compression boots for now preoperative Full code Quality Stroke Does the patient have a stroke diagnosis?: No VTE Prior VTE?: No VTE Risk Level:: Medical - moderate - high VTE Device Contraindication: N/A - Device Ordered VTE Drug Contraindication: Treatment Not Indicated
--- NOTE | 2025-03-26 16:11 | PHA.MEDREC ---
Addendum entered by Ebenezer Monroy RPh 03/26/25 16:17: Med rec reviewed Addendum entered by Patti Coleman 03/26/25 16:16: Pt taking one Lorazepam 0.5mg tab at bedtime as needed for anxiety/sleep. Original Note: Pharmacy Consult ? Medication Reconciliation Pharmacy has completed the medication reconciliation. Spoke with pt and she confirmed her medications. Pt taking Pregabalin 150mg caps 1 cap once daily; originally written 2 caps BID and she takes Ozempic once a week on Mondays and took it last 03/24.
--- NOTE | 2025-03-26 16:36 | PC.NURSE ---
Patient returned from imaging at this time. Placed into hospital bed for comfort. Knee immobilizer remains in place to left leg. Knee xrays pending. Admitting to med/surg, awaiting bed assignment. Type & Screen being collected at this time. Oxygen titrated to 2LPM via nasal cannula, tolerating well. Care ongoing by this RN.
--- OUTSIDE RECORDS SUMMARY | 2025-03-26 17:26 | XMS_ITS | Patient Health Record ---
Author Organization [facility] Address [address] [place] [address] Care Team Providers Care Residential Remodeling Subcontractor Name Role Phone Jackson Diaz Primary Care Provider [phone] Jaimee Nicole Unavailable [phone] Peggy Anaya Unavailable [phone] Allergies No Known Allergies Results Component Value [...] Status W/U Status Risk Notes Problem Neuropathy (245424483) Neuropathy (G62.9) Active confirmed Vital Signs Blood pressure diastolic 65 mm Hg 01/08/2025 Height 5ft 2in in 01/08/2025 Blood pressure systolic 126 mm Hg 01/08/2025 Weight 175 lbs 01/08/2025 BMI 32 kg/m2 01/08/2025 Procedures Procedure Date Ordered Date Performed Result Body Sit e 35670-BAYXCWR NAIL, 6 OR MORE 04/29/2024 N/A 08115-Idflpnrc Plate 10/31/2024 N/A Encounters Encounter Location Date Provider Diagnosis [facility] [address] 04/29/2024 Jaimee Nicole Pain in right toe(s) M79.674 ; Onychomycosis B35.1 ; Pain in left toe(s) M79.675 ; Neuritis M79.2 ; Neuropathy G62.9 ; Left foot pain M79.672 and Right foot pain M79.671 [facility] [address] 07/16/2024 Peggy Héctor Onychomycosis B35.1 ; Neuropathy G62.9 ; Pain in right toe(s) M79.674 ; Pain in left toe(s) M79.675 ; Neuritis M79.2 ; Left foot pain M79.672 and Right foot pain M79.[address] [address] 09/26/2024 Jaimee Nicole Onychomycosis B35.1 ; Neuropathy G62.9 ; Pain in right toe(s) M79.674 and Pain in left toe(s) M79.675 [facility] [place] [address] [place] [address] 10/31/2024 Jaimee Nicole Ingrown nail L60.[address] [address] 01/08/2025 Jaimee Nicole Onychomycosis B35.1 ; Neuropathy [...] X ray : Foot, right 3V 11/25/2020 [id number] NAIL, 6 OR MORE 04/29/2024 57107-Nxuhsrds Plate 10/31/2024 92934 I&D ABSCESS- SIMPLE,SINGLE 024 , A2679-THJYP/INJECT, JOINT/BURSA 0 01/24/202499876, A3676-RDQXV/INJECT, JOINT/BURSA 0 05/17/2023 Next Appt Details Provider Name:Jaimee Grewal ariana, 04/03/2025 09:30:00 AM, [address] [place] [address], [place], [address], Insurance Providers Payer Name Payer Address Payer Phone Subscriber Number Group Number Insured Name Patient Relationship to Insured Coverage Start Date Coverage End Date Medicare National [employer] [address] [facility] [place] [address] [id number] Belen Stone Self - patient is the insured [employer] [address] [place], [place] [id number] [phone] [id number] Belen Stone Self - patient is the [...]
--- OUTSIDE RECORDS SUMMARY | 2025-03-26 17:26 | XMS_ITS | Patient Health Record ---
Author Organization [facility] Address [address] [place] [address] Care Team Providers Care Data Communications Engineer Name Role Phone Maco Soriano Unavailable [phone] Reason For Referral No Information Plan Of Treatment No Information
[2025-03-26] MEDS: oxyCODONE HCl Immed Release 5 MG TABLET PO (18:47)
--- NOTE | 2025-03-26 19:41 | PC.NURSE ---
BP 86/50 upon arrival to room 347. Asymptomatic. Dr. yS notified. IV fluids ordered NS @ 100cc/hr. Encouraging PO fluids.
[2025-03-26 21:23] LABS: Glucose, Whole Blood 158 mg/dL (60-115)
--- NOTE | 2025-03-26 21:42 | PM.EVENT ---
Event Note Date of Service: 03/26/25 Event Note: pt having urinary urgency but unable to urinate. bladder scan 660ml. UA/cx ordered. sethi to be placed. Time Spent With Patient Time: Total time managing care of this patient today ____ minutes.
[2025-03-26 22:23] LABS: Appearance Urine Clear; Glucose Urine UA Negative (Negative); PH 6.0 (5.0-9.0); Specific Gravity - Urine 1.010 (1.005-1.025)
--- NOTE | 2025-03-26 22:48 | PC.NURSE ---
Pt c/o of having the urge to void but unable to go on her own, abdomen distended & round. Pt admitted w/ L femur Fx, RAZA OR in AM. Pt was bladder scan for 660mls. YU Singh was notified of the situation and ordered a Sethi cath & UA sample. 16 Martiniquais sethi catheter was placed at 22:00 with 750mls of yellow urine. UA was sent down to lab, pending results. Will continue to monitor pt's output.
[2025-03-27] VITALS (22 sets, daily range): BP systolic 84–109; BP diastolic 35–64; PULSE 84–106; RESP 12–20; TEMP 36.1–37.6; O2SAT 90–96
[2025-03-27 01:59] LABS: Glucose, Whole Blood 108 mg/dL (60-115)
[2025-03-27] MEDS: oxyCODONE HCl Immed Release 5 MG TABLET PO ×2 (02:17→19:47)
[2025-03-27 05:57] LABS: Hematocrit 32.6 % (37.0-47.0); Hemoglobin 10.4 g/dl (12.0-16.0); Mean Corpuscular HGB Conc 31.9 g/dl (31.0-35.0); Mean Corpuscular Hemoglobin 30.2 pg (27.0-33.0); Mean Corpuscular Volume 94.8 fL (80.0-98.0); NRBC Abs Auto 0.000 X10*3/uL (0.0-0.012); NRBC Pct Auto 0.0 /100WBC (0.0-0.2); Platelet Count 219 X10*3/uL (160-400); Red Blood Count 3.44 X10*6/uL (4.20-5.50); White Blood Count 13.4 X10*3/uL (4.8-10.8)
[2025-03-27 06:22] LABS: Anion Gap 14 (12-20); Blood Urea Nitrogen 31 mg/dL (9-16); Calcium 8.4 mg/dL (8.4-10.2); Carbon Dioxide 27 mmol/L (22-29); Chloride 104 mmol/L (96-108); Creatinine Clr Calc Pharmacy 21.3; Estimated Glomerular Filt Rate 25; Potassium 4.8 mmol/L (3.3-5.1); Sodium 140 mmol/L (135-145)
[2025-03-27 07:52] LABS: Glucose, Whole Blood 98 mg/dL (60-115)
[2025-03-27] MEDS: Lactated Ringers 1,000 ML 125 ML IVCONT ×2 (08:53→18:09)
--- NOTE | 2025-03-27 09:40 | PM.CNCAR ---
History of Present Illness History of Present Illness Date of Service: 03/27/25 Requesting physician: Estella Sy Consult reason: pre-op evaluation Chief complaint: femur fracture Narrative: I was consulted to see Belen in cardiology consultation today for preoperative cardiovascular risk stratification prior to urgent orthopedic surgery for femur repair. Given the urgency of the surgery this will be considered intermediate to high risk surgery. She said she had no cardiac symptoms prior to falling. She just slipped and fell and then had pain and came to the hospital in his noted to have intertrochanteric fracture of the left. Patient has prior history of aortic stenosis which by most recent echocardiogram is [id number]. She has bifascicular block and PVCs on the EKGs done recently. She has no cardiac symptoms. She has limited activity level and walks around with a walker because of orthopedic issues. She has no symptoms exertional chest pain or shortness of breath. No recent symptoms of heart failure. Her blood pressures been well controlled. She has multiple coronary risk factors including advanced age, diabetes, hypertension but he has never had a myocardial infarction or recent workup for coronary disease. Review of Systems Constitutional: Constitutional: Reports other (Falls) Eyes: Eyes: Reports no additional eye complaints ENT: Reports system reviewed and no additional complaints, except as documented Cardiovascular: Cardiovascular: Reports no additional cardiovascular complaints Respiratory: Respiratory: Reports no additional respiratory complaints Gastrointestinal: Gastrointestinal: Reports no additional gastrointestinal complaints Genitourinary: Genitourinary: Reports no additional female genitourinary complaints Musculoskeletal: Musculoskeletal: Reports other (Left hip pain) Neurologic: Reports system reviewed and no additional complaints, except as documented Psychiatric: Psychiatric: Reports no additional psychiatric complaints Endocrine: Endocrine: Reports no additional endocrine complaints [facility] Past Medical History Medical History Cataract Chronic pain Class 1 obesity with body mass index (BMI) of 33.0 to 33.9 in adult Macular degeneration Neuropathy Anxiety Vitamin D deficiency Hypertriglyceridemia Type 2 diabetes mellitus with hemoglobin A1c goal of less than 7.0% Dysuria History of mammogram (~2023) Essential hypertension Bifascicular block Atrial arrhythmia Non-rheumatic aortic stenosis Family History Family History Father CVD (cardiovascular disease) Mother CVD (cardiovascular disease) Brother CVD (cardiovascular disease) Surgical History Surgical History H/O kyphoplasty History of colonoscopy History of tonsillectomy History of benign breast biopsy Social History Social History Household Members: Family Housing: House Do you presently have visiting nurse or other home services: No Alcohol intake: current Alcohol intake frequency: does not drink Alcohol type: wine and hard liquor Patient Tobacco Use Status: Former Tobacco user Tobacco use type: Cigarette service: No Current occupational status: retired Cognitive needs: Yes (walker) Hearing needs: No Vision needs: Yes (rx glasses/macular degeneration) Meds Allergies Allergy/AdvReac Type Severity Reaction Status Date / Time Penicillins AdvReac Unknown Rash Verified 03/26/25 12:42 Active Medications: Current Medications Acetaminophen (Acetaminophen 325 Mg Tablet) 650 mg PO Q6H PRN PRN Reason: Pain, Mild 1-3,fever,headache Last Admin: 03/27/25 02:17 Dose: 650 mg Atorvastatin Calcium (Atorvastatin Calcium 20 Mg Tablet) 20 mg PO DAILY [facility] Last Admin: 03/27/25 09:00 Dose: Not Given Calcium Carbonate (Calcium Carbonate 750 Mg Tab.Chew) 750 mg PO Q4H PRN PRN Reason: Heartburn Dextrose (Dextrose 50 % 25 Gm/50 Ml Syringe) 25 gm IVPUSH Q15M PRN; Protocol PRN Reason: per Hypoglycemia Standing Ord. Glucose (Glucose Gel 15 Gm Gel..Gram.) 15 gm PO Q15M PRN; Protocol PRN Reason: per Hypoglycemia Standing Ord. Hydromorphone HCl (Hydromorphone Hcl 1 Mg/Ml Syringe) 0.5 mg IVPUSH Q3H PRN; Protocol PRN Reason: Pain, Severe (Pain Scale 7-10) Last Admin: 03/26/25 21:48 Dose: 0.5 mg Lactated Ringer's (Lr) 1,000 mls @ 125 mls/hr IVCONT .Q8H [facility] Last Admin: 03/27/25 08:53 Dose: 125 mls/hr Insulin Human Lispro (Insulin Lispro 100 Unit/Ml 3 Ml Vial) 0 unit SUBCUT QIDACHS [facility]; Protocol Last Admin: 03/27/25 08:50 Dose: Not Given Lorazepam (Lorazepam 0.5 Mg Tablet) 0.5 mg PO BEDTIME PRN PRN Reason: Anxiety/Sleep Magnesium Hydroxide (Milk Of Magnesia 30 Ml Oral.Susp) 30 ml PO DAILY PRN PRN Reason: Constipation Melatonin (Melatonin 3 Mg Tablet) 6 mg PO BEDTIME PRN PRN Reason: Insomnia Ondansetron HCl (Ondansetron Hcl 4 Mg/2 Ml Vial) 4 mg IVPUSH Q8H PRN PRN Reason: Nausea and Vomiting Oxycodone HCl (Oxycodone Hcl Immed Release 5 Mg Tablet) 5 mg PO Q6H PRN PRN Reason: Pain, Moderate(Pain Scale 4-6) Last Admin: 03/27/25 02:17 Dose: 5 mg Pregabalin (Pregabalin 150 Mg Capsule) 150 mg PO DAILY [facility] Last Admin: 03/27/25 09:00 Dose: Not Given Sodium Chloride (0.9 % Sodium Chloride Flush 3 Ml Syringe) 3 ml IVFLUSH QSHIFT [facility] Last Admin: 03/27/25 09:00 Dose: Not Given Home Medications ?Medication ?Instructions ?Recorded ?Confirmed ?Last Taken ?Type pregabalin 150 mg capsule 150 mg PO DAILY 09/10/20 03/26/25 03/26/25 History vit C 250 mg-vit E 90 mg-zinc 40 1 tab PO BID 03/06/21 03/26/25 03/26/25 History mg-copper 1 [id number] capsule (PreserVision AREDS-2) furosemide 20 mg tablet 20 mg PO DAILY 10/14/21 03/26/25 03/26/25 History atorvastatin 20 mg tablet 20 mg PO DAILY 01/02/25 03/26/25 03/26/25 History lorazepam 0.5 mg tablet 0.5 mg PO BEDTIME PRN Anxiety/Sleep 01/02/25 03/26/25 Unknown History losartan 100 mg tablet 100 mg PO DAILY 02/06/25 03/26/25 03/26/25 History naproxen 500 mg tablet 500 mg PO BID PRN Pain 02/06/25 03/26/25 Unknown History semaglutide 0.25 mg or 0.5 mg (2 0.5 mg subcut MO 03/26/25 03/26/25 03/24/25 History mg/3 mL) subcutaneous pen injector (Ozempic) Physical Exam Vital Signs: Vital Signs: Last Vital Signs Temp 98.6 F 03/27/25 07:44 Pulse 93 03/27/25 07:44 Resp 18 03/27/25 07:44 BP 100/60 03/27/25 08:40 Pulse Ox 92 03/27/25 07:44 O2 Del Method Nasal Cannula 03/27/25 07:44 O2 Flow Rate 2 03/27/25 07:44 BMI result Body Mass Index 31.2 Const: General: cooperative, comfortable, no acute distress, alert and awake Nutritional Appearance: overweight Orientation/consciousness: patient oriented x3 HEENT: Head: Yes normocephalic and Yes atraumatic Neck: Neck: Yes trachea midline, Yes supple and Yes no JVD Carotids: carotid upstroke not delayed and no bruits Resp: Effort & Inspection: normal respiratory effort Auscultation: diminished lung sounds (At basis) Cardio: Jugular venous distension: no JVD Rate: regular rate Rhythm: regular rhythm Heart sounds: S1 normal heart sound present, S2 normal heart sound present, no click, no gallops and Murmur heart sound present systolic mid, decrescendo and crescendo GI: Auscultation: normal bowel sounds Skin: General skin exam: no rashes or lesions noted Neuro: General: patient oriented x3 and no focal motor deficits Extrem: General: Yes no clubbing, cyanosis or edema Psych: Appearance: grossly normal Objective Labs and Meds 03/27/25 05:03 03/27/25 05:03 Lab results: Laboratory Results - last 24 hr 03/26/25 03/26/25 03/26/25 13:11 16:36 21:17 WBC 9.3 RBC 4.53 Hgb 13.8 Hct 42.0 MCV 92.7 MCH 30.5 MCHC 32.9 RDW 13.3 Plt Count 221 MPV 9.9 Immature Gran % (Auto) 0.5 H Neut % (Auto) 66.1 Lymph % (Auto) 22.8 [place] % (Auto) 8.4 Eos % (Auto) 1.4 Baso % (Auto) 0.8 Lymph # (Auto) 2.1 [place] # (Auto) 0.8 Eos # (Auto) 0.1 Baso # (Auto) 0.1 Abs Immat Gran (auto) 0.05 H Absolute Neuts (auto) 6.2 Absolute Nucleated RBC 0.000 Nucleated RBC % (auto) 0.0 PT 12.0 INR 1.0 Sodium 139 Potassium 4.1 Chloride 102 Carbon Dioxide 29 Anion Gap 12 BUN 23 H Creatinine 1.00 Estim Creat Clear Calc 40.5 Estimated GFR 52 POC Glucose 158 H Random Glucose 109 Calcium 9.6 Urine Color Urine Appearance Urine pH Ur Specific [place] Urine Protein Urine Glucose (UA) Urine Ketones Urine Blood Urine Nitrite Ur Leukocyte Esterase Blood Type A Positive Antibody Screen NEGATIVE 03/26/25 03/27/25 03/27/25 22:07 01:54 05:03 WBC 13.4 H RBC 3.44 L D Hgb 10.4 L D Hct 32.6 L D MCV 94.8 MCH 30.2 MCHC 31.9 RDW 13.9 Plt Count 219 MPV 10.4 Immature Gran % (Auto) Neut % (Auto) Lymph % (Auto) [place] % (Auto) Eos % (Auto) Baso % (Auto) Lymph # (Auto) [place] # (Auto) Eos # (Auto) Baso # (Auto) Abs Immat Gran (auto) Absolute Neuts (auto) Absolute Nucleated RBC 0.000 Nucleated RBC % (auto) 0.0 PT INR Sodium 140 Potassium 4.8 Chloride 104 Carbon Dioxide 27 Anion Gap 14 BUN 31 H Creatinine 1.93 H Estim Creat Clear Calc 21.3 Estimated GFR 25 POC Glucose 108 Random Glucose 101 Calcium 8.4 D Urine Color Yellow Urine Appearance Clear Urine pH 6.0 Ur Specific [place] 1.010 Urine Protein Negative Urine Glucose (UA) Negative Urine Ketones Negative Urine Blood Negative Urine Nitrite Negative Ur Leukocyte Esterase Negative Blood Type Antibody Screen 03/27/25 07:46 WBC RBC Hgb Hct MCV MCH MCHC RDW Plt Count MPV Immature Gran % (Auto) Neut % (Auto) Lymph % (Auto) [place] % (Auto) Eos % (Auto) Baso % (Auto) Lymph # (Auto) [place] # (Auto) Eos # (Auto) Baso # (Auto) Abs Immat Gran (auto) Absolute Neuts (auto) Absolute Nucleated RBC Nucleated RBC % (auto) PT INR Sodium Potassium Chloride Carbon Dioxide Anion Gap BUN Creatinine Estim Creat Clear Calc Estimated GFR POC Glucose 98 Random Glucose Calcium Urine Color Urine Appearance Urine pH Ur Specific [place] Urine Protein Urine Glucose (UA) Urine Ketones Urine Blood Urine Nitrite Ur Leukocyte Esterase Blood Type Antibody Screen recent EKGs in the office in February showed normal sinus rhythm with bifascicular block with septal QS pattern with PVCs. No EKGs was performed during this hospitalization Imaging Radiologist's impression: Impressions Pelvis X-Ray 03/26/25 13:37 IMPRESSION: No pelvic fracture. Electronically signed by: Keisha Nobles MD 03/26/2025 01:56 PM EST RP Chest X-Ray 03/26/25 13:39 IMPRESSION: Large hiatal hernia. Borderline cardiomegaly. Chronic coarse interstitial lung markings. Electronically signed by: Kishor Paiz MD 03/26/2025 02:04 PM EST RP Femur X-Ray 03/26/25 13:40 IMPRESSION: Comminuted displaced angulated left proximal femoral shaft fracture extending to the left lesser trochanter. Question fracture of the distal femur at the intercondylar notch on the AP view. This is not appreciated on the lateral view. Recommend follow-up left knee x-ray. Electronically signed by: Keisha Nobles MD 03/26/2025 02:17 PM EST RP Femur X-Ray 03/26/25 16:18 IMPRESSION: Satisfactory alignment of left proximal femoral comminuted fractures status post reduction. There is still medial angulation present at the fracture site. Electronically signed by: Rocky Dunaway MD 03/27/2025 07:17 AM EST RP Knee X-Ray 03/26/25 16:20 IMPRESSION: Mild to moderate osteoarthritis. Electronically signed by: Kishor Paiz MD 03/26/2025 05:24 PM EST RP Assessment and Plan (1) Preoperative cardiovascular examination: Status: Acute Preoperative cardiovascular risk stratification this elderly woman to undergo for urgent hip surgery related to fall, intermediate to high risk surgery given the urgency of the surgery with multiple risk factors for underlying coronary artery disease without any evidence of documented prior coronary artery disease with limited functionality with [id number] aortic stenosis by recent echocardiogram with preserved EF. She also has bifascicular block most likely related to calcific aortic valve disease. She has no recent symptoms that are suggestive of unstable cardiac condition. At this point time given the urgency of surgery she is optimized to undergo surgery with at least intermediate risk for perioperative cardiovascular morbidity mortality. I would closely monitor her blood pressure frequently during the surgery and manage it appropriately. Try to avoid significant vasodilators therapy. Also would. Attention to fluid shifts especially significant blood loss and replace it as soon as possible. Otherwise she is optimized to undergo surgery and can consider postoperative cardiac monitoring if there any intraoperative issues. Will sign of the case at this point time. Thank you for allowing me to partake in his care. Please reconsult if there are any issues Procedures Date of Service Date of Service: 03/27/25
--- NOTE | 2025-03-27 10:25 | P.PNIM_ITS ---
Subjective Subjective Date of Service: 03/27/25 Interval History: hypotensive yesterday afternoon upon arrival to floor; fluid-responsive minimal hip pain as long as she doesn't move no dyspnea or chest pain retaining urine Review of Systems Review of Systems: Yes all other systems are reviewed and are negative Physical Exam 2 Vital Signs: Vital Signs: Last Vital Signs Temp 98.6 F 03/27/25 07:44 Pulse 93 03/27/25 07:44 Resp 18 03/27/25 07:44 BP 100/60 03/27/25 08:40 Pulse Ox 92 03/27/25 07:44 O2 Del Method Nasal Cannula 03/27/25 07:44 O2 Flow Rate 2 03/27/25 07:44 BMI result Body Mass Index 31.2 Gen: in no acute distress HEENT: sclera anicteric, moist mucus membranes Neck: supple Lungs: clear to auscultation bilaterally Heart: regular rate and rhythm, systolic murmur at base Abd: soft, non-tender, non-distended Ext: no edema, LLE internally rotated, distally neurovascularly intact Skin: warm/well-perfused Neuro: alert and oriented x3, no focal findings Psych: appropriate affect Objective Data Active Medications Acetaminophen (Acetaminophen 325 Mg Tablet) 650 mg PO Q6H PRN PRN Reason: Pain, Mild 1-3,fever,headache Last Admin: 03/27/25 02:17 Dose: 650 mg Documented By: JAGJIT Comments: per pt request Atorvastatin Calcium (Atorvastatin Calcium 20 Mg Tablet) 20 mg PO DAILY [facility] Last Admin: 03/27/25 09:00 Dose: Not Given Documented By: DEEPAK Non-Admin Reason: Patient Refused Calcium Carbonate (Calcium Carbonate 750 Mg Tab.Chew) 750 mg PO Q4H PRN PRN Reason: Heartburn Dextrose (Dextrose 50 % 25 Gm/50 Ml Syringe) 25 gm IVPUSH Q15M PRN; Protocol PRN Reason: per Hypoglycemia Standing Ord. Glucose (Glucose Gel 15 Gm Gel..Gram.) 15 gm PO Q15M PRN; Protocol PRN Reason: per Hypoglycemia Standing Ord. Hydromorphone HCl (Hydromorphone Hcl 1 Mg/Ml Syringe) 0.5 mg IVPUSH Q3H PRN; Protocol PRN Reason: Pain, Severe (Pain Scale 7-10) Last Admin: 03/27/25 10:21 Dose: 0.5 mg Documented By: DEEPAK Lactated Ringer's (Lr) 1,000 mls @ 125 mls/hr IVCONT .Q8H [facility] Last Admin: 03/27/25 08:53 Dose: 125 mls/hr Documented By: DEEPAK Insulin Human Lispro (Insulin Lispro 100 Unit/Ml 3 Ml Vial) 0 unit SUBCUT QIDACHS [facility]; Protocol Last Admin: 03/27/25 08:50 Dose: Not Given Documented By: DEEPAK Non-Admin Reason: No Insulin Coverage Lorazepam (Lorazepam 0.5 Mg Tablet) 0.5 mg PO BEDTIME PRN PRN Reason: Anxiety/Sleep Magnesium Hydroxide (Milk Of Magnesia 30 Ml Oral.Susp) 30 ml PO DAILY PRN PRN Reason: Constipation Melatonin (Melatonin 3 Mg Tablet) 6 mg PO BEDTIME PRN PRN Reason: Insomnia Ondansetron HCl (Ondansetron Hcl 4 Mg/2 Ml Vial) 4 mg IVPUSH Q8H PRN PRN Reason: Nausea and Vomiting Oxycodone HCl (Oxycodone Hcl Immed Release 5 Mg Tablet) 5 mg PO Q6H PRN PRN Reason: Pain, Moderate(Pain Scale 4-6) Last Admin: 03/27/25 02:17 Dose: 5 mg Documented By: JAGJIT Comments: per pt request Pregabalin (Pregabalin 150 Mg Capsule) 150 mg PO DAILY [facility] Last Admin: 03/27/25 09:00 Dose: Not Given Documented By: DEEPAK Non-Admin Reason: Physician Held Med Sodium Chloride (0.9 % Sodium Chloride Flush 3 Ml Syringe) 3 ml IVFLUSH QSHIFT [facility] Last Admin: 03/27/25 09:00 Dose: Not Given Documented By: DEEPAK Non-Admin Reason: IV Running Labs 03/27/25 05:03 03/27/25 05:03 Labs: Laboratory Results - last 24 hr 03/26/25 03/26/25 03/26/25 13:11 16:36 21:17 MCV 92.7 MCH 30.5 MCHC 32.9 RDW 13.3 Plt Count 221 MPV 9.9 Immature Gran % (Auto) 0.5 H Neut % (Auto) 66.1 Lymph % (Auto) 22.8 [place] % (Auto) 8.4 Eos % (Auto) 1.4 Baso % (Auto) 0.8 Lymph # (Auto) 2.1 [place] # (Auto) 0.8 Eos # (Auto) 0.1 Baso # (Auto) 0.1 Abs Immat Gran (auto) 0.05 H Absolute Neuts (auto) 6.2 Absolute Nucleated RBC 0.000 Nucleated RBC % (auto) 0.0 PT 12.0 INR 1.0 Anion Gap 12 Estim Creat Clear Calc 40.5 Estimated GFR 52 POC Glucose 158 H Random Glucose 109 Calcium 9.6 Urine Color Urine Appearance Urine pH Ur Specific [place] Urine Protein Urine Glucose (UA) Urine Ketones Urine Blood Urine Nitrite Ur Leukocyte Esterase Blood Type A Positive Antibody Screen NEGATIVE 03/26/25 03/27/25 03/27/25 22:07 01:54 05:03 MCV 94.8 MCH 30.2 MCHC 31.9 RDW 13.9 Plt Count 219 MPV 10.4 Immature Gran % (Auto) Neut % (Auto) Lymph % (Auto) [place] % (Auto) Eos % (Auto) Baso % (Auto) Lymph # (Auto) [place] # (Auto) Eos # (Auto) Baso # (Auto) Abs Immat Gran (auto) Absolute Neuts (auto) Absolute Nucleated RBC 0.000 Nucleated RBC % (auto) 0.0 PT INR Anion Gap 14 Estim Creat Clear Calc 21.3 Estimated GFR 25 POC Glucose 108 Random Glucose 101 Calcium 8.4 D Urine Color Yellow Urine Appearance Clear Urine pH 6.0 Ur Specific [place] 1.010 Urine Protein Negative Urine Glucose (UA) Negative Urine Ketones Negative Urine Blood Negative Urine Nitrite Negative Ur Leukocyte Esterase Negative Blood Type Antibody Screen 03/27/25 07:46 MCV MCH MCHC RDW Plt Count MPV Immature Gran % (Auto) Neut % (Auto) Lymph % (Auto) [place] % (Auto) Eos % (Auto) Baso % (Auto) Lymph # (Auto) [place] # (Auto) Eos # (Auto) Baso # (Auto) Abs Immat Gran (auto) Absolute Neuts (auto) Absolute Nucleated RBC Nucleated RBC % (auto) PT INR Anion Gap Estim Creat Clear Calc Estimated GFR POC Glucose 98 Random Glucose Calcium Urine Color Urine Appearance Urine pH Ur Specific [place] Urine Protein Urine Glucose (UA) Urine Ketones Urine Blood Urine Nitrite Ur Leukocyte Esterase Blood Type Antibody Screen Assessment and Plan (1) Closed left subtrochanteric femur fracture: Status: Acute Assessment and Plan: d2, 89yo F with mild-moderate /preserved EF, DM2, HTN, and neuropathy who suffered mechanical fall and was found to have a comminuted, displaced, angulated left proximal femoral shaft fracture extending to the left lesser trochanter femur fracture - NPO for OR today, Cardiology consulted, will need 30d postop VTE prophylaxis mild-moderate aortic stenosis - intermediate-high risk for surgery; avoid intraoperative hypotension acute blood loss anemia due to fracture - monitor H+H, transfuse for Hb<8 hypotension - likely due to IV opioids; resolved after iV fluids HERMINIO - likely due to hypotensive episode vs urinary retention; urine lytes + renal US pending; [place]; hold losartan; recheck BMP tomorrow DM2 - correction-dose lispro; hold MTF HLD - statin HTN - hold furosemide + losartan VTE ppx: enoxaparin postop dispo: eventual STR In my clinical judgment, the patient requires continued inpatient hospitalization for the following reasons: operative intervention Total time managing care of this patient today: 45 minutes. Quality Stroke Does the patient have a stroke diagnosis?: No VTE Prior VTE?: No VTE Risk Level:: Medical - moderate - high VTE Device Contraindication: N/A - Device Ordered VTE Drug Contraindication: Treatment Not Indicated
--- NOTE | 2025-03-27 11:35 | PC.NURSE ---
anesthesia aware of bp 86/39, 89/47. also aware of LD ozempic 03/24...no new orders received
[2025-03-27 11:43] LABS: Glucose, Whole Blood 102 mg/dL (60-115)
[2025-03-27] MEDS: Lactated Ringers 1,000 ML 50 ML IVCONT (11:43)
--- NOTE | 2025-03-27 12:03 | PM.PNORT ---
Subjective Subjective Date of Service: 03/27/25 Principal diagnosis: Left femur fracture Interval history: Ms. Stone is an 89-year-old female who presented to the [facility] Emergency room Department on 03/26/2025 with complaints of left thigh pain after falling at home. The patient denies any shortness of breath, chest pain or dizziness prior to her fall. She thinks that she may have tripped over a rug. She denies any other injuries. The patient is on Ozempic. Her last dose was 03/24/2025. Physical Exam Vital Signs: Vital Signs: Last Vital Signs Temp 99.1 F 03/27/25 11:10 Pulse 84 03/27/25 11:10 Resp 16 03/27/25 11:10 BP 86/39 L 03/27/25 11:10 Pulse Ox 93 03/27/25 11:10 O2 Del Method Nasal Cannula 03/27/25 11:10 O2 Flow Rate 2 03/27/25 11:10 BMI result Body Mass Index 31.2 Extrem: Other: Left lower extremity examination shows that her thigh compartments are soft, normal sensation to light touch, good capillary refill, no open skin lesions Procedures Date of Service Date of Service: 03/27/25 Progress Note: A&P Assessment and plan (1) Closed fracture of proximal end of femur: Status: Acute Plan Ms. Stone is an 89-year-old female who presents with left thigh pain due to a comminuted femur fracture. I had a lengthy discussion with the patient regarding the treatment options. I did recommend surgical intervention to allow the patient to be mobilized. I do feel that surgery is in the patient's best interest instead of custodial bed rest. I do feel that the surgery is an emergency and we should proceed in spite of the patient's recent Ozempic dose. The patient has been cleared by Cardiology with a moderate risk. I do feel that remote computer terminal operator bed rest would put the patient at higher risk for remote computer terminal operator medical complications then proceeding with surgery. The patient wishes to proceed with surgery. Surgery will involve placement of a long intramedullary nail as well as possible open reduction with Dall-Miles cable fixation. The patient is stable at present. Time Spent With Patient Time: Total time managing care of this patient today 14 minutes. Quality Stroke Does the patient have a stroke diagnosis?: No VTE Prior VTE?: No VTE Risk Level:: Medical - moderate - high VTE Device Contraindication: N/A - Device Ordered VTE Drug Contraindication: Treatment Not Indicated
--- NOTE | 2025-03-27 15:44 | PM.OP ---
Brief Operative Note Date of Service: 03/27/25 Pre-op diagnosis: Left femur fracture Post-op diagnosis: same Procedure: Open reduction and internal fixation of left femur fracture with the placement of a left long gamma nail and 2 Dall-Miles cables Implants: Martin left long gamma nail measuring 360 mm in length by 10 mm in diameter with a 125 degree neck-shaft angle, lag screw measuring 100 mm in length, a standard set screw, 2 distal locking bolt measuring 42.5 mm in length and 47.5 mm in length, 2 Dall-Miles cables Surgeon: Jace Izaguirre MD Anesthesia: GETA Was an [employer] Officer used for this Procedure?: No Estimated blood loss (mL): 100 Pathology: none sent Condition: stable Disposition: PACU
--- NOTE | 2025-03-27 15:45 | W.PM.OPN ---
Operative Note Operative Note Date of Service: 03/27/25 Narrative: After the patient was identified as Belen Stone and her left thigh was initialed by myself they were brought to the operating room where general anesthesia was induced by the anesthesiologist in routine fashion. The patient was given 2 g of IV Ancef for infection prophylaxis. The patient was then gently transferred from the hospital bed onto the fracture table. The patient's right lower extremity was placed into the well leg amanda. The patient's left lower extremity was placed in gentle in-line traction with their patella parallel to the floor. All bony prominences were well padded. C-arm AP and lateral radiographs were taken to confirm good fracture reduction. The patient's left hip region and thigh were prepped and draped in sterile fashion. A formal time-out was completed. A 10. Scalpel blade was used to make a 10 cm incision along the lateral aspect of the patient's thigh centered over the fracture site. The subcutaneous tissues, the fascia adelfo and the vastus lateralis were split using electrocautery. Two [place] cables were then placed over the fracture site and gently tightened. A #10 scalpel blade was used to make a 5 cm incision just proximal to the tip of the greater trochanter. A curved cannulated awl was introduced into the proximal femur in routine fashion. A ball-tipped guidewire was then placed through the cannula and into the femoral canal. The guidewire was passed down to the superior pole of the patella. The awl was removed. The guidewire measured 360 mm in length. Reaming was begun with a 9 mm reamer. Reaming was increased incrementally up to a size 12 reamer. The left long gamma nail measuring 12 mm in diameter by 360 mm in length was passed over the guidewire. Good fracture reduction and nail positioning were confirmed using C-arm AP and lateral radiographs. A 2 cm incision was then made where the lag screw trocar met the patient's lateral thigh. The subcutaneous tissues and fascia adelfo were split down to the lateral cortex of the femur using a hemostat. The lag screw trocar was passed down to the lateral cortex of the femur. A threaded guidewire was then placed into the inferior aspect of the femoral head on the AP x-ray and the center of the femoral head on the lateral x-ray. The guidewire measured 100 mm in length. Reaming was then performed over the guidewire to a depth of 100 mm. The lag screw measuring 100 mm in length was then placed over the guidewire. The guidewire was removed. The set screw was then placed into the proximal aspect of the nail and tightened fully. It was then turned 1/4 of a turn counter-clockwise to allow for fracture compression. The 2 [employer] cables were then tightened, crimped and cut in routine fashion. Our attention was then directed to the distal aspect of the abner. Two distal locking bolt measuring 42.5 mm in length and 47.5 mm in length were placed from lateral to medial in routine fashion. Final AP and lateral radiographs showed good fracture reduction and hardware positioning. All 3 wounds were irrigated with copious amounts of normal saline solution. The distal 2 wounds were closed with 2-0 Vicryl and skin winter. The proximal wound was once again irrigated. The fascia adelfo was closed with 0 Vicryl [id number] interrupted suture. The wound was once again irrigated. The subcutaneous tissues were closed with 2-0 Vicryl interrupted suture. The skin was closed with skin winter. Dry sterile dressing was placed over all incisions. The patient was gently transferred from the fracture table onto their hospital bed. The patient was awoken and extubated in the operating room. The patient was transferred to the recovery room in stable condition.
--- NOTE | 2025-03-27 16:18 | MHC.CM.PN ---
CM ATTEMPTED TO MEET WITH PT SEVERAL TIMES THROUGHOUT THE DAY, PT OFF UNIT FOR SURGERY CM WILL REVISIT
[2025-03-27 17:40] LABS: Glucose, Whole Blood 136 mg/dL (60-115)
[2025-03-27] MEDS: Lactated Ringers 1,000 ML 100 ML IVCONT (18:12)
[2025-03-27 20:13] LABS: Glucose, Whole Blood 208 mg/dL (60-115)
[2025-03-28] VITALS (7 sets, daily range): BP systolic 90–104; BP diastolic 52–58; PULSE 79–95; RESP 16–18; TEMP 36.7–37.4; O2SAT 91–96
[2025-03-28] MEDS: oxyCODONE HCl Immed Release 5 MG TABLET PO (01:26)
[2025-03-28] MEDS: Lactated Ringers 1,000 ML 100 ML IVCONT ×3 (04:32→22:44)
--- NOTE | 2025-03-28 04:59 | PC.NURSE ---
Addendum entered by Cierra Mendoza RN 03/28/25 05:08: PRN OXYcodone 5 mg po given for a pain of 8/10, as pt's BP is soft, provider was aware. Original Note: Pt seen on bed alert and oriented, still c/o left hip tenderness and feet pain from neuropathy, SBP soft on the 90s so unable to give Dilaudid, Oxy prn not due yet in the next hr, explained to pt, pt got upset pain med is not due yet, provider okayed to give Oxy early, med given, ice packs to surgical site applied, slept at intervals.
[2025-03-28 07:14] LABS: Glucose, Whole Blood 111 mg/dL (60-115)
[2025-03-28 07:16] LABS: MANUAL DIFF FLAG NO
[2025-03-28 07:31] LABS: Hematocrit 29.1 % (37.0-47.0); Hemoglobin 9.5 g/dl (12.0-16.0); Imm Gran Abs Auto 0.06 X10*3/uL (0.00-0.03); Imm Gran Pct Auto 0.5 % (0.0-0.4); Lymphocytes Absolute Auto 2.2 X10*3/uL (1.2-4.9); Mean Corpuscular HGB Conc 32.6 g/dl (31.0-35.0); Mean Corpuscular Hemoglobin 30.6 pg (27.0-33.0); Mean Corpuscular Volume 93.9 fL (80.0-98.0); NRBC Abs Auto 0.000 X10*3/uL (0.0-0.012); NRBC Pct Auto 0.0 /100WBC (0.0-0.2); Platelet Count 170 X10*3/uL (160-400); Red Blood Count 3.10 X10*6/uL (4.20-5.50); White Blood Count 12.2 X10*3/uL (4.8-10.8)
[2025-03-28 07:42] LABS: Anion Gap 12 (12-20); Blood Urea Nitrogen 25 mg/dL (9-16); Calcium 8.0 mg/dL (8.4-10.2); Carbon Dioxide 25 mmol/L (22-29); Chloride 105 mmol/L (96-108); Creatinine Clr Calc Pharmacy 40.3; Estimated Glomerular Filt Rate 51; Potassium 4.7 mmol/L (3.3-5.1); Sodium 137 mmol/L (135-145)
--- NOTE | 2025-03-28 08:10 | HO.POSTANES ---
Post Anesthesia Evaluation Post Anesthesia Evaluation Date of Service: 03/28/25 Vital Signs: Vital Signs Temp Pulse Resp BP Pulse Ox O2 Del Method O2 Flow Rate 03/28/25 07:45 98.9 F 90 18 104/56 L 96 Nasal Cannula 4 03/28/25 05:00 99.4 F 79 18 98/52 L 92 Nasal Cannula 4 03/27/25 23:32 99.6 F 88 16 99/53 L 92 Nasal Cannula 2 Anesthesia: General Mental Status: Awake Pain Control: Satisfactory Nausea/Vomiting: None Hydration: Adequate Anesthesia-Related Issues: No Anes. Related Issues
--- NOTE | 2025-03-28 08:37 | PM.PNORT ---
Subjective Subjective Date of Service: 03/28/25 Principal diagnosis: Left femur fracture Interval history: POD1 s/p left femur IM Nail Patient is resting in bed comfortably Some confusion overnight Pain is managed No additional complaints Physical Exam Vital Signs: Vital Signs: Last Vital Signs Temp 98.9 F 03/28/25 07:45 Pulse 90 03/28/25 07:45 Resp 18 03/28/25 07:45 BP 104/56 L 03/28/25 07:45 Pulse Ox 96 03/28/25 07:45 O2 Del Method Nasal Cannula 03/28/25 07:45 O2 Flow Rate 4 03/28/25 07:45 BMI result Body Mass Index 31.2 Const: General: cooperative, healthy appearing and no acute distress Resp: Effort & Inspection: normal respiratory effort and able to speak in complete sentences Extrem: Other: Left femur dressings are c/d/i. Able to dorsi/plantar flex. Pedal pulse intact. Sensation at baseline due to chronic neuropathy. Psych: Appearance: grossly normal Mental Status: mental status grossly normal Attitude: cooperative Procedures Date of Service Date of Service: 03/28/25 Progress Note: A&P Assessment and plan (1) Closed left subtrochanteric femur fracture: Status: Acute Plan Continue pain mgmnt Begin ASA for dvt ppx begin PT/OT for left femure ORIF - TTWB Dispo planning-Pending PT eval, pain mgmnt, rehab placement once medically cleared Time Spent With Patient Time: Total time managing care of this patient today ____ minutes. Quality Stroke Does the patient have a stroke diagnosis?: No VTE Prior VTE?: No VTE Risk Level:: Medical - moderate - high VTE Device Contraindication: N/A - Device Ordered VTE Drug Contraindication: Treatment Not Indicated
[2025-03-28] MEDS: oxyCODONE HCl Immed Release 5 MG TABLET 2.5 MG PO ×2 (09:17→16:48)
--- NOTE | 2025-03-28 09:49 | HO.PM.IMPN ---
Subjective Subjective Date of Service: 03/28/25 Interval History: overnight was confused + delirious; now alert + oriented and recognizes she was delirious pain controlled no chest pain or dyspnea; no lightheadedness Review of Systems Review of Systems: Yes all other systems are reviewed and are negative Physical Exam Vital Signs: Vital Signs: Last Vital Signs Temp 98.9 F 03/28/25 07:45 Pulse 90 03/28/25 07:45 Resp 18 03/28/25 07:45 BP 104/56 L 03/28/25 07:45 Pulse Ox 96 03/28/25 07:45 O2 Del Method Nasal Cannula 03/28/25 07:45 O2 Flow Rate 4 03/28/25 07:45 BMI result Body Mass Index 31.2 Gen: in no acute distress HEENT: sclera anicteric, moist mucus membranes Neck: supple Lungs: clear to auscultation bilaterally Heart: regular rate and rhythm, systolic murmur at base 2/6 Abd: soft, non-tender, non-distended Ext: no edema, L hip with dry dressing Skin: warm/well-perfused Neuro: alert and oriented x3, no focal findings Psych: appropriate affect Objective Data Active Medications Acetaminophen (Acetaminophen 325 Mg Tablet) 650 mg PO Q6H PRN PRN Reason: Pain, Mild 1-3,fever,headache Last Admin: 03/27/25 19:47 Dose: 650 mg Documented By: CHRISTINE Aspirin (Aspirin 325 Mg Tablet) 325 mg PO BID [facility] Last Admin: 03/28/25 07:53 Dose: 325 mg Documented By: DEEPAK Atorvastatin Calcium (Atorvastatin Calcium 20 Mg Tablet) 20 mg PO DAILY [facility] Last Admin: 03/28/25 07:54 Dose: 20 mg Documented By: DEEPAK Calcium Carbonate (Calcium Carbonate 750 Mg Tab.Chew) 750 mg PO Q4H PRN PRN Reason: Heartburn Dextrose (Dextrose 50 % 25 Gm/50 Ml Syringe) 25 gm IVPUSH Q15M PRN; Protocol PRN Reason: per Hypoglycemia Standing Ord. Glucose (Glucose Gel 15 Gm Gel..Gram.) 15 gm PO Q15M PRN; Protocol PRN Reason: per Hypoglycemia Standing Ord. Hydromorphone HCl (Hydromorphone Hcl 1 Mg/Ml Syringe) 0.5 mg IVPUSH Q3H PRN; Protocol PRN Reason: Pain, Severe (Pain Scale 7-10) Last Admin: 03/27/25 10:21 Dose: 0.5 mg Documented By: DEEPAK Clindamycin Phosphate (Cleocin) 900 mg in 50 mls @ 50 mls/hr IV Q8H [facility] Stop: 03/28/25 20:59 Last Infusion: 03/28/25 05:40 Dose: Infused Documented By: NEISHA Lactated Ringer's (Lr) 1,000 mls @ 100 mls/hr IVCONT .Q10H [facility] Stop: 03/28/25 16:00 Last Admin: 03/28/25 04:32 Dose: 100 mls/hr Documented By: NEISHA Acetaminophen (Ofirmev) 1,000 mg in 100 mls @ 400 mls/hr IV Q6H [facility] Stop: 03/29/25 01:44 Last Infusion: 03/28/25 08:08 Dose: Infused Documented By: DEEPAK Insulin Human Lispro (Insulin Lispro 100 Unit/Ml 3 Ml Vial) [facility]; Protocol Last Admin: 03/28/25 07:45 Dose: Not Given Documented By: DEEPAK Non-Admin Reason: No Insulin Coverage Magnesium Hydroxide (Milk Of Magnesia 30 Ml Oral.Susp) 30 ml PO DAILY PRN PRN Reason: Constipation Melatonin (Melatonin 3 Mg Tablet) 6 mg PO BEDTIME PRN PRN Reason: Insomnia Ondansetron HCl (Ondansetron Hcl 4 Mg/2 Ml Vial) 4 mg IVPUSH Q8H PRN PRN Reason: Nausea and Vomiting Oxycodone HCl (Oxycodone Hcl Immed Release 5 Mg Tablet) 2.5 mg PO Q6H PRN PRN Reason: Pain, Moderate(Pain Scale 4-6) Last Admin: 03/28/25 09:17 Dose: 2.5 mg Documented By: DEEPAK Sodium Chloride (0.9 % Sodium Chloride Flush 3 Ml Syringe) 3 ml IVFLUSH [facility] Last Admin: 03/28/25 07:45 Dose: Not Given Documented By: DEEPAK Non-Admin Reason: IV Running Labs 03/28/25 06:56 03/28/25 06:56 Labs: Laboratory Results - last 24 hr 03/27/25 03/27/25 03/27/25 11:33 17:33 19:34 MCV MCH MCHC RDW Plt Count MPV Immature Gran % (Auto) Neut % (Auto) Lymph % (Auto) [place] % (Auto) Eos % (Auto) Baso % (Auto) Lymph # (Auto) [place] # (Auto) Eos # (Auto) Baso # (Auto) Abs Immat Gran (auto) Absolute Neuts (auto) Absolute Nucleated RBC Nucleated RBC % (auto) Anion Gap Estim Creat Clear Calc Estimated GFR POC Glucose 102 136 H 208 H Random Glucose Fasting Glucose Calcium 03/28/25 03/28/25 06:56 07:06 MCV 93.9 MCH 30.6 MCHC 32.6 RDW 13.7 Plt Count 170 MPV 10.8 Immature Gran % (Auto) 0.5 H Neut % (Auto) 70.7 Lymph % (Auto) 18.2 L [place] % (Auto) 9.0 Eos % (Auto) 1.3 Baso % (Auto) 0.3 Lymph # (Auto) 2.2 [place] # (Auto) 1.1 Eos # (Auto) 0.2 Baso # (Auto) 0.0 Abs Immat Gran (auto) 0.06 H Absolute Neuts (auto) 8.6 H Absolute Nucleated RBC 0.000 Nucleated RBC % (auto) 0.0 Anion Gap 12 Estim Creat Clear Calc 40.3 Estimated GFR 51 POC Glucose 111 Random Glucose 109 Fasting Glucose 110 H Calcium 8.0 L Assessment and Plan (1) Closed left subtrochanteric femur fracture: Status: Acute Assessment and Plan: d3, 89yo F with mild-moderate /preserved EF, DM2, HTN, and neuropathy who suffered mechanical fall and was found to have a comminuted, displaced, angulated left proximal femoral shaft fracture extending to the left lesser trochanter femur fracture: POD1 ORIF 03/27, PT/dispo planning, 30d of postop VTE prophylaxis with ASA started mild-moderate aortic stenosis: intermediate-high risk for surgery acute blood loss anemia due to fracture: monitor H+H, transfuse for Hb<8 hypotension: likely due to IV opioids; resolved after IV fluids HERMINIO, prerenal with CKD3: likely due to hypotensive episode; resolving; hold furosemide + losartan; recheck BMP tomorrow acute toxic-metabolic encephalopathy: due to anesthesia + opioids; resolved DM2: correction-dose lispro; hold MTF HLD: statin HTN: hold furosemide + losartan VTE ppx: ASA bid dispo: eventual STR In my clinical judgment, the patient requires continued inpatient hospitalization for the following reasons: postoperative care Total time managing care of this patient today: 45 minutes. Quality Stroke Does the patient have a stroke diagnosis?: No VTE Prior VTE?: No VTE Risk Level:: Medical - moderate - high VTE Device Contraindication: N/A - Device Ordered VTE Drug Contraindication: Treatment Not Indicated
--- NOTE | 2025-03-28 11:22 | MHC.CM.PN ---
PT HAD NO SERVICES PRIOR TO ADMISSION [facility] PT AND PLAN IS FOR PT TO RETURN WHEN DCD FROM STR REFERRAL [facility] PLAN STR
[2025-03-28 11:30] LABS: Glucose, Whole Blood 126 mg/dL (60-115)
[2025-03-28] MEDS: Lactated Ringers 500 ML 999 ML IV (11:47)
[2025-03-28 16:09] LABS: Glucose, Whole Blood 106 mg/dL (60-115)
[2025-03-28] MEDS: 0.9 % Sodium Chloride Flush 3 ML SYRINGE IVFLUSH (19:42)
[2025-03-28 20:29] LABS: Glucose, Whole Blood 149 mg/dL (60-115)
--- NOTE | 2025-03-28 21:20 | PM.EVENT ---
Event Note Date of Service: 03/29/25 Event Note: 2114 PM Notified by nursing, pt experiencing generalized anxiety, unclear if pt is experiencing pain s/p femur fx and repair 03/26. BP 94 systolic, HR 95, POX 91 on 2L and H/H has been trending down since surgery. Pt takes ativan prn at home at . Daughter is with pt at [facility]. Ordered stat H/H, nursing evaluated dressing and is currently clean and dry. H/H down from 9.5/29.1 to 8.3/25.6. Pt is on ASA 325 BID per ortho and no NOAC or DVT prophylaxis. BNP elevated 7883. POX 91% on 2L NC. Administered 20 Lasix IV X1. Last echo 01/22/25 noting EF 60-65%, mild to moderate . Will wait for AM CBC prior to holding ASA. Will order stool for occult and start pt on protonix,.Pt placed on tele. Likely drop in H/H post surgical and dilutional. Consider repeat Echo and cardiology consult if indicated in AM. 0110 AM, pt sleeping, tele notes HR 140, per nursing, irregular AFIB RVR, , pt asymptomatic, hemodynamics otherwise stable. HX of atrial arrhythmia listed. Added MG and TSH with reflex. This lead technical writer at bedside, ECG notes AFIB RVR, pt and daughter deny hx of AFIB. Pt denies chest pain, SOB at time of occurrence. MG 2 gms ordered and 2.5 Lopressor IV administered as BP systolic 118. Pt converted to NSR 0128. IVF continue but at 75mls per hour. Pt being transferred to tele floor. Dr. Gonzalez updated in case RR or need occurs on 4th floor but per attending, this lead technical writer will continue to manage pt while on the 4th floor. Metoprolol tartrate 25 mgs PO BID ordered to start in AM with parameters. Cardiology consulted. Echo ordered for AM. Updated pt and daughter at the bedside. TSH pending. Discussion regarding Anticogulation will need to be pursued noting pt is POD #2 from orthopedic surgery for femur fx. [id number] score is 5. Time Spent With Patient Time: Total time managing care of this patient today ____ minutes.
[2025-03-28 21:47] LABS: Hematocrit 25.6 % (37.0-47.0); Hemoglobin 8.3 g/dl (12.0-16.0)
[2025-03-28 22:01] LABS: Anion Gap 12 (12-20); Blood Urea Nitrogen 24 mg/dL (9-16); Calcium 8.1 mg/dL (8.4-10.2); Carbon Dioxide 25 mmol/L (22-29); Chloride 106 mmol/L (96-108); Creatinine Clr Calc Pharmacy 38.4; Estimated Glomerular Filt Rate 49; Potassium 4.3 mmol/L (3.3-5.1); Sodium 139 mmol/L (135-145)
[2025-03-28 22:10] LABS: NT Pro B Type Natriuretic Pept 7883.9 pg/mL (<300)
[2025-03-28] MEDS: Furosemide 20 MG/2 ML VIAL IVPUSH (22:59)
--- NOTE | 2025-03-28 23:50 | PC.NURSE ---
2111 Provider Kristen notified of pt BP: 94/58, other vital signs stable. pt anxious regarding pain and situation - pt unable to put number to pain due to anxiety. Provider Kristen renewed fluids and ordered labs - BNP, H/H and CMP. 2139 BNP 7883.9, H/H: 8.3/25.6. Provider Kristen ordered one time dose lasix (20mg) which was administered per JUL - BP 104/52 prior to administration, and telemetry. ECHO ordered for 03/29. Pt remains anxious and unable to sleep. Will continue to reevaluate BP.
[2025-03-29] VITALS (8 sets, daily range): BP systolic 98–124; BP diastolic 44–62; PULSE 74–94; RESP 18–20; TEMP 36.2–37.1; O2SAT 92–96; BMI 31.2
--- NOTE | 2025-03-29 | ECG_ITS ---
Test Reason : tachycardia Blood Pressure : */* mmHG Vent. Rate : 172 BPM Atrial Rate : 156 BPM P-R Int : * ms QRS Dur : 128 ms QT Int : 316 ms P-R-T Axes : * -74 48 degrees QTcB Int : 534 ms Atrial fibrillation with rapid ventricular response Left axis deviation Right bundle branch block Abnormal ECG When compared with ECG of 03-Mar-2021 12:38, Atrial fibrillation with rapid ventricular response has replaced Normal sinus rhythm Referred By: Lashonda Peterson Electronically Signed By: SAMINA VILLAGOMEZ MD
[2025-03-29] MEDS: Magnesium Sulfate/H2O 2 GM/50 ML PIGGYBACK IV (01:19)
[2025-03-29 02:19] LABS: Magnesium 2.1 mg/dL (1.6-2.6)
--- NOTE | 2025-03-29 02:48 | PC.NURSE ---
0105 pt tachycardic in 140-150s. Provider Kristen notified. EKG ordered showing Afib. Nursing customer complaint service supervisor and provider to bedside. 0119: BP 118/88, HR 175, O2 88% 2L via NC. Provider Kristen ordered 2.5 mg IV metroprolol and magnesium sulfate 2g. Nursing customer complaint service supervisor administered 2.5 mg IV metoprolol and started magnesium sulfate. 0122 BP 134/93, HR 150, O2 90% 4L NC. 0131 BP 116/63, HR 91 back to sinus rhythm. Pt transfered to [facility]. Report given to BEKAH Mota.
--- NOTE | 2025-03-29 07:00 | CA_ITS ---
Transthoracic Echocardiogram Patient (Last, First, Middle): Belen Stone, Gender: F Date of : 1935 Age: 89 Procedure Date: 03/29/2025 Procedure Type: Transthoracic Echocardiogram Location: [facility] [place] [facility] [place] Height: 160.02 cm Weight: 82.1 kg BSA: 1.85 m2 Heart Rate: bpm BP: 13 / 54 mmHg Medical Physicist: NANNETTE Referring MD: Lashonda Peterson [facility] Electrical Sign Wirer Helper: Andrae Godfrey MD Symptoms: elevated BNP, fluid overload, ? HF Study Quality: Adequate ECG Rhythm: Sinus Conclusions: - 1. Moderately to severely reduced LV ejection fraction 30-35% with wall motion abnormality which may suggest stress-induced cardiomyopathy, LAD territory ischemia can not be ruled out with elevated filling pressures 2. Moderate aortic stenosis 3. Mildly elevated right ventricular systolic pressure with mildly elevated right atrial pressures Findings Procedure Information Contrast agent, definity, is being given per protocol without apparent complications. Left Ventricle Normal left ventricular cavity size. There is normal left ventricular wall thickness. The left ventricular systolic function is moderate to severely decreased. The visually estimated ejection fraction is between 30-35%. Spectral Doppler is indicative of an impaired relaxation filling pattern. E/E prime ratio is >15, consistent with elevated filling pressures. Right Ventricle Normal right ventricular cavity size and systolic function. Aortic Valve There is moderate calcification of the aortic valve. There is moderate thickening of the aortic valve. There is moderate aortic valve stenosis. There is no aortic valve regurgitation. Mitral Valve There is mild anterior mitral leaflet thickening. There is trace mitral valve regurgitation. There is no mitral valve stenosis. Pulmonic Valve The pulmonic valve was not well visualized. Tricuspid Valve There is trace tricuspid valve regurgitation. Mildly elevated right atrial pressure. Mild pulmonary hypertension is present. Great Vessels The aorta was not well visualized. The pulmonary artery was not well visualized. There is no dilatation of the ascending aorta measuring 3.30 cm. Venous The inferior vena cava is mildly dilated and collapses less than 50% with inspiration. Pericardium/Pleural The pericardium was not well visualized. Prior Study Comparison Significant changes compared to prior study dated: 01/22/2025. Measurements 2D Linear Measurements IVSd: 1.06 0.6-0.9/0.6-1.0 cm LVIDd: 4.23 3.9-5.3/4.2-5.9 cm LVIDd Index: 2.29 2.4-3.2/2.2-3.1 cm/m2 LVIDs: 2.95 2.0-3.6 cm LVPWd: 1.15 0.7-1.1 cm Ao Root: 3.10 2.1-3.5 cm LA Diam: 3.40 2.7-3.8/3.0-4.0 cm LAIDs Index: 1.84 1.5-2.3 cm/m2 LV Mass: 199.06 67-162/88-224 g LV Mass Index: 107.60 43-95/49-115 g/m2 LVOT Diam: 2.30 3.0+(-)1.3 cm 2D Systolic Function EF 4C: 26.20 >55% EF 2C: 39.70 >55% EF BiP: 34.30 >55% Mitral Valve MV VTI: 0.37 MV Pk Mckay: 1.61 MV Mn Mckay: 0.93 MV Pk Grad: 10.00 MV Mn Grad: 4.00 MV Pk E: 1.11 MV PK A: 1.48 MV Decel Time: 178.00 E/A: 0.80 E'Lateral: 4.57 E'Medial: 4.46 E/E' Med: 24.90 E/E' Lat: 24.30 PHT: 52.00 MVA PHT: 4.23 MVA Continuity: 2.46 Decel [place]: 6.23 Aortic Valve AoV Pk Mckay: 2.84 AoV Mn Mckay: 1.90 AoV VTI: 0.63 AoV Pk Grad: 32.00 Aov Mn Grad: 17.00 BRITTANY Cont.VTI: 1.45 LVOT LVOT Pk Mckay: 0.73 LVOT Mn Mckay: 0.52 LVOT VTI: 0.22 LVOT Pk Grad: 2.00 LVOT Mn Grad: 1.00 LVOT Diam: 2.30 LVOT Area: 4.15 Diastolic Function MV Pk E: 1.11 MV Pk A: 1.48 E/A: 0.80 E'Medial: 4.46 E/E' Med: 24.90 E' Laterial: 4.57 E/E' Lat: 24.30 Right Ventricle TAPSE (mm): 22.00 TVS' Mckay: 11.00 Tricuspid Valve TR Pk Mckay: 2.83 TR Pk Grad: 32.00 RA Press: 8.00 RVSP: 40.00 Great Vessels Aorta Ao Root-2D: 3.10 2.0-3.7 cm Ao Asc: 3.30 2.1-3.4 cm Pulmonary Valve PV Pk Mckay: 1.08 Peak PV Grad: 5.00 Updated in Other Vendor System with Status of Final Andrae Godfrey MD electronically signed on 03/29/2025 1:27:58 PM with status of Final
[2025-03-29 07:41] LABS: MANUAL DIFF FLAG NO
[2025-03-29 07:44] LABS: Hematocrit 27.0 % (37.0-47.0); Hemoglobin 8.7 g/dl (12.0-16.0); Imm Gran Abs Auto 0.04 X10*3/uL (0.00-0.03); Imm Gran Pct Auto 0.3 % (0.0-0.4); Lymphocytes Absolute Auto 2.2 X10*3/uL (1.2-4.9); Mean Corpuscular HGB Conc 32.2 g/dl (31.0-35.0); Mean Corpuscular Hemoglobin 30.4 pg (27.0-33.0); Mean Corpuscular Volume 94.4 fL (80.0-98.0); NRBC Abs Auto 0.000 X10*3/uL (0.0-0.012); NRBC Pct Auto 0.0 /100WBC (0.0-0.2); Platelet Count 150 X10*3/uL (160-400); Red Blood Count 2.86 X10*6/uL (4.20-5.50); White Blood Count 11.9 X10*3/uL (4.8-10.8)
[2025-03-29 07:56] LABS: Glucose, Whole Blood 119 mg/dL (60-115)
[2025-03-29 08:00] LABS: Anion Gap 13 (12-20); Blood Urea Nitrogen 21 mg/dL (9-16); Calcium 8.5 mg/dL (8.4-10.2); Carbon Dioxide 28 mmol/L (22-29); Chloride 106 mmol/L (96-108); Creatinine Clr Calc Pharmacy 46.8; Estimated Glomerular Filt Rate > 60; Potassium 4.3 mmol/L (3.3-5.1); Sodium 143 mmol/L (135-145)
[2025-03-29 08:28] LABS: Magnesium 2.4 mg/dL (1.6-2.6)
--- NOTE | 2025-03-29 08:49 | PM.EVENT ---
Event Note Date of Service: 03/29/25 Event Note: Patient was experiencing generalized anxiety overnight. Patient reports that she takes Ativan prn at home. Ativan ordered. There was a slight drop in H&H post operatively, which is likely dilutional/post surgical. Dressings remain c/d/i according to nursing. Patient continues to have episodes of hypotension. BNP elevated - Lasix administered. Patent placed on tele. Later that evening, nursing reported HR 140 with irregular A. Fib RVR. Patient was asymptomatic and hemodynamically stable. Lopressor was administered and patient converted to NSR shortly after. Patient was then transferred to [facility]. Metoprolol to begin this AM. Cardiology consult placed and pending echo this AM. Spoke with Camille Doyle RN this morning, she reports that the patient is doing well in no acute distress. Bandages are c/d/i. Pending cardiology consult and echo. Time Spent With Patient Time: Total time managing care of this patient today ____ minutes.
[2025-03-29] MEDS: Lactated Ringers 1,000 ML 75 ML IVCONT ×2 (09:47→23:16)
[2025-03-29] MEDS: 0.9 % Sodium Chloride Flush 3 ML SYRINGE IVFLUSH (09:47)
[2025-03-29] MEDS: oxyCODONE HCl Immed Release 5 MG TABLET 2.5 MG PO ×2 (09:58→17:14)
[2025-03-29 11:03] LABS: Glucose, Whole Blood 114 mg/dL (60-115)
[2025-03-29 16:18] LABS: Glucose, Whole Blood 124 mg/dL (60-115)
--- NOTE | 2025-03-29 17:30 | P.PNIM_ITS ---
Subjective Subjective Date of Service: 03/29/25 Interval History: No acute issues overnight remains in sinus rhythm Review of Systems Denies chest pain Denies shortness of breath Denies nausea vomiting diarrhea Denies fever chills Physical Exam 2 Vital Signs: Vital Signs: Last Vital Signs Temp 97.7 F 03/29/25 15:38 Pulse 88 03/29/25 15:38 Resp 20 03/29/25 15:38 BP 105/44 L 03/29/25 15:38 Pulse Ox 96 03/29/25 15:38 O2 Del Method Nasal Cannula 03/29/25 15:38 O2 Flow Rate 3 03/29/25 15:38 BMI result Body Mass Index 31.2 Const: Other: Awake alert no acute distress Resp: Other: Clear to auscultation bilaterally no rales rhonchi or wheezes Cardio: Other: No S4; positive S1-S2; no S3 murmurs rubs or gallops GI: Other: Soft nontender nondistended normoactive bowel sounds Extrem: Other: Gomez edema bilaterally Objective Data Active Medications Acetaminophen (Acetaminophen 325 Mg Tablet) 650 mg PO Q6H PRN PRN Reason: Pain, Mild 1-3,fever,headache Last Admin: 03/27/25 19:47 Dose: 650 mg Documented By: CHRISTINE Aspirin (Aspirin 325 Mg Tablet) 325 mg PO BID [facility] Last Admin: 03/29/25 09:46 Dose: 325 mg Documented By: SANDOVAL Atorvastatin Calcium (Atorvastatin Calcium 20 Mg Tablet) 20 mg PO DAILY [facility] Last Admin: 03/29/25 09:46 Dose: 20 mg Documented By: SANDOVAL Calcium Carbonate (Calcium Carbonate 750 Mg Tab.Chew) 750 mg PO Q4H PRN PRN Reason: Heartburn Dextrose (Dextrose 50 % 25 Gm/50 Ml Syringe) 25 gm IVPUSH Q15M PRN; Protocol PRN Reason: per Hypoglycemia Standing Ord. Glucose (Glucose Gel 15 Gm Gel..Gram.) 15 gm PO Q15M PRN; Protocol PRN Reason: per Hypoglycemia Standing Ord. Hydromorphone HCl (Hydromorphone Hcl 1 Mg/Ml Syringe) 0.5 mg IVPUSH Q3H PRN; Protocol PRN Reason: Pain, Severe (Pain Scale 7-10) Last Admin: 03/27/25 10:21 Dose: 0.5 mg Documented By: DEEPAK Lactated Ringer's (Lr) 1,000 mls @ 75 mls/hr IVCONT .[id number] [facility] Last Admin: 03/29/25 09:47 Dose: 75 mls/hr Documented By: SANDOVAL Insulin Human Lispro (Insulin Lispro 100 Unit/Ml 3 Ml Vial) 0 unit SUBCUT QIDACHS [facility]; Protocol Last Admin: 03/29/25 16:59 Dose: Not Given Documented By: SANDOVAL Non-Admin Reason: No Insulin Coverage Lorazepam (Lorazepam 0.5 Mg Tablet) 0.5 mg PO BEDTIME PRN PRN Reason: Anxiety Last Admin: 03/29/25 13:26 Dose: 0.5 mg Documented By: SANDOVAL Magnesium Hydroxide (Milk Of Magnesia 30 Ml Oral.Susp) 30 ml PO DAILY PRN PRN Reason: Constipation Melatonin (Melatonin 3 Mg Tablet) 6 mg PO BEDTIME PRN PRN Reason: Insomnia Last Admin: 03/28/25 21:02 Dose: 6 mg Documented By: BRET Metoprolol Tartrate (Metoprolol Tartrate 25 Mg Tablet) 25 mg PO BID [facility]; Protocol Last Admin: 03/29/25 09:46 Dose: 25 mg Documented By: SANDOVAL Ondansetron HCl (Ondansetron Hcl 4 Mg/2 Ml Vial) 4 mg IVPUSH Q8H PRN PRN Reason: Nausea and Vomiting Oxycodone HCl (Oxycodone Hcl Immed Release 5 Mg Tablet) 2.5 mg PO Q6H PRN PRN Reason: Pain, Moderate(Pain Scale 4-6) Last Admin: 03/29/25 17:14 Dose: 2.5 mg Documented By: SANDOVAL Pantoprazole Sodium (Pantoprazole Sodium 40 Mg/10 Ml Vial) 40 mg IVPUSH DAILY@0630 [facility] Last Admin: 03/29/25 06:42 Dose: 40 mg Documented By: DION Simethicone (Simethicone 80 Mg Tab.Chew) 80 mg PO QIDWMHS PRN PRN Reason: Gas Sodium Chloride (0.9 % Sodium Chloride Flush 3 Ml Syringe) 3 ml IVFLUSH QSHIFT [facility] Last Admin: 03/29/25 16:59 Dose: Not Given Documented By: SANDOVAL Non-Admin Reason: IV Running Labs 03/29/25 06:38 03/29/25 06:38 Labs: Laboratory Results - last 24 hr 03/28/25 03/28/25 03/29/25 20:25 21:40 06:38 MCV 94.4 MCH 30.4 MCHC 32.2 RDW 13.8 Plt Count 150 L MPV 10.6 Immature Gran % (Auto) 0.3 Neut % (Auto) 70.4 Lymph % (Auto) 18.5 L [place] % (Auto) 9.6 Eos % (Auto) 0.7 Baso % (Auto) 0.5 Lymph # (Auto) 2.2 [place] # (Auto) 1.1 Eos # (Auto) 0.1 Baso # (Auto) 0.1 Abs Immat Gran (auto) 0.04 H Absolute Neuts (auto) 8.4 H Absolute Nucleated RBC 0.000 Nucleated RBC % (auto) 0.0 Anion Gap 12 13 Estim Creat Clear Calc 38.4 46.8 Estimated GFR 49 > 60 POC Glucose 149 H Random Glucose 147 H Fasting Glucose 116 H Calcium 8.1 L 8.5 Magnesium 2.1 2.4 NT-Pro-B Natriuret Pep 7883.9 H TSH 0.95 03/29/25 03/29/25 03/29/25 07:46 10:59 16:11 MCV MCH MCHC RDW Plt Count MPV Immature Gran % (Auto) Neut % (Auto) Lymph % (Auto) [place] % (Auto) Eos % (Auto) Baso % (Auto) Lymph # (Auto) [place] # (Auto) Eos # (Auto) Baso # (Auto) Abs Immat Gran (auto) Absolute Neuts (auto) Absolute Nucleated RBC Nucleated RBC % (auto) Anion Gap Estim Creat Clear Calc Estimated GFR POC Glucose 119 H 114 124 H Random Glucose Fasting Glucose Calcium Magnesium NT-Pro-B Natriuret Pep TSH Microbiology Microbiology Results: Microbiology 03/28/25 09:24 Urine Culture - Final Urine Catheterized - Argueta Catheter No growth. Assessment and Plan (1) Closed left subtrochanteric femur fracture: Status: Acute Assessment and Plan: 89yo F with mild-moderate /preserved EF, DM2, HTN, and neuropathy who suffered mechanical fall and was found to have a comminuted, displaced, angulated left proximal femoral shaft fracture extending to the left lesser trochanter. Consult for new onset atrial fibrillation 1.Femur fracture -POD1 ORIF 03/27, PT/dispo planning, 30d of postop VTE prophylaxis with ASA started -as per ortho 2. Atrial fibrillation (paroxysmal now in sinus rhythm) -acceptable rate control on current therapies -continue metoprolol 3. Acute blood loss anemia -related to femoral fracture -hemoglobin stable -follow daily hemoglobin 4.HERMINIO in backdrop of CKD3 -responding to volume -continue to hold Lasix and ARB -follow renal/divalents -restart when clinically appropriate 5. Diabetes type 2 -acceptable control on current therapies -lispro correctional scale -adjust as indicated Aspirin Full code Continued hospitalization related to need for rehab after repair of fractured femur (2) Essential hypertension: Status: Acute Quality Stroke Does the patient have a stroke diagnosis?: No VTE Prior VTE?: No VTE Risk Level:: Medical - moderate - high VTE Device Contraindication: N/A - Device Ordered VTE Drug Contraindication: Treatment Not Indicated
[2025-03-29 21:16] LABS: Glucose, Whole Blood 109 mg/dL (60-115)
--- NOTE | 2025-03-29 23:38 | ECG_ITS ---
Test Reason : RHTYM CHECK Blood Pressure : */* mmHG Vent. Rate : 82 BPM Atrial Rate : 82 BPM P-R Int : 184 ms QRS Dur : 134 ms QT Int : 406 ms P-R-T Axes : 33 -59 -28 degrees QTcB Int : 474 ms Normal sinus rhythm Right bundle branch block Left anterior fascicular block Bifascicular block Septal infarct , age undetermined Abnormal ECG When compared with ECG of 29-Mar-2025 01:10, Normal sinus rhythm has replaced Atrial fibrillation with rapid ventricular response Septal infarct is now Present Nonspecific T wave abnormality, worse in Inferior leads Nonspecific T wave abnormality, worse in Anterolateral leads Referred By: Tigre Keene Electronically Signed By: SAMINA VILLAGOMEZ MD
[2025-03-30] VITALS (17 sets, daily range): BP systolic 104–145; BP diastolic 54–69; PULSE 68–96; RESP 16–20; TEMP 36.3–37.1; O2SAT 94–98; BMI 31.5
[2025-03-30 00:07] LABS: Hematocrit 26.7 % (37.0-47.0); Hemoglobin 8.6 g/dl (12.0-16.0); Mean Corpuscular HGB Conc 32.2 g/dl (31.0-35.0); Mean Corpuscular Hemoglobin 30.5 pg (27.0-33.0); Mean Corpuscular Volume 94.7 fL (80.0-98.0); NRBC Abs Auto 0.000 X10*3/uL (0.0-0.012); NRBC Pct Auto 0.0 /100WBC (0.0-0.2); Platelet Count 155 X10*3/uL (160-400); Red Blood Count 2.82 X10*6/uL (4.20-5.50); White Blood Count 11.2 X10*3/uL (4.8-10.8)
[2025-03-30 00:18] LABS: Anion Gap 12 (12-20); Blood Urea Nitrogen 16 mg/dL (9-16); Calcium 8.2 mg/dL (8.4-10.2); Carbon Dioxide 27 mmol/L (22-29); Chloride 106 mmol/L (96-108); Creatinine Clr Calc Pharmacy 54.1; Estimated Glomerular Filt Rate > 60; Magnesium 2.2 mg/dL (1.6-2.6); Potassium 4.1 mmol/L (3.3-5.1); Sodium 141 mmol/L (135-145)
[2025-03-30 00:32] LABS: Troponin-I High Sensitivity 97.6 ng/L (<3.5-17.0)
[2025-03-30 07:00] LABS: Glucose, Whole Blood 99 mg/dL (60-115)
[2025-03-30 07:50] LABS: Mean Corpuscular HGB Conc 32.3 g/dl (31.0-35.0); NRBC Abs Auto 0.000 X10*3/uL (0.0-0.012); NRBC Pct Auto 0.0 /100WBC (0.0-0.2); PLT CLUMP 1; SCAN SMEAR FLAG 1
[2025-03-30 07:52] LABS: Hematocrit 26.6 % (37.0-47.0); Hemoglobin 8.6 g/dl (12.0-16.0); Imm Gran Abs Auto 0.04 X10*3/uL (0.00-0.03); Imm Gran Pct Auto 0.4 % (0.0-0.4); Lymphocytes Absolute Auto 2.2 X10*3/uL (1.2-4.9); MANUAL DIFF FLAG SCAN; Mean Corpuscular Hemoglobin 30.6 pg (27.0-33.0); Mean Corpuscular Volume 94.7 fL (80.0-98.0); Red Blood Count 2.81 X10*6/uL (4.20-5.50)
[2025-03-30 08:05] LABS: Platelet Count 152 X10*3/uL (160-400); White Blood Count 9.4 X10*3/uL (4.8-10.8)
[2025-03-30 08:13] LABS: Anion Gap 11 (12-20); Blood Urea Nitrogen 15 mg/dL (9-16); Calcium 8.3 mg/dL (8.4-10.2); Carbon Dioxide 25 mmol/L (22-29); Chloride 107 mmol/L (96-108); Creatinine Clr Calc Pharmacy 62.6; Estimated Glomerular Filt Rate > 60; Potassium 4.4 mmol/L (3.3-5.1); Sodium 139 mmol/L (135-145)
[2025-03-30 08:22] LABS: Troponin-I High Sensitivity 76.0 ng/L (<3.5-17.0)
[2025-03-30] MEDS: Furosemide 20 MG/2 ML VIAL IVPUSH (09:51)
[2025-03-30] MEDS: 0.9 % Sodium Chloride Flush 3 ML SYRINGE IVFLUSH (09:51)
[2025-03-30 10:52] LABS: Glucose, Whole Blood 165 mg/dL (60-115)
[2025-03-30] MEDS: oxyCODONE HCl Immed Release 5 MG TABLET 2.5 MG PO ×2 (12:29→20:22)
--- NOTE | 2025-03-30 13:56 | HO.PM.IMPN ---
Subjective Subjective Date of Service: 03/30/25 Interval History: No acute issues overnight. Remains in sinus rhythm. Breathing stable Review of Systems Denies chest pain Denies shortness of breath Denies nausea vomiting diarrhea Denies fever chills Physical Exam Vital Signs: Vital Signs: Last Vital Signs Temp 98.2 F 03/30/25 13:07 Pulse 68 03/30/25 13:07 Resp 18 03/30/25 13:07 BP 117/56 L 03/30/25 13:07 Pulse Ox 95 03/30/25 10:51 O2 Del Method Nasal Cannula 03/30/25 10:51 O2 Flow Rate 2 03/30/25 10:51 BMI result Body Mass Index 31.5 Const: Other: Awake alert no acute distress Resp: Other: Clear to auscultation bilaterally no rales rhonchi or wheezes Cardio: Other: No S4; positive S1-S2; no S3 murmurs rubs or gallops GI: Other: Soft nontender nondistended normoactive bowel sounds Extrem: Other: Gomez edema bilaterally Objective Data Active Medications Acetaminophen (Acetaminophen 325 Mg Tablet) 650 mg PO Q6H PRN PRN Reason: Pain, Mild 1-3,fever,headache Last Admin: 03/27/25 19:47 Dose: 650 mg Documented By: CHRISTINE Amiodarone HCl (Amiodarone Hcl 200 Mg Tablet) 200 mg PO BID [facility] Last Admin: 03/30/25 12:30 Dose: 200 mg Documented By: SANDOVAL Aspirin (Aspirin 325 Mg Tablet) 325 mg PO BID [facility] Last Admin: 03/30/25 09:48 Dose: 325 mg Documented By: SANDOVAL Atorvastatin Calcium (Atorvastatin Calcium 20 Mg Tablet) 20 mg PO DAILY [facility] Last Admin: 03/30/25 09:51 Dose: 20 mg Documented By: SANDOVAL Calcium Carbonate (Calcium Carbonate 750 Mg Tab.Chew) 750 mg PO Q4H PRN PRN Reason: Heartburn Dextrose (Dextrose 50 % 25 Gm/50 Ml Syringe) 25 gm IVPUSH Q15M PRN; Protocol PRN Reason: per Hypoglycemia Standing Ord. Glucose (Glucose Gel 15 Gm Gel..Gram.) 15 gm PO Q15M PRN; Protocol PRN Reason: per Hypoglycemia Standing Ord. Hydromorphone HCl (Hydromorphone Hcl 1 Mg/Ml Syringe) 0.5 mg IVPUSH Q3H PRN; Protocol PRN Reason: Pain, Severe (Pain Scale 7-10) Last Admin: 03/27/25 10:21 Dose: 0.5 mg Documented By: DEEPAK Lactated Ringer's (Lr) 1,000 mls @ 75 mls/hr IVCONT .[id number] [facility] Last Admin: 03/30/25 13:03 Dose: Not Given Documented By: SANDOVAL Non-Admin Reason: blood running Insulin Human Lispro (Insulin Lispro 100 Unit/Ml 3 Ml Vial) 0 unit SUBCUT QIDACHS [facility]; Protocol Last Admin: 03/30/25 12:30 Dose: Not Given Documented By: SANDOVAL Non-Admin Reason: patient not eating much Lorazepam (Lorazepam 0.5 Mg Tablet) 0.5 mg PO BEDTIME PRN PRN Reason: Anxiety Last Admin: 03/29/25 13:26 Dose: 0.5 mg Documented By: SANDOVAL Magnesium Hydroxide (Milk Of Magnesia 30 Ml Oral.Susp) 30 ml PO DAILY PRN PRN Reason: Constipation Melatonin (Melatonin 3 Mg Tablet) 6 mg PO BEDTIME PRN PRN Reason: Insomnia Last Admin: 03/29/25 22:03 Dose: 6 mg Documented By: CINTHYA Metoprolol Tartrate (Metoprolol Tartrate 25 Mg Tablet) 25 mg PO BID [facility]; Protocol Last Admin: 03/30/25 09:50 Dose: 25 mg Documented By: SANDOVAL Ondansetron HCl (Ondansetron Hcl 4 Mg/2 Ml Vial) 4 mg IVPUSH Q8H PRN PRN Reason: Nausea and Vomiting Oxycodone HCl (Oxycodone Hcl Immed Release 5 Mg Tablet) 2.5 mg PO Q6H PRN PRN Reason: Pain, Moderate(Pain Scale 4-6) Last Admin: 03/30/25 12:29 Dose: 2.5 mg Documented By: SANDOVAL Pantoprazole Sodium (Pantoprazole Sodium 40 Mg/10 Ml Vial) 40 mg IVPUSH DAILY@0630 [facility] Last Admin: 03/30/25 05:47 Dose: 40 mg Documented By: CINTHYA Simethicone (Simethicone 80 Mg Tab.Chew) 80 mg PO QIDWMHS PRN PRN Reason: Gas Sodium Chloride (0.9 % Sodium Chloride Flush 3 Ml Syringe) 3 ml IVFLUSH QSHIFT [facility] Last Admin: 03/30/25 09:51 Dose: 3 ml Documented By: SANDOVAL Labs 03/30/25 07:23 03/30/25 07:23 Labs: Laboratory Results - last 24 hr 03/29/25 03/29/25 03/29/25 16:11 21:11 23:58 MCV 94.7 MCH 30.5 MCHC 32.2 RDW 13.9 Plt Count 155 L MPV 10.3 Immature Gran % (Auto) Neut % (Auto) Lymph % (Auto) [place] % (Auto) Eos % (Auto) Baso % (Auto) Lymph # (Auto) [place] # (Auto) Eos # (Auto) Baso # (Auto) Abs Immat Gran (auto) Absolute Neuts (auto) Absolute Nucleated RBC 0.000 Nucleated RBC % (auto) 0.0 Smear Tech's Comments Anion Gap 12 Estim Creat Clear Calc 54.1 Estimated GFR > 60 POC Glucose 124 H 109 Random Glucose 120 H Fasting Glucose Calcium 8.2 L Magnesium 2.2 Troponin I High Sens 97.6 H* Blood Type Antibody Screen Crossmatch 03/30/25 03/30/25 03/30/25 06:55 07:23 09:18 MCV 94.7 MCH 30.6 MCHC 32.3 RDW 13.8 Plt Count 152 L MPV 10.9 Immature Gran % (Auto) 0.4 Neut % (Auto) 64.1 Lymph % (Auto) 23.1 [place] % (Auto) 10.7 Eos % (Auto) 1.0 Baso % (Auto) 0.7 Lymph # (Auto) 2.2 [place] # (Auto) 1.0 Eos # (Auto) 0.1 Baso # (Auto) 0.1 Abs Immat Gran (auto) 0.04 H Absolute Neuts (auto) 6.0 Absolute Nucleated RBC 0.000 Nucleated RBC % (auto) 0.0 Smear Tech's Comments VERIFIED Anion Gap 11 L Estim Creat Clear Calc 62.6 Estimated GFR > 60 POC Glucose 99 Random Glucose Fasting Glucose 107 H Calcium 8.3 L Magnesium Troponin I High Sens 76.0 H* Blood Type A Positive Antibody Screen NEGATIVE Crossmatch See Detail 03/30/25 10:48 MCV MCH MCHC RDW Plt Count MPV Immature Gran % (Auto) Neut % (Auto) Lymph % (Auto) [place] % (Auto) Eos % (Auto) Baso % (Auto) Lymph # (Auto) [place] # (Auto) Eos # (Auto) Baso # (Auto) Abs Immat Gran (auto) Absolute Neuts (auto) Absolute Nucleated RBC Nucleated RBC % (auto) Smear Tech's Comments Anion Gap Estim Creat Clear Calc Estimated GFR POC Glucose 165 H Random Glucose Fasting Glucose Calcium Magnesium Troponin I High Sens Blood Type Antibody Screen Crossmatch Microbiology Microbiology Results: Microbiology 03/28/25 09:24 Urine Culture - Final Urine Catheterized - Argueta Catheter No growth. Assessment and Plan (1) Closed left subtrochanteric femur fracture: Status: Acute Assessment and Plan: 89yo F with mild-moderate /preserved EF, DM2, HTN, and neuropathy who suffered mechanical fall and was found to have a comminuted, displaced, angulated left proximal femoral shaft fracture extending to the left lesser trochanter. Consult for new onset atrial fibrillation 1.Femur fracture -POD2 ORIF 03/27, PT/dispo planning, 30d of postop VTE prophylaxis with ASA started -as per ortho 2. Atrial fibrillation (paroxysmal now in sinus rhythm) -acceptable rate control on current therapies -continue metoprolol -add amiodarone 200 mg b.i.d. for 1 month as per cardiology 3. Acute blood loss anemia -related to femoral fracture -transfused 2 units of packed red cells with Lasix between -CBC in a.m. 4.HERMINIO in backdrop of CKD3 -responding to volume -continue to hold Lasix and ARB -follow renal/divalents -restart when clinically appropriate 5. Diabetes type 2 -acceptable control on current therapies -lispro correctional scale -adjust as indicated Aspirin Full code Continued hospitalization related to need for rehab after repair of fractured femur (2) Type 2 diabetes mellitus with hemoglobin A1c goal of less than 7.0%: Status: Acute Quality Stroke Does the patient have a stroke diagnosis?: No VTE Prior VTE?: No VTE Risk Level:: Medical - moderate - high VTE Device Contraindication: N/A - Device Ordered VTE Drug Contraindication: Treatment Not Indicated
[2025-03-30 15:50] LABS: Glucose, Whole Blood 107 mg/dL (60-115)
[2025-03-30 21:29] LABS: Glucose, Whole Blood 126 mg/dL (60-115)
[2025-03-31 03:16] VITALS: BP 118/59; PULSE 72; RESP 16; TEMP 36.2; O2SAT 97
[2025-03-31 06:00] VITALS: BMI 36.3
[2025-03-31 07:21] LABS: MANUAL DIFF FLAG NO
[2025-03-31 07:34] LABS: Hematocrit 34.5 % (37.0-47.0); Hemoglobin 11.2 g/dl (12.0-16.0); Imm Gran Abs Auto 0.04 X10*3/uL (0.00-0.03); Imm Gran Pct Auto 0.4 % (0.0-0.4); Lymphocytes Absolute Auto 2.4 X10*3/uL (1.2-4.9); Mean Corpuscular HGB Conc 32.5 g/dl (31.0-35.0); Mean Corpuscular Hemoglobin 29.6 pg (27.0-33.0); Mean Corpuscular Volume 91.3 fL (80.0-98.0); NRBC Abs Auto 0.000 X10*3/uL (0.0-0.012); NRBC Pct Auto 0.0 /100WBC (0.0-0.2); Platelet Count 182 X10*3/uL (160-400); Red Blood Count 3.78 X10*6/uL (4.20-5.50); White Blood Count 10.3 X10*3/uL (4.8-10.8)
[2025-03-31 07:46] LABS: Anion Gap 11 (12-20); Blood Urea Nitrogen 17 mg/dL (9-16); Calcium 8.4 mg/dL (8.4-10.2); Carbon Dioxide 29 mmol/L (22-29); Chloride 105 mmol/L (96-108); Creatinine Clr Calc Pharmacy 62.6; Estimated Glomerular Filt Rate > 60; Potassium 3.9 mmol/L (3.3-5.1); Sodium 141 mmol/L (135-145)
[2025-03-31 08:00] VITALS: BP 132/64; PULSE 73; RESP 18; TEMP 37; O2SAT 93
[2025-03-31 08:02] LABS: Glucose, Whole Blood 105 mg/dL (60-115)
[2025-03-31] MEDS: oxyCODONE HCl Immed Release 5 MG TABLET 2.5 MG PO (09:04)
[2025-03-31 09:05] VITALS: BP 132/64; PULSE 73
[2025-03-31] MEDS: 0.9 % Sodium Chloride Flush 3 ML SYRINGE IVFLUSH (09:05)
[2025-03-31] MEDS: Milk of Magnesia 30 ML ORAL.SUSP PO (09:18)
--- NOTE | 2025-03-31 11:37 | MHC.CM.PN ---
PT MEDICALLY CLEARED TO DC TO [facility] CM SPOKE TO PTS DAUGHTER, KETAN [phone] WHO WILL BE HERE AT TIME OF DC CM ALSO SPOKE TO PT AND GRANDSON AT BEDSIDE THEY ARE AWARE BLS TRANSPORT IS BOOKED FOR 1600 WITH [facility]
[2025-03-31 11:48] LABS: Glucose, Whole Blood 118 mg/dL (60-115)
[2025-03-31 12:00] VITALS: BP 129/61; PULSE 67; RESP 18; TEMP 36.4; O2SAT 94
--- NOTE | 2025-03-31 13:03 | PM.DS ---
DS: Providers Provider Date of Service: 03/31/25 Date of admission: 03/26/25 15:40 Date of discharge: 03/31/25 Primary care physician: Deborah Dominique PA-C Consults: 03/26/25 15:33 Consult to Cardiology Routine Consulting Provider: [facility] Reason for consultation: Risk stratification for femur fracture surgery 03/27/25 17:33 Consult to Case Management Routine Comment: 03/29/25 02:01 Consult to Cardiology Routine Consulting Provider: [facility] Reason for consultation: new onset AFIB RVR overnight s/p ortho surg Has provider been notified: No DS: Diagnosis Discharge Diagnosis (1) Closed left subtrochanteric femur fracture: Status: Acute (2) Type 2 diabetes mellitus with hemoglobin A1c goal of less than 7.0%: Status: Acute DS: Summary Hospital Course Hospital Course: 89-year-old woman presented to the ER after a fall. Apparently she was in her kitchen she slipped on a rug and fell. She denied any loss of consciousness or family member was home and able to call for help. The patient is normally pretty independent, lives with family. She denied any recent illness, fever, chills, nausea, vomiting, diarrhea. Femur x-ray showed comminuted displaced angulated left proximal femur shaft fracture extending to the lesser trochanter with question of the distal femur at the intercondylar notch. All vitals are stable, no white count, chest x-ray negative for consolidation or effusion. Patient was given a dose of fentanyl, morphine, Zofran, Dilaudid in the ER. She will be admitted for further management and treatment of acute femur fracture. [facility] Patient admitted to general medical floor and seen in consultation by Orthopedics. On 03/27/2025 patient underwent open reduction internal fixation of left femur fracture with a placement of a long gamma screw. She was seen preoperatively by Cardiology and stratified a high but acceptable risk. She did experience a brief run of AFib with rapid ventricular response in the postoperative period which responded to beta blockade. She was transfused 2 units of packed red cells with excellent response in her hemoglobin. As per cardiology she will be started on 1 month of amiodarone; 200 b.i.d.. Cardiology will follow up after rehab stent and further adjust her medications. At this point in time she is medically acceptable for transfer Time Attestation Discharge Coordination Time (in mins): 35 Quality: Safe Use of Opioids Does Pt have an Active Cancer Diagnosis on the Problem List?: No Quality: Stroke Does the patient have a stroke diagnosis?: No Physical Exam Vital Signs: Vital Signs: Last Vital Signs Temp 97.5 F 03/31/25 12:00 Pulse 67 03/31/25 12:00 Resp 18 03/31/25 12:00 BP 129/61 03/31/25 12:00 Pulse Ox 94 03/31/25 12:00 O2 Del Method Room Air 03/31/25 12:00 O2 Flow Rate 3 03/31/25 08:00 BMI result Body Mass Index 36.3 Const: Other: Awake alert no acute distress Resp: Other: Clear to auscultation bilaterally no rales rhonchi or wheezes Cardio: Other: No S4; positive S1-S2; no S3 murmurs rubs or gallops GI: Other: Soft nontender nondistended normoactive bowel sounds Extrem: Other: Gomez edema bilaterally DS: Data Data Completed and Pending Completed studies during hospitalization [Text1]: Procedures Reposition Lumbar Vertebra, Percutaneous Approach (03/03/21) Supplement Lumbar Vertebra with Synthetic Substitute, Percutaneous Approach (03/03/21) Labs on day of discharge: Laboratory Results - last 24 hr 03/30/25 03/30/25 03/30/25 09:18 15:46 21:22 WBC RBC Hgb Hct MCV MCH MCHC RDW Plt Count MPV Immature Gran % (Auto) Neut % (Auto) Lymph % (Auto) [place] % (Auto) Eos % (Auto) Baso % (Auto) Lymph # (Auto) [place] # (Auto) Eos # (Auto) Baso # (Auto) Abs Immat Gran (auto) Absolute Neuts (auto) Absolute Nucleated RBC Nucleated RBC % (auto) Sodium Potassium Chloride Carbon Dioxide Anion Gap BUN Creatinine Estim Creat Clear Calc Estimated GFR POC Glucose 107 126 H Fasting Glucose Calcium Blood Type A Positive Antibody Screen NEGATIVE Crossmatch See Detail 03/31/25 03/31/25 03/31/25 06:35 07:58 11:45 WBC 10.3 RBC 3.78 L D Hgb 11.2 L D Hct 34.5 L D MCV 91.3 MCH 29.6 MCHC 32.5 RDW 15.3 Plt Count 182 MPV 11.0 Immature Gran % (Auto) 0.4 Neut % (Auto) 63.4 Lymph % (Auto) 23.8 [place] % (Auto) 10.8 Eos % (Auto) 1.0 Baso % (Auto) 0.6 Lymph # (Auto) 2.4 [place] # (Auto) 1.1 Eos # (Auto) 0.1 Baso # (Auto) 0.1 Abs Immat Gran (auto) 0.04 H Absolute Neuts (auto) 6.5 Absolute Nucleated RBC 0.000 Nucleated RBC % (auto) 0.0 Sodium 141 Potassium 3.9 Chloride 105 Carbon Dioxide 29 Anion Gap 11 L BUN 17 H Creatinine 0.71 Estim Creat Clear Calc 62.6 Estimated GFR > 60 POC Glucose 105 118 H Fasting Glucose 111 H Calcium 8.4 Blood Type Antibody Screen Crossmatch Discharge Plan Discharge Anticipated Discharge Date/Time: 03/31/25 12:56 Patient Disposition: Xfer Inpatient Rehab Fac Discharge Diagnosis: Displaced angulated left proximal femur shaft fracture Referrals: [facility] [Outside] - 1 Week Cody Cruz PA-C [Physician Material Analyst, Orthopedics] - 04/17/25 11:30 am Referral Note: 04/17/25 11:30am Deborah Dominique PA-C [Primary Care Provider, Internal Medicine] - 1 Week Discharge Medications: New aspirin 325 mg Tablet 325 mg PO BID Qty: 30 0RF amiodarone 200 mg Tablet 200 mg PO BID Qty: 60 0RF lorazepam 0.5 mg Tablet 0.5 mg PO BEDTIME PRN (Reason: Anxiety) Qty: 30 0RF oxycodone 5 mg Tablet 2.5 mg PO Q6H PRN (Reason: Pain, Moderate(Pain Scale 4-6)) Qty: 30 0RF Rx Instructions: Partial Fill upon patient request. metoprolol tartrate 25 mg Tablet 25 mg PO BID Qty: 60 0RF Protocol: Hold for SBP/HR < HOLD for SBP < : 95 HOLD for HR < : 60 Continued PreserVision AREDS-2 250-90-40-1 mg Capsule 1 tab PO BID Ozempic 0.25 mg or 0.5 mg (2 mg/3 mL) pen injector 0.5 mg subcut MO Rx Instructions: for 4 weeks pregabalin 150 mg capsule 150 mg PO DAILY furosemide 20 mg tablet 20 mg PO DAILY atorvastatin 20 mg tablet 20 mg PO DAILY (DME) FreeStyle Lite Strips Strip See Rx Instructions .Route Qty: 100 0RF Rx Instructions: Check glucose 3 times a day before meals (DME) blood-glucose meter [FreeStyle Lite Meter] Kit See Rx Instructions .ROUTE .MEDSUPPLY Qty: 1 0RF Rx Instructions: Check glucose 3 times a day before meals losartan 100 mg tablet 100 mg PO DAILY naproxen 500 mg tablet 500 mg PO BID PRN (Reason: Pain) metformin 500 mg tablet 500 mg PO DAILY Qty: 90 3RF Discontinued hydrocodone-acetaminophen 5-325 mg tablet 1 tab PO BID PRN (Reason: pain) Qty: 60 0RF Rx Instructions: may partially full upon pt request lorazepam 0.5 mg tablet 0.5 mg PO BEDTIME PRN (Reason: Anxiety/Sleep) Discharge Orders: Discharge Order (Routine); Ordered 03/31/25 Ordered By: Tigre Keene Activity on Discharge: See ortho note Stand Alone Forms: Patient Portal Discharge page Print Language: Barbadian Activity Restrictions/Additional Instructions: -Bandage/Incision Site Care: -Ice 20mins at a time -Make sure you use a towel or cloth on your skin as a barrier -Keep Bandages clean, dry and intact -Do not get the bandage wet: -No tub bath, pools or hot tubs -Physical Therapy: -Patient is WBAT with the use of a walker -Gait training -ROM -ADL's -Limit stair climbing -Hip range of motion -Strengthening: Quadriceps and hip muscles -Walking: Gait training and gradually increasing distance with walker -Ankle pumps and incentive spirometry to limit the risk of blood clot -No driving for 6 weeks -Diet: -Resume regular diet as tolerated. -Drink plenty of fluids and eat a high-fiber foods to avoid constipation -This is a common side effect of pain medication) -Take stool softeners as prescribed -Blood Clot Prevention: -Take the prescribed blood thinner as directed for 6 weeks -Perform ankle pumps and walk frequently with the walker and assistance if needed -Report calf pain, swelling, or shortness of breath immediately Care Plan Goals: Continue all medicines as outlined on transfer sheet Health Concerns: Above recommendations as per ortho Plan of Treatment: As per receiving facility Assessment: See discharge summary
[2025-03-31] MEDS: oxyCODONE HCl Immed Release 5 MG TABLET PO (14:04)
[2025-03-31 15:45] LABS: Glucose, Whole Blood 110 mg/dL (60-115)
== END 2025-03-31 16:37 | DRG 480 ==
LOC: HO.ED 15:46 → HO.EDOVER 15:53 → HO.S3 16:36 → HO.IMC 03-29 02:03
PROVIDERS: Family Medicine; Internal Medicine; Nurse Practitioner Family; Orthopaedic Surgery; Physician Assistant; Admitting Provider Nurse Practitioner Acute Care; Emergency Provider Emergency Medicine; PCP Physician Assistant Medical; Visit Provider Hospitalist
PROC: 0QS736Z Reposition Left Upper Femur with Intramedullary Internal Fixation Device, Percutaneous Approach (ICD-10-PCS; principal; 2025-03-27 12:00)
DX: S72.22XA Displaced subtrochanteric fracture of left femur, initial encounter for closed fracture (principal); G92.8 Other toxic encephalopathy; D62 Acute posthemorrhagic anemia; N17.9 Acute kidney failure, unspecified; F05 Delirium due to known physiological condition; W19.XXXA Unspecified fall, initial encounter; I35.0 Nonrheumatic aortic (valve) stenosis; E11.40 Type 2 diabetes mellitus with diabetic neuropathy, unspecified; H35.30 Unspecified macular degeneration; I95.2 Hypotension due to drugs; T40.2X5A Adverse effect of other opioids, initial encounter; N18.30 Chronic kidney disease, stage 3 unspecified; I12.9 Hypertensive chronic kidney disease with stage 1 through stage 4 chronic kidney disease, or unspecified chronic kidney disease; E11.22 Type 2 diabetes mellitus with diabetic chronic kidney disease; F41.1 Generalized anxiety disorder; E66.811 Obesity, class 1; Z71.3 Dietary counseling and surveillance; Z68.30 Body mass index [BMI] 30.0-30.9, adult; Z79.82 Long term (current) use of aspirin; Z79.84 Long term (current) use of oral hypoglycemic drugs; Z79.899 Other long term (current) drug therapy
CPT/HCPCS: 36415; 71045; 72170; 73552; 73560; 76775; 80048; 81003; 82570; 82947; 83735; 83880; 84300; 84443; 84484; 85014; 85018; 85025; 85027; 85610; 86850; 86900; 86901; 86923; 87086; 93005; 93306; 97162; 97166; 97530; 97535; 99285; C1713; J0131; J0616; J0736; J1100; J1171; J1805; J1885; J1938; J2003; J2151; J2250; J2270; J2371; J2405; J2470; J2598; J2704; J2795; J3010; J3475; J7120; P9016; Q9957

== ENCOUNTER → 2025-03-26 12:44 | Outpatient (BNV) | payer MEDICARE, SELFPAY | PROVIDERS: Visit Provider Radiology Diagnostic Radiology | DX: S72.142A Displaced intertrochanteric fracture of left femur, initial encounter for closed fracture (principal); Z04.3 Encounter for examination and observation following other accident | CPT/HCPCS: 72170; 73552 ==

== ENCOUNTER 2025-03-26 15:40 | Outpatient (BNV) | payer MEDICARE, SELFPAY | END 2025-03-27 09:26 | PROVIDERS: Admitting Provider Nurse Practitioner Acute Care; Emergency Provider Emergency Medicine; PCP Physician Assistant Medical; Visit Provider Radiology Diagnostic Radiology | DX: N17.9 Acute kidney failure, unspecified (principal) | CPT/HCPCS: 76775 ==

== ENCOUNTER 2025-03-26 15:40 | Outpatient (BNV) | payer MEDICARE, SELFPAY | END 2025-03-29 01:10 | PROVIDERS: Admitting Provider Nurse Practitioner Acute Care; Emergency Provider Emergency Medicine; PCP Physician Assistant Medical; Visit Provider Internal Medicine Cardiovascular Disease | DX: I48.91 Unspecified atrial fibrillation (principal); I45.10 Unspecified right bundle-branch block; I45.2 Bifascicular block | CPT/HCPCS: 93010; 93306 ==

== ENCOUNTER 2025-03-26 15:40 | Outpatient (BNV) | payer MEDICARE, SELFPAY | END 2025-03-29 08:00 | PROVIDERS: Admitting Provider Nurse Practitioner Acute Care; Emergency Provider Emergency Medicine; PCP Physician Assistant Medical; Visit Provider Specialist | DX: E87.70 Fluid overload, unspecified (principal) | CPT/HCPCS: 71045 ==

== ENCOUNTER → 2025-03-26 15:40 | Outpatient (BNV) | payer MEDICARE, SELFPAY | PROVIDERS: Admitting Provider Nurse Practitioner Acute Care; Emergency Provider Emergency Medicine; PCP Physician Assistant Medical; Visit Provider Physician Assistant | DX: S72.22XA Displaced subtrochanteric fracture of left femur, initial encounter for closed fracture (principal) | CPT/HCPCS: 99223 ==

== ENCOUNTER → 2025-03-26 15:40 | Outpatient (BNV) | payer MEDICARE, SELFPAY | PROVIDERS: Admitting Provider Nurse Practitioner Acute Care; Emergency Provider Emergency Medicine; PCP Physician Assistant Medical; Visit Provider Internal Medicine Cardiovascular Disease | DX: Z01.810 Encounter for preprocedural cardiovascular examination (principal) | CPT/HCPCS: 99222 ==

== ENCOUNTER → 2025-03-26 15:40 | Outpatient (BNV) | payer MEDICARE, SELFPAY | PROVIDERS: Admitting Provider Nurse Practitioner Acute Care; Emergency Provider Emergency Medicine; PCP Physician Assistant Medical; Visit Provider Physician Assistant | DX: S72.22XA Displaced subtrochanteric fracture of left femur, initial encounter for closed fracture (principal); E11.9 Type 2 diabetes mellitus without complications | CPT/HCPCS: 99222; 99232; 99233; 99239; 99499 ==

== ENCOUNTER 2025-04-17 11:14 | Outpatient (AMB) | payer MEDICARE, SELFPAY ==
--- NOTE | 2025-04-17 11:20 | A.OFFVIS_ITS ---
Vital Signs 04/17/25 11:22 Height 5 ft 4 in Weight 211 lb BMI 36.2 Intake Visit Reasons: PO-s/p left hip IM Nail 03/27/25 Intake Note: Belen is an 89 year old female who presents today post operatively after undergoing a left hip IMN, performed by Dr. Izaguirre on 03/27/25. Patient reports she is doing well, states not really pain, just some soreness. Allergies Penicillins Adverse Reaction (Unknown, Verified 04/17/25 11:31) Rash Medication List - Last Reconciled 04/17/25 by Cody Cruz PA-C amiodarone 200 mg PO BID aspirin 325 mg PO BID atorvastatin 20 mg PO DAILY blood sugar diagnostic (FreeStyle Lite Strips) Check glucose 3 times a day before meals blood-glucose meter (FreeStyle Lite Meter kit) Check glucose 3 times a day before meals furosemide 20 mg PO DAILY lorazepam 0.5 mg PO BEDTIME PRN losartan 100 mg PO DAILY metformin 500 mg PO DAILY metoprolol tartrate 25 mg See Protocol PO BID naproxen 500 mg PO BID PRN oxycodone 2.5 mg (1/2 x 5 mg) PO Q6H PRN pregabalin 150 mg PO DAILY semaglutide (Ozempic) 0.5 mg subcut MO vit C,R-Hy-eevxl-lutein-zeaxan 250-90-40-1 mg (PreserVision AREDS-2) 1 tab PO BID HPI HPI PO-s/p left hip IM Nail 03/27/25 DR: Details: 89-year-old female presents to the office today status post left hip IM nail on 03/27/[address] Izaguirre. She is in a short term rehab facility. She is toe- touch weight-bearing with a walker. She states her pain is improving and she has no concerns today. [facility] Medical History (Updated 04/08/25 @ 00:00 by Grazyna Taylor) Preoperative cardiovascular examination Cataract Chronic pain Class 1 obesity with body mass index (BMI) of 33.0 to 33.9 in adult Macular degeneration Neuropathy Anxiety Vitamin D deficiency Hypertriglyceridemia Type 2 diabetes mellitus with hemoglobin A1c goal of less than 7.0% Dysuria History of mammogram (~2023) Essential hypertension Bifascicular block Atrial arrhythmia Non-rheumatic aortic stenosis Surgical History History of squamous cell carcinoma excision H/O kyphoplasty History of colonoscopy History of tonsillectomy History of benign breast biopsy Family History Father CVD (cardiovascular disease) Mother CVD (cardiovascular disease) Brother CVD (cardiovascular disease) Social History Household Members: Family Housing: House Do you presently have visiting nurse or other home services: No Alcohol intake: current Alcohol intake frequency: does not drink Alcohol type: wine and hard liquor Patient Tobacco Use Status: Former Tobacco user Tobacco use type: Cigarette service: No Current occupational status: retired Cognitive needs: Yes (walker) Hearing needs: No Vision needs: Yes (rx glasses/macular degeneration) Review of Systems Const All systems reviewed & are unremarkable except as noted in HPI and below Physical Exam Vital Signs: BMI result Body Mass Index 36.2 Extrem Other: Left hip incisions are clean dry and intact. She can perform range of motion and hip flexion without significant discomfort. Calf is supple and nontender neurovascularly intact. Results Reviewed Results Reviewed: X-rays of the left hip obtained in the office today and reviewed by me show intact intramedullary nail with stable fracture pattern. Assessment & Plan Assessment & Plan (1) Closed left subtrochanteric femur fracture: Code(s): S72.22XA - Displaced subtrochanteric fracture of left femur, initial encounter for closed fracture Category: Medical Plan: Dione removed today Steri-Strips applied. The patient will continue working with physical therapy for gait training and strengthening exercises. She can progress to partial weight-bearing (50%) with a walker. Upper body conditioning and ADLs. I would like to see her back in 4-6 weeks with x-rays, sooner if needed. Orders: Orders XR femur LT 2V Today M79.606 - Pain in leg, unspecified Coding Level of Care Code Global (58860) Diagnoses Closed left subtrochanteric femur fracture S72.22XA
[2025-04-17 11:22] VITALS: BMI 36.2
== END 2025-04-17 13:07 | disposition home or self-care (01) ==
LOC: HO.HOS 11:15
PROVIDERS: PCP Physician Assistant Medical; Visit Provider Physician Assistant
DX: S72.22XA Displaced subtrochanteric fracture of left femur, initial encounter for closed fracture (principal)
CPT/HCPCS: 99024

== ENCOUNTER → 2025-04-17 11:16 | Outpatient (BNV) | payer MEDICARE, SELFPAY | PROVIDERS: Visit Provider Radiology Diagnostic Radiology | DX: I70.202 Unspecified atherosclerosis of native arteries of extremities, left leg (principal) | CPT/HCPCS: 73552 ==

== ENCOUNTER 2025-04-17 15:25 | Outpatient (REF) | payer MEDICARE, SELFPAY ==
--- NOTE | ~2025-04-17 | XR_ITS ---
EXAMINATION: XR FEMUR, LEFT CLINICAL INFORMATION: M79.606 - Pain in leg, unspecified, follow-up post-ORIF COMPARISON: 03/26/2025 TECHNIQUE: AP and lateral views of the left femur were obtained. FINDINGS: Skin winter are present lateral to the iliac crest, and proximal and distal left thigh. There is moderate vascular calcification in the left thigh. There is an intramedullary nail traversing a proximal femoral fracture. There are 2 proximal cerclage wires and 2 distal interlocking screws. There is a lag screw traversing the femoral neck into the head. There is improved alignment across the fracture. There is no joint effusion on the lateral image including the knee. XR/XR femur LT 2V IMPRESSION: Post-ORIF proximal left femoral fracture. Moderate atherosclerotic disease. Electronically signed by: Kishor Paiz MD 04/17/2025 11:45 AM [facility]
== END 2025-04-17 15:26 | disposition home or self-care (01) ==
LOC: HO.HOSX 15:25
PROVIDERS: Visit Provider Physician Assistant
DX: S72.22XD Displaced subtrochanteric fracture of left femur, subsequent encounter for closed fracture with routine healing (principal); X58.XXXD Exposure to other specified factors, subsequent encounter
CPT/HCPCS: 73552; 99212

== ENCOUNTER 2025-04-23 05:35 | Inpatient (IN) | payer MEDICARE, SELFPAY ==
--- OUTSIDE RECORDS SUMMARY | 2025-04-03 04:30 | XMS_ITS ---
Author Organization [facility] Address [address] [place] [id number] Care Team Providers Care Diploma Maker Name Role Phone Jackson Diaz Primary Care Provider Jaimee Nicole [phone] Encounters Encounter Location Date Provider Diagnosis [facility] [address] [place] [address] 04/03/2025 Jaimee Nicole Plan Of Treatment No Information Progress Notes * Belen FOYDOB:[birth year] (89 yo F)Acc No.[id number]:04/03/2025 Progress Note Patient: Belen HORNER Provider: Dottie Nicole DPM :1935 A ge:89 Y S ex:Female Date:04/03/2025 Address:[address] [place] [address] [place], [id number] Pcp:Jackson Diaz Subjective: * Chief Complaints: * * Medical History: Objective: * Vitals: Assessment: Plan: * Treatment: * Images: * The named appointment provid er may or may not be the originator of this progress note, and it is not deemed complete until electronically signed by the appointment provider. Sign off status: Pending * Provider: Dottie Nicole DPM Date: 06/03/2024 Generated for Shahid gamboa/Chasidy/Shayransmitting on: 06/24/2024 06:18 AM EST
[2025-04-23] VITALS (14 sets, daily range): BP systolic 86–130; BP diastolic 36–60; PULSE 55–72; RESP 12–20; TEMP 36.5–37.1; O2SAT 93–99; BMI 37.6; BMI 38.5; BMI 36.4
--- NOTE | ~2025-04-23 | CT_ITS ---
CLINICAL HISTORY: painless hematochezia CT angiography abdomen and pelvis with contrast. 3-D post processing. Comparison: None provided Findings: Calcified coronary atherosclerotic disease. Moderate calcified atherosclerotic disease of the abdominal aorta. Large paraesophageal hernia with a proximally 2 thorax of the stomach in the retrocardiac position. Bibasilar dependent subsegmental atelectasis. Trace right pleural effusion. Hepatomegaly, 19.7 cm. Unremarkable gallbladder and solid organs. No urolithiasis. There is diffuse fecal material seen throughout the colon. Argueta catheter in bladder. Prior left hip open reduction internal fixation. Diverticulosis. The appendix is not grossly identified. No acute fracture. No ascites. IMPRESSION: 1. Large paraesophageal hernia with proximal 2/3 of stomach in retrocardiac position. 2. Moderate calcified atherosclerotic disease of the abdominal aorta. 3. Trace right pleural effusion. 4. Calcified coronary atherosclerotic disease. 5. No acute intraabdominal or pelvic findings. This document has been electronically signed by: Carlyle Mercado MD on 04/25/2025 18:29:55
--- NOTE | ~2025-04-23 | CT_ITS ---
EXAMINATION: CT CHEST WITHOUT CONTRAST CLINICAL INFORMATION: Hypoxia, amiodarone therapy, interstitial lung disease COMPARISON: Same day x-ray and CT from 03/03/2021 TECHNIQUE: Multidetector volumetric CT imaging of the chest was done. Axial MIP volume rendering provided. Sagittal and coronal reformatted images were obtained. This CT examination was performed using dose optimization techniques as appropriate, variously including the following: *Automated exposure control *Adjustment of mA and/or kV according to patient size (this includes techniques or standardized protocols for targeted exams where dose is matched to indication/reason for exam; i.e. extremities or head) *Use of iterative reconstruction technique FINDINGS: LUNGS: There is moderate motion artifact degrading the image quality. There are patchy ground glass densities in the mid third and lower third lung zones. There peripheral short septal lines, mild reticular changes, and a few scattered small nodules in the lung bases. There is mild bibasilar atelectasis. There is a 3 x 6 mm groundglass density nodule in the left apex. MEDIASTINUM: There is a large sliding hiatal hernia involving gastric fundus and at least half of the gastric body. CORONARY ARTERY CALCIFICATION: Present PLEURA: There is pleural thickening or small pleural effusions in the right greater than left lung base, new since the prior. AXILLA: No lymphadenopathy. UPPER ABDOMEN: Unremarkable. OSSEOUS STRUCTURES: Stable degenerative changes are present in the mid to lower thoracic spine with degenerative endplate irregularity and vacuum phenomena. 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 Changes have increased since the prior study 4 years ago other causes of pulmonary fibrosis are not ruled out. Also, if the patient is acutely symptomatic, change could relate to viral pneumonitis or other infectious etiology or environmental exposure. There is a 3 x 6 mm groundglass density pulmonary nodule in the left apex. Fleischner Society recommends no routine follow-up. Electronically signed by: Kishor Paiz MD 04/23/2025 12:36 PM [facility]
--- NOTE | ~2025-04-23 | XR_ITS ---
EXAMINATION: XR CHEST CLINICAL INFORMATION: hypoxia COMPARISON: March 29, 2025 TECHNIQUE: AP portable upright view of the chest was obtained. FINDINGS: Pulmonary reticular nodular pattern. No pleural effusion or pneumothorax. No hyperinflation. Deformity of the trachea to the right of the midline with a gas abnormality overlapping the right pulmonary hilum. Hiatal hernia, moderate to large. Multilevel thoracic spondylosis. Radiopaque material in the T12/L1 vertebra. Soft tissue calcifications in the left supraspinatus region. 5 mm blastic lesion overlapping the left humerus. No free air beneath the diaphragm. Patient's large body habitus. XR/XR chest 1V IMPRESSION: Chronic interstitial lung disease with superimposed mild interstitial lung edema versus multifocal pneumonia. Hiatal hernia, moderate to large volume. Calcific tendinosis/tendinopathy, left supraspinatus. Status post kyphoplasty/vertebroplasty, T12/L1 vertebra. Electronically signed by: Truong Wyatt MD 04/23/2025 07:04 AM [facility]
--- NOTE | 2025-04-23 06:15 | ECG_ITS ---
Test Reason : HYPOXIA Blood Pressure : */* mmHG Vent. Rate : 60 BPM Atrial Rate : 60 BPM P-R Int : 194 ms QRS Dur : 150 ms QT Int : 470 ms P-R-T Axes : 52 -75 63 degrees QTcB Int : 470 ms Normal sinus rhythm Left axis deviation Right bundle branch block Abnormal ECG When compared with ECG of 29-Mar-2025 23:38, Criteria for Septal infarct are no longer Present Referred By: Louisa Waller Electronically Signed By: SAMINA VILLAGOMEZ MD
--- OUTSIDE RECORDS SUMMARY | 2025-04-23 06:17 | XMS_ITS | Encounter Summary ---
Author Organization [facility] Address [address] [place] [address] Care Team Providers Care Assurance Manager Name Role Phone Lambert Perez MD Primary Care Provider [phone] Encounter Details Date Type Department Care Team (Late st Contact Info) Description 04/09/2025 Lab Requisition [facility] - Main Lab [address] [facility] [place] [address] Lambert Perez MD [address] [place] [address] Essential (primary) hypertension Social History Tobacco Use Types Packs/Day Years Used Date Smoking Tobacco: Never Assessed Comments Unknown Sex and Gender Information Value Date Recorded Sex Assigned at Not on file Legal Sex Female 5:49 PM EST Gender Identity Not on file Sexual Orientation Not on file documented as of this encounter Plan of Treatment Not on file documented as of this encounter Procedures Procedure Name Priority Date/Time Associated Diagnosis Comments COMPLETE BLOOD COUNT Routine 04/11/2025 6:33 AM EST Essential (primary) hypertension BASIC METABOLIC PANEL Routine 04/11/2025 6:33 AM EST Essential (primary) hypertension documented in this encounter Results * (ABNORMAL) Complete blood count (04/11/2025 6:33 AM EST) WBC 9.0 4.8 - 10.8 K/[facility] LAB HEMETOLOGY METHOD 04/11/2025 9:32 AM EST [facility] LAB RBC 3.30(L) 3.80 - 4.80 M/[facility] LAB HEMETOLOGY METHOD 04/11/2025 9:32 AM EST [facility] LAB Hemoglobin 9.9(L) 11.5 - 16.0 g/dL LAB HEMETOLOGY METHOD 04/11/2025 9:32 AM [facility] LAB Hematocrit 32.1(L) 35.0 - 47.0 % LAB HEMETOLOGY METHOD 04/11/2025 9:32 AM [facility] LAB MCV 96.4 79.0 - 98.0 FL LAB HEMETOLOGY METHOD 04/11/2025 9:32 AM [facility] LAB MCH 29.7 27.0 - 32.0 pcg LAB HEMETOLOGY METHOD 04/11/2025 9:32 AM [facility] LAB MCHC 30.8(L) 32.0 - 37.0 g/dL LAB HEMETOLOGY METHOD 04/11/2025 9:32 AM [facility] LAB RDW 16.7(H) 11.0 - 15.0 % LAB HEMETOLOGY METHOD 04/11/2025 9:32 AM [facility] LAB Platelets 260 130 - 400 K/mcL LAB HEMETOLOGY METHOD 04/11/2025 9:32 AM [facility] LAB MPV 9.9 7.0 - 11.0 FL LAB HEMETOLOGY METHOD 04/11/2025 9:32 AM [facility] LAB NRBC 0.0 <1.0 % LAB HEMETOLOGY METHOD 04/11/2025 9:32 AM [facility] LAB NRBC Absolute 0.00 <0.10 K/mcL LAB HEMETOLOGY METHOD 04/11/2025 9:32 AM [facility] Blood Venous blood specimen / Unknown Venipuncture / Unknown 04/11/2025 6:33 AM EST 04/11/2025 9:06 AM EST us Lambert Perez MD LAB BLOOD ORDERABLES Final Resu lt [facility] [address] [place] [address], * (ABNORMAL) Basic metabolic panel (04/11/2025 6:33 AM EST) Sodium 143 133 - 145 mmol/L 04/11/2025 9:55 AM [facility] Potassium 4.7 3.5 - 5.5 mmol/L 04/11/2025 9:55 AM [facility] Chloride 105 96 - 110 mmol/L 04/11/2025 9:55 AM [facility] CO2 28 21 - 32 mmol/L 04/11/2025 9:55 AM [facility] Anion Gap 10 3 - 11 04/11/2025 9:55 AM [facility] Glucose 81 70 - 100 mg/dL 04/11/2025 9:55 AM [facility] BUN 26(H) 5 - 25 mg/dL 04/11/2025 9:55 AM [facility] Creatinine 1.07 0.50 - 1.10 mg/dL 04/11/2025 9:55 AM [facility] eGFR 50(L) >=60 mL/min/1. 73m2 04/11/2025 9:55 AM [facility] Comment:Calculation based on the Chronic Kidney Disease Epidemiology Collaboration (CKD-EPI) equation refit without adjustment for race. BUN/Creatinine Ratio 24.3 04/11/2025 9:55 AM [facility] Calcium 8.0(L) 8.5 - 10.5 mg/dL 04/11/2025 9:55 AM [facility] Blood Venous blood specimen / Unknown Venipuncture / Unknown 04/11/2025 6:33 AM EST 04/11/2025 9:06 AM EST Lambert Perez MD LAB BLOOD ORDERABLES Final Resu lt [facility] [address] [place] [address], documented in this encounter Visit Diagnoses Diagnosis Essential (primary) hypertension Unspecified essential hypertension documented in this encounter Care Teams Assurance Manager Relationship Specialty Start Date End Date Lambert Perez MD [address] [place] [address] PCP - General Internal Medicine 04/01/25 documented as of this encounter
--- OUTSIDE RECORDS SUMMARY | 2025-04-23 06:18 | XMS_ITS | Encounter Summary ---
Author Organization [facility] Address [address] [place] [address] Care Team Providers Care Sandstone Splitter Name Role Phone Lambert Perez MD Primary Care Provider [phone] Encounter Details Date Type Department Care Team (Late st Contact Info) Description 04/11/2025 Lab Requisition [facility] - Main Lab [address] [facility] [place] [address] Lambert ePrez MD [address] [place] [address] Essential (primary) hypertension Social History [...] Associated Diagnosis Comments COMPLETE BLOOD COUNT Routine 04/14/2025 4:48 AM EST Essential (primary) hypertension documented in this encounter Results * (ABNORMAL) Complete blood count (04/14/2025 4:48 AM EST) WBC 7.4 4.8 - 10.8 K/mcL LAB HEMETOLOGY METHOD 04/14/2025 12:25 PM EST [facility] RBC 3.70(L) 3.80 - 4.80 M/mcL LAB HEMETOLOGY METHOD 04/14/2025 12:25 PM EST [facility] Hemoglobin 11.0(L) 11.5 - 16.0 g/dL LAB HEMETOLOGY METHOD 04/14/2025 12:25 PM EST [facility] LAB Hematocrit 35.9 35.0 - 47.0 % LAB HEMETOLOGY METHOD 04/14/2025 12:25 PM [facility] LAB MCV 97.3 79.0 - 98.0 FL LAB HEMETOLOGY METHOD 04/14/2025 12:25 PM [facility] LAB MCH 29.8 27.0 - 32.0 pcg LAB HEMETOLOGY METHOD 04/14/2025 12:25 PM EST [facility] MCHC 30.6(L) 32.0 - 37.0 g/dL LAB HEMETOLOGY METHOD 04/14/2025 12:25 PM [facility] LAB RDW 17.1(H) 11.0 - 15.0 % LAB HEMETOLOGY METHOD 04/14/2025 12:25 PM [facility] LAB Platelets 270 130 - 400 K/mcL LAB HEMETOLOGY METHOD 04/14/2025 12:25 PM EST [facility] LAB MPV 10.2 7.0 - 11.0 FL LAB HEMETOLOGY METHOD 04/14/2025 12:25 PM [facility] NRBC 0.0 <1.0 % LAB HEMETOLOGY METHOD 04/14/2025 12:25 PM [facility] LAB NRBC Absolute 0.00 <0.10 K/mcL LAB HEMETOLOGY METHOD 04/14/2025 12:25 PM [facility] Blood Venous blood specimen / Unknown Venipuncture / Unknown 04/14/2025 4:48 AM EST 04/14/2025 10:24 AM EST us Lambert Perez MD LAB BLOOD ORDERABLES Final Resu lt [facility] [address] [place] [address], [place] [phone] documented in this encounter Visit Diagnoses Diagnosis Essential (primary) hypertension Unspecified essential hypertension documented in this encounter Care Teams Sandstone Splitter Relationship Specialty Start Date End Date Lambert Perez MD [address] [place] [address] PCP - General Internal Medicine 04/01/25 documented as of this encounter
--- OUTSIDE RECORDS SUMMARY | 2025-04-23 06:18 | XMS_ITS | Encounter Summary ---
Author Organization [facility] Address [address] [place] [address] Care Team Providers Care Hand Or Machine Paster Name Role Phone Lambert Perez MD Primary Care Provider [phone] Encounter Details Date Type Department Care Team (Late st Contact Info) Description 04/01/2025 Lab Requisition [facility] - Main Lab [address] [facility] [place] [address] Lambert Perez MD [address] [place] [address] Essential (primary) hypertension Social History [...] Associated Diagnosis Comments COMPLETE BLOOD COUNT Routine 04/01/2025 4:48 AM EST Essential (primary) hypertension COMPREHENSIVE METABOLIC PANEL Routine 04/01/2025 4:48 AM EST Essential (primary) hypertension documented in this encounter Results * (ABNORMAL) Comprehensive metabolic panel (04/01/2025 4:48 AM EST) Sodium 142 133 - 145 mmol/L 04/01/2025 12:17 PM [facility] Potassium 4.1 3.5 - 5.5 mmol/L 04/01/2025 12:17 PM [facility] Chloride 102 96 - 110 mmol/L 04/01/2025 12:17 PM [facility] CO2 28 21 - 32 mmol/L 04/01/2025 12:17 PM [facility] Anion Gap 12(H) 3 - 11 04/01/2025 12:17 PM [facility] Glucose 74 70 - 100 mg/dL 04/01/2025 12:17 PM [facility] BUN 20 5 - 25 mg/dL 04/01/2025 12:17 PM [facility] Creatinine 0.80 0.50 - 1.10 mg/dL 04/01/2025 12:17 PM [facility] eGFR 71 >=60 mL/min/1. 73m2 04/01/2025 12:17 PM [facility] Comment:Calculation based on the Chronic Kidney Disease Epidemiology Collaboration (CKD-EPI) equation refit without adjustment for race. BUN/Creatinine Ratio 25.0 04/01/2025 12:17 PM [facility] Calcium 8.2(L) 8.5 - 10.5 mg/dL 04/01/2025 12:17 PM [facility] AST (SGOT) 19 10 - 42 unit/L 04/01/2025 12:17 PM [facility] ALT (SGPT) 12 10 - 60 unit/L 04/01/2025 12:17 PM [facility] Alkaline Phosphatase 74 42 - 121 unit/L 04/01/2025 12:17 PM [facility] Total Protein 4.7(L) 6.0 - 8.0 g/dL 04/01/2025 12:17 PM [facility] Albumin 3.4 3.2 - 5.0 g/dL 04/01/2025 12:17 PM [facility] Total Bilirubin 1.3 0.0 - 1.4 mg/dL 04/01/2025 12:17 PM [facility] Blood Venous blood specimen / Unknown Venipuncture / Unknown 04/01/2025 4:48 AM EST 04/01/2025 9:50 AM EST us Lambert Perez MD LAB BLOOD ORDERABLES Final Resu lt [facility] [address] [place] [address], * (ABNORMAL) Complete blood count (04/01/2025 4:48 AM EST) WBC 10.2 4.8 - 10.8 K/mcL LAB HEMETOLOGY METHOD 04/01/2025 10:00 AM [facility] RBC 3.90 3.80 - 4.80 M/mcL LAB HEMETOLOGY METHOD 04/01/2025 10:00 AM [facility] Hemoglobin 11.5 11.5 - 16.0 g/dL LAB HEMETOLOGY METHOD 04/01/2025 10:00 AM [facility] Hematocrit 35.2 35.0 - 47.0 % LAB HEMETOLOGY METHOD 04/01/2025 10:00 AM [facility] MCV 90.3 79.0 - 98.0 FL LAB HEMETOLOGY METHOD 04/01/2025 10:00 AM [facility] MCH 29.5 27.0 - 32.0 pcg LAB HEMETOLOGY METHOD 04/01/2025 10:00 AM [facility] MCHC 32.7 32.0 - 37.0 g/dL LAB HEMETOLOGY METHOD 04/01/2025 10:00 AM [facility] RDW 15.1(H) 11.0 - 15.0 % LAB HEMETOLOGY METHOD 04/01/2025 10:00 AM [facility] Platelets 211 130 - 400 K/mcL LAB HEMETOLOGY METHOD 04/01/2025 10:00 AM EST [facility] MPV 10.8 7.0 - 11.0 FL LAB HEMETOLOGY METHOD 04/01/2025 10:00 AM EST [facility] NRBC 0.0 <1.0 % LAB HEMETOLOGY METHOD 04/01/2025 10:00 AM EST [facility] NRBC Absolute 0.00 <0.10 K/mcL LAB HEMETOLOGY METHOD 04/01/2025 10:00 AM EST [facility] Blood Venous blood specimen / Unknown Venipuncture / Unknown 04/01/2025 4:48 AM EST 04/01/2025 9:50 AM EST Lambert Perez MD LAB BLOOD ORDERABLES Final Resu lt [facility] [address] [place] [address], documented in this encounter Visit Diagnoses Diagnosis Essential (primary) hypertension Unspecified essential hypertension documented in this encounter Care Teams Hand Or Machine Paster Relationship Specialty Start Date End Date Lambert Perez MD [address] [place] [address] PCP - General Internal Medicine 04/01/25 documented as of this encounter
--- OUTSIDE RECORDS SUMMARY | 2025-04-23 06:18 | XMS_ITS | Encounter Summary ---
Author Organization [facility] Address [address] [place] [address] Care Team Providers Care Flight Radio Officer Name Role Phone Lambert Perez MD Primary Care Provider [phone] Encounter Details Date Type Department Care Team (Late st Contact Info) Description 04/14/2025 Lab Requisition [facility] - Main Lab [address] [facility] [place] [address] Lambert Perez MD [address] [place] [address] Essential (primary) hypertension Social History [...] Procedure Name Priority Date/Time Associated Diagnosis Comments BASIC METABOLIC PANEL Routine 04/15/2025 4:55 AM EST Essential (primary) hypertension documented in this encounter Results * (ABNORMAL) Basic metabolic panel (04/15/2025 4:55 AM EST) Sodium 141 133 - 145 mmol/L 04/15/2025 11:01 AM [facility] Potassium 4.3 3.5 - 5.5 mmol/L 04/15/2025 11:01 AM [facility] Chloride 104 96 - 110 mmol/L 04/15/2025 11:01 AM [facility] CO2 25 21 - 32 mmol/L 04/15/2025 11:01 AM [facility] Anion Gap 12(H) 3 - 11 04/15/2025 11:01 AM [facility] Glucose 76 70 - 100 mg/dL 04/15/2025 11:01 AM [facility] BUN 26(H) 5 - 25 mg/dL 04/15/2025 11:01 AM [facility] Creatinine 0.98 0.50 - 1.10 mg/dL 04/15/2025 11:01 AM [facility] eGFR 56(L) >=60 mL/min/1. 73m2 04/15/2025 11:01 AM [facility] Comment:Calculation based on the Chronic Kidney Disease Epidemiology Collaboration (CKD-EPI) equation refit without adjustment for race. BUN/Creatinine Ratio 26.5 04/15/2025 11:01 AM [facility] Calcium 8.1(L) 8.5 - 10.5 mg/dL 04/15/2025 11:01 AM [facility] Blood Venous blood specimen / Unknown 04/15/2025 4:55 AM EST 04/15/2025 9:28 AM EST us Lambert Perez MD LAB BLOOD ORDERABLES Final Resu lt [facility] [address] [place] [address], documented in this encounter Visit Diagnoses Diagnosis Essential (primary) hypertension Unspecified essential hypertension documented in this encounter Care Teams Flight Radio Officer Relationship Specialty Start Date End Date Lambert Perez MD [address] [place] [address] PCP - General Internal Medicine 04/01/25 documented as of this encounter
--- OUTSIDE RECORDS SUMMARY | 2025-04-23 06:18 | XMS_ITS | Patient Health Record ---
Author Organization [facility] Address [address] [place] [address] Care Team Providers Care Licensed Psychologist Director Name Role Phone Maco Soriano Unavailable [phone] Reason For Referral No Information Plan Of Treatment No Information
--- OUTSIDE RECORDS SUMMARY | 2025-04-23 06:18 | XMS_ITS | Encounter Summary ---
Author Organization [facility] Address [address] [place] [address] Care Team Providers Care Insurance Claim Approver Name Role Phone Lambert Perez MD Primary Care Provider [phone] Encounter Details Date Type Department Care Team (Late st Contact Info) Description 04/02/2025 Lab Requisition [facility] - Main Lab [address] [facility] [place] [address] Lambert Perez MD [address] [place] [address] Essential (primary) hypertension Social History [...] Associated Diagnosis Comments COMPLETE BLOOD COUNT Routine 04/03/2025 5:20 AM EST Essential (primary) hypertension BASIC METABOLIC PANEL Routine 04/03/2025 5:20 AM EST Essential (primary) hypertension documented in this encounter Results * (ABNORMAL) Complete blood count (04/03/2025 5:20 AM EST) WBC 10.7 4.8 - 10.8 K/[facility] LAB HEMETOLOGY METHOD 04/03/2025 10:[address] [facility] RBC 4.10 3.80 - 4.80 M/[facility] LAB HEMETOLOGY METHOD 04/03/2025 10:[address] [facility] Hemoglobin 12.2 11.5 - 16.0 g/dL LAB HEMETOLOGY METHOD 04/03/2025 10:43 AM [facility] Hematocrit 36.7 35.0 - 47.0 % LAB HEMETOLOGY METHOD 04/03/2025 10:43 AM [facility] MCV 90.0 79.0 - 98.0 FL LAB HEMETOLOGY METHOD 04/03/2025 10:43 AM [facility] MCH 29.9 27.0 - 32.0 pcg LAB HEMETOLOGY METHOD 04/03/2025 10:43 AM [facility] MCHC 33.2 32.0 - 37.0 g/dL LAB HEMETOLOGY METHOD 04/03/2025 10:43 AM [facility] RDW 15.2(H) 11.0 - 15.0 % LAB HEMETOLOGY METHOD 04/03/2025 10:43 AM [facility] Platelets 240 130 - 400 K/mcL LAB HEMETOLOGY METHOD 04/03/2025 10:43 AM [facility] MPV 10.1 7.0 - 11.0 FL LAB HEMETOLOGY METHOD 04/03/2025 10:43 AM [facility] NRBC 0.4 <1.0 % LAB HEMETOLOGY METHOD 04/03/2025 10:43 AM [facility] NRBC Absolute 0.04 <0.10 K/mcL LAB HEMETOLOGY METHOD 04/03/2025 10:43 AM [facility] Blood Venous blood specimen / Unknown Venipuncture / Unknown 04/03/2025 5:20 AM EST 04/03/2025 9:21 AM EST us Lambert Perez MD LAB BLOOD ORDERABLES Final Resu lt [facility] [address] [place] [address], [place] [phone] * (ABNORMAL) Basic metabolic panel (04/03/2025 5:20 AM EST) Sodium 138 133 - 145 mmol/L 04/03/2025 11:26 AM [facility] Potassium 4.3 3.5 - 5.5 mmol/L 04/03/2025 11:26 AM [facility] Chloride 101 96 - 110 mmol/L 04/03/2025 11:26 AM [facility] CO2 22 21 - 32 mmol/L 04/03/2025 11:26 AM [facility] Anion Gap 15(H) 3 - 11 04/03/2025 11:26 AM [facility] Glucose 70 70 - 100 mg/dL 04/03/2025 11:26 AM [facility] BUN 26(H) 5 - 25 mg/dL 04/03/2025 11:26 AM [facility] Creatinine 1.07 0.50 - 1.10 mg/dL 04/03/2025 11:26 AM [facility] eGFR 50(L) >=60 mL/min/1. 73m2 04/03/2025 11:26 AM [facility] Comment:Calculation based on the Chronic Kidney Disease Epidemiology Collaboration (CKD-EPI) equation refit without adjustment for race. BUN/Creatinine Ratio 24.3 04/03/2025 11:26 AM [facility] Calcium 7.8(L) 8.5 - 10.5 mg/dL 04/03/2025 11:26 AM [facility] Blood Venous blood specimen / Unknown Venipuncture / Unknown 04/03/2025 5:20 AM EST 04/03/2025 9:21 AM EST Lambert Perez MD LAB BLOOD ORDERABLES Final Resu lt [facility] [address] [place] [address], documented in this encounter Visit Diagnoses Diagnosis Essential (primary) hypertension Unspecified essential hypertension documented in this encounter Care Teams Insurance Claim Approver Relationship Specialty Start Date End Date Lambert Perez MD [address] [place] [address] PCP - General Internal Medicine 04/01/25 documented as of this encounter
--- OUTSIDE RECORDS SUMMARY | 2025-04-23 06:18 | XMS_ITS | Patient Health Record ---
Author Organization [facility] Address [address] [facility] [place] [address] Care Team Providers Care Wearing Apparel Presser Name Role Phone Jackson Diaz Primary Care Provider Jaimee Nicole Unavailable [phone] Peggy Anaya Unavailable [phone] Allergies No Known Allergies Results Component Value [...] Status W/U Status Risk Notes Problem Neuropathy (932465804) Neuropathy (G62.9) Active confirmed Vital Signs Blood pressure diastolic 65 mm Hg 01/08/2025 Height 5ft 2in in 01/08/2025 Blood pressure systolic 126 mm Hg 01/08/2025 Weight 175 lbs 01/08/2025 BMI 32 kg/m2 01/08/2025 Procedures Procedure Date Ordered Date Performed Result Body Sit e 03905-KBPWGYP NAIL, 6 OR MORE 04/29/2024 N/A 94386-Hncaawpt Plate 10/31/2024 N/A Encounters Encounter Location Date Provider Diagnosis [facility] [address] 04/29/2024 Jaimee Nicole Pain in right toe(s) M79.674 ; Onychomycosis B35.1 ; Pain in left toe(s) M79.675 ; Neuritis M79.2 ; Neuropathy G62.9 ; Left foot pain M79.672 and Right foot pain M79.671 [facility] [address] 07/16/2024 Peggy Héctor Onychomycosis B35.1 ; Neuropathy G62.9 ; Pain in right toe(s) M79.674 ; Pain in left toe(s) M79.675 ; Neuritis M79.2 ; Left foot pain M79.672 and Right foot pain M79.[address] [address] 09/26/2024 Jaimee Nicole Onychomycosis B35.1 ; Neuropathy G62.9 ; Pain in right toe(s) M79.674 and Pain in left toe(s) M79.675 [facility] [place] [address] [place] [address] 10/31/2024 Jaimee Nicole Ingrown nail L60.[address] [address] 01/08/2025 Jaimee Nicole Onychomycosis B35.1 ; Neuropathy [...] X ray : Foot, right 3V 11/25/2020 [id number] NAIL, 6 OR MORE 04/29/2024 66382-Yilpricu Plate 10/31/2024 55630 I&D ABSCESS- SIMPLE,SINGLE 024 , [id number]/INJECT, JOINT/BURSA 0 01/24/2024 71587, [id number]-CHSVL/INJECT, JOINT/BURSA 0 05/17/2023 Insurance Providers Payer Name Payer Address Payer Phone Subscriber Number Group Number Insured Name Patient Relationship to Insured Coverage Start Date Coverage End Date Medicare National [employer] [address] [place] [address] [id number] Belen Stone Self - patient is the insured [employer] [address] [place] [address] [id number] Belen Stone Self - patient is the [...]
--- OUTSIDE RECORDS SUMMARY | 2025-04-23 06:18 | XMS_ITS | Encounter Summary ---
Author Organization [facility] Address [address] [place] [address] Care Team Providers Care Credit Compliance Officer Name Role Phone Lambert Perez MD Primary Care Provider [phone] Encounter Details Date Type Department Care Team (Late st Contact Info) Description 04/04/2025 Lab Requisition [facility] - Main Lab [address] [facility] [place] [address] Lambert Perez MD [address] [place] [address] Essential (primary) hypertension Social History [...] Associated Diagnosis Comments COMPLETE BLOOD COUNT Routine 04/07/2025 5:45 AM EST Essential (primary) hypertension COMPREHENSIVE METABOLIC PANEL Routine 04/07/2025 5:45 AM EST Essential (primary) hypertension documented in this encounter Results * (ABNORMAL) Comprehensive metabolic panel (04/07/2025 5:45 AM EST) Sodium 141 133 - 145 mmol/L 04/07/2025 11:15 AM EST [facility] Potassium 3.9 3.5 - 5.5 mmol/L 04/07/2025 11:15 AM EST [facility] Chloride 103 96 - 110 mmol/L 04/07/2025 11:15 AM [facility] CO2 27 21 - 32 mmol/L 04/07/2025 11:15 AM [facility] Anion Gap 11 3 - 11 04/07/2025 11:15 AM [facility] Glucose 86 70 - 100 mg/dL 04/07/2025 11:15 AM [facility] BUN 32(H) 5 - 25 mg/dL 04/07/2025 11:15 AM [facility] Creatinine 1.08 0.50 - 1.10 mg/dL 04/07/2025 11:15 AM [facility] eGFR 50(L) >=60 mL/min/1. 73m2 04/07/2025 11:15 AM [facility] Comment:Calculation based on the Chronic Kidney Disease Epidemiology Collaboration (CKD-EPI) equation refit without adjustment for race. BUN/Creatinine Ratio 29.6 04/07/2025 11:15 AM [facility] Calcium 7.6(L) 8.5 - 10.5 mg/dL 04/07/2025 11:15 AM [facility] AST (SGOT) 15 10 - 42 unit/L 04/07/2025 11:15 AM [facility] ALT (SGPT) 9(L) 10 - 60 unit/L 04/07/2025 11:15 AM [facility] Alkaline Phosphatase 74 42 - 121 unit/L 04/07/2025 11:15 AM [facility] Total Protein 5.0(L) 6.0 - 8.0 g/dL 04/07/2025 11:15 AM [facility] Albumin 3.0(L) 3.2 - 5.0 g/dL 04/07/2025 11:15 AM [facility] Total Bilirubin 0.6 0.0 - 1.4 mg/dL 04/07/2025 11:15 AM [facility] Blood Venous blood specimen / Unknown Venipuncture / Unknown 04/07/2025 5:45 AM EST 04/07/2025 10:11 AM EST us Lambert Perez MD LAB BLOOD ORDERABLES Final Resu lt [facility] [address] [place] [address], * (ABNORMAL) Complete blood count (04/07/2025 5:45 AM EST) WBC 10.0 4.8 - 10.8 K/mcL LAB HEMETOLOGY METHOD 04/07/2025 10:38 AM [facility] RBC 3.30(L) 3.80 - 4.80 M/mcL LAB HEMETOLOGY METHOD 04/07/2025 10:38 AM [facility] Hemoglobin 10.0(L) 11.5 - 16.0 g/dL LAB HEMETOLOGY METHOD 04/07/2025 10:38 AM [facility] Hematocrit 31.0(L) 35.0 - 47.0 % LAB HEMETOLOGY METHOD 04/07/2025 10:38 AM [facility] MCV 93.9 79.0 - 98.0 FL LAB HEMETOLOGY METHOD 04/07/2025 10:38 AM [facility] MCH 30.3 27.0 - 32.0 pcg LAB HEMETOLOGY METHOD 04/07/2025 10:38 AM [facility] MCHC 32.3 32.0 - 37.0 g/dL LAB HEMETOLOGY METHOD 04/07/2025 10:38 AM [facility] RDW 15.9(H) 11.0 - 15.0 % LAB HEMETOLOGY METHOD 04/07/2025 10:38 AM EST [facility] Platelets 292 130 - 400 K/mcL LAB HEMETOLOGY METHOD 04/07/2025 10:38 AM EST [facility] MPV 10.0 7.0 - 11.0 FL LAB HEMETOLOGY METHOD 04/07/2025 10:38 AM EST [facility] NRBC 0.0 <1.0 % LAB HEMETOLOGY METHOD 04/07/2025 10:38 AM EST [facility] NRBC Absolute 0.00 <0.10 K/mcL LAB HEMETOLOGY METHOD 04/07/2025 10:38 AM [facility] Blood Venous blood specimen / Unknown Venipuncture / Unknown 04/07/2025 5:45 AM EST 04/07/2025 10:11 AM EST Lambert Perez MD LAB BLOOD ORDERABLES Final Resu lt [facility] [address] [place] [address], documented in this encounter Visit Diagnoses Diagnosis Essential (primary) hypertension Unspecified essential hypertension documented in this encounter Care Teams Credit Compliance Officer Relationship Specialty Start Date End Date Lambert Perez MD [address] [place] [address] PCP - General Internal Medicine 04/01/25 documented as of this encounter
--- OUTSIDE RECORDS SUMMARY | 2025-04-23 06:18 | XMS_ITS | Clinical Summary ---
Author Organization [address] [facility] Address [address] [place] [address] Phone Care Team Providers Care Alternative Education Teacher Name Role Phone Lambert Perez MD Primary Care Provider [phone] Encounters Date Type Department Care Team Description 04/18/2025 Lab Requisition [facility] Lab [address] [place] [address] Lambert Perez MD Essential (primary) hypertension 04/14/2025 Lab Requisition [facility] Lab [address] [place] [address] Lambert Perez MD Essential (primary) hypertension 04/11/2025 Lab Requisition [facility] Lab [address] [place] [address] Lambert Perez MD Essential (primary) hypertension 04/09/2025 Lab Requisition [facility] Lab [address] [place] [address] Lambert Perez MD Essential (primary) hypertension 04/04/2025 Lab Requisition [facility] Lab [address] [place] [address] Lambert Perez MD Essential (primary) hypertension 04/02/2025 Lab Requisition [facility] Main Lab [address] [place] [address] Lambert Perez MD Essential (primary) hypertension 04/01/2025 Lab Requisition [facility] Main Lab [address] [place] [address] Lambert Perez MD Essential (primary) hypertension from Last 3 Months Social History Tobacco Use Types Packs/Day Years Used Date Smoking Tobacco: Never Assessed Comments Unknown Sex and Gender Information Value Date Recorded Sex Assigned at Not on file Legal Sex Female 5:49 PM EST Gender Identity Not on file Sexual Orientation Not on file Plan of Treatment Health Maintenance Due Date Last Done Comments Diabetes: Annual Foot Exam 07/28/1945 Diabetes: Annual Retina Eye Exam 07/28/1945 DTaP,Tdap,and Td Vaccines (1 - Tdap) 1956 Pneumococcal Vaccine: 50+ Years (1 of 2 - PCV) 1956 Zoster Vaccines (1 of 2) 07/28/1987 RSV Immunization Adult Patients (1 - 1-dose 75+ series) 2012 Cholesterol Screening (Lipid Panel) 04/16/2022 Falls Risk Assessment 04/16/2022 Medicare Annual Wellness Visit 04/16/2022 Social Influencers of Health Screening 04/16/2022 Depression Screening 05/15/2024 COVID-19 Vaccine ( - season) 2025 Influenza Vaccine (#1) 2025 , 03/09/2021, 01/30/2020, Additional history exists Diabetes: Blood Sugar Control Test (HGBA1C) 04/13/2025 Hypertension/CHF/CAD Annual BMP Blood Test 04/21/2026 04/21/2025, 04/15/2025, 04/11/2025, Additional history exists Osteoporosis Screening (Bone Density Screening) 09/08/2032 09/08/2022 HIB Vaccines Aged Out No longer eligi ble based on patient's age to complete this topic HPV Vaccines Aged Out No longer eligi ble based on patient's age to complete this topic Hepatitis A Vaccines Aged Out No long er eligible based on patient's age to complete this topic Hepatitis B Vaccines Aged Out No long er eligible based on patient's age to complete this topic IPV Vaccines Aged Out No longer eligi ble based on patient's age to complete this topic MMR Vaccines Aged Out No longer eligi ble based on patient's age to complete this topic Meningococcal ACWY Vaccine Aged Out N o longer eligible based on patient's age to complete this topic Meningococcal B Vaccine Aged Out No l onger eligible based on patient's age to complete this topic RSV Immunization Patients Under 20 months Aged Out No longer eligible based on patient's age to complete this topic Varicella Vaccines Aged Out No longer eligible based on patient's age to complete this topic Procedures Procedure Name Priority Date/Time Associated Diagnosis Comments COMPLETE BLOOD COUNT Routine 04/21/2025 5:11 AM EST Essential (primary) hypertension BASIC METABOLIC PANEL Routine 04/21/2025 5:11 AM EST Essential (primary) hypertension BASIC METABOLIC PANEL Routine 04/15/2025 4:55 AM EST Essential (primary) hypertension COMPLETE BLOOD COUNT Routine 04/14/2025 4:48 AM EST Essential (primary) hypertension COMPLETE BLOOD COUNT Routine 04/11/2025 6:33 AM EST Essential (primary) hypertension BASIC METABOLIC PANEL Routine 04/11/2025 6:33 AM EST Essential (primary) hypertension COMPREHENSIVE METABOLIC PANEL Routine 04/07/2025 5:45 AM EST Essential (primary) hypertension COMPLETE BLOOD COUNT Routine 04/07/2025 5:45 AM EST Essential (primary) hypertension COMPLETE BLOOD COUNT Routine 04/03/2025 5:20 AM EST Essential (primary) hypertension BASIC METABOLIC PANEL Routine 04/03/2025 5:20 AM EST Essential (primary) hypertension COMPREHENSIVE METABOLIC PANEL Routine 04/01/2025 4:48 AM EST Essential (primary) hypertension COMPLETE BLOOD COUNT Routine 04/01/2025 4:48 AM EST Essential (primary) hypertension VICTOR MANUEL DEXA AXIAL SKELETON Routine 09/08/2022 4:05 PM EDT Other specified disorders of bone density and structure, left thigh from Last 3 Months or Most Recently Relevant to Health Maintenance Results * (ABNORMAL) Complete blood count (04/21/2025 5:11 AM EST) Only the most recent of6 resultswithin the time period is included. WBC 11.1(H) 4.8 - 10.8 K/mcL LAB HEMETOLOGY METHOD 04/21/2025 10:15 AM [facility] RBC 3.30(L) 3.80 - 4.80 M/mcL LAB HEMETOLOGY METHOD 04/21/2025 10:15 AM [facility] Hemoglobin 9.8(L) 11.5 - 16.0 g/dL LAB HEMETOLOGY METHOD 04/21/2025 10:15 AM [facility] Hematocrit 32.3(L) 35.0 - 47.0 % LAB HEMETOLOGY METHOD 04/21/2025 10:15 AM [facility] MCV 98.8(H) 79.0 - 98.0 FL LAB HEMETOLOGY METHOD 04/21/2025 10:15 AM [facility] MCH 30.0 27.0 - 32.0 pcg LAB HEMETOLOGY METHOD 04/21/2025 10:15 AM [facility] MCHC 30.3(L) 32.0 - 37.0 g/dL LAB HEMETOLOGY METHOD 04/21/2025 10:15 AM [facility] RDW 17.8(H) 11.0 - 15.0 % LAB HEMETOLOGY METHOD 04/21/2025 10:15 AM [facility] Platelets 198 130 - 400 K/mcL LAB HEMETOLOGY METHOD 04/21/2025 10:15 AM [facility] MPV 10.7 7.0 - 11.0 FL LAB HEMETOLOGY METHOD 04/21/2025 10:15 AM [facility] NRBC 0.0 <1.0 % LAB HEMETOLOGY METHOD 04/21/2025 10:15 AM [facility] NRBC Absolute 0.00 <0.10 K/mcL LAB HEMETOLOGY METHOD 04/21/2025 10:15 AM [facility] Blood Venous blood specimen / Unknown Venipuncture / Unknown 04/21/2025 5:11 AM EST 04/21/2025 9:33 AM EST us Lambert Perez MD LAB BLOOD ORDERABLES Final Resu lt [facility] [address] [place] [address], [place] [phone] * (ABNORMAL) Basic metabolic panel (04/21/2025 5:11 AM EST) Only the most recent of4 resultswithin the time period is included. Sodium 141 133 - 145 mmol/L 04/21/2025 10:52 AM [facility] Potassium 4.5 3.5 - 5.5 mmol/L 04/21/2025 10:52 AM [facility] Chloride 103 96 - 110 mmol/L 04/21/2025 10:52 AM [facility] CO2 26 21 - 32 mmol/L 04/21/2025 10:52 AM [facility] Anion Gap 12(H) 3 - 11 04/21/2025 10:52 AM [facility] Glucose 82 70 - 100 mg/dL 04/21/2025 10:52 AM [facility] BUN 51(H) 5 - 25 mg/dL 04/21/2025 10:52 AM [facility] Creatinine 1.85(H) 0.50 - 1.10 mg/dL 04/21/2025 10:52 AM [facility] eGFR 26(L) >=60 mL/min/1. 73m2 04/21/2025 10:52 AM [facility] Comment:Calculation based on the Chronic Kidney Disease Epidemiology Collaboration (CKD-EPI) equation refit without adjustment for race. BUN/Creatinine Ratio 27.6 04/21/2025 10:52 AM [facility] Calcium 7.8(L) 8.5 - 10.5 mg/dL 04/21/2025 10:52 AM [facility] Blood Venous blood specimen / Unknown Venipuncture / Unknown 04/21/2025 5:11 AM EST 04/21/2025 9:33 AM EST us Lambert Perez MD LAB BLOOD ORDERABLES Final Resu lt [facility] [address] [place] [address], * (ABNORMAL) Comprehensive metabolic panel (04/07/2025 5:45 AM EST) Only the most recent of2 resultswithin the time period is included. Sodium 141 133 - 145 mmol/L 04/07/2025 11:15 AM [facility] Potassium 3.9 3.5 - 5.5 mmol/L 04/07/2025 11:15 AM [facility] Chloride 103 96 - 110 mmol/L 04/07/2025 11:15 AM [facility] CO2 27 21 - 32 mmol/L 04/07/2025 11:15 AM [facility] Anion Gap 11 3 - 11 04/07/2025 11:15 AM [facility] Glucose 86 70 - 100 mg/dL 04/07/2025 11:15 AM [facility] BUN 32(H) 5 - 25 mg/dL 04/07/2025 11:15 AM [facility] Creatinine 1.08 0.50 - 1.10 mg/dL 04/07/2025 11:15 AM [facility] eGFR 50(L) >=60 mL/min/1. 73m2 04/07/2025 11:15 AM [facility] Comment:Calculation based on the Chronic Kidney Disease Epidemiology Collaboration (CKD-EPI) equation refit without adjustment for race. BUN/Creatinine Ratio 29.6 04/07/2025 11:15 AM [facility] Calcium 7.6(L) 8.5 - 10.5 mg/dL 04/07/2025 11:15 AM [facility] AST (SGOT) 15 10 - 42 unit/L 04/07/2025 11:15 AM [facility] ALT (SGPT) 9(L) 10 - 60 unit/L 04/07/2025 11:15 AM [facility] Alkaline Phosphatase 74 42 - 121 unit/L 04/07/2025 11:15 AM [facility] Total Protein 5.0(L) 6.0 - 8.0 g/dL 04/07/2025 11:15 AM [facility] Albumin 3.0(L) 3.2 - 5.0 g/dL 04/07/2025 11:15 AM [facility] Total Bilirubin 0.6 0.0 - 1.4 mg/dL 04/07/2025 11:15 AM [facility] Blood Venous blood specimen / Unknown Venipuncture / Unknown 04/07/2025 5:45 AM EST 04/07/2025 10:11 AM EST us Lambert Perez MD LAB BLOOD ORDERABLES Final Resu lt [facility] [address] [place] [address], * VICTOR MANUEL DEXA AXIAL SKELETON (09/08/2022 4:05 PM EDT) Anatomical Region Laterality Modality Mammography 09/08/2022 1:30 PM EDT Narrative 09/08/2022 4:05 PM EDT [facility] Diagnostic Imaging Department [address] [place] [address] Patient: BELEN FOY Candace /Age/Sex: 1935 - 87 - F Unit#: [id number] Location/Status: SPDIMAM/REG CLI Mnemonic/[facility] Ordering Physician: KOBY VARNER MD Victor Manuel Dexa Axial Skeleton - 09/08/22 - 1402 History: Low estrogen state due to menopause. Parent hip fracture. Ankle and vertebral fractures as an adult. Findings: Bone densitometry is performed utilizing dual energy x-ray absorptiometry (DXA) in the [employer] unit. The lumbar spine and proximal femora are evaluated in the AP projection. The FRAX questionaire was completed. The results indicate low bone mass (osteopenia), with a left femoral neck T- score of -2.1. The Z score is -0.1, indicating bone mineral density within the range of normal for age. The detailed DEXA report will be mailed to the referring physician's office. [employer] FRAX: 10-year Probability of Fracture: Major Osteoporotic 36.0 percent Hip 22.3 percent. IMPRESSION: Osteopenia. [id number] Dictating Physician: JACQUELIN TEJEDA MD Electronically Signed by: JACQUELIN TEJEDA MD Dic Date/Time: 09/08/22 1603 Sign date/Time: 09/08/22 1605 Procedure Note Jacquelin Tejeda MD - 06/16/2023 [facility] Diagnostic Imaging Department [address] [place] [address] Patient: BELEN FOY Candace /Age/Sex: 1935 - 87 - F Unit#: [id number] Location/Status: SPDIMAM/REG CLI Mnemonic/[facility]ing [facility] Ordering Physician: KOBY VARNER MD Victor Manuel Dexa Axial Skeleton - 09/08/22 - 1402 History: Low estrogen state due to menopause. Parent hip fracture. Ankleand vertebral fractures as an adult. Findings: Bone densitometry is performed utilizing dual energy x-ray absorptiometry(DXA) in the [employer] unit. The lumbar spine and proximal femora areevaluated in the AP projection. The FRAX questionaire was completed. The results indicate low bone mass (osteopenia), with a left femoral neckT- score of -2.1. The Z score is -0.1, indicating bone mineral density withinthe range of normal for age. The detailed DEXA report will be mailed to the referring physician's office. [employer] FRAX: 10-year Probability of Fracture: Major Osteoporotic 36.0 percent Hip 22.3 percent. IMPRESSION: Osteopenia. [id number] Dictating Physician: JACQUELIN TEJEDA MD Electronically Signed by: JACQUELIN TEJEDA MD Dic Date/Time: 09/08/22 1603 Sign date/Time: 09/08/22 1605 Koby Varner MD IMG BI PROCEDURES Final Result from Last 3 Months or Most Recently Relevant to Health Maintenance Insurance MEDICARE [facility] Care Teams Alternative Education Teacher Relationship Specialty Start Date End Date Lambert Perez MD [address] [place] [address] PCP - General Internal Medicine 04/01/25
--- OUTSIDE RECORDS SUMMARY | 2025-04-23 06:18 | XMS_ITS | Encounter Summary ---
Author Organization [facility] Address [address] [place] [address] Care Team Providers Care Relay Tester Name Role Phone Lambert Perez MD Primary Care Provider [phone] Encounter Details Date Type Department Care Team (Late st Contact Info) Description 04/18/2025 Lab Requisition [facility] - Main Lab [address] [facility] [place] [address] Lambert Perez MD [address] [place] [address] Essential (primary) hypertension Social History [...] 04/21/2025 5:11 AM EST Essential (primary) hypertension documented in this encounter Results * (ABNORMAL) Complete blood count (04/21/2025 5:11 AM EST) WBC 11.1(H) 4.8 - 10.8 K/[facility] LAB HEMETOLOGY METHOD 04/21/2025 10:15 AM EST [facility] RBC 3.30(L) 3.80 - 4.80 M/[facility] LAB HEMETOLOGY METHOD 04/21/2025 10:15 AM [facility] Hemoglobin 9.8(L) 11.5 - 16.0 g/dL LAB HEMETOLOGY METHOD 04/21/2025 10:15 AM [facility] Hematocrit 32.3(L) 35.0 - 47.0 % LAB HEMETOLOGY METHOD 04/21/2025 10:15 AM [facility] MCV 98.8(H) 79.0 - 98.0 FL LAB HEMETOLOGY METHOD 04/21/2025 10:15 AM [facility] MCH 30.0 27.0 - 32.0 pcg LAB HEMETOLOGY METHOD 04/21/2025 10:15 AM [facility] MCHC 30.3(L) 32.0 - 37.0 g/dL LAB HEMETOLOGY METHOD 04/21/2025 10:15 AM [facility] RDW 17.8(H) 11.0 - 15.0 % LAB HEMETOLOGY METHOD 04/21/2025 10:15 AM [facility] Platelets 198 130 - 400 K/mcL LAB HEMETOLOGY METHOD 04/21/2025 10:15 AM [facility] MPV 10.7 7.0 - 11.0 FL LAB HEMETOLOGY METHOD 04/21/2025 10:15 AM [facility] NRBC 0.0 <1.0 % LAB HEMETOLOGY METHOD 04/21/2025 10:15 AM [facility] NRBC Absolute 0.00 <0.10 K/mcL LAB HEMETOLOGY METHOD 04/21/2025 10:15 AM [facility] Blood Venous blood specimen / Unknown Venipuncture / Unknown 04/21/2025 5:11 AM EST 04/21/2025 9:33 AM EST Lambert Perez MD LAB BLOOD ORDERABLES Final Resu lt [facility] [address] [place] [address], * (ABNORMAL) Basic metabolic panel (04/21/2025 5:11 AM EST) Sodium 141 133 - 145 mmol/L 04/21/2025 10:52 AM [facility] Potassium 4.5 3.5 - 5.5 mmol/L 04/21/2025 10:52 AM [facility] Chloride 103 96 - 110 mmol/L 04/21/2025 10:52 AM [facility] CO2 26 21 - 32 mmol/L 04/21/2025 10:52 AM [facility] Anion Gap 12(H) 3 - 11 04/21/2025 10:52 AM [facility] Glucose 82 70 - 100 mg/dL 04/21/2025 10:52 AM [facility] BUN 51(H) 5 - 25 mg/dL 04/21/2025 10:52 AM [facility] Creatinine 1.85(H) 0.50 - 1.10 mg/dL 04/21/2025 10:52 AM [facility] eGFR 26(L) >=60 mL/min/1. 73m2 04/21/2025 10:52 AM [facility] Comment:Calculation based on the Chronic Kidney Disease Epidemiology Collaboration (CKD-EPI) equation refit without adjustment for race. BUN/Creatinine Ratio 27.6 04/21/2025 10:52 AM [facility] Calcium 7.8(L) 8.5 - 10.5 mg/dL 04/21/2025 10:52 AM [facility] Blood Venous blood specimen / Unknown Venipuncture / Unknown 04/21/2025 5:11 AM EST 04/21/2025 9:33 AM EST Lambert Perez MD LAB BLOOD ORDERABLES Final Resu lt [facility] ([facility] [address] [place] [address], documented in this encounter Visit Diagnoses Diagnosis Essential (primary) hypertension Unspecified essential hypertension documented in this encounter Care Teams Relay Tester Relationship Specialty Start Date End Date Lambert Perez MD [address] [place] [address] PCP - General Internal Medicine 04/01/25 documented as of this encounter
--- NOTE | 2025-04-23 06:32 | ED.GENADULT ---
HPI - General Adult General Chief complaint: General Medical Stated complaint: Hypotension Time Seen by Provider: 04/23/25 05:52 Source: patient, family and EMS Mode of arrival: EMS Limitations: no limitations History of Present Illness ED Provider: HPI narrative: 89-year-old woman with a history of moderate with preserved EF type 2 diabetic, hypotensive, neuropathy, AFib diagnosed approximately 2 weeks ago currently on metoprolol, prior to that has been on losartan, has a history of HERMINIO, presenting with reports of requiring nasal cannula due to hypoxia, low blood pressure at the rehab facility, retaining fluid, family thinks that this started about a day and a half ago, patient states she was ambulating yesterday. No reports of fevers chills trauma no chest pain nausea vomiting diarrhea, she is actually constipated but also staff reported that she moved her bowels recently. Her daughter reports she has had her furosemide doubled and yesterday received Bumex Related Data Home Medications ?Medication ?Instructions ?Recorded ?Confirmed pregabalin 150 mg capsule 150 mg PO DAILY 09/10/20 04/17/25 vit C 250 mg-vit E 90 mg-zinc 40 1 tab PO BID 03/06/21 04/17/25 mg-copper 1 [id number] capsule (PreserVision AREDS-2) furosemide 20 mg tablet 20 mg PO DAILY 10/14/21 04/17/25 atorvastatin 20 mg tablet 20 mg PO DAILY 01/02/25 04/17/25 losartan 100 mg tablet 100 mg PO DAILY 02/06/25 04/17/25 naproxen 500 mg tablet 500 mg PO BID PRN Pain 02/06/25 04/17/25 semaglutide 0.25 mg or 0.5 mg (2 0.5 mg subcut MO 03/26/25 04/17/25 mg/3 mL) subcutaneous pen injector (Ozempic) Previous Rx's ?Medication ?Instructions ?Recorded blood sugar diagnostic (FreeStyle #100 ea 01/02/25 Lite Strips) blood-glucose meter (FreeStyle #1 ea 01/02/25 Lite Meter kit) metformin 500 mg tablet 500 mg PO DAILY #90 tabs 02/06/25 amiodarone 200 mg tablet 200 mg PO BID #60 tabs 03/31/25 aspirin 325 mg tablet 325 mg PO BID #30 tabs 03/31/25 lorazepam 0.5 mg tablet 0.5 mg PO BEDTIME PRN Anxiety #30 03/31/25 tabs metoprolol tartrate 25 mg tablet 25 mg PO BID #60 tabs 03/31/25 oxycodone 5 mg tablet 2.5 mg (1/2 x 5 mg) PO Q6H PRN 03/31/25 Pain, Moderate(Pain Scale 4-6) #30 tabs Allergies Allergy/AdvReac Type Severity Reaction Status Date / Time Penicillins AdvReac Unknown Rash Verified 04/23/25 06:02 Review of Systems Constitutional: Constitutional: Reports as per [facility] Past Medical History Medical History (Updated 04/23/25 @ 07:33 by Juan Jose Mcgovern DO) Preoperative cardiovascular examination Cataract Chronic pain Class 1 obesity with body mass index (BMI) of 33.0 to 33.9 in adult Macular degeneration Neuropathy Anxiety Vitamin D deficiency Hypertriglyceridemia Type 2 diabetes mellitus with hemoglobin A1c goal of less than 7.0% Dysuria History of mammogram (~2023) Essential hypertension Bifascicular block Atrial arrhythmia Non-rheumatic aortic stenosis Surgical History History of squamous cell carcinoma excision H/O kyphoplasty History of colonoscopy History of tonsillectomy History of benign breast biopsy Family History Family History Father CVD (cardiovascular disease) Mother CVD (cardiovascular disease) Brother CVD (cardiovascular disease) Social History Social History Household Members: Family Housing: House Do you presently have visiting nurse or other home services: No Alcohol intake: current Alcohol intake frequency: does not drink Alcohol type: wine and hard liquor Patient Tobacco Use Status: Former Tobacco user Tobacco use type: Cigarette Advance Directives: No Advance Directives Information Provided: Yes service: No Current occupational status: retired Cognitive needs: Yes (walker) Hearing needs: No Vision needs: Yes (rx glasses/macular degeneration) Physical Exam ED Exam Exam: ?General: ??looks age appropriate ?PERRLA, EOMI, MMM, Neck: Supple, no LAD ?CV: Currently in sinus, I do not appreciate murmurs ?Resp: ?Bibasilar rales Abd: ?Bowel sounds are present, no tenderness no rebound no rigidity MSK: 3+ pitting edema bilateral lower extremity distal pulses +1 Argueta catheter is in place Skin: Warm, dry, intact, no erythema ?Neuro: ?Alert and oriented x3, moving upper and lower extremities symmetrically, no obvious facial asymmetry noted, cranial nerves 2-12 intact Vital Signs: Vital Signs - 24 hr 04/23/25 05:50 04/23/25 06:14 04/23/25 07:44 Temperature 98.8 F Pulse Rate 61 55 59 Respiratory Rate 20 20 16 Blood Pressure 98/52 L 91/54 L 86/36 L Pulse Oximetry 99 98 97 Oxygen Delivery Method Nasal Cannula Nasal Cannula Nasal Cannula Oxygen Flow Rate 3 3 04/23/25 07:53 04/23/25 08:24 04/23/25 09:14 Temperature Pulse Rate 59 60 59 Respiratory Rate 16 16 16 Blood Pressure 95/42 L 108/46 L 93/47 L Pulse Oximetry 97 96 98 Oxygen Delivery Method Nasal Cannula Nasal Cannula Nasal Cannula Oxygen Flow Rate 3 3 3 BMI result Body Mass Index 38.5 Medications Administered Generic Name Dose Route Start Last Admin Trade Name Freq PRN Reason Stop Dose Admin Albumin Human 50 mls @ 100 mls/hr 04/23/25 07:45 04/23/25 09:14 Kedbumin 25 % IV 04/23/25 09:44 100 mls/hr Q30M RAZA Administration Sodium Chloride 500 mls @ 250 mls/hr 04/23/25 07:45 04/23/25 08:17 Ns IV 04/23/25 09:44 250 mls/hr .Q2H RAZA Administration Furosemide 200 mg/ Sodium 100 mls @ 1 mls/hr 04/23/25 08:00 04/23/25 09:09 Chloride IVCONT Not Given .Q24H RAZA 2 MG/HR Discontinued Medications Generic Name Dose Route Start Last Admin Trade Name Freq PRN Reason Stop Dose Admin Ceftriaxone Sodium 1 gm/ 50 mls @ 100 mls/hr 04/23/25 08:30 04/23/25 09:14 Sodium Chloride IV 04/23/25 08:59 100 mls/hr ONCE ONE Administration Medical Decision Making Medical Decision Making MDM Narrative: 6:35 AM 04/23/2025 (Dr. Juan Jose Mcgovern): Presenting with degree hypotension, on exam as crackles, currently requiring 2-3 L nasal cannula, and not in respiratory distress, I reviewed her prior vital signs and she has had episodes of low blood pressure, recent diagnosis of AFib she is on metoprolol that she has actually had some issues in the past patient reported, and per prior discharge note currently on amiodarone 200 mg for about a month, she is not on blood thinners, she does have bilateral lower extremity edema 3+, she has some crackles, I am considering whether she needs both diuresis and fluids suspect and she may have HERMINIO, after initial assessment plantar come back with a bedside ultrasound to [facility] that care. Anticipating admission 7:25 AM 04/23/2025 (Dr. Juan Jose Mcgovern): Bedside ultrasound with plump IVC, there was no apical B-lines, preserved cardiac function mean arterial pressure of 66 would hold off any fluids for now or diuresis, if I do do diuresis would start with IV fluids 7:26 AM 04/23/2025 (Dr. Juan Jose Mcgovern): Patient does have HERMINIO, pro BNP elevated but she has had much higher in the past, we will give gentle fluids, albumin, and Lasix drip her chest x-ray on my evaluation reveals increased vascular congestion, radiologist gives differential of multifocal pneumonia, she is afebrile no leukocytosis, but given these findings and hypotension we will also obtain blood cultures and lactic acid Patient meets exclusion criteria for 30 cc/kilos IV fluids given CHF, elevated BNP, and exam findings consistent with fluid overload 8:33 AM 04/23/2025 (Dr. Juan Jose Mcgovern): Patient re-evaluated, blood pressure is improving, discussed with the patient her workup, not in respiratory distress no fevers but as discussed she is meeting septic criteria we will provide g of ceftriaxone 9:18 AM 04/23/2025 (Dr. Juan Jose Mcgovern): I ran the case by Epifanio Feliciano who jeri be involved in her care , and he thought that 10mg of po Midodrine is reasonable Differential Diagnosis Differential Diagnoses: The differential diagnosis associated with the presentation includes (CHF, DVT, pneumonia, dehydration, postsurgical complication) Admission/Observation Consideration of admission/observation: Escalation of care including admission/observation considered Consult Healthcare Provider Management of the patient was discussed with: Hospitalist Lab Data [facility] Lab Attestation statement: I reviewed the patient's lab results. 04/23/25 06:34 04/23/25 06:34 Labs: Lab Results 04/23/25 Range/Units 06:34 WBC 8.4 (4.8-10.8) X10*3/uL RBC 3.19 L (4.20-5.50) X10*6/uL Hgb 9.7 L (12.0-16.0) g/dl Hct 30.3 L (37.0-47.0) % MCV 95.0 (80.0-98.0) fL MCH 30.4 (27.0-33.0) pg MCHC 32.0 (31.0-35.0) g/dl RDW 17.5 H (11.0-16.0) % Plt Count 159 L (160-400) X10*3/uL MPV 10.3 (9.4-12.3) fL Immature Gran % (Auto) 0.4 (0.0-0.4) % Neut % (Auto) 66.3 (45-73) % Lymph % (Auto) 18.7 L (20-40) % [place] % (Auto) 13.7 H (2-11) % Eos % (Auto) 0.4 (0-4) % Baso % (Auto) 0.5 (0-2) % Lymph # (Auto) 1.6 (1.2-4.9) X10*3/uL [place] # (Auto) 1.2 (0.1-1.2) X10*3/uL Eos # (Auto) 0.0 (0.0-0.4) X10*3/uL Baso # (Auto) 0.0 (0.0-0.2) X10*3/uL Abs Immat Gran (auto) 0.03 (0.00-0.03) X10*3/uL Absolute Neuts (auto) 5.6 (2.0-8.3) x10*3/uL Absolute Nucleated RBC 0.000 (0.0-0.012) X10*3/uL Nucleated RBC % (auto) 0.0 (0.0-0.2) /100WBC Sodium 137 (135-145) mmol/L Potassium 4.5 (3.3-5.1) mmol/L Chloride 104 (96-108) mmol/L Carbon Dioxide 21 L (22-29) mmol/L Anion Gap 17 (12-20) BUN 66 H (9-16) mg/dL Creatinine 2.13 H (0.5-1.4) mg/dL Estim Creat Clear Calc 19.7 Estimated GFR 22 Random Glucose 113 (60-115) mg/dL Calcium 8.1 L (8.4-10.2) mg/dL Total Bilirubin 0.6 (0.0-1.0) mg/dL AST 18 (5-31) U/L ALT < 6 (0-31) U/L Alkaline Phosphatase 123 H (39-117) U/L Troponin I High Sens 7.9 D (<3.5-17.0) ng/L NT-Pro-B Natriuret Pep 2256.3 H (<300) pg/mL Total Protein 5.5 L (6.5-8.0) g/dL Albumin 3.0 L (3.5-5.0) g/dL Influenza Type A (PCR) NEGATIVE (Negative) Influenza Type B (PCR) NEGATIVE (Negative) RSV RNA Qual (PCR) NEGATIVE (Negative) SARS-CoV-2 RNA (RT-PCR) NEGATIVE (Negative) Independent Interpretation I performed an independent interpretation of an: EKG (60 beats per minute otherwise normal ECG without dysrhythmia, AV sharonda blocks or ST-T changes to suspect underlying ACS, my independent interpretation) and Plain X-Ray (Increased vascular markings, noted Radiology impression, clinically appears to be in CHF not infectious etiology) Radiology Impression Discussion of test interpretation with radiology: I have reviewed the radiologist's reading. (Chronic interstitial lung disease with superimposed mild interstitial lung edema versus multifocal pneumonia. Hiatal hernia, moderate to large volume. Calcific tendinosis/tendinopathy, left supraspinatus. Status post kyphoplasty/vertebroplasty, T12/L1 vertebra) Critical Care Time Critical Care Time Critical Care Time: Yes Total Critical Care Time: 45 Attestation: Time is exclusive of separately billable procedures. Time includes: direct patient care, patient reassessment, coordination of patient care, interpretation of data (laboratory data, pulse oximetry, arterial blood gases and chest xrays), review of patient's medical records, medical consultation and documentation of patient care. Procedures excluded from critical care time: central intravenous line placement and electrocardiography. Discharge Plan Discharge Clinical Impression: HERMINIO (acute kidney injury), CHF (congestive heart failure), Leg edema Prescriptions: No Action PreserVision AREDS-2 250-90-40-1 mg Capsule 1 tab PO BID Ozempic 0.25 mg or 0.5 mg (2 mg/3 mL) pen injector 0.5 mg subcut MO Rx Instructions: for 4 weeks aspirin 325 mg Tablet 325 mg PO BID Qty: 30 0RF amiodarone 200 mg Tablet 200 mg PO BID Qty: 60 0RF lorazepam 0.5 mg Tablet 0.5 mg PO BEDTIME PRN (Reason: Anxiety) Qty: 30 0RF oxycodone 5 mg Tablet 2.5 mg PO Q6H PRN (Reason: Pain, Moderate(Pain Scale 4-6)) Qty: 30 0RF Rx Instructions: Partial Fill upon patient request. metoprolol tartrate 25 mg Tablet 25 mg PO BID Qty: 60 0RF Protocol: Hold for SBP/HR < HOLD for SBP < : 95 HOLD for HR < : 60 pregabalin 150 mg capsule 150 mg PO DAILY furosemide 20 mg tablet 20 mg PO DAILY atorvastatin 20 mg tablet 20 mg PO DAILY (DME) FreeStyle Lite Strips Strip See Rx Instructions .Route Qty: 100 0RF Rx Instructions: Check glucose 3 times a day before meals (DME) blood-glucose meter [FreeStyle Lite Meter] Kit See Rx Instructions .ROUTE .MEDSUPPLY Qty: 1 0RF Rx Instructions: Check glucose 3 times a day before meals losartan 100 mg tablet 100 mg PO DAILY naproxen 500 mg tablet 500 mg PO BID PRN (Reason: Pain) metformin 500 mg tablet 500 mg PO DAILY Qty: 90 3RF Print Language: Spanish
[2025-04-23 06:50] LABS: MANUAL DIFF FLAG NO
[2025-04-23 06:51] LABS: Hematocrit 30.3 % (37.0-47.0); Hemoglobin 9.7 g/dl (12.0-16.0); Imm Gran Abs Auto 0.03 X10*3/uL (0.00-0.03); Imm Gran Pct Auto 0.4 % (0.0-0.4); Lymphocytes Absolute Auto 1.6 X10*3/uL (1.2-4.9); Mean Corpuscular HGB Conc 32.0 g/dl (31.0-35.0); Mean Corpuscular Hemoglobin 30.4 pg (27.0-33.0); Mean Corpuscular Volume 95.0 fL (80.0-98.0); NRBC Abs Auto 0.000 X10*3/uL (0.0-0.012); NRBC Pct Auto 0.0 /100WBC (0.0-0.2); Platelet Count 159 X10*3/uL (160-400); Red Blood Count 3.19 X10*6/uL (4.20-5.50); White Blood Count 8.4 X10*3/uL (4.8-10.8)
[2025-04-23 07:13] LABS: Alanine Aminotransferase < 6 U/L (0-31); Albumin Level 3.0 g/dL (3.5-5.0); Alkaline Phosphatase 123 U/L (39-117); Anion Gap 17 (12-20); Aspartate Amino Transferase 18 U/L (5-31); Blood Urea Nitrogen 66 mg/dL (9-16); Calcium 8.1 mg/dL (8.4-10.2); Carbon Dioxide 21 mmol/L (22-29); Chloride 104 mmol/L (96-108); Creatinine Clr Calc Pharmacy 19.7; Estimated Glomerular Filt Rate 22; Potassium 4.5 mmol/L (3.3-5.1); Sodium 137 mmol/L (135-145); Total Protein 5.5 g/dL (6.5-8.0)
[2025-04-23 07:15] LABS: NT Pro B Type Natriuretic Pept 2256.3 pg/mL (<300); Troponin-I High Sensitivity 7.9 ng/L (<3.5-17.0)
[2025-04-23 07:25] LABS: Resp Syncy Virus RNA Qual PCR NEGATIVE (Negative); SARS COV2 PCR INHOUSE NEGATIVE (Negative)
[2025-04-23] MEDS: Albumin Human 25 % 50 ML 100 ML IV ×4 (07:56→09:14)
--- NOTE | 2025-04-23 08:18 | PC.NURSE ---
Lasix drip held at this time d/t pt BP 80s/40s- MD Mcgovern aware. Medications infusing per JUL. BPs cycling q10 min to monitor, nsr on site monitor HR 50s-60s. Call cervantes within reach, all needs met at this time.
--- NOTE | 2025-04-23 10:58 | PM.IMHP ---
History of Present Illness Date of Service: 04/23/25 Chief Complaint: Hypotension/bilateral leg edema 89-year-old female recently discharged from [facility] on 03/31/2025 after undergoing open reduction internal fixation of left femur fracture, postoperatively patient had a run of AFib with rapid ventricular response which responded to beta-blockers. Patient was placed on amiodarone 200 mg b.i.d. for 1 month and was discharged to rehab facility. As per patient she started noticing bilateral leg swelling and weight gain >7 lbs in last 48 hours. In rehab her dose of Lasix was doubled and yesterday she received additional dose of Bumex.Last night patient was noted to be hypoxic and was placed on oxygen by nasal cannula this morning patient was not feeling well with mild shortness of breath,denies chest pain, no palpitations, no dizziness, no lightheadedness, no urinary symptoms, denies cough, no fevers, no chills, a Argueta catheter was placed at rehab, her blood pressure was 89/54, her oxygenation dropped to 87% on 2 L therefore she was transferred to [place] ED. In emergency room patient was noted to have a low blood pressure 86/36, she was afebrile, finger oximetry 98% on 6 L. EKG showed NSR, chest x-ray showed chronic interstitial lung disease with superimposed mild interstitial lung edema versus multifocal pneumonia. Labs showed creatinine of 2.13 with last creatinine 0.71 on 03/31/25, H&H stable. In ED patient treated with albumin, 250 mL IV fluids, IV ceftriaxone and 1 dose of midodrine blood pressure 93/47. Review of Systems Review of Systems: General no headache no dizziness no fever chills. CVS no chest pain, no palpitation. Respiratory no cough, no sputum production Gastrointestinal no nausea no vomiting, no abdominal pain no urgency, no frequency All other system reviewed and are negative [facility] Medical History Preoperative cardiovascular examination Cataract Chronic pain Class 1 obesity with body mass index (BMI) of 33.0 to 33.9 in adult Macular degeneration Neuropathy Anxiety Vitamin D deficiency Hypertriglyceridemia Type 2 diabetes mellitus with hemoglobin A1c goal of less than 7.0% Dysuria History of mammogram (~2023) Essential hypertension Bifascicular block Atrial arrhythmia Non-rheumatic aortic stenosis Family History Father CVD (cardiovascular disease) Mother CVD (cardiovascular disease) Brother CVD (cardiovascular disease) Surgical History History of squamous cell carcinoma excision H/O kyphoplasty History of colonoscopy History of tonsillectomy History of benign breast biopsy Social History Household Members: Family Housing: House Do you presently have visiting nurse or other home services: No Alcohol intake: current Alcohol intake frequency: does not drink Alcohol type: wine and hard liquor Patient Tobacco Use Status: Former Tobacco user Tobacco use type: Cigarette Advance Directives: No Advance Directives Information Provided: Yes service: No Current occupational status: retired Cognitive needs: Yes (walker) Hearing needs: No Vision needs: Yes (rx glasses/macular degeneration) Meds Allergies Allergy/AdvReac Type Severity Reaction Status Date / Time Penicillins AdvReac Unknown Rash Verified 04/23/25 06:02 Active Medications: Current Medications Acetaminophen (Acetaminophen 325 Mg Tablet) 650 mg PO Q6H PRN PRN Reason: Pain, Mild 1-3,fever,headache Calcium Carbonate (Calcium Carbonate 750 Mg Tab.Chew) 750 mg PO Q4H PRN PRN Reason: Heartburn Dextrose (Dextrose 50 % 25 Gm/50 Ml Syringe) 25 gm IVPUSH Q15M PRN; Protocol PRN Reason: per Hypoglycemia Standing Ord. Docusate Sodium (Docusate Sodium 100 Mg Capsule) 100 mg PO BID RAZA Glucose (Glucose Gel 15 Gm Gel..Gram.) 15 gm PO Q15M PRN; Protocol PRN Reason: per Hypoglycemia Standing Ord. Furosemide 200 mg/ Sodium (Chloride) 100 mls @ 1 mls/hr IVCONT .Q24H RAZA Last Admin: 04/23/25 09:09 Dose: Not Given Insulin Human Lispro (Insulin Lispro 100 Unit/Ml 3 Ml Vial) 0 unit SUBCUT QIDACHS [facility]; Protocol Magnesium Hydroxide (Milk Of Magnesia 30 Ml Oral.Susp) 30 ml PO DAILY PRN PRN Reason: Constipation Melatonin (Melatonin 3 Mg Tablet) 6 mg PO BEDTIME PRN PRN Reason: Insomnia Ondansetron HCl (Ondansetron Hcl 4 Mg/2 Ml Vial) 4 mg IVPUSH Q8H PRN PRN Reason: Nausea and Vomiting Sodium Chloride (0.9 % Sodium Chloride Flush 3 Ml Syringe) [facility] Medications ?Medication ?Instructions ?Recorded ?Confirmed ?Last Taken ?Type pregabalin 150 mg capsule 150 mg PO DAILY 09/10/20 04/23/25 03/26/25 History vit C 250 mg-vit E 90 mg-zinc 40 1 tab PO BID 03/06/21 04/23/25 03/26/25 History mg-copper 1 [id number]-[id number]-qkiokq capsule (PreserVision AREDS-2) atorvastatin 20 mg tablet 20 mg PO DAILY 01/02/25 04/23/25 03/26/25 History losartan 100 mg tablet 100 mg PO DAILY 02/06/25 04/23/25 03/26/25 History semaglutide 0.25 mg or 0.5 mg (2 0.5 mg subcut MO 03/26/25 04/23/25 03/24/25 History mg/3 mL) subcutaneous pen injector (Ozempic) acetaminophen 500 mg tablet 1,000 mg PO TID 04/23/25 04/23/25 Unknown History amiodarone 200 mg tablet 200 mg PO BID 04/23/25 04/23/25 Unknown History bisacodyl 10 mg rectal suppository 10 mg NM DAILY PRN Constipation 04/23/25 04/23/25 Unknown History bumetanide 1 mg tablet 1 mg PO BID 04/23/25 04/23/25 Unknown History docusate sodium 100 mg capsule 100 mg PO BID 04/23/25 04/23/25 Unknown History (Colace) fexofenadine 180 mg tablet 180 mg PO DAILY 04/23/25 04/23/25 Unknown History magnesium hydroxide 400 mg/5 mL 30 ml PO DAILY PRN Constipation 04/23/25 04/23/25 Unknown History oral suspension (Milk of Magnesia) naproxen 500 mg tablet 500 mg PO BIDWM PRN Pain 04/23/25 04/23/25 Unknown History omeprazole 20 mg capsule,delayed 20 mg PO DAILY@0630 04/23/25 04/23/25 Unknown History release oxycodone 5 mg tablet 5 mg PO Q4H PRN Pain, 04/23/25 04/23/25 Unknown History Moderate(Pain Scale 4-6) phenazopyridine 95 mg tablet 190 mg PO DAILY 04/23/25 04/23/25 Unknown History polyethylene glycol 3350 17 17 g PO DAILY PRN Constipation 04/23/25 04/23/25 Unknown History gram/dose oral powder (Miralax) simethicone 125 mg capsule 125 mg PO QID PRN gas 04/23/25 04/23/25 Unknown History Physical Exam Vital Signs and Narrative: Vital Signs: Last Vital Signs Temp 98.8 F 04/23/25 05:50 Pulse 59 04/23/25 09:14 Resp 16 04/23/25 09:14 BP 109/53 L 04/23/25 10:39 Pulse Ox 98 04/23/25 09:14 O2 Del Method Nasal Cannula 04/23/25 09:14 O2 Flow Rate 3 04/23/25 09:14 Oxygen Flow Rate 6 04/23/25 05:50 BMI result Body Mass Index 38.5 Const: Other: Gen: in no acute distress HEENT: sclera anicteric, moist mucus membranes Neck: supple, no JVD Lungs: Bilateral basilar dry crackles Heart: regular rate and rhythm, systolic murmur at base 2/6 Abd: soft, non-tender, non-distended, bowel sounds audible Ext: Bilateral pitting edema right greater than left Skin: warm/well-perfused Neuro: alert and oriented x3, no focal findings Psych: appropriate affect Results Labs 04/23/25 06:34 04/23/25 06:34 Labs: Laboratory Results - last 24 hr 04/23/25 04/23/25 06:34 09:09 MCV 95.0 MCH 30.4 MCHC 32.0 RDW 17.5 H Plt Count 159 L MPV 10.3 Immature Gran % (Auto) 0.4 Neut % (Auto) 66.3 Lymph % (Auto) 18.7 L [place] % (Auto) 13.7 H Eos % (Auto) 0.4 Baso % (Auto) 0.5 Lymph # (Auto) 1.6 [place] # (Auto) 1.2 Eos # (Auto) 0.0 Baso # (Auto) 0.0 Abs Immat Gran (auto) 0.03 Absolute Neuts (auto) 5.6 Absolute Nucleated RBC 0.000 Nucleated RBC % (auto) 0.0 Anion Gap 17 Estim Creat Clear Calc 19.7 Estimated GFR 22 Random Glucose 113 Lactic Acid 1.1 Calcium 8.1 L Total Bilirubin 0.6 AST 18 ALT < 6 Alkaline Phosphatase 123 H Troponin I High Sens 7.9 D NT-Pro-B Natriuret Pep 2256.3 H Total Protein 5.5 L Albumin 3.0 L Influenza Type A (PCR) NEGATIVE Influenza Type B (PCR) NEGATIVE RSV RNA Qual (PCR) NEGATIVE SARS-CoV-2 RNA (RT-PCR) NEGATIVE Imaging Radiologist's Impressions: Impressions Chest X-Ray 04/23/25 06:50 IMPRESSION: Chronic interstitial lung disease with superimposed mild interstitial lung edema versus multifocal pneumonia. Hiatal hernia, moderate to large volume. Calcific tendinosis/tendinopathy, left supraspinatus. Status post kyphoplasty/vertebroplasty, T12/L1 vertebra. Electronically signed by: Truong Wyatt MD 04/23/2025 07:04 AM [facility] Assessment and Plan (1) HERMINIO (acute kidney injury): Status: Acute (2) Leg edema: Status: Acute (3) Acute hypoxic respiratory failure: Status: Acute Plan 89-year-old female patient with mild-moderate /preserved EF, DM2, HTN, neuropathy recently discharged to rehab facility after undergoing surgery for left femur fracture presented to [place] ED due to bilateral lower extremity edema, weight gain of 2-3 days' duration with mild shortness of breath and hypoxia overnight, this a.m. noted to have hypotension therefore transferred to [place] ED for further workup. In ED patient noted to be hypoxic, hypotensive labs showed HERMINIO , chest x-ray concerning for pneumonia versus pulmonary edema will be admitted to hospital for continued management of hypotension, HERMINIO and hypoxia. Acute hypoxic respiratory failure/bilateral leg edema- multifactorial likely due to underlying interstitial lung disease question worsened by use of amiodarone, patient is afebrile with no URI symptoms less likely pneumonia, influenza, RSV and SARS negative, question due to CHF, pro BNP 2256 with last BNP 7883, less likely worsening , monitor for recurrent atrial fibrillation. Will obtain repeat echocardiogram since echo from January 22 showed EF of 60-65% with [id number] , repeat echo 03/29 showed significant drop in EF to 30 35% with wall motion abnormality which may suggest stress-induced cardiomyopathy. Will obtain high-resolution CT to look for underlying interstitial lung disease question exacerbated by amiodarone. Consult cardiology for medication management. Leg edema likely exacerbated by HERMINIO/hypoalbuminemia will follow labs encourage high-protein diet. Status post left proximal femur ORIF continue oxycodone/Tylenol for pain avoid NSAIDs, add stool softeners for chronic constipation Hypotension- likely due to over diurese, will hold metoprolol, losartan, Lasix and Bumex HERMINIO- multifactorial likely due to hypotension, in combination with NSAIDs, diuretics and losartan, gentle IV fluids, hold NSAIDs, losartan and diuretics monitor HERMINIO if no improvement nephrology consult History of short run of atrial fibrillation in March postoperatively will hold amiodarone and metoprolol, continue tele monitor. Mild-moderate aortic stenosis - will obtain echocardiogram. DM2- hold Ozempic, diabetic diet and correction-dose lispro HLD continue Lipitor Morbid obesity recommend low-calorie diet VTE ppx: On aspirin b.i.d. started on 03/28 2025 . Full code Patient will require 2 midnight admission for treatment of acute kidney injury, hypoxia, hypotension requiring frequent blood pressure monitoring and medication adjustment which can not be done outside acute facility. Quality Stroke Does the patient have a stroke diagnosis?: No VTE Prior VTE?: No VTE Risk Level:: Medical - moderate - high VTE Device Contraindication: Treatment Not Indicated VTE Drug Contraindication: N/A - Med Ordered
--- NOTE | 2025-04-23 11:06 | PHA.MEDREC ---
Pharmacy Consult ? Medication Reconciliation Pharmacy has completed the medication reconciliation. Utilized list from facility.
[2025-04-23 12:45] LABS: Glucose, Whole Blood 101 mg/dL (60-115)
[2025-04-23] MEDS: oxyCODONE HCl Immed Release 5 MG TABLET PO ×2 (13:00→20:54)
[2025-04-23] MEDS: 0.9 % Sodium Chloride Flush 3 ML SYRINGE IVFLUSH ×2 (16:16→20:56)
[2025-04-23 16:19] LABS: Glucose, Whole Blood 108 mg/dL (60-115)
[2025-04-23 17:37] LABS: Appearance Urine Clear; Glucose Urine UA Negative (Negative); PH 5.5 (5.0-9.0); Specific Gravity - Urine 1.015 (1.005-1.025); UMIC TRIGGER UACC YES
--- NOTE | 2025-04-23 19:30 | PC.NURSE ---
Assumed care of pt at 1900. Pt a&ox3, resting comfortably on stretcher. Pt denies pain. Respiration even and unlabored. VSS. Pt family at bedside. Call cervantes within reach. Plan of care on going.
[2025-04-23 20:54] LABS: Glucose, Whole Blood 125 mg/dL (60-115)
[2025-04-24] VITALS (7 sets, daily range): BP systolic 99–126; BP diastolic 50–58; PULSE 64–80; RESP 16–18; TEMP 36.1–37.5; O2SAT 91–96
[2025-04-24 07:23] LABS: Anion Gap 14 (12-20); Blood Urea Nitrogen 59 mg/dL (9-16); Calcium 8.2 mg/dL (8.4-10.2); Carbon Dioxide 22 mmol/L (22-29); Chloride 109 mmol/L (96-108); Creatinine Clr Calc Pharmacy 29.2; Estimated Glomerular Filt Rate 35; Potassium 3.7 mmol/L (3.3-5.1); Sodium 141 mmol/L (135-145)
[2025-04-24 07:48] LABS: Glucose, Whole Blood 99 mg/dL (60-115)
--- NOTE | 2025-04-24 08:39 | MHC.CM.PN ---
IMM was addressed with Patient and her Daughter/HCP/Geri. Patient is a private pay bedhold at [facility] and returning there to complete STR is the goal. CM has initiated and will follow for dc planning. PCP was Dr. Kwok, neither Patient nor Daughter can recall the name of the new PCP in [place]. Patient will require BLS transport at dc.
[2025-04-24 08:52] LABS: Iron 23 mcg/dL (30-160); Percent Iron Saturation 14 % (15-50); Total Iron Binding Capacity 165 mcg/dL (228-428); Unsaturated Iron Binding 142 ug/dL
[2025-04-24 09:06] LABS: Ferritin 296 ng/mL (10-250); Procalcitonin 0.21 ng/mL
[2025-04-24] MEDS: 0.9 % Sodium Chloride Flush 3 ML SYRINGE IVFLUSH ×3 (09:16→21:00)
--- NOTE | 2025-04-24 10:16 | ECG_ITS ---
Test Reason : rhythm check Blood Pressure : */* mmHG Vent. Rate : 104 BPM Atrial Rate : * BPM P-R Int : * ms QRS Dur : 148 ms QT Int : 380 ms P-R-T Axes : * -80 27 degrees QTcB Int : 499 ms Atrial fibrillation with rapid ventricular response Left axis deviation Right bundle branch block Abnormal ECG When compared with ECG of 23-Apr-2025 06:28, Atrial fibrillation has replaced Sinus rhythm Vent. rate has increased by 44 bpm T wave inversion less evident in Anterior leads Referred By: Andrae Godfrey Electronically Signed By: ANDRAE GODFREY MD
--- NOTE | 2025-04-24 11:08 | HO.WOUND ---
Wound Consult: Initial 89 yr old female admitted to [facility] on 04/23/25- See progress notes and H&P for detailed history. Wound consult placed for left leg. Patient agreeable to assessment and photo documentation. 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 Son at bedside also. They report recent swelling to legs with weeping. The swelling is improved and weeping has stopped. Left anterior lower leg Etiology: thin scab Wound Bed: dry thin scab with surrounding pink dry flaky skin Drainage / Odor: none Edges: ? irregular Katherine wound: ? No Induration, Fluctuance or Warmth noted - dry flaky skin to leg Pain: none Goals of Treatment: ? recommend ammonium lactate lotion - follow up with dermatology outpatient Recommendations: 1. Turn and Reposition every 2 hours and as needed for patient comfort. Use pillows or wedges to support off loading positions. 2. Off Load all bony prominences with use of pillows and heel boots if needed. Apply Preventative foams where needed. 3. Monitor for incontinence and moisture control, use barrier creams when needed for prevention and treatment. 4. Provide adequate and supplemental nutrition. 5. Order or Continue low air loss mattress. 6. When applicable maintain blood glucose levels per Providers order. Bilateral legs: apply ammonium lactate lotion daily per provider order Re-consult wound care Nurse for wound deterioration or wound changes.
[2025-04-24 11:21] LABS: Glucose, Whole Blood 149 mg/dL (60-115)
--- NOTE | 2025-04-24 12:00 | CA_ITS ---
Transthoracic Echocardiogram Patient (Last, First, Middle): Belen Stone, Gender: F Date of : 1935 Age: 89 Procedure Date: 04/24/2025 Procedure Type: Transthoracic Echocardiogram Location: [facility] [place] Height: 157.48 cm Weight: 95.26 kg BSA: 1.95 m2 Heart Rate: 77 bpm BP: 114 / 48 mmHg Water Treatment Technician: CORNELL Villaseñor MD: Estella Sy MD Crystal Report Developer: Andrae Godfrey MD Symptoms: worsening edema/low bp Study Quality: Adequate. Limited per order ECG Rhythm: Sinus Conclusions: - 1. Normal LV ejection fraction of 60 65% with elevated filling pressures 2. Significantly elevated right atrial pressures with possible mild pulmonary hypertension Findings Left Ventricle Normal left ventricular size and systolic function. There is mildly increased left ventricular wall thickness. The visually estimated ejection fraction is between 60-65%. Spectral Doppler is indicative of an impaired relaxation filling pattern. Elevated filling pressures. E/E prime ratio is >15, consistent with elevated filling pressures. Tricuspid Valve There is mild tricuspid valve regurgitation. Significantly elevated right atrial pressure. Mild pulmonary hypertension is present. Pericardium/Pleural There is no evidence of pericardial effusion. Prior Study Comparison Significant changes compared to prior study dated: 03/29/2025. LV function has normalized. Right atrial pressures are significantly elevated Measurements 2D Linear Measurements IVSd: 1.17 0.6-0.9/0.6-1.0 cm LVIDd: 4.50 3.9-5.3/4.2-5.9 cm LVIDd Index: 2.31 2.4-3.2/2.2-3.1 cm/m2 LVIDs: 2.10 2.0-3.6 cm LVPWd: 1.14 0.7-1.1 cm LV Mass: 233.68 67-162/88-224 g LV Mass Index: 119.84 43-95/49-115 g/m2 LVOT Diam: 2.20 3.0+(-)1.3 cm 2D Systolic Function EF 4C: 62.70 >55% EF 2C: 59.50 >55% EF BiP: 61.70 >55% Mitral Valve MV Pk E: 1.29 MV PK A: 1.54 MV Decel Time: 212.00 E/A: 0.80 E'Lateral: 6.74 E'Medial: 6.53 E/E' Med: 19.80 E/E' Lat: 19.10 PHT: 62.00 MVA PHT: 3.55 Decel Emmons: 6.10 LVOT LVOT Pk Mckay: 1.01 LVOT Mn Mckay: 0.74 LVOT VTI: 0.24 LVOT Pk Grad: 4.00 LVOT Mn Grad: 2.00 LVOT Diam: 2.20 LVOT Area: 3.80 Diastolic Function MV Pk E: 1.29 MV Pk A: 1.54 E/A: 0.80 E'Medial: 6.53 E/E' Med: 19.80 E' Laterial: 6.74 E/E' Lat: 19.10 Tricuspid Valve TR Pk Mckay: 2.57 TR Pk Grad: 26.00 RA Press: 15.00 RVSP: 41.00 Updated in Other Vendor System with Status of Final Andrae Godfrey MD electronically signed on 04/24/2025 1:02:34 PM with status of Final
--- NOTE | 2025-04-24 12:47 | PM.CNCAR ---
History of Present Illness History of Present Illness Date of Service: 04/24/25 Requesting physician: Estella Sy Consult reason: other (Low blood pressure, HERMINIO, leg edema) Chief complaint: HERMINIO/ Hypotension Narrative: I was consulted to see Sara in cardiology consultation today as she was referred [facility] facility after noticing progressively increasing leg edema and shortness of breath with hypoxemia not responding to oral diuretic regimen. Patient while at the rehab facility did get additional dose of bumetanide in addition to his diuretic regimen. Because of symptoms and as per the son she had some altered mental status and brought to the emergency room. In the emergency room she was noted to have low blood pressure with systolic blood pressure in the upper 80s and was noted to have hypoxemia. She was then started on 2 L of nasal cannula with improvement in her oxygenation however blood pressure remain persistently low. Patient was then given IV fluids as there was suspicion because of acute kidney injury that she was dehydrated. Patient on chest x-ray was suggested that she might have chronic interstitial lung disease and support post mi interstitial lung edema. Subsequently she was given albumin and IV fluids and IV ceftriaxone and midodrine. Blood pressure improved. However patient remains significantly edematous. BNP was elevated but better than when she was in the prior hospitalization. Patient was admitted last month with fall related hip fracture undergoing surgery and subsequently postoperatively developing atrial fibrillation rapid ventricular response and was treated with amiodarone to maintain rhythm. 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 She has had no follow-up echocardiogram. Patient currently denies shortness of breath. On the monitor she had intermittent episodes of atrial fibrillation. Chest CTA was done which was suspicious for amiodarone lung toxicity given ground glass opacity in his lower 3rd of the lungs bilaterally. Patient denies any palpitations. Denies any chest pain. Review of Systems Constitutional: Constitutional: Reports weakness and Reports weight gain Eyes: Eyes: Reports no additional eye complaints Cardiovascular: Cardiovascular: Denies chest pain, Reports leg edema, Denies lightheadedness, Denies Loss of Consciousness, Denies palpitations and Reports dyspnea Respiratory: Respiratory: Reports cough and Reports dyspnea Gastrointestinal: Gastrointestinal: Reports no additional gastrointestinal complaints Genitourinary: Genitourinary: Reports no additional female genitourinary complaints Musculoskeletal: Musculoskeletal: Reports no additional musculoskeletal complaints Integumentary/Breasts: Skin/Breast: Reports system reviewed and no additional complaints, except as docu Neurologic: Reports system reviewed and no additional complaints, except as documented and Reports weakness Psychiatric: Psychiatric: Reports no additional psychiatric complaints Endocrine: Endocrine: Denies palpitations PMFSH Past Medical History Medical History Preoperative cardiovascular examination Cataract Chronic pain Class 1 obesity with body mass index (BMI) of 33.0 to 33.9 in adult Macular degeneration Neuropathy Anxiety Vitamin D deficiency Hypertriglyceridemia Type 2 diabetes mellitus with hemoglobin A1c goal of less than 7.0% Dysuria History of mammogram (~2023) Essential hypertension Bifascicular block Atrial arrhythmia Non-rheumatic aortic stenosis Family History Family History Father CVD (cardiovascular disease) Mother CVD (cardiovascular disease) Brother CVD (cardiovascular disease) Surgical History Surgical History History of squamous cell carcinoma excision H/O kyphoplasty History of colonoscopy History of tonsillectomy History of benign breast biopsy Social History Social History Household Members: Family Household Members Other:: grandson Housing: House Do you presently have visiting nurse or other home services: No Alcohol intake: current Alcohol intake frequency: holidays/special occasions only Alcohol type: wine and hard liquor Patient Tobacco Use Status: Former Tobacco user Tobacco use type: Cigarette service: No Current occupational status: retired Cognitive needs: Yes (walker) Hearing needs: No Vision needs: Yes (rx glasses/macular degeneration) Meds Allergies Allergy/AdvReac Type Severity Reaction Status Date / Time Penicillins AdvReac Unknown Rash Verified 04/23/25 06:02 Active Medications: Current Medications Acetaminophen (Acetaminophen 325 Mg Tablet) 650 mg PO Q6H PRN PRN Reason: Pain, Mild 1-3,fever,headache Aspirin (Aspirin 325 Mg Tablet) 325 mg PO BID [facility] Last Admin: 04/24/25 09:15 Dose: 325 mg Atorvastatin Calcium (Atorvastatin Calcium 20 Mg Tablet) 20 mg PO DAILY [facility] Last Admin: 04/24/25 09:15 Dose: 20 mg Bisacodyl (Bisacodyl 10 Mg Supp.Rect) 10 mg [place] DAILY PRN PRN Reason: Constipation Calcium Carbonate (Calcium Carbonate 750 Mg Tab.Chew) 750 mg PO Q4H PRN PRN Reason: Heartburn Dextrose (Dextrose 50 % 25 Gm/50 Ml Syringe) 25 gm IVPUSH Q15M PRN; Protocol PRN Reason: per Hypoglycemia Standing Ord. Docusate Sodium (Docusate Sodium 100 Mg Capsule) 100 mg PO BID [facility] Last Admin: 04/24/25 09:16 Dose: 100 mg Glucose (Glucose Gel 15 Gm Gel..Gram.) 15 gm PO Q15M PRN; Protocol PRN Reason: per Hypoglycemia Standing Ord. Insulin Human Lispro (Insulin Lispro 100 Unit/Ml 3 Ml Vial) 0 unit SUBCUT QIDACHS [facility]; Protocol Last Admin: 04/24/25 11:50 Dose: Not Given Lactic Acid (Ammonium Lactate 12 % Lotion 226 Gm Bottle) 1 appl TOPICAL BID [facility]; Protocol Loratadine (Loratadine 10 Mg Tablet) 10 mg PO DAILY [facility] Last Admin: 04/24/25 09:15 Dose: 10 mg Lorazepam (Lorazepam 0.5 Mg Tablet) 0.5 mg PO BEDTIME PRN PRN Reason: Anxiety Last Admin: 04/23/25 20:54 Dose: 0.5 mg Magnesium Hydroxide (Milk Of Magnesia 30 Ml Oral.Susp) 30 ml PO DAILY PRN PRN Reason: Constipation Melatonin (Melatonin 3 Mg Tablet) 6 mg PO BEDTIME PRN PRN Reason: Insomnia Methylprednisolone Sodium Succinate (Methylprednisolone Sod Succ 40 Mg/Ml Vial) 40 mg IVPUSH Q12H [facility] Last Admin: 04/24/25 09:16 Dose: 40 mg Omeprazole (Omeprazole 20 Mg Capsule.Dr) 20 mg PO DAILY@0630 [facility] Last Admin: 04/24/25 05:31 Dose: 20 mg Ondansetron HCl (Ondansetron Hcl 4 Mg/2 Ml Vial) 4 mg IVPUSH Q8H PRN PRN Reason: Nausea and Vomiting Oxycodone HCl (Oxycodone Hcl Immed Release 5 Mg Tablet) 5 mg PO Q4H PRN PRN Reason: Pain, Moderate(Pain Scale 4-6) Last Admin: 04/23/25 20:54 Dose: 5 mg Phenazopyridine HCl (Phenazopyridine Hcl 200 Mg Tablet) 200 mg PO DAILY [facility] Last Admin: 04/24/25 09:15 Dose: 200 mg Polyethylene Glycol (Polyethylene Glycol 3350 17 Gm Powd.Pack) 17 gm PO DAILY [facility] Last Admin: 04/24/25 09:16 Dose: 17 gm Pregabalin (Pregabalin 150 Mg Capsule) 150 mg PO DAILY [facility] Last Admin: 04/24/25 09:16 Dose: 150 mg Simethicone (Simethicone 80 Mg Tab.Chew) 160 mg PO QID PRN PRN Reason: gas Sodium Chloride (0.9 % Sodium Chloride Flush 3 Ml Syringe) 3 ml IVFLUSH QSHIFT [facility] Last Admin: 04/24/25 09:16 Dose: 3 ml Home Medications ?Medication ?Instructions ?Recorded ?Confirmed ?Last Taken ?Type pregabalin 150 mg capsule 150 mg PO DAILY 09/10/20 04/23/25 03/26/25 History vit C 250 mg-vit E 90 mg-zinc 40 1 tab PO BID 03/06/21 04/23/25 03/26/25 History mg-copper 1 [id number] capsule (PreserVision AREDS-2) atorvastatin 20 mg tablet 20 mg PO DAILY 01/02/25 04/23/25 03/26/25 History losartan 100 mg tablet 100 mg PO DAILY 02/06/25 04/23/25 03/26/25 History semaglutide 0.25 mg or 0.5 mg (2 0.5 mg subcut [place] 03/26/25 04/23/25 03/24/25 History mg/3 mL) subcutaneous pen injector (Ozempic) acetaminophen 500 mg tablet 1,000 mg PO TID 04/23/25 04/23/25 Unknown History amiodarone 200 mg tablet 200 mg PO BID 04/23/25 04/23/25 Unknown History bisacodyl 10 mg rectal suppository 10 mg [place] DAILY PRN Constipation 04/23/25 04/23/25 Unknown History bumetanide 1 mg tablet 1 mg PO BID 04/23/25 04/23/25 Unknown History docusate sodium 100 mg capsule 100 mg PO BID 04/23/25 04/23/25 Unknown History (Colace) fexofenadine 180 mg tablet 180 mg PO DAILY 04/23/25 04/23/25 Unknown History magnesium hydroxide 400 mg/5 mL 30 ml PO DAILY PRN Constipation 04/23/25 04/23/25 Unknown History oral suspension (Milk of Magnesia) naproxen 500 mg tablet 500 mg PO BIDWM PRN Pain 04/23/25 04/23/25 Unknown History omeprazole 20 mg capsule,delayed 20 mg PO DAILY@0630 04/23/25 04/23/25 Unknown History release oxycodone 5 mg tablet 5 mg PO Q4H PRN Pain, 04/23/25 04/23/25 Unknown History Moderate(Pain Scale 4-6) phenazopyridine 95 mg tablet 190 mg PO DAILY 04/23/25 04/23/25 Unknown History polyethylene glycol 3350 17 17 g PO DAILY PRN Constipation 04/23/25 04/23/25 Unknown History gram/dose oral powder (Miralax) simethicone 125 mg capsule 125 mg PO QID PRN gas 04/23/25 04/23/25 Unknown History Physical Exam Vital Signs: Vital Signs: Last Vital Signs Temp 98.9 F 04/24/25 10:57 Pulse 80 04/24/25 10:57 Resp 18 04/24/25 10:57 BP 99/53 L 04/24/25 10:57 Pulse Ox 91 L 04/24/25 10:57 O2 Del Method Nasal Cannula 04/24/25 10:57 O2 Flow Rate 2 04/24/25 10:57 Oxygen Flow Rate 6 04/23/25 05:50 BMI result Body Mass Index 36.4 Const: General: cooperative, comfortable, alert and awake Nutritional Appearance: obese Orientation/consciousness: patient oriented x3 HEENT: Head: Yes normocephalic and Yes atraumatic Neck: Neck: Yes trachea midline, Yes supple and Yes JVD Resp: Effort & Inspection: normal respiratory effort Auscultation: crackles bilateral at the base Cardio: Jugular venous distension: JVD Rate: tachycardic Rhythm: abnormal rhythm with ectopic beats Heart sounds: S1 normal heart sound present, S2 normal heart sound present, no click, no gallops and Murmur heart sound present systolic mid GI: Auscultation: normal bowel sounds Skin: General skin exam: no rashes or lesions noted Neuro: General: patient oriented x3 and no focal motor deficits Extrem: General: No clubbing, No cyanosis and Yes edema Objective Labs and Meds 04/23/25 06:34 04/24/25 06:16 Lab results: Laboratory Results - last 24 hr 04/23/25 04/23/25 04/23/25 16:11 17:29 20:50 Sodium Potassium Chloride Carbon Dioxide Anion Gap BUN Creatinine Estim Creat Clear Calc Estimated GFR POC Glucose 108 125 H Random Glucose Calcium Iron TIBC % Saturation Unsat Iron Binding Ferritin Lactate Dehydrogenase Procalcitonin Urine Color Yellow Urine Appearance Clear Urine pH 5.5 Ur Specific [place] 1.015 Urine Protein Trace Urine Glucose (UA) Negative Urine Ketones Negative Urine Blood Small (1+) H Urine Nitrite Negative Ur Leukocyte Esterase Trace H Urine RBC 11-20 H Urine WBC 0-5 Ur Squamous Epith Cells 3-5 Urine Bacteria None Seen Hyaline Casts 04-0304/24/25 04/24/25 04/24/25 06:16 06:57 10:56 Sodium 141 Potassium 3.7 Chloride 109 H Carbon Dioxide 22 Anion Gap 14 BUN 59 H Creatinine 1.42 H Estim Creat Clear Calc 29.2 Estimated GFR 35 POC Glucose 99 149 H Random Glucose 87 Calcium 8.2 L Iron 23 L TIBC 165 L % Saturation 14 L Unsat Iron Binding 142 Ferritin 296 H Lactate Dehydrogenase 193 Procalcitonin 0.21 Urine Color Urine Appearance Urine pH Ur Specific Post Urine Protein Urine Glucose (UA) Urine Ketones Urine Blood Urine Nitrite Ur Leukocyte Esterase Urine RBC Urine WBC Ur Squamous Epith Cells Urine Bacteria Hyaline Casts Assessment and Plan (1) Acute hypoxic respiratory failure: Status: Acute Patient presents with a acute hypoxemic respiratory failure which appears to be multifactorial probably related to reduced pulmonary capacity but also possibly related to interstitial lung disease related to amiodarone toxicity as well as possibly fluid overloaded heart failure. At this point time she is clinically stable not in significant respiratory distress. Continue supportive care. Incentive spirometry continue oxygen therapy. Discontinue amiodarone and agree with steroid therapy for now. Continue monitor clinically. If this significant worsening suddenly may need to be diuresed but once a blood pressure is stabilized will gently diurese her starting tomorrow. Continue monitor renal function closely. Will follow with you. Her LV function has normalized and this is suggestive of stress-induced cardiomyopathy postoperatively prior admission. Myocardial ischemia can not be entirely ruled out. (2) Atrial fibrillation: Status: Acute Intermittent atrial fibrillation although converted back to sinus rhythm. Will continue to treat with rate control as tolerated based on the blood pressure. Amiodarone in his been discontinued for possible pulmonary toxicity. Consider pulmonary consultation. This point time limited options for treating atrial fibrillation for rhythm control although I think she would poorly tolerate her atrial fibrillation. Rate control as possible if her blood pressure is stabilized can use low-dose metoprolol. Will continue monitor clinically. If there are no obvious contraindication consider oral anticoagulation therapy. (3) Fluid overload: Status: Acute Clinically she appears to be significantly fluid overloaded with elderly elevation of right atrial pressures significantly. Overall findings suggestive of right heart failure. Her blood pressure is on the softer side. Will monitor her and if once a kidney functions gradually improve, will consider gentle diuresis starting tomorrow with IV Lasix. Continue monitor for significant hypoxemia. Will follow with you. Greater than 40 minutes was spent in managing his complex care. Thank you for allowing me to partake in her care Procedures Date of Service Date of Service: 04/24/25
[2025-04-24] MEDS: Ammonium Lactate 12 % Lotion 226 GM BOTTLE 1 APPL TOPICAL (13:36)
--- NOTE | 2025-04-24 14:50 | P.PNIM_ITS ---
Subjective Subjective Date of Service: 04/24/25 Interval History: dyspnea improved in and out of AF legs edematous BP and SCr improved Review of Systems Review of Systems: Yes all other systems are reviewed and are negative Physical Exam 2 Vital Signs: Vital Signs: Last Vital Signs Temp 98.9 F 04/24/25 10:57 Pulse 80 04/24/25 10:57 Resp 18 04/24/25 10:57 BP 99/53 L 04/24/25 10:57 Pulse Ox 91 L 04/24/25 10:57 O2 Del Method Nasal Cannula 04/24/25 10:57 O2 Flow Rate 2 04/24/25 10:57 Oxygen Flow Rate 6 04/23/25 05:50 BMI result Body Mass Index 36.4 Gen: in no acute distress HEENT: sclera anicteric, moist mucus membranes Neck: supple Lungs: bilateral lower lobe crackles inspiratory Heart: irregular, systolic murmur at base Abd: soft, non-tender, non-distended Ext: 2+ bilateral leg edema Skin: warm/well-perfused Neuro: alert and oriented x3, no focal findings Psych: appropriate affect Objective Data Active Medications Acetaminophen (Acetaminophen 325 Mg Tablet) 650 mg PO Q6H PRN PRN Reason: Pain, Mild 1-3,fever,headache Aspirin (Aspirin 325 Mg Tablet) 325 mg PO BID [facility] Last Admin: 04/24/25 09:15 Dose: 325 mg Documented By: VICKI Atorvastatin Calcium (Atorvastatin Calcium 20 Mg Tablet) 20 mg PO DAILY [facility] Last Admin: 04/24/25 09:15 Dose: 20 mg Documented By: VICKI Bisacodyl (Bisacodyl 10 Mg Supp.Rect) 10 mg [place] DAILY PRN PRN Reason: Constipation Calcium Carbonate (Calcium Carbonate 750 Mg Tab.Chew) 750 mg PO Q4H PRN PRN Reason: Heartburn Dextrose (Dextrose 50 % 25 Gm/50 Ml Syringe) 25 gm IVPUSH Q15M PRN; Protocol PRN Reason: per Hypoglycemia Standing Ord. Docusate Sodium (Docusate Sodium 100 Mg Capsule) 100 mg PO BID [facility] Last Admin: 04/24/25 09:16 Dose: 100 mg Documented By: VICKI Glucose (Glucose Gel 15 Gm Gel..Gram.) 15 gm PO Q15M PRN; Protocol PRN Reason: per Hypoglycemia Standing Ord. Insulin Human Lispro (Insulin Lispro 100 Unit/Ml 3 Ml Vial) 0 unit SUBCUT QIDACHS [facility]; Protocol Last Admin: 04/24/25 11:50 Dose: Not Given Documented By: VICKI Non-Admin Reason: No Insulin Coverage Lactic Acid (Ammonium Lactate 12 % Lotion 226 Gm Bottle) 1 appl TOPICAL BID [facility]; Protocol Last Admin: 04/24/25 13:36 Dose: 1 appl Documented By: VIKCI Loratadine (Loratadine 10 Mg Tablet) 10 mg PO DAILY [facility] Last Admin: 04/24/25 09:15 Dose: 10 mg Documented By: VICKI Lorazepam (Lorazepam 0.5 Mg Tablet) 0.5 mg PO BEDTIME PRN PRN Reason: Anxiety Last Admin: 04/23/25 20:54 Dose: 0.5 mg Documented By: DAVID Magnesium Hydroxide (Milk Of Magnesia 30 Ml Oral.Susp) 30 ml PO DAILY PRN PRN Reason: Constipation Melatonin (Melatonin 3 Mg Tablet) 6 mg PO BEDTIME PRN PRN Reason: Insomnia Methylprednisolone Sodium Succinate (Methylprednisolone Sod Succ 40 Mg/Ml Vial) 40 mg IVPUSH Q12H [facility] Last Admin: 04/24/25 09:16 Dose: 40 mg Documented By: VICKI Omeprazole (Omeprazole 20 Mg Capsule.) 20 mg PO DAILY@0630 [facility] Last Admin: 04/24/25 05:31 Dose: 20 mg Documented By: DAVID Ondansetron HCl (Ondansetron Hcl 4 Mg/2 Ml Vial) 4 mg IVPUSH Q8H PRN PRN Reason: Nausea and Vomiting Oxycodone HCl (Oxycodone Hcl Immed Release 5 Mg Tablet) 5 mg PO Q4H PRN PRN Reason: Pain, Moderate(Pain Scale 4-6) Last Admin: 04/23/25 20:54 Dose: 5 mg Documented By: DAVID Phenazopyridine HCl (Phenazopyridine Hcl 200 Mg Tablet) 200 mg PO DAILY [facility] Last Admin: 04/24/25 09:15 Dose: 200 mg Documented By: VICKI Polyethylene Glycol (Polyethylene Glycol 3350 17 Gm Powd.Pack) 17 gm PO DAILY [facility] Last Admin: 04/24/25 09:16 Dose: 17 gm Documented By: VICKI Pregabalin (Pregabalin 150 Mg Capsule) 150 mg PO DAILY [facility] Last Admin: 04/24/25 09:16 Dose: 150 mg Documented By: VICKI Simethicone (Simethicone 80 Mg Tab.Chew) 160 mg PO QID PRN PRN Reason: gas Sodium Chloride (0.9 % Sodium Chloride Flush 3 Ml Syringe) 3 ml IVFLUSH QSHIFT [facility] Last Admin: 04/24/25 09:16 Dose: 3 ml Documented By: VICKI Labs 04/23/25 06:34 04/24/25 06:16 Labs: Laboratory Results - last 24 hr 04/23/25 04/23/25 04/23/25 16:11 17:29 20:50 Anion Gap Estim Creat Clear Calc Estimated GFR POC Glucose 108 125 H Random Glucose Calcium Iron TIBC % Saturation Unsat Iron Binding Ferritin Lactate Dehydrogenase Procalcitonin Urine Color Yellow Urine Appearance Clear Urine pH 5.5 Ur Specific [place] 1.015 Urine Protein Trace Urine Glucose (UA) Negative Urine Ketones Negative Urine Blood Small (1+) H Urine Nitrite Negative Ur Leukocyte Esterase Trace H Urine RBC 11-20 H Urine WBC 0-5 Ur Squamous Epith Cells 3-5 Urine Bacteria None Seen Hyaline Casts 04-0304/24/25 04/24/25 04/24/25 06:16 06:57 10:56 Anion Gap 14 Estim Creat Clear Calc 29.2 Estimated GFR 35 POC Glucose 99 149 H Random Glucose 87 Calcium 8.2 L Iron 23 L TIBC 165 L % Saturation 14 L Unsat Iron Binding 142 Ferritin 296 H Lactate Dehydrogenase 193 Procalcitonin 0.21 Urine Color Urine Appearance Urine pH Ur Specific [place] Urine Protein Urine Glucose (UA) Urine Ketones Urine Blood Urine Nitrite Ur Leukocyte Esterase Urine RBC Urine WBC Ur Squamous Epith Cells Urine Bacteria Hyaline Casts Microbiology Microbiology Results: Microbiology 04/23/25 09:09 Blood Culture - Preliminary Blood - Venous No growth after 24 hours. 04/23/25 09:09 Blood Culture - Preliminary Blood - Venous No growth after 24 hours. Assessment and Plan (1) CHF (congestive heart failure): Status: Acute Plan d2, 89yo F with mod , recent stress cardiomyopathy with reduced EF [30-35% 03/29/25], recent episode of postoperative brief AF for which started on amiodarone, DM2, HTN; was at [facility] undergoing rehabilitation after repaired L femur fracture, sent in hypotension after escalating diuretics in conext of worsening edema and weight gain with hypoxia and dyspnea. Found to have ground- glass opacities in lungs suspicious for amiodarone-induced lung injury, hypoxia, and HERMINIO. acute hypoxic respiratory failure due to amiodarone-induced lung injury - d/c amiodarone, start IV steroids; supplemental O2, wean as tolerated R-sided HF - TTE today: '1. Normal LV ejection fraction of 60 65% with elevated filling pressures 2. Significantly elevated right atrial pressures with possible mild pulmonary hypertension' - continue to hold diuresis, metoprolol tartrate, and losartan given HERMINIO/hypotension; Cardiology following prerenal HERMINIO - suspect due to excess diuresis; also hold losartan; hold IV Fluids pAF - hold metoprolol tartrate for now but add back if needed for rate control; d/c amiodarone - will start apixaban for AC recent L femur ORIF - pain control with APAP + oxycodone HLD: statin DM2: mariely-dose lispro VTE ppx: change ASA to apixaban dispo: STR In my clinical judgment, the patient requires continued inpatient hospitalization for the following reasons: HERMINIO, hypotension, HF, hypoxia, cardiology consultation Total time managing care of this patient today: 50 minutes. Quality Stroke Does the patient have a stroke diagnosis?: No VTE Prior VTE?: No VTE Risk Level:: Medical - moderate - high VTE Device Contraindication: Treatment Not Indicated VTE Drug Contraindication: N/A - Med Ordered
[2025-04-24 16:37] LABS: Glucose, Whole Blood 217 mg/dL (60-115)
[2025-04-24] MEDS: oxyCODONE HCl Immed Release 5 MG TABLET PO (20:11)
[2025-04-24 20:57] LABS: Glucose, Whole Blood 211 mg/dL (60-115)
[2025-04-25] VITALS (8 sets, daily range): BP systolic 114–145; BP diastolic 55–65; PULSE 61–80; RESP 16–20; TEMP 36.2–36.8; O2SAT 91–98
[2025-04-25 06:56] LABS: Hematocrit 28.5 % (37.0-47.0); Hemoglobin 9.1 g/dl (12.0-16.0); Mean Corpuscular HGB Conc 31.9 g/dl (31.0-35.0); Mean Corpuscular Hemoglobin 30.4 pg (27.0-33.0); Mean Corpuscular Volume 95.3 fL (80.0-98.0); NRBC Abs Auto 0.000 X10*3/uL (0.0-0.012); NRBC Pct Auto 0.0 /100WBC (0.0-0.2); Platelet Count 182 X10*3/uL (160-400); Red Blood Count 2.99 X10*6/uL (4.20-5.50); White Blood Count 6.1 X10*3/uL (4.8-10.8)
[2025-04-25 06:59] LABS: Anion Gap 11 (12-20); Blood Urea Nitrogen 39 mg/dL (9-16); Calcium 8.3 mg/dL (8.4-10.2); Carbon Dioxide 25 mmol/L (22-29); Chloride 113 mmol/L (96-108); Creatinine Clr Calc Pharmacy 48.7; Estimated Glomerular Filt Rate > 60; Magnesium 2.6 mg/dL (1.6-2.6); Potassium 3.7 mmol/L (3.3-5.1); Sodium 145 mmol/L (135-145)
[2025-04-25 07:26] LABS: Glucose, Whole Blood 164 mg/dL (60-115)
[2025-04-25 07:34] LABS: Folate 6.5 ng/mL (> or = 4.0); Vitamin B12 235 pg/mL (200-900)
[2025-04-25] MEDS: 0.9 % Sodium Chloride Flush 3 ML SYRINGE IVFLUSH ×3 (08:18→20:07)
[2025-04-25] MEDS: Ferrous Sulfate 324 MG TABLET.DR PO (08:18)
[2025-04-25] MEDS: Ammonium Lactate 12 % Lotion 226 GM BOTTLE 1 APPL TOPICAL ×2 (08:19→20:08)
--- NOTE | 2025-04-25 10:24 | MHC.CM.PN ---
Per [facility]OUNDS, Patient is not yet medically cleared for dc (IV Solu Medrol).
[2025-04-25 11:20] LABS: Glucose, Whole Blood 140 mg/dL (60-115)
--- NOTE | 2025-04-25 11:59 | P.PNIM_ITS ---
Subjective Subjective Date of Service: 04/25/25 Interval History: legs still quite swollen SCr normalized weaned off O2 this AM Review of Systems Review of Systems: Yes all other systems are reviewed and are negative Physical Exam 2 Vital Signs: Vital Signs: Last Vital Signs Temp 97.2 F 04/25/25 11:25 Pulse 80 04/25/25 11:25 Resp 18 04/25/25 11:25 BP 139/65 04/25/25 11:25 Pulse Ox 93 04/25/25 11:25 O2 Del Method Nasal Cannula 04/25/25 11:25 O2 Flow Rate 2 04/25/25 11:25 Oxygen Flow Rate 6 04/23/25 05:50 BMI result Body Mass Index 36.4 Gen: in no acute distress HEENT: sclera anicteric, moist mucus membranes Neck: supple Lungs: bilateral inspiratory lower lobe crackles Heart: regular, systolic murmur at base Abd: soft, non-tender, non-distended Ext: 2+ bilateral leg edema Skin: warm/well-perfused Neuro: alert and oriented x3, no focal findings Psych: appropriate affect Objective Data Active Medications Acetaminophen (Acetaminophen 325 Mg Tablet) 650 mg PO Q6H PRN PRN Reason: Pain, Mild 1-3,fever,headache Apixaban (Apixaban 5 Mg Tablet) 5 mg PO BID [facility] Last Admin: 04/25/25 08:18 Dose: 5 mg Documented By: VICKI Atorvastatin Calcium (Atorvastatin Calcium 20 Mg Tablet) 20 mg PO DAILY [facility] Last Admin: 04/25/25 08:18 Dose: 20 mg Documented By: VICKI Bisacodyl (Bisacodyl 10 Mg Supp.Rect) 10 mg [place] DAILY PRN PRN Reason: Constipation Calcium Carbonate (Calcium Carbonate 750 Mg Tab.Chew) 750 mg PO Q4H PRN PRN Reason: Heartburn Dextrose (Dextrose 50 % 25 Gm/50 Ml Syringe) 25 gm IVPUSH Q15M PRN; Protocol PRN Reason: per Hypoglycemia Standing Ord. Docusate Sodium (Docusate Sodium 100 Mg Capsule) 100 mg PO BID [facility] Last Admin: 04/25/25 08:18 Dose: 100 mg Documented By: VICKI Ferrous Sulfate (Ferrous Sulfate 324 Mg Tablet.Dr) 324 mg PO DAILY [facility] Last Admin: 04/25/25 08:18 Dose: 324 mg Documented By: VICKI Glucose (Glucose Gel 15 Gm Gel..Gram.) 15 gm PO Q15M PRN; Protocol PRN Reason: per Hypoglycemia Standing Ord. Insulin Human Lispro (Insulin Lispro 100 Unit/Ml 3 Ml Vial) 0 unit SUBCUT QIDACHS [facility]; Protocol Last Admin: 04/25/25 08:18 Dose: 2 unit Documented By: VICKI Lactic Acid (Ammonium Lactate 12 % Lotion 226 Gm Bottle) 1 appl TOPICAL BID [facility]; Protocol Last Admin: 04/25/25 08:19 Dose: 1 appl Documented By: VICKI Loratadine (Loratadine 10 Mg Tablet) 10 mg PO DAILY [facility] Last Admin: 04/25/25 08:18 Dose: 10 mg Documented By: VICKI Lorazepam (Lorazepam 0.5 Mg Tablet) 0.5 mg PO BEDTIME PRN PRN Reason: Anxiety Last Admin: 04/24/25 22:03 Dose: 0.5 mg Documented By: DION Magnesium Hydroxide (Milk Of Magnesia 30 Ml Oral.Susp) 30 ml PO DAILY PRN PRN Reason: Constipation Melatonin (Melatonin 3 Mg Tablet) 6 mg PO BEDTIME PRN PRN Reason: Insomnia Methylprednisolone Sodium Succinate (Methylprednisolone Sod Succ 40 Mg/Ml Vial) 40 mg IVPUSH DAILY [facility] Omeprazole (Omeprazole 20 Mg Capsule.Dr) 20 mg PO DAILY@0630 [facility] Last Admin: 04/25/25 05:16 Dose: 20 mg Documented By: DION Ondansetron HCl (Ondansetron Hcl 4 Mg/2 Ml Vial) 4 mg IVPUSH Q8H PRN PRN Reason: Nausea and Vomiting Oxycodone HCl (Oxycodone Hcl Immed Release 5 Mg Tablet) 5 mg PO Q4H PRN PRN Reason: Pain, Moderate(Pain Scale 4-6) Last Admin: 04/24/25 20:11 Dose: 5 mg Documented By: DION Phenazopyridine HCl (Phenazopyridine Hcl 200 Mg Tablet) 200 mg PO DAILY [facility] Last Admin: 04/25/25 08:18 Dose: 200 mg Documented By: VICKI Polyethylene Glycol (Polyethylene Glycol 3350 17 Gm Powd.Pack) 17 gm PO DAILY [facility] Last Admin: 04/25/25 08:18 Dose: 17 gm Documented By: VICKI Pregabalin (Pregabalin 150 Mg Capsule) 150 mg PO DAILY [facility] Last Admin: 04/25/25 08:18 Dose: 150 mg Documented By: VICKI Simethicone (Simethicone 80 Mg Tab.Chew) 160 mg PO QID PRN PRN Reason: gas Sodium Chloride (0.9 % Sodium Chloride Flush 3 Ml Syringe) 3 ml IVFLUSH QSHIFT [facility] Last Admin: 04/25/25 08:18 Dose: 3 ml Documented By: VICKI Labs 04/25/25 06:11 04/25/25 06:11 Labs: Laboratory Results - last 24 hr 04/24/25 04/24/25 04/25/25 16:21 20:39 06:11 MCV 95.3 MCH 30.4 MCHC 31.9 RDW 17.1 H Plt Count 182 MPV 10.5 Absolute Nucleated RBC 0.000 Nucleated RBC % (auto) 0.0 Anion Gap 11 L Estim Creat Clear Calc 48.7 Estimated GFR > 60 POC Glucose 217 H 211 H Random Glucose 163 H Calcium 8.3 L Magnesium 2.6 NT-Pro-B Natriuret Pep 4119.6 H Vitamin B12 235 Folate 6.5 04/25/25 04/25/25 07:20 11:15 MCV MCH MCHC RDW Plt Count MPV Absolute Nucleated RBC Nucleated RBC % (auto) Anion Gap Estim Creat Clear Calc Estimated GFR POC Glucose 164 H 140 H Random Glucose Calcium Magnesium NT-Pro-B Natriuret Pep Vitamin B12 Folate Microbiology Microbiology Results: Microbiology 04/23/25 09:09 Blood Culture - Preliminary Blood - Venous No growth after 48 hours. 04/23/25 09:09 Blood Culture - Preliminary Blood - Venous No growth after 48 hours. Assessment and Plan (1) CHF (congestive heart failure): Status: Acute Plan d3, 89yo F with mod , recent stress cardiomyopathy with reduced EF [30-35% 03/29/25], recent episode of postoperative brief AF for which started on amiodarone, DM2, HTN; was at [facility] undergoing rehabilitation after repaired L femur fracture, sent in hypotension after escalating diuretics in conext of worsening edema and weight gain with hypoxia and dyspnea. Found to have ground- glass opacities in lungs suspicious for amiodarone-induced lung injury, hypoxia, and HERMINIO. acute hypoxic respiratory failure due to amiodarone-induced lung injury - d/c'ed amiodarone, started IV steroids 04/24-; weaned off supplemental O2 chronic HF with recovered EF R-sided HF - repeat TTE 04/24: '1. Normal LV ejection fraction of 60 65% with elevated filling pressures 2. Significantly elevated right atrial pressures with possible mild pulmonary hypertension' - continue to hold diuresis; restart metoprolol tartrate [12.5 mg bid instead of 25 mg bid] and losartan [25 mg daily instead of 100 mg daily] - Cardiology following prerenal HERMINIO - resolved; suspect due to excess diuresis; resume losartan but at lower dose pAF - resumed metoprolol tartrate at lower dose and d/c'ed amiodarone as above - started apixaban for stroke prevention 04/24 recent L femur ORIF - pain control with APAP + oxycodone, return to [facility] when medical issues controlled HLD: statin DM2: mariely-dose lispro VTE ppx: changed bid ASA to apixaban dispo: eventual return to [facility] In my clinical judgment, the patient requires continued inpatient hospitalization for the following reasons: HERMINIO, hypotension, L-sided then R- sided HF, hypoxia, cardiology consultation Total time managing care of this patient today: 45 minutes. Quality Stroke Does the patient have a stroke diagnosis?: No VTE Prior VTE?: No VTE Risk Level:: Medical - moderate - high VTE Device Contraindication: Treatment Not Indicated VTE Drug Contraindication: N/A - Med Ordered
--- NOTE | 2025-04-25 13:22 | PM.PNCARD ---
Subjective Subjective Date of Service: 04/25/25 Principal diagnosis: CHF, AFib Interval history: Patient had a negative balance of 2 L since yesterday. Kidney functions have normalized. Blood pressures remained stable with no hypotension. She is breathing better and feeling better. No episodes of atrial fibrillation overnight Review of Systems Constitutional: Reports no additional constitutional complaints Eyes: Reports no additional eye complaints Cardiovascular: Denies chest pain and Reports dyspnea on exertion Respiratory: Reports no additional respiratory complaints and Reports dyspnea on exertion Genitourinary: Reports no additional female genitourinary complaints Musculoskeletal: Reports no additional musculoskeletal complaints Skin/Breast: Reports system reviewed and no additional complaints, except as docu Physical Exam Vital Signs: Last Vital Signs Temp 97.2 F 04/25/25 11:25 Pulse 80 04/25/25 11:25 Resp 18 04/25/25 11:25 BP 139/65 04/25/25 13:14 Pulse Ox 93 04/25/25 11:25 O2 Del Method Nasal Cannula 04/25/25 11:25 O2 Flow Rate 2 04/25/25 11:25 Oxygen Flow Rate 6 04/23/25 05:50 BMI result Body Mass Index 36.4 Const General: cooperative, alert, awake and in distress mild and other (Just after she was moved from the bed to the chair) Nutritional Appearance: obese Orientation/consciousness: patient oriented x3 Neck Neck: Yes trachea midline, Yes supple and Yes JVD Resp Effort & Inspection: normal respiratory effort Auscultation: crackles Cardio Jugular venous distension: JVD Rate: regular rate Rhythm: regular rhythm Heart sounds: S1 normal heart sound present, S2 normal heart sound present, no click, no gallops and Murmur heart sound present systolic GI Auscultation: normal bowel sounds Skin General skin exam: no rashes or lesions noted Neuro General: patient oriented x3 and no focal motor deficits Extrem General: No clubbing, No cyanosis and Yes edema Objective Labs and Meds 04/25/25 06:11 04/25/25 06:11 Lab results: Laboratory Results - last 24 hr 04/24/25 04/24/25 04/25/25 16:21 20:39 06:11 WBC 6.1 RBC 2.99 L Hgb 9.1 L Hct 28.5 L MCV 95.3 MCH 30.4 MCHC 31.9 RDW 17.1 H Plt Count 182 MPV 10.5 Absolute Nucleated RBC 0.000 Nucleated RBC % (auto) 0.0 Sodium 145 Potassium 3.7 Chloride 113 H Carbon Dioxide 25 Anion Gap 11 L BUN 39 H Creatinine 0.85 Estim Creat Clear Calc 48.7 Estimated GFR > 60 POC Glucose 217 H 211 H Random Glucose 163 H Calcium 8.3 L Magnesium 2.6 NT-Pro-B Natriuret Pep 4119.6 H Vitamin B12 235 Folate 6.5 04/25/25 04/25/25 07:20 11:15 WBC RBC Hgb Hct MCV MCH MCHC RDW Plt Count MPV Absolute Nucleated RBC Nucleated RBC % (auto) Sodium Potassium Chloride Carbon Dioxide Anion Gap BUN Creatinine Estim Creat Clear Calc Estimated GFR POC Glucose 164 H 140 H Random Glucose Calcium Magnesium NT-Pro-B Natriuret Pep Vitamin B12 Folate Progress Note: A&P Assessment and plan (1) Decompensated heart failure: Status: Acute Assessment and Plan: Decompensated heart failure with fluid overload with predominantly right heart failure. Gentle diuresis. Patient's kidney functions have improved. Strict intake and output chart needs to be pursued. Continue monitor blood pressure closely. Continue monitor electrolytes as well as renal function. Agree with pursuing rhythm control although would avoid amiodarone obviously given in lung toxicity present. Continue steroids and treating possible amiodarone toxicity. Supportive care. Oxygen as needed. Out of bed to chair incentive spirometry. Will follow with you Time Spent With Patient Time: Total time managing care of this patient today ____ minutes. Progress Note: Quality Stroke Does the patient have a stroke diagnosis?: No Procedures Date of Service Date of Service: 04/25/25
[2025-04-25 15:07] LABS: Hematocrit 35.2 % (37.0-47.0); Hemoglobin 11.0 g/dl (12.0-16.0)
[2025-04-25] MEDS: Furosemide 20 MG/2 ML VIAL IVPUSH (15:24)
--- NOTE | 2025-04-25 15:55 | PM.GICN ---
History of Present Illness Data of Consult Service Date: 04/25/25 Requesting physician: Estella Sy Primary Care Provider: Unknown Physician HPI Reason for consult: Painless hematochezia, started on Eliquis 04/24/25 89 YF discharged [place] [facility] [place]25 after undergoing open reduction internal fixation of left femur fracture, postoperatively patient had a run of AFib with rapid ventricular response which responded to beta-blockers. Patient was placed on amiodarone 200 mg b.i.d. for 1 month and was discharged to rehab facility. Pt was readmitted on 04/23/25 with bilateral leg swelling and weight gain >7 lbs in 48 hours and hypoxia. In rehab her dose of Lasix was doubled and she was given additional dose of Bumex. GI consulted for evaluation of hematochezia which started today Pt denies past hx of GI bleeding. She denies any abdominal pain. She reports a history of constipation for the past 4-5 days and had brown stools yesterday after getting Miralax She has had two episodes of hematochezia this afternoon and H & H has been stable In emergency room patient was noted to have a low blood pressure 86/36, she was afebrile, finger oximetry 98% on 6 L. EKG showed NSR, chest x-ray showed chronic interstitial lung disease with superimposed mild interstitial lung edema versus multifocal pneumonia. Labs showed creatinine of 2.13 with last creatinine 0.71 on 03/31/25, H&H stable. 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 Review of Systems Review of Systems: Yes all other systems are reviewed and are negative [facility] Past Medical History Medical History Preoperative cardiovascular examination Cataract Chronic pain Class 1 obesity with body mass index (BMI) of 33.0 to 33.9 in adult Macular degeneration Neuropathy Anxiety Vitamin D deficiency Hypertriglyceridemia Type 2 diabetes mellitus with hemoglobin A1c goal of less than 7.0% Dysuria History of mammogram (~2023) Essential hypertension Bifascicular block Atrial arrhythmia Non-rheumatic aortic stenosis Family History Family History Father CVD (cardiovascular disease) Mother CVD (cardiovascular disease) Brother CVD (cardiovascular disease) Surgical History Surgical History History of squamous cell carcinoma excision H/O kyphoplasty History of colonoscopy History of tonsillectomy History of benign breast biopsy Social History Social History Household Members: Family Household Members Other:: grandson Housing: House Do you presently have visiting nurse or other home services: No Alcohol intake: current Alcohol intake frequency: holidays/special occasions only Alcohol type: wine and hard liquor Patient Tobacco Use Status: Former Tobacco user Tobacco use type: Cigarette service: No Current occupational status: retired Cognitive needs: Yes (walker) Hearing needs: No Vision needs: Yes (rx glasses/macular degeneration) Meds Allergies Allergy/AdvReac Type Severity Reaction Status Date / Time Penicillins AdvReac Unknown Rash Verified 04/23/25 06:02 Active Medications: Current Medications Acetaminophen (Acetaminophen 325 Mg Tablet) 650 mg PO Q6H PRN PRN Reason: Pain, Mild 1-3,fever,headache Apixaban (Apixaban 5 Mg Tablet) 5 mg PO BID [facility] On Hold: 04/25/25 14:06 Last Admin: 04/25/25 08:18 Dose: 5 mg Atorvastatin Calcium (Atorvastatin Calcium 20 Mg Tablet) 20 mg PO DAILY [facility] Last Admin: 04/25/25 08:18 Dose: 20 mg Bisacodyl (Bisacodyl 10 Mg Supp.Rect) 10 mg [place] DAILY PRN PRN Reason: Constipation Calcium Carbonate (Calcium Carbonate 750 Mg Tab.Chew) 750 mg PO Q4H PRN PRN Reason: Heartburn Dextrose (Dextrose 50 % 25 Gm/50 Ml Syringe) 25 gm IVPUSH Q15M PRN; Protocol PRN Reason: per Hypoglycemia Standing Ord. Docusate Sodium (Docusate Sodium 100 Mg Capsule) 100 mg PO BID [facility] Last Admin: 04/25/25 08:18 Dose: 100 mg Ferrous Sulfate (Ferrous Sulfate 324 Mg Tablet.Dr) 324 mg PO DAILY [facility] Last Admin: 04/25/25 08:18 Dose: 324 mg Furosemide (Furosemide 20 Mg/2 Ml Vial) 20 mg IVPUSH DAILY [facility]; Protocol Last Admin: 04/25/25 15:24 Dose: 20 mg Glucose (Glucose Gel 15 Gm Gel..Gram.) 15 gm PO Q15M PRN; Protocol PRN Reason: per Hypoglycemia Standing Ord. Insulin Human Lispro (Insulin Lispro 100 Unit/Ml 3 Ml Vial) 0 unit SUBCUT QIDACHS [facility]; Protocol Last Admin: 04/25/25 12:33 Dose: Not Given Lactic Acid (Ammonium Lactate 12 % Lotion 226 Gm Bottle) 1 appl TOPICAL BID [facility]; Protocol Last Admin: 04/25/25 08:19 Dose: 1 appl Loratadine (Loratadine 10 Mg Tablet) 10 mg PO DAILY [facility] Last Admin: 04/25/25 08:18 Dose: 10 mg Lorazepam (Lorazepam 0.5 Mg Tablet) 0.5 mg PO BEDTIME PRN PRN Reason: Anxiety Last Admin: 04/24/25 22:03 Dose: 0.5 mg Losartan Potassium (Losartan Potassium 25 Mg Tablet) 25 mg PO DAILY [facility]; Protocol Last Admin: 04/25/25 13:14 Dose: 25 mg Magnesium Hydroxide (Milk Of Magnesia 30 Ml Oral.Susp) 30 ml PO DAILY PRN PRN Reason: Constipation Melatonin (Melatonin 3 Mg Tablet) 6 mg PO BEDTIME PRN PRN Reason: Insomnia Methylprednisolone Sodium Succinate (Methylprednisolone Sod Succ 40 Mg/Ml Vial) 40 mg IVPUSH DAILY [facility] Metoprolol Tartrate (Metoprolol Tartrate 12.5 Mg Halftab) 12.5 mg PO BID [facility]; Protocol Omeprazole (Omeprazole 20 Mg Capsule.Dr) 20 mg PO DAILY@0630 [facility] Last Admin: 04/25/25 05:16 Dose: 20 mg Ondansetron HCl (Ondansetron Hcl 4 Mg/2 Ml Vial) 4 mg IVPUSH Q8H PRN PRN Reason: Nausea and Vomiting Oxycodone HCl (Oxycodone Hcl Immed Release 5 Mg Tablet) 5 mg PO Q4H PRN PRN Reason: Pain, Moderate(Pain Scale 4-6) Last Admin: 04/24/25 20:11 Dose: 5 mg Phenazopyridine HCl (Phenazopyridine Hcl 200 Mg Tablet) 200 mg PO DAILY [facility] Last Admin: 04/25/25 08:18 Dose: 200 mg Polyethylene Glycol (Polyethylene Glycol 3350 17 Gm Powd.Pack) 17 gm PO DAILY [facility] Last Admin: 04/25/25 08:18 Dose: 17 gm Pregabalin (Pregabalin 150 Mg Capsule) 150 mg PO DAILY [facility] Last Admin: 04/25/25 08:18 Dose: 150 mg Simethicone (Simethicone 80 Mg Tab.Chew) 160 mg PO QID PRN PRN Reason: gas Sodium Chloride (0.9 % Sodium Chloride Flush 3 Ml Syringe) 3 ml IVFLUSH QSHIFT [facility] Last Admin: 04/25/25 15:24 Dose: 3 ml Home Medications ?Medication ?Instructions ?Recorded ?Confirmed ?Last Taken ?Type pregabalin 150 mg capsule 150 mg PO DAILY 09/10/20 04/23/25 03/26/25 History vit C 250 mg-vit E 90 mg-zinc 40 1 tab PO BID 03/06/21 04/23/25 03/26/25 History mg-copper 1 [id number] capsule (PreserVision AREDS-2) atorvastatin 20 mg tablet 20 mg PO DAILY 01/02/25 04/23/25 03/26/25 History losartan 100 mg tablet 100 mg PO DAILY 02/06/25 04/23/25 03/26/25 History semaglutide 0.25 mg or 0.5 mg (2 0.5 mg subcut MO 03/26/25 04/23/25 03/24/25 History mg/3 mL) subcutaneous pen injector (Ozempic) acetaminophen 500 mg tablet 1,000 mg PO TID 04/23/25 04/23/25 Unknown History bisacodyl 10 mg rectal suppository 10 mg SD DAILY PRN Constipation 04/23/25 04/23/25 Unknown History bumetanide 1 mg tablet 1 mg PO BID 04/23/25 04/23/25 Unknown History docusate sodium 100 mg capsule 100 mg PO BID 04/23/25 04/23/25 Unknown History (Colace) fexofenadine 180 mg tablet 180 mg PO DAILY 04/23/25 04/23/25 Unknown History magnesium hydroxide 400 mg/5 mL 30 ml PO DAILY PRN Constipation 04/23/25 04/23/25 Unknown History oral suspension (Milk of Magnesia) naproxen 500 mg tablet 500 mg PO BIDWM PRN Pain 04/23/25 04/23/25 Unknown History omeprazole 20 mg capsule,delayed 20 mg PO DAILY@0630 04/23/25 04/23/25 Unknown History release oxycodone 5 mg tablet 5 mg PO Q4H PRN Pain, 04/23/25 04/23/25 Unknown History Moderate(Pain Scale 4-6) phenazopyridine 95 mg tablet 190 mg PO DAILY 04/23/25 04/23/25 Unknown History polyethylene glycol 3350 17 17 g PO DAILY PRN Constipation 04/23/25 04/23/25 Unknown History gram/dose oral powder (Miralax) simethicone 125 mg capsule 125 mg PO QID PRN gas 04/23/25 04/23/25 Unknown History Physical Exam Vital Signs: Vital Signs: Last Vital Signs Temp 97.2 F 04/25/25 11:25 Pulse 80 04/25/25 11:25 Resp 18 04/25/25 11:25 BP 144/61 H 04/25/25 15:14 Pulse Ox 93 04/25/25 11:25 O2 Del Method Nasal Cannula 04/25/25 11:25 O2 Flow Rate 2 04/25/25 11:25 Oxygen Flow Rate 6 04/23/25 05:50 BMI result Body Mass Index 36.4 Const: General: no acute distress and ill appearing chronically Nutritional Appearance: obese Orientation/consciousness: patient oriented x3 HEENT: Head: Yes normal to inspection Ears: hearing grossly normal bilaterally Eyes: Sclerae: sclerae normal Pupils: Equal, round and reactive pupils present Neck: Neck: Yes normal visual inspection Chest: Chest palpation & inspection: normal inspection of the chest Resp: Effort & Inspection: normal respiratory effort Auscultation: clear to auscultation bilaterally Cardio: Palpation: normal PMI Rate: regular rate Rhythm: regular rhythm Heart sounds: S1 normal heart sound present, S2 normal heart sound present and no murmurs GI: Inspection: Yes distended Palpation (GI): Soft to palpation, nontender and No hepatosplenomegaly present Auscultation: normal bowel sounds Rectal Exam - Female: deferred Skin: General skin exam: no rashes or lesions noted Neuro: General: patient oriented x3, gait normal and moves all extremities Cranial nerves: Yes Equal, round and reactive pupils present Psych: Appearance: grossly normal Mental Status: mental status grossly normal Results Labs 04/28/25 06:14 04/28/25 06:14 Labs: Short CBC 04/25/25 04/25/25 Range/Units 06:11 14:53 WBC 6.1 (4.8-10.8) X10*3/uL Hgb 9.1 L 11.0 L D (12.0-16.0) g/dl Hct 28.5 L 35.2 L D (37.0-47.0) % Plt Count 182 (160-400) X10*3/uL BMP 04/25/25 06:11 Sodium 145 Potassium 3.7 Chloride 113 H Carbon Dioxide 25 BUN 39 H Creatinine 0.85 Calcium 8.3 L Microbiology Microbiology Results: Microbiology 04/23/25 09:09 Blood - Venous Blood Culture - Preliminary No growth after 48 hours. 04/23/25 09:09 Blood - Venous Blood Culture - Preliminary No growth after 48 hours. Assessment and Plan (1) Hematochezia: Status: Resolved Plan 89 YF discharged from [facility] [place]31/2025 after undergoing open reduction internal fixation of left femur fracture, postoperatively patient had a run of AFib with rapid ventricular response which responded to beta-blockers. Patient was placed on amiodarone 200 mg b.i.d. for 1 month and was discharged to rehab facility. Pt was readmitted on 04/23/25 with bilateral leg swelling and weight gain >7 lbs in 48 hours and hypoxia. In rehab her dose of Lasix was doubled and she was given additional dose of Bumex. GI consulted for evaluation of hematochezia which started today Pt reports having a colonoscopy > 10 years ago which showed diverticulosis. Pattern of bleeding is suggestive of a diverticular bleed. Other possibilities include large polyp, colon mass, colonic AVMs or Dieulafoy's. RECOMMENDATIONS: 1. Agree with urgent CT angiogram to localize bleeding site. If CT angio is positive for active bleeding, she will need to be transferred to a [facility]iary Care [facility] for control of bleeding by angiography with embolization by IR. 2. If CT angio is negative, advise to monitor CBC and transfuse prn Due to advanced age and multiple comorbidities, pt is not a candidate for colonoscopy. Procedures Date of Service Date of Service: 05/08/25
[2025-04-25 16:32] LABS: Glucose, Whole Blood 183 mg/dL (60-115)
[2025-04-25] MEDS: iohexoL 350 MG/ML 100 ML INFUS..BTL IV (17:24)
[2025-04-25] MEDS: oxyCODONE HCl Immed Release 5 MG TABLET PO ×2 (17:34→22:32)
[2025-04-25 19:12] LABS: Glucose, Whole Blood 142 mg/dL (60-115)
[2025-04-25] MEDS: Metoprolol Tartrate 12.5 MG HALFTAB PO (20:05)
[2025-04-26] VITALS (9 sets, daily range): BP systolic 110–131; BP diastolic 53–65; PULSE 53–72; RESP 14–20; TEMP 36.3–37.3; O2SAT 92–98
[2025-04-26 08:00] LABS: Glucose, Whole Blood 99 mg/dL (60-115)
[2025-04-26 08:18] LABS: Anion Gap 12 (12-20); Blood Urea Nitrogen 37 mg/dL (9-16); Calcium 8.8 mg/dL (8.4-10.2); Carbon Dioxide 27 mmol/L (22-29); Chloride 109 mmol/L (96-108); Creatinine Clr Calc Pharmacy 45.0; Estimated Glomerular Filt Rate 58; Magnesium 2.5 mg/dL (1.6-2.6); Potassium 3.9 mmol/L (3.3-5.1); Sodium 144 mmol/L (135-145)
[2025-04-26] MEDS: Furosemide 20 MG/2 ML VIAL IVPUSH (09:30)
[2025-04-26] MEDS: Metoprolol Tartrate 12.5 MG HALFTAB PO ×2 (09:32→12:25)
[2025-04-26] MEDS: Ferrous Sulfate 324 MG TABLET.DR PO (09:32)
[2025-04-26] MEDS: 0.9 % Sodium Chloride Flush 3 ML SYRINGE IVFLUSH ×2 (09:34→15:55)
[2025-04-26] MEDS: Ammonium Lactate 12 % Lotion 226 GM BOTTLE 1 APPL TOPICAL ×2 (09:39→21:42)
--- NOTE | 2025-04-26 09:50 | ECG_ITS ---
Test Reason : ? a.fib vs SR with PACs Blood Pressure : */* mmHG Vent. Rate : 60 BPM Atrial Rate : 60 BPM P-R Int : 168 ms QRS Dur : 140 ms QT Int : 476 ms P-R-T Axes : 36 -45 47 degrees QTcB Int : 476 ms Poor data quality, interpretation may be adversely affected Sinus rhythm Abnormal ECG When compared with ECG of 24-Apr-2025 10:22, Sinus rhythm has replaced Atrial fibrillation Vent. rate has decreased by 44 bpm Repeat EKG Referred By: Tigre Keene Electronically Signed By: SAMINA VILLAGOMEZ MD
--- NOTE | 2025-04-26 10:22 | PM.PNCARD ---
Subjective Subjective Date of Service: 04/26/25 Principal diagnosis: CHF, AFib Interval history: Patient has no significant episodes of AFib. Appears to have frequent PACs. Breathing is improved in his diuresing well. Kidney functions remained stable. BNP is elevated. Patient denies any palpitations. Review of Systems Constitutional: Reports no additional constitutional complaints Cardiovascular: Denies chest pain, Reports leg edema, Denies lightheadedness, Denies Loss of Consciousness, Denies palpitations and Reports dyspnea on exertion Respiratory: Reports no additional respiratory complaints and Reports dyspnea on exertion Gastrointestinal: Reports no additional gastrointestinal complaints Genitourinary: Reports no additional female genitourinary complaints Endocrine: Denies palpitations Physical Exam Vital Signs: Last Vital Signs Temp 97.7 F 04/26/25 07:26 Pulse 72 04/26/25 07:26 Resp 20 04/26/25 07:26 BP 127/58 L 04/26/25 07:26 Pulse Ox 95 04/26/25 09:52 O2 Del Method Room Air 04/26/25 09:52 O2 Flow Rate 2 04/26/25 07:26 Oxygen Flow Rate 6 04/23/25 05:50 BMI result Body Mass Index 36.4 Const General: cooperative, alert, awake and in distress mild and other (Just after she was moved from the bed to the chair) Nutritional Appearance: obese Orientation/consciousness: patient oriented x3 Neck Neck: Yes trachea midline, Yes supple and Yes JVD Resp Effort & Inspection: normal respiratory effort Auscultation: crackles Cardio Jugular venous distension: JVD Rate: regular rate Rhythm: regular rhythm Heart sounds: S1 normal heart sound present, S2 normal heart sound present, no click, no gallops and Murmur heart sound present systolic GI Auscultation: normal bowel sounds Skin General skin exam: no rashes or lesions noted Neuro General: patient oriented x3 and no focal motor deficits Extrem General: No clubbing, No cyanosis and Yes edema Objective Labs and Meds 04/25/25 14:53 04/26/25 07:32 Lab results: Laboratory Results - last 24 hr 04/25/25 04/25/25 04/25/25 11:15 14:52 14:53 Hgb 11.0 L D Hct 35.2 L D Sodium Potassium Chloride Carbon Dioxide Anion Gap BUN Creatinine Estim Creat Clear Calc Estimated GFR POC Glucose 140 H Random Glucose Lactic Acid 1.9 Calcium Magnesium NT-Pro-B Natriuret Pep Blood Type A Positive Antibody Screen NEGATIVE 04/25/25 04/25/25 04/26/25 16:28 19:07 07:19 Hgb Hct Sodium Potassium Chloride Carbon Dioxide Anion Gap BUN Creatinine Estim Creat Clear Calc Estimated GFR POC Glucose 183 H 142 H 99 Random Glucose Lactic Acid Calcium Magnesium NT-Pro-B Natriuret Pep Blood Type Antibody Screen 04/26/25 07:32 Hgb Hct Sodium 144 Potassium 3.9 Chloride 109 H Carbon Dioxide 27 Anion Gap 12 BUN 37 H Creatinine 0.92 Estim Creat Clear Calc 45.0 Estimated GFR 58 POC Glucose Random Glucose 109 Lactic Acid Calcium 8.8 D Magnesium 2.5 NT-Pro-B Natriuret Pep 4640.5 H Blood Type Antibody Screen Progress Note: A&P Assessment and plan (1) Decompensated heart failure: Status: Acute Assessment and Plan: Decompensated congestive heart failure which is improving slowly. Continue gentle diuresis with Lasix. Responding very well. Strict intake and output chart needs to be pursued. Continue monitor electrolytes, renal function as well as NT pro BNP. Out of bed to chair. Incentive spirometry. Add Jardiance 10 mg to regimen. Will continue pursue rhythm control approach. Given her borderline low blood pressure discontinue losartan therapy. (2) Atrial fibrillation: Status: Acute Assessment and Plan: Atrial fibrillation without any clinical recurrence. Kidney function has improved. Given possible pulmonary toxicity related to amiodarone hold off on amiodarone therapy if she has recurrent atrial fibrillation can consider alternative such as sotalol therapy. Will increase metoprolol meanwhile to 25 mg b.i.d.. Avoidance of stimulants was discussed. Pulmonary specific bronchodilators if needed. Should consider oral anticoagulation therapy (3) Non-rheumatic aortic stenosis: Status: Acute Assessment and Plan: Aortic stenosis which is moderate. Will continue monitor. No interventions required. Will follow with you Time Spent With Patient Time: Total time managing care of this patient today ____ minutes. Progress Note: Quality Stroke Does the patient have a stroke diagnosis?: No Procedures Date of Service Date of Service: 04/26/25
[2025-04-26 11:15] LABS: Glucose, Whole Blood 116 mg/dL (60-115)
--- NOTE | 2025-04-26 15:34 | HO.PM.IMPN ---
Subjective Subjective Date of Service: 04/26/25 Interval History: No acute issues overnight. Hemoglobin stable no active bleeding Review of Systems Denies chest pain Denies shortness of breath Denies nausea vomiting diarrhea Denies fever chills Physical Exam Vital Signs: Vital Signs: Last Vital Signs Temp 99.1 F 04/26/25 15:09 Pulse 62 04/26/25 15:09 Resp 18 04/26/25 15:09 BP 117/58 L 04/26/25 15:09 Pulse Ox 97 04/26/25 15:09 O2 Del Method Room Air 04/26/25 15:09 O2 Flow Rate 2 04/26/25 07:26 Oxygen Flow Rate 6 04/23/25 05:50 BMI result Body Mass Index 36.4 Const: Other: Awake alert no acute distress Resp: Other: Clear to auscultation bilaterally no rales rhonchi or wheezes Cardio: Other: No S4; positive S1-S2; no S3 2/6 systolic murmur best heard at right sternal border 2nd intercostal space GI: Other: Soft nontender nondistended normoactive bowel sounds Extrem: Other: Bilateral lower extremity edema Objective Data Active Medications Acetaminophen (Acetaminophen 325 Mg Tablet) 650 mg PO Q6H PRN PRN Reason: Pain, Mild 1-3,fever,headache Apixaban (Apixaban 5 Mg Tablet) 5 mg PO BID [facility] On Hold: 04/25/25 14:06 Last Admin: 04/25/25 08:18 Dose: 5 mg Documented By: VICKI Atorvastatin Calcium (Atorvastatin Calcium 20 Mg Tablet) 20 mg PO DAILY [facility] Last Admin: 04/26/25 09:32 Dose: 20 mg Documented By: EDIE Bisacodyl (Bisacodyl 10 Mg Supp.Rect) 10 mg CO DAILY PRN PRN Reason: Constipation Calcium Carbonate (Calcium Carbonate 750 Mg Tab.Chew) 750 mg PO Q4H PRN PRN Reason: Heartburn Dextrose (Dextrose 50 % 25 Gm/50 Ml Syringe) 25 gm IVPUSH Q15M PRN; Protocol PRN Reason: per Hypoglycemia Standing Ord. Docusate Sodium (Docusate Sodium 100 Mg Capsule) 100 mg PO BID [facility] Last Admin: 04/26/25 09:32 Dose: Not Given Documented By: EDIE Non-Admin Reason: Patient Refused Empagliflozin (Empagliflozin 10 Mg Tablet) 10 mg PO DAILY [facility] Last Admin: 04/26/25 12:25 Dose: 10 mg Documented By: EDIE Ferrous Sulfate (Ferrous Sulfate 324 Mg Tablet.) 324 mg PO DAILY [facility] Last Admin: 04/26/25 09:32 Dose: 324 mg Documented By: EDIE Furosemide (Furosemide 20 Mg/2 Ml Vial) 20 mg IVPUSH DAILY [facility]; Protocol Last Admin: 04/26/25 09:30 Dose: 20 mg Documented By: EDIE Glucose (Glucose Gel 15 Gm Gel..Gram.) 15 gm PO Q15M PRN; Protocol PRN Reason: per Hypoglycemia Standing Ord. Insulin Human Lispro (Insulin Lispro 100 Unit/Ml 3 Ml Vial) 0 unit SUBCUT QIDACHS [facility]; Protocol Last Admin: 04/26/25 11:27 Dose: Not Given Documented By: EDIE Non-Admin Reason: No Insulin Coverage Lactic Acid (Ammonium Lactate 12 % Lotion 226 Gm Bottle) 1 appl TOPICAL BID [facility]; Protocol Last Admin: 04/26/25 09:39 Dose: 1 appl Documented By: EDIE Loratadine (Loratadine 10 Mg Tablet) 10 mg PO DAILY [facility] Last Admin: 04/26/25 09:32 Dose: 10 mg Documented By: EDIE Lorazepam (Lorazepam 0.5 Mg Tablet) 0.5 mg PO BEDTIME PRN PRN Reason: Anxiety Last Admin: 04/25/25 22:32 Dose: 0.5 mg Documented By: JUAN CARLOS Magnesium Hydroxide (Milk Of Magnesia 30 Ml Oral.Susp) 30 ml PO DAILY PRN PRN Reason: Constipation Melatonin (Melatonin 3 Mg Tablet) 6 mg PO BEDTIME PRN PRN Reason: Insomnia Methylprednisolone Sodium Succinate (Methylprednisolone Sod Succ 40 Mg/Ml Vial) 40 mg IVPUSH DAILY [facility] Last Admin: 04/26/25 09:33 Dose: 40 mg Documented By: EDIE Metoprolol Tartrate (Metoprolol Tartrate 25 Mg Tablet) 25 mg PO BID [facility]; Protocol Omeprazole (Omeprazole 20 Mg Capsule.) 20 mg PO DAILY@0630 [facility] Last Admin: 04/26/25 06:03 Dose: 20 mg Documented By: JUAN CARLOS Ondansetron HCl (Ondansetron Hcl 4 Mg/2 Ml Vial) 4 mg IVPUSH Q8H PRN PRN Reason: Nausea and Vomiting Oxycodone HCl (Oxycodone Hcl Immed Release 5 Mg Tablet) 5 mg PO Q4H PRN PRN Reason: Pain, Moderate(Pain Scale 4-6) Last Admin: 04/25/25 22:32 Dose: 5 mg Documented By: TRESSAARTB Phenazopyridine HCl (Phenazopyridine Hcl 200 Mg Tablet) 200 mg PO DAILY [facility] Last Admin: 04/26/25 09:33 Dose: Not Given Documented By: EDIE Non-Admin Reason: Patient Refused Polyethylene Glycol (Polyethylene Glycol 3350 17 Gm Powd.Pack) 17 gm PO DAILY [facility] Last Admin: 04/26/25 09:33 Dose: Not Given Documented By: EDIE Non-Admin Reason: Patient Refused Pregabalin (Pregabalin 150 Mg Capsule) 150 mg PO DAILY [facility] Last Admin: 04/26/25 09:31 Dose: 150 mg Documented By: EDIE Simethicone (Simethicone 80 Mg Tab.Chew) 160 mg PO QID PRN PRN Reason: gas Last Admin: 04/25/25 17:36 Dose: 160 mg Documented By: VICKI Sodium Chloride (0.9 % Sodium Chloride Flush 3 Ml Syringe) 3 ml IVFLUSH QSHIFT [facility] Last Admin: 04/26/25 09:34 Dose: 3 ml Documented By: EDIE Labs 04/25/25 14:53 04/26/25 07:32 Labs: Laboratory Results - last 24 hr 04/25/25 04/25/25 04/25/25 14:52 16:28 19:07 Anion Gap Estim Creat Clear Calc Estimated GFR POC Glucose 183 H 142 H Random Glucose Calcium Magnesium NT-Pro-B Natriuret Pep Blood Type A Positive Antibody Screen NEGATIVE 04/26/25 04/26/25 04/26/25 07:19 07:32 11:04 Anion Gap 12 Estim Creat Clear Calc 45.0 Estimated GFR 58 POC Glucose 99 116 H Random Glucose 109 Calcium 8.8 D Magnesium 2.5 NT-Pro-B Natriuret Pep 4640.5 H Blood Type Antibody Screen Microbiology Microbiology Results: Microbiology 04/23/25 09:09 Blood Culture - Preliminary Blood - Venous No growth after 48 hours. 04/23/25 09:09 Blood Culture - Preliminary Blood - Venous No growth after 48 hours. Assessment and Plan (1) Acute hypoxic respiratory failure: Status: Acute (2) HERMINIO (acute kidney injury): Status: Acute (3) Paroxysmal atrial fibrillation: Status: Acute Plan 89yo F with mod , recent stress cardiomyopathy with reduced EF [30-35% 03/29/25], recent episode of postoperative brief AF for which started on amiodarone, DM2, HTN; was at [facility] undergoing rehabilitation after repaired L femur fracture, sent in hypotension after escalating diuretics in conext of worsening edema and weight gain with hypoxia and dyspnea. Found to have ground-glass opacities in lungs suspicious for amiodarone-induced lung injury, hypoxia, and HERMINIO. 1.Acute hypoxic respiratory failure due to amiodarone-induced lung injury -IV steroids 04/24-; weaned off supplemental O2 2.Acute on Chronic HF with recovered EF -increase metoprolol to 25 mg b.i.d. -DC losartan -Jardiance 10 mg daily 3.HERMINIO -responded to volume -continue to hold ARB -follow renals/divalents 4. Paroxysmal atrial fibrillation - acceptable rate control; follow response to increase metoprolol - started apixaban for stroke prevention 04/24 -monitor on tele 5. Diabetes type 2 -acceptable control at this time -follow response to Jardiance addition -lispro correctional scale -adjust as indicated Eliquis Full code In my clinical judgment, the patient requires continued inpatient hospitalization for the following reasons: HERMINIO, hypotension, L-sided then R-sided HF, hypoxia, cardiology consultation Quality Stroke Does the patient have a stroke diagnosis?: No VTE Prior VTE?: No VTE Risk Level:: Medical - moderate - high VTE Device Contraindication: Treatment Not Indicated VTE Drug Contraindication: N/A - Med Ordered
[2025-04-26] MEDS: oxyCODONE HCl Immed Release 5 MG TABLET PO ×2 (15:52→21:46)
[2025-04-26 16:19] LABS: Glucose, Whole Blood 197 mg/dL (60-115)
[2025-04-26 20:50] LABS: Glucose, Whole Blood 155 mg/dL (60-115)
--- NOTE | 2025-04-27 | ECG_ITS ---
Test Reason : Sotalol Blood Pressure : */* mmHG Vent. Rate : 68 BPM Atrial Rate : 68 BPM P-R Int : 168 ms QRS Dur : 146 ms QT Int : 466 ms P-R-T Axes : 27 -45 -21 degrees QTcB Int : 495 ms Normal sinus rhythm Right bundle branch block Left anterior fascicular block Bifascicular block Abnormal ECG When compared with ECG of 26-Apr-2025 10:30, Fusion complexes are no longer Present Premature supraventricular complexes are no longer Present Right bundle branch block has replaced Non-specific intra-ventricular conduction block Referred By: Tigre Keene Electronically Signed By: Surendra Bowen
[2025-04-27] MEDS: 0.9 % Sodium Chloride Flush 3 ML SYRINGE IVFLUSH ×3 (00:20→16:54)
[2025-04-27 03:28] VITALS: BP 134/59; PULSE 76; RESP 16; TEMP 36.4; O2SAT 92
[2025-04-27 06:54] LABS: MANUAL DIFF FLAG NO
[2025-04-27 07:20] VITALS: BP 152/66; PULSE 82; RESP 18; TEMP 36.7; O2SAT 94
[2025-04-27 07:21] LABS: Alanine Aminotransferase < 6 U/L (0-31); Albumin Level 3.4 g/dL (3.5-5.0); Alkaline Phosphatase 97 U/L (39-117); Anion Gap 13 (12-20); Aspartate Amino Transferase 13 U/L (5-31); Blood Urea Nitrogen 35 mg/dL (9-16); Calcium 8.7 mg/dL (8.4-10.2); Carbon Dioxide 28 mmol/L (22-29); Chloride 108 mmol/L (96-108); Creatinine Clr Calc Pharmacy 45.0; Estimated Glomerular Filt Rate 58; Hematocrit 28.5 % (37.0-47.0); Hemoglobin 9.1 g/dl (12.0-16.0); Imm Gran Abs Auto 0.15 X10*3/uL (0.00-0.03); Imm Gran Pct Auto 1.5 % (0.0-0.4); Lymphocytes Absolute Auto 2.8 X10*3/uL (1.2-4.9); Mean Corpuscular HGB Conc 31.9 g/dl (31.0-35.0); Mean Corpuscular Hemoglobin 30.3 pg (27.0-33.0); Mean Corpuscular Volume 95.0 fL (80.0-98.0); NRBC Abs Auto 0.000 X10*3/uL (0.0-0.012); NRBC Pct Auto 0.0 /100WBC (0.0-0.2); Platelet Count 222 X10*3/uL (160-400); Potassium 3.7 mmol/L (3.3-5.1); Red Blood Count 3.00 X10*6/uL (4.20-5.50); Sodium 145 mmol/L (135-145); Total Protein 5.6 g/dL (6.5-8.0); White Blood Count 10.2 X10*3/uL (4.8-10.8)
[2025-04-27 07:29] LABS: Glucose, Whole Blood 98 mg/dL (60-115)
[2025-04-27] MEDS: Ferrous Sulfate 324 MG TABLET.DR PO (09:25)
[2025-04-27] MEDS: Furosemide 20 MG/2 ML VIAL IVPUSH (09:25)
[2025-04-27] MEDS: Ammonium Lactate 12 % Lotion 226 GM BOTTLE 1 APPL TOPICAL ×2 (09:37→21:09)
--- NOTE | 2025-04-27 10:28 | PM.PNCARD ---
Subjective Subjective Date of Service: 04/27/25 Principal diagnosis: CHF, AFib Interval history: Patient has diuresed well. Blood pressure is actually on the higher side at this point time. Overnight having multiple small bouts of atrial fibrillation. No sustained atrial fibrillation. Breathing is improved. Renal function is stable Review of Systems Constitutional: Reports no additional constitutional complaints Eyes: Reports no additional eye complaints Cardiovascular: Denies chest pain, Reports leg edema, Denies lightheadedness, Denies dyspnea, Reports dyspnea on exertion and Denies orthopnea Respiratory: Denies dyspnea and Reports dyspnea on exertion Genitourinary: Reports no additional female genitourinary complaints Musculoskeletal: Reports no additional musculoskeletal complaints Reports system reviewed and no additional complaints, except as documented Psychiatric: Reports no additional psychiatric complaints Physical Exam Vital Signs: Last Vital Signs Temp 98.0 F 04/27/25 07:20 Pulse 82 04/27/25 07:20 Resp 18 04/27/25 07:20 BP 152/66 H 04/27/25 07:20 Pulse Ox 94 04/27/25 07:20 O2 Del Method Room Air 04/27/25 07:20 O2 Flow Rate 2 04/26/25 07:26 Oxygen Flow Rate 6 04/23/25 05:50 BMI result Body Mass Index 36.4 Const General: cooperative, alert, awake and in distress mild and other (Just after she was moved from the bed to the chair) Nutritional Appearance: obese Orientation/consciousness: patient oriented x3 Neck Neck: Yes trachea midline, Yes supple and Yes JVD Resp Effort & Inspection: normal respiratory effort Auscultation: crackles Cardio Jugular venous distension: JVD Rate: regular rate Rhythm: regular rhythm Heart sounds: S1 normal heart sound present, S2 normal heart sound present, no click, no gallops and Murmur heart sound present systolic GI Auscultation: normal bowel sounds Skin General skin exam: no rashes or lesions noted Neuro General: patient oriented x3 and no focal motor deficits Extrem General: No clubbing, No cyanosis and Yes edema Objective Labs and Meds 04/27/25 06:12 04/27/25 06:12 Lab results: Laboratory Results - last 24 hr 04/26/25 04/26/25 04/26/25 11:04 16:11 20:37 WBC RBC Hgb Hct MCV MCH MCHC RDW Plt Count MPV Immature Gran % (Auto) Neut % (Auto) Lymph % (Auto) Shelby % (Auto) Eos % (Auto) Baso % (Auto) Lymph # (Auto) Shelby # (Auto) Eos # (Auto) Baso # (Auto) Abs Immat Gran (auto) Absolute Neuts (auto) Absolute Nucleated RBC Nucleated RBC % (auto) Sodium Potassium Chloride Carbon Dioxide Anion Gap BUN Creatinine Estim Creat Clear Calc Estimated GFR POC Glucose 116 H 197 H 155 H Fasting Glucose Calcium Total Bilirubin AST ALT Alkaline Phosphatase Total Protein Albumin 04/27/25 04/27/25 06:12 07:15 WBC 10.2 RBC 3.00 L Hgb 9.1 L Hct 28.5 L MCV 95.0 MCH 30.3 MCHC 31.9 RDW 16.9 H Plt Count 222 MPV 10.4 Immature Gran % (Auto) 1.5 H Neut % (Auto) 59.0 Lymph % (Auto) 27.5 Shelby % (Auto) 11.7 H Eos % (Auto) 0.0 Baso % (Auto) 0.3 Lymph # (Auto) 2.8 Shelby # (Auto) 1.2 Eos # (Auto) 0.0 Baso # (Auto) 0.0 Abs Immat Gran (auto) 0.15 H Absolute Neuts (auto) 6.0 Absolute Nucleated RBC 0.000 Nucleated RBC % (auto) 0.0 Sodium 145 Potassium 3.7 Chloride 108 Carbon Dioxide 28 Anion Gap 13 BUN 35 H Creatinine 0.92 Estim Creat Clear Calc 45.0 Estimated GFR 58 POC Glucose 98 Fasting Glucose 105 H Calcium 8.7 Total Bilirubin 0.4 AST 13 ALT < 6 Alkaline Phosphatase 97 Total Protein 5.6 L Albumin 3.4 L Progress Note: A&P Assessment and plan (1) Decompensated heart failure: Status: Acute Assessment and Plan: Decompensated congestive heart failure has improving. Continue low-dose diuretic therapy IV for 1 day. Strict intake and output chart needs to be pursued. Continue monitor renal function, electrolytes and antiplatelet BNP tomorrow. Continue Jardiance therapy. Continue pursue rhythm control approach. Out of bed to chair and physical therapy consult tomorrow. Incentive spirometry needs to be also pursued. Continue monitor blood pressure closely and if remains significantly elevated can add low-dose spironolactone 12.5 mg to her regimen tomorrow (2) Paroxysmal atrial fibrillation: Status: Acute Assessment and Plan: Paroxysmal atrial fibrillation, admitted with respiratory distress and suspicion for amiodarone toxicity. Amiodarone has been discontinued for now. Continues to have intermittent episodes of atrial fibrillation. Given her advanced diastolic dysfunction, she is not likely going to tolerate atrial fibrillation if it sustains. Profile activity treat and maintain rhythm and started on sotalol 40 mg b.i.d.. Monitor EKGs and renal function closely. Full disclosure cardiac telemetry for next 48 hours. Will follow with you Time Spent With Patient Time: Total time managing care of this patient today ____ minutes. Progress Note: Quality Stroke Does the patient have a stroke diagnosis?: No Procedures Date of Service Date of Service: 04/27/25
[2025-04-27 11:51] VITALS: BP 116/58; PULSE 66; RESP 16; TEMP 37; O2SAT 94
[2025-04-27] MEDS: oxyCODONE HCl Immed Release 5 MG TABLET PO ×2 (12:16→21:19)
[2025-04-27 12:30] LABS: Glucose, Whole Blood 117 mg/dL (60-115)
--- NOTE | 2025-04-27 13:40 | P.PNIM_ITS ---
Subjective Subjective Date of Service: 04/27/25 Interval History: No acute issues overnight. Monitor with frequent PACs Review of Systems Denies chest pain Denies shortness of breath Denies nausea vomiting diarrhea Denies fever chills Physical Exam 2 Vital Signs: Vital Signs: Last Vital Signs Temp 98.6 F 04/27/25 11:51 Pulse 66 04/27/25 11:51 Resp 16 04/27/25 11:51 BP 116/58 L 04/27/25 11:51 Pulse Ox 94 04/27/25 11:51 O2 Del Method Room Air 04/27/25 11:51 O2 Flow Rate 2 04/26/25 07:26 Oxygen Flow Rate 6 04/23/25 05:50 BMI result Body Mass Index 36.4 Const: Other: Awake alert no acute distress Resp: Other: Clear to auscultation bilaterally no rales rhonchi or wheezes Cardio: Other: No S4; positive S1-S2; no S3 2/6 systolic murmur best heard at right sternal border 2nd intercostal space GI: Other: Soft nontender nondistended normoactive bowel sounds Extrem: Other: Bilateral lower extremity edema Objective Data Active Medications Acetaminophen (Acetaminophen 325 Mg Tablet) 650 mg PO Q6H PRN PRN Reason: Pain, Mild 1-3,fever,headache Apixaban (Apixaban 5 Mg Tablet) 5 mg PO BID [facility] On Hold: 04/25/25 14:06 Last Admin: 04/25/25 08:18 Dose: 5 mg Documented By: VICKI Atorvastatin Calcium (Atorvastatin Calcium 20 Mg Tablet) 20 mg PO DAILY [facility] Last Admin: 04/27/25 09:25 Dose: 20 mg Documented By: EDIE Bisacodyl (Bisacodyl 10 Mg Supp.Rect) 10 mg [place] DAILY PRN PRN Reason: Constipation Calcium Carbonate (Calcium Carbonate 750 Mg Tab.Chew) 750 mg PO Q4H PRN PRN Reason: Heartburn Dextrose (Dextrose 50 % 25 Gm/50 Ml Syringe) 25 gm IVPUSH Q15M PRN; Protocol PRN Reason: per Hypoglycemia Standing Ord. Docusate Sodium (Docusate Sodium 100 Mg Capsule) 100 mg PO BID [facility] Last Admin: 04/27/25 09:25 Dose: 100 mg Documented By: EDIE Empagliflozin (Empagliflozin 10 Mg Tablet) 10 mg PO DAILY [facility] Last Admin: 04/27/25 09:25 Dose: 10 mg Documented By: EDIE Ferrous Sulfate (Ferrous Sulfate 324 Mg Tablet.) 324 mg PO DAILY [facility] Last Admin: 04/27/25 09:25 Dose: 324 mg Documented By: EDIE Furosemide (Furosemide 20 Mg/2 Ml Vial) 20 mg IVPUSH DAILY [facility]; Protocol Last Admin: 04/27/25 09:25 Dose: 20 mg Documented By: EDIE Glucose (Glucose Gel 15 Gm Gel..Gram.) 15 gm PO Q15M PRN; Protocol PRN Reason: per Hypoglycemia Standing Ord. Insulin Human Lispro (Insulin Lispro 100 Unit/Ml 3 Ml Vial) 0 unit SUBCUT QIDACHS [facility]; Protocol Last Admin: 04/27/25 12:44 Dose: Not Given Documented By: EDIE Non-Admin Reason: No Insulin Coverage Lactic Acid (Ammonium Lactate 12 % Lotion 226 Gm Bottle) 1 appl TOPICAL BID [facility]; Protocol Last Admin: 04/27/25 09:37 Dose: 1 appl Documented By: EDIE Loratadine (Loratadine 10 Mg Tablet) 10 mg PO DAILY [facility] Last Admin: 04/27/25 09:26 Dose: 10 mg Documented By: EDIE Lorazepam (Lorazepam 0.5 Mg Tablet) 0.5 mg PO BEDTIME PRN PRN Reason: Anxiety Last Admin: 04/26/25 21:46 Dose: 0.5 mg Documented By: GLORIA Comments: pt requested now for anxiety Magnesium Hydroxide (Milk Of Magnesia 30 Ml Oral.Susp) 30 ml PO DAILY PRN PRN Reason: Constipation Melatonin (Melatonin 3 Mg Tablet) 6 mg PO BEDTIME PRN PRN Reason: Insomnia Methylprednisolone Sodium Succinate (Methylprednisolone Sod Succ 40 Mg/Ml Vial) 40 mg IVPUSH DAILY [facility] Last Admin: 04/27/25 09:25 Dose: 40 mg Documented By: EDIE Omeprazole (Omeprazole 20 Mg Capsule.) 20 mg PO DAILY@0630 [facility] Last Admin: 04/27/25 05:47 Dose: 20 mg Documented By: MALCOLM Ondansetron HCl (Ondansetron Hcl 4 Mg/2 Ml Vial) 4 mg IVPUSH Q8H PRN PRN Reason: Nausea and Vomiting Oxycodone HCl (Oxycodone Hcl Immed Release 5 Mg Tablet) 5 mg PO Q4H PRN PRN Reason: Pain, Moderate(Pain Scale 4-6) Last Admin: 04/27/25 12:16 Dose: 5 mg Documented By: EDIE Phenazopyridine HCl (Phenazopyridine Hcl 200 Mg Tablet) 200 mg PO DAILY [facility] Last Admin: 04/27/25 09:28 Dose: Not Given Documented By: EDIE Non-Admin Reason: Patient Refused Polyethylene Glycol (Polyethylene Glycol 3350 17 Gm Powd.Pack) 17 gm PO DAILY [facility] Last Admin: 04/27/25 09:24 Dose: 17 gm Documented By: EDIE Pregabalin (Pregabalin 150 Mg Capsule) 150 mg PO DAILY [facility] Last Admin: 04/27/25 09:25 Dose: 150 mg Documented By: EDIE Simethicone (Simethicone 80 Mg Tab.Chew) 160 mg PO QID PRN PRN Reason: gas Last Admin: 04/25/25 17:36 Dose: 160 mg Documented By: VICKI Sodium Chloride (0.9 % Sodium Chloride Flush 3 Ml Syringe) 3 ml IVFLUSH QSHIFT [facility] Last Admin: 04/27/25 09:28 Dose: 3 ml Documented By: EDIE Sotalol HCl (Sotalol Hcl 80 Mg Tablet) 40 mg PO BID [facility] Labs 04/27/25 06:12 04/27/25 06:12 Labs: Laboratory Results - last 24 hr 04/26/25 04/26/25 04/27/25 16:11 20:37 06:12 MCV 95.0 MCH 30.3 MCHC 31.9 RDW 16.9 H Plt Count 222 MPV 10.4 Immature Gran % (Auto) 1.5 H Neut % (Auto) 59.0 Lymph % (Auto) 27.5 Cherry % (Auto) 11.7 H Eos % (Auto) 0.0 Baso % (Auto) 0.3 Lymph # (Auto) 2.8 Cherry # (Auto) 1.2 Eos # (Auto) 0.0 Baso # (Auto) 0.0 Abs Immat Gran (auto) 0.15 H Absolute Neuts (auto) 6.0 Absolute Nucleated RBC 0.000 Nucleated RBC % (auto) 0.0 Anion Gap 13 Estim Creat Clear Calc 45.0 Estimated GFR 58 POC Glucose 197 H 155 H Fasting Glucose 105 H Calcium 8.7 Total Bilirubin 0.4 AST 13 ALT < 6 Alkaline Phosphatase 97 Total Protein 5.6 L Albumin 3.4 L 04/27/25 04/27/25 07:15 11:23 MCV MCH MCHC RDW Plt Count MPV Immature Gran % (Auto) Neut % (Auto) Lymph % (Auto) Cherry % (Auto) Eos % (Auto) Baso % (Auto) Lymph # (Auto) Cherry # (Auto) Eos # (Auto) Baso # (Auto) Abs Immat Gran (auto) Absolute Neuts (auto) Absolute Nucleated RBC Nucleated RBC % (auto) Anion Gap Estim Creat Clear Calc Estimated GFR POC Glucose 98 117 H Fasting Glucose Calcium Total Bilirubin AST ALT Alkaline Phosphatase Total Protein Albumin Assessment and Plan (1) Acute hypoxic respiratory failure: Status: Acute (2) Decompensated heart failure: Status: Acute (3) Hematochezia: Status: Acute Plan 89yo F with mod , recent stress cardiomyopathy with reduced EF [30-35% 03/29/25], recent episode of postoperative brief AF for which started on amiodarone, DM2, HTN; was at [facility] undergoing rehabilitation after repaired L femur fracture, sent in hypotension after escalating diuretics in conext of worsening edema and weight gain with hypoxia and dyspnea. Found to have ground- glass opacities in lungs suspicious for amiodarone-induced lung injury, hypoxia, and HERMINIO. 1.Melena -hemoglobin\ dropped to 9 from 11 -recheck hemoglobin in a.m. -discussed options with GI at that time 2.Acute hypoxic respiratory failure due to amiodarone-induced lung injury -IV steroids 04/24-; weaned off supplemental O2 -switch to oral in a.m. 3.Acute on Chronic HF with recovered EF -Jardiance 10 mg daily -switch to p.o. Lasix in a.m. 4.HERMINIO -responded to volume -continue to hold ARB -follow renals/divalents 5. Paroxysmal atrial fibrillation - start Sotalol(with Cards approval).. DC metoprolol - started apixaban for stroke prevention 04/24 -monitor on tele 6. Diabetes type 2 -acceptable control at this time -follow response to Jardiance addition -lispro correctional scale -adjust as indicated Eliquis Full code In my clinical judgment, the patient requires continued inpatient hospitalization for the following reasons: HERMINIO, hypotension, L-sided then R- sided HF, hypoxia, cardiology consultation Quality Stroke Does the patient have a stroke diagnosis?: No VTE Prior VTE?: No VTE Risk Level:: Medical - moderate - high VTE Device Contraindication: Treatment Not Indicated VTE Drug Contraindication: N/A - Med Ordered
[2025-04-27 14:53] VITALS: BP 129/58; PULSE 65; RESP 18; TEMP 36.9; O2SAT 94
[2025-04-27 15:26] LABS: Magnesium 2.3 mg/dL (1.6-2.6)
[2025-04-27 16:37] LABS: Glucose, Whole Blood 221 mg/dL (60-115)
--- NOTE | 2025-04-27 17:57 | ECG_ITS ---
Test Reason : 2hrs after sotolol admin, check qtc Blood Pressure : */* mmHG Vent. Rate : 64 BPM Atrial Rate : 64 BPM P-R Int : 174 ms QRS Dur : 144 ms QT Int : 490 ms P-R-T Axes : 26 -53 -15 degrees QTcB Int : 505 ms Normal sinus rhythm Right bundle branch block Left anterior fascicular block Bifascicular block Septal infarct , age undetermined T wave abnormality, consider lateral ischemia Abnormal ECG When compared with ECG of 27-Apr-2025 12:22, No significant change was found Referred By: Tigre Keene Electronically Signed By: Surendra Bowen
[2025-04-27 19:12] VITALS: BP 113/56; PULSE 59; RESP 17; TEMP 37.1; O2SAT 95
[2025-04-27 20:51] LABS: Glucose, Whole Blood 161 mg/dL (60-115)
[2025-04-27 23:12] VITALS: BP 121/56; PULSE 50; RESP 16; TEMP 36.6; O2SAT 93
[2025-04-28] MEDS: 0.9 % Sodium Chloride Flush 3 ML SYRINGE IVFLUSH ×2 (00:59→09:45)
[2025-04-28 03:14] VITALS: BP 124/76; PULSE 115; RESP 16; TEMP 36.8; O2SAT 86
[2025-04-28 03:25] VITALS: BP 138/65; PULSE 51; RESP 15; TEMP 36.3; O2SAT 91
[2025-04-28 06:42] LABS: MANUAL DIFF FLAG NO
[2025-04-28 06:45] LABS: Hematocrit 29.6 % (37.0-47.0); Hemoglobin 9.5 g/dl (12.0-16.0); Imm Gran Abs Auto 0.22 X10*3/uL (0.00-0.03); Imm Gran Pct Auto 1.8 % (0.0-0.4); Lymphocytes Absolute Auto 3.7 X10*3/uL (1.2-4.9); Mean Corpuscular HGB Conc 32.1 g/dl (31.0-35.0); Mean Corpuscular Hemoglobin 30.2 pg (27.0-33.0); Mean Corpuscular Volume 94.0 fL (80.0-98.0); NRBC Abs Auto 0.000 X10*3/uL (0.0-0.012); NRBC Pct Auto 0.0 /100WBC (0.0-0.2); Platelet Count 257 X10*3/uL (160-400); Red Blood Count 3.15 X10*6/uL (4.20-5.50); White Blood Count 12.1 X10*3/uL (4.8-10.8)
[2025-04-28 07:00] LABS: Alanine Aminotransferase < 6 U/L (0-31); Albumin Level 3.3 g/dL (3.5-5.0); Alkaline Phosphatase 93 U/L (39-117); Anion Gap 13 (12-20); Aspartate Amino Transferase 16 U/L (5-31); Blood Urea Nitrogen 39 mg/dL (9-16); Calcium 8.5 mg/dL (8.4-10.2); Carbon Dioxide 30 mmol/L (22-29); Chloride 105 mmol/L (96-108); Creatinine Clr Calc Pharmacy 35.4; Estimated Glomerular Filt Rate 44; Magnesium 2.3 mg/dL (1.6-2.6); Potassium 3.9 mmol/L (3.3-5.1); Sodium 144 mmol/L (135-145); Total Protein 5.5 g/dL (6.5-8.0)
--- NOTE | 2025-04-28 07:00 | ECG_ITS ---
Test Reason : new medication administer Blood Pressure : */* mmHG Vent. Rate : 61 BPM Atrial Rate : 51 BPM P-R Int : 160 ms QRS Dur : 148 ms QT Int : 492 ms P-R-T Axes : 34 -52 5 degrees QTcB Int : 495 ms Sinus bradycardia with Premature supraventricular complexes Right bundle branch block Left anterior fascicular block Bifascicular block Septal infarct (cited on or before 27-Apr-2025) T wave abnormality, consider lateral ischemia Abnormal ECG When compared with ECG of 27-Apr-2025 18:01, Premature supraventricular complexes are now Present Referred By: Tigre Keene Electronically Signed By: Surendra Bowen
[2025-04-28 07:15] VITALS: BP 142/63; PULSE 50; RESP 16; TEMP 36.1; O2SAT 94
[2025-04-28 07:17] LABS: Glucose, Whole Blood 102 mg/dL (60-115)
[2025-04-28 09:43] VITALS: BP 142/63
[2025-04-28] MEDS: Furosemide 20 MG/2 ML VIAL IVPUSH (09:43)
[2025-04-28] MEDS: Ferrous Sulfate 324 MG TABLET.DR PO (09:43)
[2025-04-28] MEDS: Ammonium Lactate 12 % Lotion 226 GM BOTTLE 1 APPL TOPICAL (09:44)
[2025-04-28] MEDS: oxyCODONE HCl Immed Release 5 MG TABLET PO (09:47)
--- NOTE | 2025-04-28 10:41 | MHC.CM.PN ---
Patient is not yet medically cleared for dc (IV Lasix & IV Solu Medrol).
[2025-04-28 11:38] LABS: Glucose, Whole Blood 121 mg/dL (60-115)
[2025-04-28 12:00] VITALS: BP 125/57; PULSE 74; RESP 16; TEMP 36.7; O2SAT 92
--- NOTE | 2025-04-28 13:22 | MHC.CM.PN ---
Per MD, Patient is medically cleared for dc to STR today. Patient will return to [facility] at [facility] today at 4PM, via [facility]. IMM was addressed with Patient.
--- NOTE | 2025-04-28 14:54 | PM.DS ---
DS: Providers Provider Date of admission: 04/23/25 09:35 Date of discharge: 04/28/25 Primary care physician: Unknown Physician Consults: 04/24/25 08:26 Consult to Cardiology Routine Consulting Provider: [facility] [place] [facility] Reason for consultation: stress cardiomyopathy, amio lung 04/24/25 10:05 Consult to Wound Care Routine Consulting Provider: [facility] [place] [facility] Reason for consultation: left leg 04/25/25 14:08 Consult to Gastroenterology Routine Consulting Provider: [facility] – [place] [facility] Reason for consultation: painless hematochezia, started on Eliquis 04/24 DS: Diagnosis Discharge Diagnosis (1) Acute hypoxic respiratory failure: Status: Acute (2) Decompensated heart failure: Status: Acute (3) Hematochezia: Status: Acute DS: Summary Hospital Course Hospital Course: 89-year-old female recently discharged from [facility] on 03/31/2025 after undergoing open reduction internal fixation of left femur fracture, postoperatively patient had a run of AFib with rapid ventricular response which responded to beta-blockers. Patient was placed on amiodarone 200 mg b.i.d. for 1 month and was discharged to rehab facility. As per patient she started noticing bilateral leg swelling and weight gain >7 lbs in last 48 hours. In rehab her dose of Lasix was doubled and yesterday she received additional dose of Bumex.Last night patient was noted to be hypoxic and was placed on oxygen by nasal cannula this morning patient was not feeling well with mild shortness of breath,denies chest pain, no palpitations, no dizziness, no lightheadedness, no urinary symptoms, denies cough, no fevers, no chills, a Argueta catheter was placed at rehab, her blood pressure was 89/54, her oxygenation dropped to 87% on 2 L therefore she was transferred to [facility]. In emergency room patient was noted to have a low blood pressure 86/36, she was afebrile, finger oximetry 98% on 6 L. EKG showed NSR, chest x-ray showed chronic interstitial lung disease with superimposed mild interstitial lung edema versus multifocal pneumonia. Labs showed creatinine of 2.13 with last creatinine 0.71 on 03/31/25, H&H stable. In ED patient treated with albumin, 250 mL IV fluids, IV ceftriaxone and 1 dose of midodrine blood pressure 93/47. [facility] Patient was admitted to telemetry where monitor did demonstrate transient intermittent atrial fibrillation. Patient did present with a acute hypoxic respiratory failure which was likely multifactorial possibly related to amiodarone toxicity. Amiodarone was DC in favor of metoprolol. As per cardiology, decision was made to start sotalol however patient's renal function would not support sotalol use. She was also noted to have intermittent melena requiring transfusions. She was transfused 2 units of packed cells with Lasix in between with good response to her hemoglobin. She was seen by Gastroenterology who felt given cardiac status and overall deconditioning patient was not a candidate for colonoscopy. Discussion with family related to ongoing melena and Eliquis use. During the 48 hours prior to her discharge she has not had any melanotic stool; her Eliquis will be continued. It is advised that she have a CBC twice weekly to document stability of hemoglobin. Should patient develop more melena or any other signs of GI bleed consideration should be made regarding DC anticoagulations. At this point in time she is medically acceptable for discharge. She has been in sinus rhythm for the last 48 hours and we will be discharged on metoprolol. Further plans as per receiving facility Time Attestation Discharge Coordination Time (in mins): 35 Quality: Safe Use of Opioids Does Pt have an Active Cancer Diagnosis on the Problem List?: No Quality: Stroke Does the patient have a stroke diagnosis?: No Physical Exam Vital Signs: Vital Signs: Last Vital Signs Temp 98.0 F 04/28/25 12:00 Pulse 74 04/28/25 12:00 Resp 16 04/28/25 12:00 BP 125/57 L 04/28/25 12:00 Pulse Ox 92 04/28/25 12:00 O2 Del Method Room Air 04/28/25 12:00 O2 Flow Rate 2 04/26/25 07:26 Oxygen Flow Rate 6 04/23/25 05:50 BMI result Body Mass Index 36.4 Const: Other: Awake alert no acute distress Resp: Other: Clear to auscultation bilaterally no rales rhonchi or wheezes Cardio: Other: No S4; positive S1-S2; no S3 2/6 systolic murmur best heard at right sternal border 2nd intercostal space GI: Other: Soft nontender nondistended normoactive bowel sounds Extrem: Other: Bilateral lower extremity edema DS: Data Data Completed and Pending Completed studies during hospitalization [Text1]: Procedures Reposition Left Upper Femur with Intramedullary Internal Fixation Device, Percutaneous Approach (03/26/25) Reposition Lumbar Vertebra, Percutaneous Approach (03/03/21) Supplement Lumbar Vertebra with Synthetic Substitute, Percutaneous Approach (03/03/21) Transfusion of Nonautologous Red Blood Cells into Peripheral Vein, Percutaneous Approach (03/26/25) Labs on day of discharge: Laboratory Results - last 24 hr 04/27/25 04/27/25 04/27/25 06:12 16:25 20:45 WBC RBC Hgb Hct MCV MCH MCHC RDW Plt Count MPV Immature Gran % (Auto) Neut % (Auto) Lymph % (Auto) Vernon % (Auto) Eos % (Auto) Baso % (Auto) Lymph # (Auto) Vernon # (Auto) Eos # (Auto) Baso # (Auto) Abs Immat Gran (auto) Absolute Neuts (auto) Absolute Nucleated RBC Nucleated RBC % (auto) Sodium Potassium Chloride Carbon Dioxide Anion Gap BUN Creatinine Estim Creat Clear Calc Estimated GFR POC Glucose 221 H 161 H Fasting Glucose Calcium Magnesium 2.3 Total Bilirubin AST ALT Alkaline Phosphatase Total Protein Albumin 04/28/25 04/28/25 04/28/25 06:14 07:13 11:35 WBC 12.1 H RBC 3.15 L Hgb 9.5 L Hct 29.6 L MCV 94.0 MCH 30.2 MCHC 32.1 RDW 16.5 H Plt Count 257 MPV 10.1 Immature Gran % (Auto) 1.8 H Neut % (Auto) 56.8 Lymph % (Auto) 30.4 Vernon % (Auto) 10.6 Eos % (Auto) 0.2 Baso % (Auto) 0.2 Lymph # (Auto) 3.7 Vernon # (Auto) 1.3 H Eos # (Auto) 0.0 Baso # (Auto) 0.0 Abs Immat Gran (auto) 0.22 H Absolute Neuts (auto) 6.9 Absolute Nucleated RBC 0.000 Nucleated RBC % (auto) 0.0 Sodium 144 Potassium 3.9 Chloride 105 Carbon Dioxide 30 H Anion Gap 13 BUN 39 H Creatinine 1.17 Estim Creat Clear Calc 35.4 Estimated GFR 44 POC Glucose 102 121 H Fasting Glucose 109 H Calcium 8.5 Magnesium 2.3 Total Bilirubin 0.4 AST 16 ALT < 6 Alkaline Phosphatase 93 Total Protein 5.5 L Albumin 3.3 L Discharge Plan Discharge Anticipated Discharge Date/Time: 04/28/25 14:49 Patient Disposition: Xfer SNF Discharge Diagnosis: Acute kidney injury Referrals: [facility] [address] [Outside] - 1 Week Physician,Unknown J [Primary Care Provider, Medical] - 1 Week Discharge Medications: New ferrous sulfate 324 mg (65 mg iron) Tablet,Delayed Release (Dr/Ec) 324 mg PO DAILY Qty: 30 0RF Eliquis 5 mg Tablet 5 mg PO BID Qty: 60 0RF Jardiance 10 mg Tablet 10 mg PO DAILY Qty: 30 0RF Continued PreserVision AREDS-2 250-90-40-1 mg Capsule 1 tab PO BID Ozempic 0.25 mg or 0.5 mg (2 mg/3 mL) pen injector 0.5 mg subcut MO Rx Instructions: for 4 weeks aspirin 325 mg Tablet 325 mg PO BID Qty: 30 0RF lorazepam 0.5 mg Tablet 0.5 mg PO BEDTIME PRN (Reason: Anxiety) Qty: 30 0RF metoprolol tartrate 25 mg Tablet 25 mg PO BID Qty: 60 0RF Protocol: Hold for SBP/HR < HOLD for SBP < : 95 HOLD for HR < : 60 simethicone 125 mg Capsule 125 mg PO QID PRN (Reason: gas) fexofenadine 180 mg Tablet 180 mg PO DAILY acetaminophen 500 mg Tablet 1,000 mg PO TID magnesium hydroxide [Milk of Magnesia] 400 mg/5 mL Suspension 30 ml PO DAILY PRN (Reason: Constipation) phenazopyridine 95 mg Tablet 190 mg PO DAILY bisacodyl 10 mg Suppository 10 mg [place] DAILY PRN (Reason: Constipation) docusate sodium [Colace] 100 mg Capsule 100 mg PO BID omeprazole 20 mg Capsule,Delayed Release(Dr/Ec) 20 mg PO DAILY@0630 bumetanide 1 mg Tablet 1 mg PO BID polyethylene glycol 3350 [Miralax] 17 gram/dose Powder 17 g PO DAILY PRN (Reason: Constipation) naproxen 500 mg tablet 500 mg PO BIDWM PRN (Reason: Pain) oxycodone 5 mg tablet 5 mg PO Q4H PRN (Reason: Pain, Moderate(Pain Scale 4-6)) Rx Instructions: Partial Fill upon patient request. pregabalin 150 mg capsule 150 mg PO DAILY atorvastatin 20 mg tablet 20 mg PO DAILY (DME) FreeStyle Lite Strips Strip See Rx Instructions .Route Qty: 100 0RF Rx Instructions: Check glucose 3 times a day before meals (DME) blood-glucose meter [FreeStyle Lite Meter] Kit See Rx Instructions .ROUTE .MEDSUPPLY Qty: 1 0RF Rx Instructions: Check glucose 3 times a day before meals losartan 100 mg tablet 100 mg PO DAILY Rx Instructions: On hold from 04/22/25 to 04/25/25 Discontinued amiodarone 200 mg tablet 200 mg PO BID Rx Instructions: Pt to switch to 200mg once daily on 05/01 Discharge Orders: Discharge Order (Routine); Ordered 04/28/25 Ordered By: Tigre Keene Diet: Advance to usual diet Activity on Discharge: As tolerated Stand Alone Forms: Patient Portal Discharge page Print Language: Lithuanian Care Plan Goals: Continue all meds as listed on transfer summary Health Concerns: Patient will require CBC twice weekly to document stability of hemoglobin Plan of Treatment: As per receiving facility Assessment: See discharge summary
== END 2025-04-28 16:17 | disposition skilled nursing facility (03) | DRG 205 ==
LOC: HO.ED 09:19 → HO.EDOVER 09:40 → HO.IMC 19:36
PROVIDERS: Emergency Medicine; Family Medicine; Admitting Provider Hospitalist; Emergency Provider Emergency Medicine; PCP Internal Medicine; Visit Provider Hospitalist
DX: J70.4 Drug-induced interstitial lung disorders, unspecified (principal); I50.23 Acute on chronic systolic (congestive) heart failure; J96.01 Acute respiratory failure with hypoxia; N17.9 Acute kidney failure, unspecified; K92.1 Melena; I35.0 Nonrheumatic aortic (valve) stenosis; I95.9 Hypotension, unspecified; E78.5 Hyperlipidemia, unspecified; E66.01 Morbid (severe) obesity due to excess calories; E11.40 Type 2 diabetes mellitus with diabetic neuropathy, unspecified; T46.2X5A Adverse effect of other antidysrhythmic drugs, initial encounter; Z68.36 Body mass index [BMI] 36.0-36.9, adult; I27.20 Pulmonary hypertension, unspecified; I49.1 Atrial premature depolarization; I48.0 Paroxysmal atrial fibrillation; I50.810 Right heart failure, unspecified; Z71.6 Tobacco abuse counseling; Z20.822 Contact with and (suspected) exposure to COVID-19; Z87.891 Personal history of nicotine dependence; Z79.82 Long term (current) use of aspirin; Z79.899 Other long term (current) drug therapy
CPT/HCPCS: 36415; 71045; 71250; 74178; 80048; 80053; 81001; 82607; 82728; 82746; 82947; 83540; 83605; 83615; 83735; 83880; 84145; 84484; 85014; 85018; 85025; 85027; 86850; 86900; 86901; 87040; 87637; 93005; 93308; 97162; 97530; 99285; J0696; J1938; J2919; P9047; Q9957; Q9967

== ENCOUNTER → 2025-04-23 06:03 | Outpatient (BNV) | payer MEDICARE, SELFPAY | PROVIDERS: Emergency Provider Emergency Medicine; Visit Provider Radiology Diagnostic Radiology | DX: J84.9 Interstitial pulmonary disease, unspecified (principal); R91.1 Solitary pulmonary nodule; K44.9 Diaphragmatic hernia without obstruction or gangrene; M75.32 Calcific tendinitis of left shoulder | CPT/HCPCS: 71045; 71250 ==

== ENCOUNTER → 2025-04-23 06:15 | Outpatient (BNV) | payer MEDICARE, SELFPAY | PROVIDERS: Admitting Provider Hospitalist; Emergency Provider Emergency Medicine; Visit Provider Internal Medicine Cardiovascular Disease | DX: I45.10 Unspecified right bundle-branch block (principal) | CPT/HCPCS: 93010 ==

== ENCOUNTER 2025-04-23 09:35 | Outpatient (BNV) | payer MEDICARE, SELFPAY | END 2025-04-24 10:16 | PROVIDERS: Admitting Provider Hospitalist; Emergency Provider Emergency Medicine; Visit Provider Internal Medicine Cardiovascular Disease | DX: I48.91 Unspecified atrial fibrillation (principal); R07.9 Chest pain, unspecified; I95.9 Hypotension, unspecified; I45.10 Unspecified right bundle-branch block | CPT/HCPCS: 93010; 93308; 93321 ==

== ENCOUNTER 2025-04-23 09:35 | Outpatient (BNV) | payer MEDICARE, SELFPAY | END 2025-04-25 14:07 | PROVIDERS: Admitting Provider Hospitalist; Emergency Provider Emergency Medicine; Visit Provider Radiology Diagnostic Radiology | DX: K44.9 Diaphragmatic hernia without obstruction or gangrene (principal); I70.0 Atherosclerosis of aorta; I25.10 Atherosclerotic heart disease of native coronary artery without angina pectoris | CPT/HCPCS: 74178 ==

== ENCOUNTER 2025-04-23 09:35 | Outpatient (BNV) | payer MEDICARE, SELFPAY | END 2025-04-27 12:22 | PROVIDERS: Admitting Provider Hospitalist; Emergency Provider Emergency Medicine; Visit Provider Internal Medicine Cardiovascular Disease | DX: I45.2 Bifascicular block (principal) | CPT/HCPCS: 93010 ==

== ENCOUNTER 2025-04-23 09:35 | Outpatient (BNV) | payer MEDICARE, SELFPAY | END 2025-04-26 09:50 | PROVIDERS: Admitting Provider Hospitalist; Emergency Provider Emergency Medicine; Visit Provider Internal Medicine Cardiovascular Disease | DX: R94.31 Abnormal electrocardiogram [ECG] [EKG] (principal); Z03.89 Encounter for observation for other suspected diseases and conditions ruled out | CPT/HCPCS: 93010 ==

== ENCOUNTER → 2025-04-23 09:35 | Outpatient (BNV) | payer MEDICARE, SELFPAY | PROVIDERS: Admitting Provider Hospitalist; Emergency Provider Emergency Medicine; Visit Provider Hospitalist | DX: I50.9 Heart failure, unspecified (principal) | CPT/HCPCS: 99233 ==

== ENCOUNTER → 2025-04-23 09:35 | Outpatient (BNV) | payer MEDICARE, SELFPAY | PROVIDERS: Admitting Provider Hospitalist; Emergency Provider Emergency Medicine; Visit Provider Internal Medicine Cardiovascular Disease | DX: J96.01 Acute respiratory failure with hypoxia (principal); I48.91 Unspecified atrial fibrillation; E87.70 Fluid overload, unspecified | CPT/HCPCS: 99223; 99233 ==

== ENCOUNTER → 2025-04-23 09:35 | Outpatient (BNV) | payer MEDICARE, SELFPAY | PROVIDERS: Admitting Provider Hospitalist; Emergency Provider Emergency Medicine; PCP Internal Medicine; Visit Provider Internal Medicine Gastroenterology | DX: K92.1 Melena (principal) | CPT/HCPCS: 99222 ==